=== PATIENT | male | born 1935 | race Caucasian/White ===

== ENCOUNTER 2018-03-04 06:13 | Emergency (ER) | payer OTHER ==
[2018-03-04] MEDS ORDERED: NA CHLORIDE 0.9% 1,000 ML ONE (06:48)
[2018-03-04 07:11] LABS: Absolute Lymphocytes (CBC) 1.1 K/uL (0.7-4.9); Absolute Monocytes 0.5 K/uL (0.1-1.3); Absolute Neutrophil 3.4 K/uL (1.8-8.0); Eosinophils % 5.3 % (0-4.4); Hematocrit 41.9 % (39.6-49.0); Lymphocytes % 20.2 % (15.3-44.8); MCH 29.1 pg (27.0-35.0); MCV 88.6 fL (80-100); MPV 7.5 fL (7.6-11.3); RBC Red Blood Cell Count 4.73 M/uL (4.33-5.43)
[2018-03-04 07:14] LABS: Protime INR 0.99
[2018-03-04] MEDS ORDERED: ACYCLOVIR 400 MG TABLET ONE (07:27)
[2018-03-04] MEDS ORDERED: FENTANYL CITR 100 MCG/2 ML ONE (07:50)
[2018-03-04 08:17] LABS: ALT/SGPT 24 U/L (12-78); AST/SGOT 28 U/L (15-37); Albumin 3.8 g/dL (3.4-5.0); Alkaline Phosphatase 56 U/L (45-117); BUN Blood Urea Nitrogen 25 mg/dL (7-18); Bicarbonate 30 mmol/L (21-32); Bilirubin Direct < 0.1 mg/dL (0-0.2); Bilirubin Total 0.3 mg/dL (0.2-1.0); C-Reactive Protein < 2.90 mg/L (<3.00); Creatine Phosphokinase 196 U/L (39-308); Glucose Level 97 mg/dL (74-106); Lipase 271 U/L (73-393); Potassium 3.7 mmol/L (3.5-5.1); Protein, Total 7.5 g/dL (6.4-8.2); Sodium Level 143 mmol/L (136-145)
[2018-03-04 08:27] LABS: CKMB Creatine Kinase MB 1.4 ng/mL (0.3-3.6)
--- NOTE | 2018-03-04 08:40 | EKG ---
Test Date: 2018-03-04 Test Time: 06:55:57 Manager Requirements: ROSSANA MEASUREMENT RESULTS: Intervals: Rate: 68 IL: 160 QRSD: 94 QT: 392 QTc: 416 [place]: P: 38 IL: 160 QRS: -15 T: 17 INTERPRETIVE STATEMENTS: Normal sinus rhythm Low voltage QRS Abnormal ECG Compared to ECG 11/01/2015 11:48:37 Low QRS voltage now present Electronically Signed On 03-04-18 08:39:36 CDT by Arturo Flores
--- NOTE | 2018-03-04 09:16 | RAD REPORT ---
EXAM DESCRIPTION: CT - Stone Protocol - 03/04/2018 9:03 am CLINICAL HISTORY: Right flank pain radiating to the right lower quadrant COMPARISON: CT July 2017 TECHNIQUE: Axial 5 mm thick images were obtained without oral or IV contrast. The [id number]-[id number] span s the entirety of the system including uppermost abdomen and lung bases. All CT scans are performed using dose optimization technique as appropriate and may include automated exposure control or mA/KV adjustment according to patient size. FINDINGS: No hydronephrosis is present and no obstructing ureteral calculi. No suspicious renal mass es. Isodense masses and pyelonephritis are not excluded on a stone protocol CT scan. Patient has a mi ld, symmetric nonspecific mesenteric stranding pattern matching prior CT. Partially filled urinary bl adder shows no suspicious finding. Prostate gland is prominent but stable. No seminal vesicle abnorma lity. Imaged portions of the liver, spleen and pancreas show no suspicious findings on non-contrast imaging . No gallbladder or biliary tree abnormality identified. Cyst in the anterior liver has not changed. No adrenal significant finding. No suspicious bowel findings. No appendicitis. No measurable diverticulosis. No mass or bulky lymphadenopathy. A few small nonspecific bilateral inguinal lymph nodes are present. Fat extends into the origin of each inguinal canal. No congestion or edema. No bowel involvement. No free air, free fluid or inflammatory stranding. Disc and bony degenerative changes are present. No acute or pathologic bone process. IMPRESSION: No hydronephrosis, obstructing calculus or acute finding. Isodense masses and pyelonephritis are not excluded on stone protocol technique.No clear change to th e system since July 2017. No appendicitis or other abnormality to explain right-sided symptoms.
--- NOTE | 2018-03-04 09:28 | EDPHYS ---
Physician Documentation [facility] Name: Jonathan Segundo Age: 82 yrs Sex: Male : 1935 Arrival Date: 03/04/2018 Time: 06:18 Bed 8 Private MD: Tru Hernandez ED Physician Yvon Acevedo HPI: 03/04 07:02 This 82 yrs old Male presents to ER via Ambulatory with complaints of snw possible kidney infection. 07:02 Onset: The symptoms/episode began/occurred gradually, 4 day(s) ago. Associated signs snw and symptoms: Pertinent positives: cough, right abd pain radiating to right flank. Sees Dr. Hernandez. Pt's Son has shingles now. Pt with "lots of stress" lately. Historical: - Allergies: 06:34 Morphine; tl2 - Home Meds: 06:34 aspirin 81 mg Oral TbEC 1 tab once daily [Active]; Ferrous Sulfate Oral [Active]; tl2 lisinopril 20 mg Oral tab 1 tab once daily [Active]; simvastatin 40 mg Oral tab 1 tab once daily [Active]; - PMHx: 06:34 High Cholesterol; Hypertension; tl2 - PSHx: 06:34 Appendectomy; tl2 - Immunization history:: Adult Immunizations up to date. - Social history:: Smoking status: Patient/guardian denies using tobacco, but has a distant history of tobacco abuse. - Ebola Screening: : No symptoms or risks identified at this time. ROS: 07:01 Eyes: Negative for injury, pain, redness, and discharge, ENT: Negative for injury, snw pain, and discharge, Neck: Negative for injury, pain, and swelling, Cardiovascular: Negative for chest pain, palpitations, and edema. 07:01 : Negative for injury, bleeding, discharge, and swelling, MS/Extremity: Negative for injury and deformity, Neuro: Negative for headache, weakness, numbness, tingling, and seizure. 07:01 Constitutional: Positive for body aches, malaise, poor PO intake. 07:01 Respiratory: Positive for cough. 07:01 Abdomen/GI: Positive for abdominal pain. 07:01 Back: Positive for flank pain, on the right, zoster like rash. 07:01 Skin: Positive for rash. Exam: 06:58 Head/Face: Normocephalic, atraumatic. Eyes: Pupils equal round and reactive to light, snw extra-ocular motions intact. Lids and lashes normal. Conjunctiva and sclera are non-icteric and not injected. Cornea within normal limits. Periorbital areas with no swelling, redness, or edema. ENT: Nares patent. No nasal discharge, no septal abnormalities noted. Tympanic membranes are normal and external auditory canals are clear. Oropharynx with no redness, swelling, or masses, exudates, or evidence of obstruction, uvula midline. Mucous membranes moist. Neck: Trachea midline, no thyromegaly or masses palpated, and no cervical lymphadenopathy. Supple, full range of motion without nuchal rigidity, or vertebral point tenderness. No Meningismus. Chest/axilla: Normal chest wall appearance and motion. Nontender with no deformity. No lesions are appreciated. 06:58 Respiratory: Lungs have equal breath sounds bilaterally, clear to auscultation and percussion. No rales, rhonchi or wheezes noted. No increased work of breathing, no retractions or nasal flaring. MS/ Extremity: Pulses equal, no cyanosis. Neurovascular intact. Full, normal range of motion. Neuro: Awake and alert, GCS 15, oriented to person, place, time, and situation. Cranial nerves II-XII grossly intact. Motor strength 5/5 in all extremities. Sensory grossly intact. Cerebellar exam normal. Normal gait. Psych: Awake, alert, with orientation to person, place and time. Behavior, mood, and affect are within normal limits. 06:58 Constitutional: The patient appears alert, awake, uncomfortable. 06:58 Cardiovascular: Rate: tachycardic, Pulses: no pulse deficits are appreciated, Heart sounds: normal, Edema: is not appreciated. 06:58 Abdomen/GI: Inspection: abdomen appears normal, Bowel sounds: normal, Palpation: soft, moderate abdominal tenderness, in the right upper quadrant. 06:58 Back: pain, that is moderate, that is severe, of the right low back, ROM is normal, normal spinal alignment noted, CVA tenderness, that is mild, zoster rash (noted x 2 days). Vital Signs: 06:35 BP 138 / 64; Pulse 97; Resp 20; Temp 98.1(O); Pulse Ox 98% on R/A; Weight 97.07 kg; tl2 Height 5 ft. 11 in. (180.34 cm); Pain 3/10; 08:09 BP 125 / 67; Pulse 88; Resp 17 S; Pulse Ox 96% on R/A; Pain 3/10; sg 08:38 BP 111 / 58; Pulse 63; Resp 18; Pulse Ox 96% ; sv 09:38 BP 120 / 66; Pulse 61; Resp 15; Pulse Ox 100% on R/A; sg 06:35 Body Mass Index 29.85 (97.07 kg, 180.34 cm) tl2 MDM: 06:28 Patient medically screened. snw 10:29 Data reviewed: vital signs, nurses notes. Data interpreted: Pulse oximetry: on room air snw is 100 %. Interpretation: normal. Counseling: I had a detailed discussion with the patient and/or guardian regarding: the historical points, exam findings, and any diagnostic results supporting the discharge/admit diagnosis, lab results, radiology results, the need for outpatient follow up, to return to the emergency department if symptoms worsen or persist or if there are any questions or concerns that arise at home. Special discussion: Based on the history and exam findings, there is no indication for further emergent testing or inpatient evaluation. I discussed with the patient/guardian the need to see the primary care provider for further evaluation of the symptoms. 03/04 06:31 Order name: Urine Microscopic Only [facility] 03/04 06:31 Order name: Urine Culture [facility] 03/04 06:31 Order name: T\\T\\S [facility] 03/04 06:31 Order name: Basic Metabolic Panel [facility] 03/04 06:31 Order name: Blood Culture Adult (2) [facility] 03/04 06:31 Order name: C-Reactive Protein [facility] 03/04 06:31 Order name: CBC with Diff w 03/04 06:31 Order name: Ckmb [facility] 03/04 06:31 Order name: CPK [facility] 03/04 06:31 Order name: Lactate sn 03/04 06:31 Order name: LFT's [facility] 03/04 06:31 Order name: Lipase; Complete Time: 08:48 snw 03/04 06:31 Order name: Procalcitonin; Complete Time: 07:51 snw 03/04 06:31 Order name: Protime (+inr); Complete Time: 07:21 snw 03/04 06:31 Order name: Ptt, Activated; Complete Time: 07:21 snw 03/04 06:31 Order name: Sed Rate; Complete Time: 07:27 snw 03/04 06:31 Order name: Troponin (emerg Dept Use Only); Complete Time: 07:35 snw 03/04 06:31 Order name: Chest Single View XRAY snw 03/04 06:32 Order name: Type and Screen; Complete Time: 08:58 EDMS 03/04 06:32 Order name: Basic Metabolic Panel; Complete Time: 08:48 EDMS 03/04 06:32 Order name: Blood Culture EDMS 03/04 06:32 Order name: C-Reactive Protein; Complete Time: 08:48 EDMS 03/04 06:32 Order name: CBC with Automated Diff; Complete Time: 07:27 EDMS 03/04 06:32 Order name: CKMB Creatine Kinase MB; Complete Time: 08:48 EDMS 03/04 06:32 Order name: Creatine Phosphokinase; Complete Time: 08:48 EDMS 03/04 06:32 Order name: Lactate; Complete Time: 07:35 EDMS 03/04 06:32 Order name: Liver (Hepatic) Function; Complete Time: 08:48 EDMS 03/04 08:59 Order name: ABO/RH no charge; Complete Time: 08:59 EDMS 03/04 06:31 Order name: Accucheck; Complete Time: 06:56 snw 03/04 06:31 Order name: Cardiac monitoring; Complete Time: 06:56 snw 03/04 06:31 Order name: EKG - Nurse/Tech; Complete Time: 06:56 snw 03/04 06:31 Order name: IV Saline Lock - Large Bore; Complete Time: 06:41 snw 03/04 06:31 Order name: Labs collected and sent; Complete Time: 06:41 snw 03/04 06:31 Order name: O2 Per Protocol; Complete Time: 06:41 snw 03/04 06:31 Order name: O2 Sat Monitoring; Complete Time: 06:42 snw 03/04 08:07 Order name: EKG Electrocardiogram EDMS 03/04 08:49 Order name: CT Stone Protocol; Complete Time: 09:23 snw Administered Medications: 06:52 Drug: NS 0.9% 1000 ml Route: IV; Rate: 75 ml/hr; Site: right antecubital; tl2 07:54 Drug: fentaNYL (PF) 25 mcg Route: IVP; Site: right antecubital; sg 07:54 Drug: Acyclovir 800 mg Route: PO; sg 08:55 Drug: NS 0.9% 500 ml Route: IV; Rate: bolus; Site: right antecubital; sg 09:38 Drug: predniSONE 20 mg Route: PO; sg 09:38 Drug: Pepcid 20 mg Route: PO; sg Disposition: 11:17 Co-signature as Attending Physician, Yvon Acevedo MD I agree with the assessment and pr plan of care. Disposition: 03/04/18 09:27 Discharged to Home. Impression: Zoster [herpes zoster], Other abdominal pain. - Condition is Stable. - Discharge Instructions: Shingles. - Prescriptions for LIDODERM PATCH - apply 1 patch by TOPICAL route as directed To place on intact skin only; 1 Pack. Valtrex 1 g Oral Tablet - take 1 tablet by ORAL route every 8 hours for 7 days; 21 tablet. Prednisone 20 mg Oral Tablet - take 1 tablet by ORAL route every 12 hours for 5 days; 10 tablet. Pepcid 20 mg Oral Tablet - take 1 tablet by ORAL route once daily; 20 tablet. - Medication Reconciliation Form, Thank You Letter, Antibiotic Education, Prescription Opioid Use form. - Follow up: Tru Hernandez DO; When: 2 - 3 days; Reason: Recheck today's complaints, Continuance of care, Re-evaluation by your physician. Follow up: Emergency Department; When: As needed; Reason: Worsening of condition. Signatures: Dispatcher [employer] Abram August RN RN sg Queenie Silverman, SUSTAINABILITY ANALYST-C SUSTAINABILITY ANALYST-Csnw Tamy Pena RN RN tl2 Yvon Acevedo MD MD wa Corrections: (The following items were deleted from the chart) 09:57 09:27 03/04/2018 09:27 Discharged to Home. Impression: Zoster [herpes zoster]; Other sg abdominal pain. Condition is Stable. Forms are Medication Reconciliation Form, Thank You Letter, Antibiotic Education, Prescription Opioid Use. Follow up: Tru Hernandez; When: 2 - 3 days; Reason: Recheck today's complaints, Continuance of care, Re-evaluation by your physician. Follow up: Emergency Department; When: As needed; Reason: Worsening of condition. snw
--- NOTE | 2018-03-04 09:28 | ER ---
Nurse's Notes [facility] Name: Jonathan Segundo Age: 82 yrs Sex: Male : 1935 Arrival Date: 03/04/2018 Time: 06:18 Bed 8 Private MD: Tru Hernandez Diagnosis: Zoster [herpes zoster];Other abdominal pain Presentation: 03/04 06:31 Presenting complaint: Patient states: Right flank pain that radiates to RLQ since tl2 Tuesday. Denies any problems urinating, denies NVD. Denies fever. Transition of care: patient was not received from another setting of care. Onset of symptoms was March 02, 2018. Risk Assessment: Do you want to hurt yourself or someone else? Patient reports no desire to harm self or others. Initial Sepsis Screen: Does the patient meet any 2 criteria? No. Patient's initial sepsis screen is negative. Does the patient have a suspected source of infection? No. Patient's initial sepsis screen is negative. Care prior to arrival: None. 06:31 Method Of Arrival: Ambulatory tl2 06:31 Acuity: ERIN 3 tl2 Triage Assessment: 06:35 General: Appears in no apparent distress. uncomfortable, Behavior is calm, cooperative, tl2 appropriate for age. Pain: Complains of pain in right low back Pain radiates to right lower quadrant Pain currently is 3 out of 10 on a pain scale. Quality of pain is described as sharp, Is continuous. Neuro: Level of Consciousness is awake, alert, obeys commands, Oriented to person, place, time, situation. Cardiovascular: Denies chest pain. Respiratory: Airway is patent Respiratory effort is even, unlabored, Respiratory pattern is regular, symmetrical. GI: Patient currently denies diarrhea, nausea, vomiting. : Denies burning with urination. Derm: Skin is pink, warm \T\ dry. Historical: - Allergies: 06:34 Morphine; tl2 - Home Meds: 06:34 aspirin 81 mg Oral TbEC 1 tab once daily [Active]; Ferrous Sulfate Oral [Active]; tl2 lisinopril 20 mg Oral tab 1 tab once daily [Active]; simvastatin 40 mg Oral tab 1 tab once daily [Active]; - PMHx: 06:34 High Cholesterol; Hypertension; tl2 - PSHx: 06:34 Appendectomy; tl2 - Immunization history:: Adult Immunizations up to date. - Social history:: Smoking status: Patient/guardian denies using tobacco, but has a distant history of tobacco abuse. - Ebola Screening: : No symptoms or risks identified at this time. Screenin:38 Abuse screen: Denies threats or abuse. Nutritional screening: No deficits noted. tl2 Tuberculosis screening: No symptoms or risk factors identified. Fall Risk None identified. Assessment: 06:35 General: see triage assessment. tl2 06:58 Reassessment: Will call pharmacy at 0700 to notify that we are out of Fentanyl. tl2 07:00 Reassessment: Patient appears in no apparent distress at this time. Patient and/or sg family updated on plan of care and expected duration. Pain level reassessed. Patient is alert, oriented x 3, equal unlabored respirations, skin warm/dry/pink. Patient states symptoms have not improved. 08:09 Reassessment: Patient appears in no apparent distress at this time. Patient and/or sg family updated on plan of care and expected duration. Pain level reassessed. Patient is alert, oriented x 3, equal unlabored respirations, skin warm/dry/pink. Patient states symptoms have not improved. Vital Signs: 06:35 BP 138 / 64; Pulse 97; Resp 20; Temp 98.1(O); Pulse Ox 98% on R/A; Weight 97.07 kg; tl2 Height 5 ft. 11 in. (180.34 cm); Pain 3/10; 08:09 BP 125 / 67; Pulse 88; Resp 17 S; Pulse Ox 96% on R/A; Pain 3/10; sg 08:38 BP 111 / 58; Pulse 63; Resp 18; Pulse Ox 96% ; sv 09:38 BP 120 / 66; Pulse 61; Resp 15; Pulse Ox 100% on R/A; sg 06:35 Body Mass Index 29.85 (97.07 kg, 180.34 cm) tl2 ED Course: 06:18 Patient arrived in ED. es 06:18 Tru Hernandez DO is Private Physician. es 06:28 [facility] Silver[facility]C [facility] snw 06:28 Yvon Acevedo MD is Attending Physician. snw 06:30 Inserted saline lock: 20 gauge in right antecubital area, using aseptic technique. bb Blood collected. 06:30 Initial lab(s) drawn, by me, sent to lab. First set of blood cultures drawn by me. bb 06:33 Triage completed. tl2 06:35 Arm band placed on right wrist. tl2 06:38 Patient has correct armband on for positive identification. Placed in gown. Bed in low tl2 position. Call light in reach. Side rails up X 1. Adult w/ patient. 06:41 X-ray completed. Portable x-ray completed in exam room. Patient tolerated procedure jw2 well. 06:42 Chest Single View XRAY In Process Unspecified. EDMS 06:50 Second set of blood cultures drawn by me, EKG done, by ED staff. bb 07:26 Abram Baugh, RN is Primary Nurse. sg 08:[address] via stretcher. cw1 09:03 CT Stone Protocol In Process Unspecified. EDMS 09:03 CT completed. Patient moved back from CT. cw1 09:27 Tru Hernandez DO is Referral Physician. snw 09:50 No provider procedures requiring assistance completed. IV discontinued, intact, sg bleeding controlled, No redness/swelling at site. Pressure dressing applied. Administered Medications: 06:52 Drug: NS 0.9% 1000 ml Route: IV; Rate: 75 ml/hr; Site: right antecubital; tl2 07:54 Drug: fentaNYL (PF) 25 mcg Route: IVP; Site: right antecubital; sg 07:54 Drug: Acyclovir 800 mg Route: PO; sg 08:55 Drug: NS 0.9% 500 ml Route: IV; Rate: bolus; Site: right antecubital; sg 09:38 Drug: predniSONE 20 mg Route: PO; sg 09:38 Drug: Pepcid 20 mg Route: PO; sg Outcome: 09:27 Discharge ordered by MD. snw 09:50 Discharged to home ambulatory, with family. sg 09:50 Condition: good 09:50 Discharge instructions given to patient, family, Instructed on discharge instructions, follow up and referral plans. medication usage, safety practices, Demonstrated understanding of instructions, follow-up care, medications, Prescriptions given X 4. 09:57 Patient left the ED. sg Signatures: Dispatcher [employer] Nyasia Pablo RN RN Abram Baugh RN RN sg Therrien, Shelly, LINING PRESSER-C LINING PRESSER-Csnw Christie Pino Brenda, RN RN Tresa Trevino cw1 Janey Wolff jw2 Tamy Pena RN RN tl2 [place] 3 Corrections: (The following items were deleted from the chart) 03/05 08:29 06 09:38 BP 120 / 66; Pulse 61bpm; Resp 65bpm; Pulse Ox 100% RA; dh3
[2018-03-04] MEDS ORDERED: predniSONE 20 MG TAB ONE (09:37)
[2018-03-04] MEDS ORDERED: FAMOTIDINE 20 MG TAB ONE (09:37)
[2018-03-04 10:01] VITALS: TEMP 98.1
[2018-03-04 10:05] VITALS: BP 120/66; O2SAT 100
--- NOTE | 2018-03-04 10:33 | RAD REPORT ---
EXAM DESCRIPTION: RAD - Chest Single View - 03/04/2018 6:49 am CLINICAL HISTORY: Right-sided chest and abdomen pain COMPARISON: July 2017 TECHNIQUE: AP portable chest image was obtained 0630 hours . FINDINGS: No new mass, infiltrate or failure finding. Chronic interstitial lung disease is present n ot clearly different. Heart and vasculature are normal. No measurable pleural effusion and no pneumot horax. No gross bony abnormality seen. No acute aortic findings suspected. IMPRESSION: No acute cardiopulmonary process. Chronic interstitial pattern is similar to comparison.
== END 2018-03-04 09:57 | disposition home or self-care (01) ==
LOC: ER 06:13
DX: B02.9 Zoster without complications (principal); I10 Essential (primary) hypertension; E78.00 Pure hypercholesterolemia, unspecified; Z79.82 Long term (current) use of aspirin; Z88.5 Allergy status to narcotic agent
CPT/HCPCS: 36415; 71045; 74176; 76377; 80048; 80076; 82550; 82553; 82962; 83605; 83690; 84145; 84484; 85025; 85610; 85652; 85730; 86140; 86850; 86900; 86901; 87040 ×2; 93005; J3010; J7030; 96374; 99284; J7512

== ENCOUNTER 2018-04-27 08:10 | Emergency (ER) | payer OTHER ==
[2018-04-27 08:50] LABS: Absolute Lymphocytes (CBC) 2.6 K/uL (0.7-4.9); Absolute Monocytes 0.7 K/uL (0.1-1.3); Absolute Neutrophil 4.1 K/uL (1.8-8.0); Basophils % 0.7 % (0-1.3); Eosinophils % 4.1 % (0-4.4); Hematocrit 39.1 % (39.6-49.0); Lymphocytes % 33.6 % (15.3-44.8); MCH 30.7 pg (27.0-35.0); MPV 7.1 fL (7.6-11.3); Monocytes % 8.6 % (3.3-12.3); RBC Red Blood Cell Count 4.39 M/uL (4.33-5.43)
--- NOTE | 2018-04-27 09:07 | RAD REPORT ---
EXAM DESCRIPTION: US - EXTREM VENOUS W COMPRESS NANCY - 04/27/2018 9:01 am CLINICAL HISTORY: SWELLING Bilateral leg edema and swelling. COMPARISON: No comparisons TECHNIQUE: Real-time sonographic interrogation of the left and right lower extremity deep venous sys tems was performed. FINDINGS: Normal compressibility, flow augmentation, phasic flow and spontaneous flow is identified in both the left and right lower extremity deep venous systems. IMPRESSION: No sonographic evidence of left or right lower extremity deep venous thrombosis.
[2018-04-27 09:11] LABS: Albumin 3.8 g/dL (3.4-5.0); Bilirubin Direct 0.2 mg/dL (0-0.2); Bilirubin Total 0.5 mg/dL (0.2-1.0); Potassium 3.7 mmol/L (3.5-5.1); Protein, Total 7.3 g/dL (6.4-8.2)
[2018-04-27 09:16] LABS: Urine Blood NEGATIVE (NEG); Urine Glucose NEGATIVE (NEG); Urine Protein 1+ (NEG); Urine pH 5.5 (5.0-7.0)
[2018-04-27] MEDS ORDERED: ACETAMINOPHEN 325 MG TABLET ONE (09:17)
[2018-04-27] MEDS ORDERED: CYCLOBENZAPRINE 10 MG TAB ONE (09:17)
[2018-04-27 09:59] LABS: Urine Bacteria NONE SEEN /HPF (NONE SEEN); Urine Culture Reflex Order NOT NEEDED; Urine Mucus LIGHT /HPF (NONE SEEN); Urine RBC <5 /HPF (NONE SEEN)
--- NOTE | 2018-04-27 10:43 | EDPHYS ---
Physician Documentation [facility] Name: Jonathan Segundo Age: 82 yrs Sex: Male : 1935 Arrival Date: 04/27/2018 Time: 08:13 Bed 14 Private MD: Tru Hernandez ED Physician Yvon Acevedo HPI: 04/27 08:32 This 82 yrs old Male presents to ER via Ambulatory with complaints of Kidney kav problem, Pain With Urination. 08:32 The patient presents with burning with urination. Modifying factors: The symptoms are kav alleviated by nothing, the symptoms are aggravated by urinating. The patient presents with pain that is acute, with no known mechanism of injury, PMHX: Chronic Back Pain, DDD. The symptoms are located in the low back, L5. Onset: The symptoms/episode began/occurred 5 year(s) ago. The pain does not radiate. The patient has not recently seen a physician. 09:28 Associated signs and symptoms: Pertinent positives: BLE swelling. The problem was kav sustained New Medication. Modifying factors: The patient symptoms are alleviated by nothing, the patient symptoms are aggravated by "...being on feet all day long". Severity of symptoms: At their worst the symptoms were mild, just prior to arrival. patient reports "...recently initiated on Amlodipine and Levothyroxine".. 09:44 PMHX: DDD, Chronic Lumbar Pain . kav Historical: - Allergies: 08:22 Morphine; tw2 - Home Meds: 08:22 simvastatin 40 mg Oral tab 1 tab once daily [Active]; lisinopril 20 mg Oral tab 1 tab tw2 once daily [Active]; Ferrous Sulfate Oral [Active]; aspirin 81 mg Oral TbEC 1 tab once daily [Active]; - PMHx: 08:22 Hypertension; High Cholesterol; tw2 - PSHx: 08:22 Appendectomy; Knee surgery; Back surgery; skin cancer removed from scalp; tw2 - Immunization history:: Adult Immunizations up to date. - Social history:: Smoking status: Patient/guardian denies using tobacco. - Ebola Screening: : Patient denies travel to an Ebola-affected area in the 21 days before illness onset. - Family history:: not pertinent. - Hospitalizations: : No recent hospitalization is reported. - History obtained from: . ROS: 08:36 Constitutional: Negative for fever, chills, and weight loss, Eyes: Negative for injury, kav pain, redness, and discharge, ENT: Negative for injury, pain, and discharge, Neck: Negative for injury, pain, and swelling, Cardiovascular: Negative for chest pain, palpitations, and edema, Respiratory: Negative for shortness of breath, cough, wheezing, and pleuritic chest pain, Abdomen/GI: Negative for abdominal pain, nausea, vomiting, diarrhea, and constipation, MS/Extremity: Negative for injury and deformity, Skin: Negative for injury, rash, and discoloration, Neuro: Negative for headache, weakness, numbness, tingling, and seizure, Psych: Negative for depression, anxiety, suicide ideation, homicidal ideation, and hallucinations, Allergy/Immunology: Negative for hives, rash, and allergies, Endocrine: Negative for neck swelling, polydipsia, polyuria, polyphagia, and marked weight changes, Hematologic/Lymphatic: Negative for swollen nodes, abnormal bleeding, and unusual bruising. 08:36 Back: Positive for pain with movement, of the . 08:36 : Positive for urinary symptoms, burning with urination. Exam: 08:36 Constitutional: This is a well developed, well nourished patient who is awake, alert, kav and in no acute distress. Head/Face: Normocephalic, atraumatic. Eyes: Pupils equal round and reactive to light, extra-ocular motions intact. Lids and lashes normal. Conjunctiva and sclera are non-icteric and not injected. Cornea within normal limits. Periorbital areas with no swelling, redness, or edema. ENT: Nares patent. No nasal discharge, no septal abnormalities noted. Tympanic membranes are normal and external auditory canals are clear. Oropharynx with no redness, swelling, or masses, exudates, or evidence of obstruction, uvula midline. Mucous membranes moist. Neck: Trachea midline, no thyromegaly or masses palpated, and no cervical lymphadenopathy. Supple, full range of motion without nuchal rigidity, or vertebral point tenderness. No Meningismus. Chest/axilla: Normal chest wall appearance and motion. Nontender with no deformity. No lesions are appreciated. Cardiovascular: Regular rate and rhythm with a normal S1 and S2. No gallops, murmurs, or rubs. Normal PMI, no JVD. No pulse deficits. Skin: Warm, dry with normal turgor. Normal color with no rashes, no lesions, and no evidence of cellulitis. MS/ Extremity: Pulses equal, no cyanosis. Neurovascular intact. Full, normal range of motion. Neuro: Awake and alert, GCS 15, oriented to person, place, time, and situation. Cranial nerves II-XII grossly intact. Motor strength 5/5 in all extremities. Sensory grossly intact. Cerebellar exam normal. Normal gait. Psych: Awake, alert, with orientation to person, place and time. Behavior, mood, and affect are within normal limits. 08:36 Respiratory: Lungs have equal breath sounds bilaterally, clear to auscultation and percussion. No rales, rhonchi or wheezes noted. No increased work of breathing, no retractions or nasal flaring. 08:36 Cardiovascular: Edema: 2+ edema to level of left foot, left toes, right foot and right toes. 08:36 Abdomen/GI: Inspection: obese Bowel sounds: normal, Palpation: abdomen is soft and non-tender. 08:36 Back: pain, that is moderate, of the L5, with movement, ROM is normal, normal spinal alignment noted, CVA tenderness, is absent, vertebral tenderness, is appreciated at , muscle spasm, is not present, Straight leg raises: of both lower extremities does not illicit pain. Vital Signs: 08:20 BP 148 / 75; Pulse 79; Resp 17; Temp 97.7(O); Pulse Ox 99% on R/A; tw2 08:59 BP 135 / 68; Pulse 67; Resp 17; Pulse Ox 95% on R/A; tw2 09:48 BP 133 / 70; Pulse 63; Resp 17; Pulse Ox 95% on R/A; tw2 10:42 BP 129 / 57; Pulse 60; Resp 17; Pulse Ox 97% on R/A; tw2 MDM: 08:14 Medical screening is not applicable. [facility] 10:41 Data reviewed: vital signs, nurses notes, lab test result(s), radiologic studies. [facility] 04/27 08:32 Order name: Amylase, Serum; Complete Time: 09:27 [facility] 04/27 08:32 Order name: Basic Metabolic Panel; Complete Time: 09:27 [facility] 04/27 08:32 Order name: CBC with Diff; Complete Time: 09:11 [facility] 04/27 08:32 Order name: Creatinine for Radiology; Complete Time: 09:11 kav 04/27 08:32 Order name: Hepatic Function; Complete Time: 09:27 kav 04/27 08:32 Order name: Lipase; Complete Time: 09:27 kav 04/27 08:32 Order name: Urine Microscopic Only; Complete Time: 10:26 kav 04/27 08:32 Order name: IV Saline Lock; Complete Time: 08:48 v 04/27 08:32 Order name: Labs collected and sent; Complete Time: 08:48 v 04/27 08:32 Order name: US Extremity Venous W Compression Lcive; Complete Time: 09:11 v 04/27 08:49 Order name: Urine Dipstick--Ancillary (enter results); Complete Time: 09:27 mb4 04/27 09:14 Order name: Hip Left 1 View XRAY 04/27 08:32 Order name: Urine Dipstick-Ancillary (obtain specimen); Complete Time: 08:48 kav Administered Medications: 09:23 Drug: Tylenol 650 mg Route: PO; tw2 10:52 Follow up: Response: No adverse reaction tw2 09:23 Not Given (pt is driving today, provider notified.): Cyclobenzaprine 10 mg PO once tw2 Disposition: 04/27/18 10:42 Discharged to Home. Impression: Low back pain, Pain in left hip. - Condition is Stable. - Discharge Instructions: Joint Pain, Arthritis, Back Exercises, [id number]. - Prescriptions for Cyclobenzaprine 10 mg Oral Tablet - take 1 tablet by ORAL route every 8 hours As needed; 30 tablet. - Medication Reconciliation Form, Thank You Letter, Antibiotic Education, Prescription Opioid Use form. - Follow up: Tru Hernandez; When: 5 - 6 days; Reason: Recheck today's complaints, Continuance of care, Re-evaluation by your physician. - Problem is new. - Symptoms have improved. Addendum: 04/29/2018 08:03 Co-signature as Attending Physician, Yvon Acevedo MD I agree with the assessment and w a plan of care. Signatures: [facility]patcher [facility] ED[facility], [employer] Bianca Smith RN RN tw2 Yvon Acevedo MD MD ma Corrections: (The following items were deleted from the chart) 04/27 08:36 08:15 This 82 yrs old Male presents to ER via Unassigned with complaints of kav Back Pain. kav 08:36 08:32 The patient presents with pain that is chronic, with no known mechanism of kav injury, kav 10:53 10:42 04/27/2018 10:42 Discharged to Home. Impression: Low back pain; Pain in left hip. tw2 Condition is Stable. Discharge Instructions: Back Exercises, [id number]. Forms are Medication Reconciliation Form, Thank You Letter, Antibiotic Education, Prescription Opioid Use. Follow up: Tru Hernandez; When: 5 - 6 days; Reason: Recheck today's complaints, Continuance of care, Re-evaluation by your physician. Problem is new. Symptoms have improved. kav
--- NOTE | 2018-04-27 10:43 | ER ---
Nurse's Notes [facility] Name: Jonathan Segundo Age: 82 yrs Sex: Male : 1935 Arrival Date: 04/27/2018 Time: 08:13 Bed 14 Private MD: Tru Hernandez Diagnosis: Low back pain;Pain in left hip Presentation: 04/27 08:18 Presenting complaint: Patient states: I am having a kidney problem, first thing in the tw2 morning it powers when i urinate and theres mucous coming out, i have b/l LE swelling, my stomach hurts. Transition of care: patient was not received from another setting of care. Onset of symptoms was April 27, 2018. Risk Assessment: Do you want to hurt yourself or someone else? Patient reports no desire to harm self or others. Initial Sepsis Screen: Does the patient meet any 2 criteria? No. Patient's initial sepsis screen is negative. Does the patient have a suspected source of infection? No. Patient's initial sepsis screen is negative. Care prior to arrival: None. 08:18 Method Of Arrival: Ambulatory tw2 08:18 Acuity: ERIN 3 tw2 Historical: - Allergies: 08:22 Morphine; tw2 - Home Meds: 08:22 simvastatin 40 mg Oral tab 1 tab once daily [Active]; lisinopril 20 mg Oral tab 1 tab tw2 once daily [Active]; Ferrous Sulfate Oral [Active]; aspirin 81 mg Oral TbEC 1 tab once daily [Active]; - PMHx: 08:22 Hypertension; High Cholesterol; tw2 - PSHx: 08:22 Appendectomy; Knee surgery; Back surgery; skin cancer removed from scalp; tw2 - Immunization history:: Adult Immunizations up to date. - Social history:: Smoking status: Patient/guardian denies using tobacco. - Ebola Screening: : Patient denies travel to an Ebola-affected area in the 21 days before illness onset. - Family history:: not pertinent. - Hospitalizations: : No recent hospitalization is reported. - History obtained from: . Screenin:24 Abuse screen: Denies threats or abuse. Nutritional screening: No deficits noted. tw2 Tuberculosis screening: No symptoms or risk factors identified. Fall Risk None identified. Assessment: 08:45 General: Appears in no apparent distress. well groomed, Behavior is calm, cooperative, tw2 appropriate for age. Pain: Complains of pain in "back, kidneys, stomach, legs". Neuro: Level of Consciousness is awake, alert, obeys commands, Oriented to person, place, time, situation. Cardiovascular: Edema is 2+ to left midcalf, left ankle, left foot, right midcalf, right ankle and right foot. Cardiovascular: Denies chest pain, shortness of breath, Heart tones S1 S2 Capillary refill < 3 seconds Patient's skin is warm and dry. GI: Abdomen is round Bowel sounds present X 4 quads. : Reports burning with urination, with first urination of the day. EENT: No signs and/or symptoms were reported regarding the EENT system. Derm: Skin is intact, is healthy with good turgor. 08:45 Respiratory: Airway is patent Respiratory effort is even, unlabored, Respiratory tw2 pattern is regular, symmetrical. 08:48 Reassessment: US at bedside at this time. tw2 09:01 Reassessment: Patient appears in no apparent distress at this time. No changes from tw2 previously documented assessment. Patient and/or family updated on plan of care and expected duration. Pain level reassessed. Patient is alert, oriented x 3, equal unlabored respirations, skin warm/dry/pink. 09:48 Reassessment: Patient appears in no apparent distress at this time. No changes from tw2 previously documented assessment. Patient and/or family updated on plan of care and expected duration. Pain level reassessed. Patient is alert, oriented x 3, equal unlabored respirations, skin warm/dry/pink. 10:43 Reassessment: Patient appears in no apparent distress at this time. No changes from tw2 previously documented assessment. Patient and/or family updated on plan of care and expected duration. Pain level reassessed. Patient is alert, oriented x 3, equal unlabored respirations, skin warm/dry/pink. Vital Signs: 08:20 BP 148 / 75; Pulse 79; Resp 17; Temp 97.7(O); Pulse Ox 99% on R/A; tw2 08:59 BP 135 / 68; Pulse 67; Resp 17; Pulse Ox 95% on R/A; tw2 09:48 BP 133 / 70; Pulse 63; Resp 17; Pulse Ox 95% on R/A; tw2 10:42 BP 129 / 57; Pulse 60; Resp 17; Pulse Ox 97% on R/A; tw2 ED Course: 08:13 Patient arrived in ED. mr 08:13 Tru Hernandez DO is Private Physician. mr 08:14 [facility] Angel F[facility] kav 08:14 Yvon Acevedo MD is Attending Physician. kav 08:17 Bianca Recinos, ANITA is Primary Nurse. tw2 08:19 Triage completed. tw2 08:20 Arm band placed on. tw2 08:24 Bed in low position. Call light in reach. quality assurance monitor chassis on. Pulse ox on. NIBP on. tw2 08:45 Inserted saline lock: 22 gauge in left antecubital area, using aseptic technique. Blood tw2 collected. 09:00 US Extremity Venous W Compression Clive In Process Unspecified. EDMS 09:00 Ultrasound completed. Patient tolerated well. aa4 10:19 X-ray completed. Portable x-ray completed in exam room. Patient tolerated procedure sw well. 10:22 Hip Left 1 View XRAY In Process Unspecified. EDMS 10:42 Tru Hernandez DO is Referral Physician. kav 10:52 No provider procedures requiring assistance completed. IV discontinued, intact, tw2 bleeding controlled, No redness/swelling at site. Pressure dressing applied. Administered Medications: 09:23 Drug: Tylenol 650 mg Route: PO; tw2 10:52 Follow up: Response: No adverse reaction tw2 09:23 Not Given (pt is driving today, provider notified.): Cyclobenzaprine 10 mg PO once tw2 Outcome: 10:42 Discharge ordered by . kav 10:52 Discharged to home ambulatory, with significant other. tw2 10:52 Condition: stable 10:52 Discharge instructions given to patient, family, Instructed on discharge instructions, follow up and referral plans. no drinking with medication, no driving heavy equipment, medication usage, Demonstrated understanding of instructions, follow-up care, medications, Prescriptions given X 1. 10:53 Patient left the ED. tw2 Signatures: Dispatcher [employer] EDPR Mya Angel FNP FNP kav Rivera, Maria mr Guthrie Janelle aa4 Sarai Le Tara, RN RN tw2 Corrections: (The following items were deleted from the chart) 08:47 08:45 Cardiovascular: Denies chest pain, shortness of breath, Heart tones S1 S2 tw2 Capillary refill < 3 seconds Patient's skin is warm and dry. tw2
[2018-04-27 10:59] VITALS: TEMP 97.7
[2018-04-27 11:02] VITALS: BP 129/57; O2SAT 97
--- NOTE | 2018-04-27 11:08 | RAD REPORT ---
EXAM DESCRIPTION: RAD - Hip Left 1 View - 04/27/2018 10:21 am CLINICAL HISTORY: Hip pain COMPARISON: CT abdomen and pelvis March 04, 2018 FINDINGS: Single AP view of the pelvis was requested and performed. No fracture or dislocation of the proximal femur. No AVN or focal femoral head abnormality. Medial daniel int space narrowing is present. There is minimal degenerative change along the superior margin of the acetabulum. Partially imaged SI joint shows no significant degenerative change. No pathologic bone p rocess of the left gladis pelvis or proximal left femur. Soft tissues lateral to the hip joint are mildly edematous. No air or foreign body. IMPRESSION: Minimal degenerative change with no acute or significant left hip joint finding.
== END 2018-04-27 10:53 | disposition home or self-care (01) ==
LOC: ER 08:10
DX: M25.552 Pain in left hip (principal); I10 Essential (primary) hypertension; E78.00 Pure hypercholesterolemia, unspecified; Z79.82 Long term (current) use of aspirin; Z88.5 Allergy status to narcotic agent
CPT/HCPCS: 36415; 80048; 80076; 81003; 81015; 82150; 83690; 85025; 93970; 99284

== ENCOUNTER 2018-05-18 09:37 | Emergency (ER) | payer OTHER ==
[2018-05-18 11:28] LABS: Absolute Lymphocytes (CBC) 1.7 K/uL (0.7-4.9); Absolute Monocytes 0.5 K/uL (0.1-1.3); Absolute Neutrophil 3.4 K/uL (1.8-8.0); Basophils % 0.9 % (0-1.3); Eosinophils % 4.7 % (0-4.4); Hematocrit 37.1 % (39.6-49.0); Lymphocytes % 28.2 % (15.3-44.8); MCH 30.5 pg (27.0-35.0); MCV 88.5 fL (80-100); MPV 7.8 fL (7.6-11.3); Monocytes % 8.8 % (3.3-12.3); RBC Red Blood Cell Count 4.19 M/uL (4.33-5.43)
[2018-05-18 11:54] LABS: Albumin 3.5 g/dL (3.4-5.0); Bilirubin Direct 0.2 mg/dL (0-0.2); Bilirubin Total 0.4 mg/dL (0.2-1.0); Potassium 3.8 mmol/L (3.5-5.1); Protein, Total 6.9 g/dL (6.4-8.2)
[2018-05-18 11:59] LABS: Urine Blood NEGATIVE (NEG); Urine Glucose NEGATIVE (NEG); Urine Protein NEGATIVE (NEG); Urine Specific Gravity 1.015 (1.005-1.030); Urine pH 7.5 (5.0-7.0)
[2018-05-18 12:12] LABS: Urine Amorphous Sediment 2+ /HPF (NONE SEEN); Urine Bacteria NONE SEEN /HPF (NONE SEEN); Urine RBC NONE SEEN /HPF (NONE SEEN)
[2018-05-18 12:13] LABS: Urine Culture Reflex Order NOT NEEDED
--- NOTE | 2018-05-18 12:31 | RAD REPORT ---
EXAM DESCRIPTION: US - Abdomen Exam Limited - 05/18/2018 12:13 pm CLINICAL HISTORY: EPIGASTRIC PAIN COMPARISON: RP EXAM COMPLETE dated 12/27/2013 FINDINGS: The gallbladder demonstrates no gallstones. No pericholecystic fluid or gallbladder wall t hickening. The common bile duct is normal measuring 2 mm. The liver demonstrates no findings of intrahepatic biliary dilatation. IMPRESSION: Unremarkable examination.
--- NOTE | 2018-05-18 13:33 | RAD REPORT ---
EXAM DESCRIPTION: CTAbdomen Pelvis W Contrast - 05/18/2018 1:02 pm CLINICAL HISTORY: Abdominal pain. EPIGASTRIC PAIN COMPARISON: Abdomen Pelvis W Contrast dated 07/25/2017; Stone Protocol dated 03/04/2018 TECHNIQUE: Biphasic CT imaging of the abdomen and pelvis was performed with 100 ml non-ionic IV cont rast. All CT scans are performed using dose optimization technique as appropriate and may include automated exposure control or mA/KV adjustment according to patient size. FINDINGS: The lung bases are clear. Mild fatty liver is seen. Several low-density liver lesions are present, likely benign cysts. No aggr essive liver mass or biliary dilatation. The spleen, pancreas, adrenal glands and kidneys are within normal limits. No bowel obstruction, free air, free fluid or abscess. Appendectomy suspected. No evidence of signi ficant lymphadenopathy. Prostatomegaly is present. No suspicious bony findings. IMPRESSION: No acute intra-abdominal or pelvic finding. Moderate prostatomegaly.
--- NOTE | 2018-05-18 13:59 | EDPHYS ---
Physician Documentation [facility] Name: Jonathan Segundo Age: 83 yrs Sex: Male : 1935 Arrival Date: 05/18/2018 Time: 09:41 Bed 18 Private MD: Tru Hernandez ED Physician Jaime Ventura HPI: 05/18 10:20 This 83 yrs old Male presents to ER via Ambulatory with complaints of Urinary cp Problem. 10:20 The patient presents with abdominal pain in the epigastric area, abdominal distention cp that is diffuse. 10:20 Onset: The symptoms/episode began/occurred last week. Associated signs and symptoms: cp Pertinent positives: shortness of breath, mid back pain, Pertinent negatives: blood in stools, chest pain, constipation, diarrhea, dysuria, fever, palpitations, testicular pain. The symptoms are described as "I feel bloated". Modifying factors: the symptoms are aggravated by movement. Historical: - Allergies: 10:09 Morphine; causes "shaking"; ph - PMHx: 10:09 High Cholesterol; Hypertension; Hypothyroidism; neuropathy; ph - PSHx: 10:09 Appendectomy; Knee surgery; Back surgery; skin cancer removed from scalp; ph - Immunization history:: Adult Immunizations unknown. - Social history:: Smoking status: Patient/guardian denies using tobacco, Patient/guardian denies using alcohol. - Ebola Screening: : No symptoms or risks identified at this time. ROS: 10:25 Constitutional: Negative for body aches, chills, fever, poor PO intake, weight loss. cp 10:25 Eyes: Positive for blurry vision, Negative for discharge, pain, redness, vision loss. cp 10:25 ENT: Negative for drainage from ear(s), ear pain, sore throat, difficulty swallowing, difficulty handling secretions. 10:25 Cardiovascular: Positive for edema, Negative for chest pain, palpitations. 10:25 Respiratory: Positive for shortness of breath, Negative for cough, wheezing. 10:25 Abdomen/GI: Positive for abdominal pain, Negative for vomiting, diarrhea, constipation, anorexia, black/tarry stool, rectal bleeding. 10:25 Back: Positive for pain at rest, pain with movement. 10:25 : Negative for hematuria, testicular pain 10:25 Skin: Negative for cellulitis, rash. 10:25 Neuro: Negative for altered mental status, headache, numbness, syncope, near syncope, weakness. 10:25 All other systems are negative. Exam: 10:30 Constitutional: The patient appears in no acute distress, alert, awake, cp non-diaphoretic, non-toxic, well developed, well nourished. 10:30 Head/Face: Normocephalic, atraumatic. cp 10:30 Eyes: Periorbital structures: appear normal, Pupils: equal, round, and reactive to light and accomodation, Extraocular movements: intact throughout, Conjunctiva: normal, no exudate, no injection, Sclera: no appreciated abnormality, Lids and lashes: appear normal, bilaterally. 10:30 ENT: External ear(s): are unremarkable, Ear canal(s): are normal, clear, TM's: bulging, is not appreciated, bilaterally, dullness, bilaterally, erythema, is not appreciated, bilaterally, Nose: is normal, Mouth: is normal, Posterior pharynx: is normal, airway is patent, no erythema, no exudate, Voice: is normal. 10:30 Neck: ROM/movement: is normal, is supple, without pain, no range of motions limitations, no nuchal rigidity, Lymph nodes: no appreciated lymphadenopathy. 10:30 Chest/axilla: Inspection: normal, Palpation: is normal, no crepitus, no tenderness. 10:30 Cardiovascular: Rate: normal, Rhythm: regular, Pulses: Pulses are 2+ in right radial artery and left radial artery. Edema: mild bilateral lower legs, JVD: is not appreciated. 10:30 Respiratory: the patient does not display signs of respiratory distress, Respirations: normal, no use of accessory muscles, no retractions, no splinting, no tachypnea, labored breathing, is not present, Breath sounds: are clear throughout, no decreased breath sounds, no stridor, no wheezing. 10:30 Abdomen/GI: Inspection: distension, that is mild, Bowel sounds: active, all quadrants, Palpation: abdomen is soft and non-tender, in all quadrants, rebound tenderness, is not appreciated, voluntary guarding, is not appreciated, involuntary guarding, is not appreciated. 10:30 Back: CVA tenderness, is absent, vertebral tenderness, is not appreciated. 10:30 Skin: cellulitis, is not appreciated, no rash present. 10:30 Neuro: Orientation: to person, place \\T\\ time. Mentation: lucid, able to follow commands, Cerebellar function: is grossly normal, Motor: moves all fours, strength is normal, Sensation: no obvious gross deficits. Vital Signs: 10:07 BP 163 / 74; Pulse 65; Resp 18; Temp 98.2; Pulse Ox 98% on R/A; Weight 102.06 kg; ph Height 5 ft. 11 in. (180.34 cm); 11:56 BP 170 / 76; Pulse 72; Resp 18; Pulse Ox 97% on R/A; aj1 13:22 BP 168 / 75; Pulse 56; Resp 22; Pulse Ox 97% on R/A; aj1 14:24 BP 166 / 72; Pulse 61; Resp 18; Pulse Ox 97% ; aj1 10:07 Body Mass Index 31.38 (102.06 kg, 180.34 cm) ph MDM: 09:56 Patient medically screened. cp 10:00 Differential diagnosis: cholecystitis, Cholelithiasis, gastritis, non-specific abd cp pain, pancreatitis, Prostatitis, Pyelonephritis, Ureterolithiasis, urinary tract infection. 13:57 Data reviewed: vital signs, nurses notes, lab test result(s), radiologic studies, CT cp scan, ultrasound. 13:57 Counseling: I had a detailed discussion with the patient and/or guardian regarding: the cp historical points, exam findings, and any diagnostic results supporting the discharge/admit diagnosis, lab results, radiology results, the need for outpatient follow up, a abstracter, to return to the emergency department if symptoms worsen or persist or if there are any questions or concerns that arise at home. Response to treatment: the patient's symptoms have mildly improved after treatment, and as a result, I will discharge patient. Special discussion: Based on the patient's Hx, exam, and Dx evaluation, there is no indication for emergent surgery or inpatient Tx. It is understood by the patient/guardian that if the Sx's persist or worsen they need to return immediately for re-evaluation. 05/18 10:17 Order name: Amylase, Serum; Complete Time: 12:28 cp 05/18 10:17 Order name: Basic Metabolic Panel; Complete Time: 12:28 cp 05/18 12:29 Interpretation: Normal except: CL 108; GFR 53; CA 8.4. cp 05/18 10:17 Order name: CBC with Diff; Complete Time: 11:36 05/18 11:36 Interpretation: Normal except: RBC 4.19; HGB 12.8; HCT 37.1; EOSINOPHIL % 4.7. 05/18 10:17 Order name: Creatinine for Radiology; Complete Time: 11:36 05/18 10:17 Order name: Hepatic Function; Complete Time: 12:28 05/18 10:17 Order name: Lipase; Complete Time: 12:28 05/18 10:17 Order name: Urine Microscopic Only; Complete Time: 12:28 05/18 10:17 Order name: IV Saline Lock; Complete Time: 11:21 05/18 10:17 Order name: Labs collected and sent; Complete Time: 11:21 05/18 10:17 Order name: EKG; Complete Time: 10:18 05/18 10:17 Order name: BNP; Complete Time: 12:28 05/18 11:19 Order name: US Abdomen Limited: RUQ/epigastric; Complete Time: 12:32 05/18 12:33 Interpretation: Report reviewed. 05/18 11:24 Order name: Urine Dipstick--Ancillary (enter results) [facility] 05/18 12:32 Order name: CT Abd/Pelvis - W/Contrast: no oral contrast; Complete Time: 13:34 05/18 10:17 Order name: Urine Dipstick-Ancillary (obtain specimen); Complete Time: 11:21 Administered Medications: No medications were administered Disposition: 15:00 Chart complete. Disposition: 05/18/18 13:58 Discharged to Home. Impression: Epigastric pain. - Condition is Stable. - Discharge Instructions: Gastroesophageal Reflux Disease, Adult, Upper Endoscopy. - Prescriptions for Protonix 40 mg Oral Tablet - take 1 tablet by ORAL route once daily; 30 tablet. - Medication Reconciliation Form, Thank You Letter, Antibiotic Education, Prescription Opioid Use form. - Follow up: Yvon Malcolm MD; When: 2 - 3 days; Reason: Recheck today's complaints. - Problem is new. - Symptoms have improved. Addendum: 05/23/2018 07:03 Co-signature as Attending Physician, Jaime Ventura MD. r n Signatures: Dispatcher [facility] Lawanda Gillis RN RN aj1 Jaime Ventura MD MD rn Hall, Patricia, RN RN ph Jumana, Robert, PA PA cp Corrections: (The following items were deleted from the chart) 05/18 12:29 12:28 Normal except: CL 108; GFR 53. cp cp 14:26 13:58 05/18/2018 13:58 Discharged to Home. Impression: Epigastric pain. Condition is aj1 Stable. Forms are Medication Reconciliation Form, Thank You Letter, Antibiotic Education, Prescription Opioid Use. Follow up: Yvon Malcolm; When: 2 - 3 days; Reason: Recheck today's complaints. Problem is new. Symptoms have improved. cp
--- NOTE | 2018-05-18 13:59 | ER ---
Nurse's Notes [facility] Name: Jonathan Segundo Age: 83 yrs Sex: Male : 1935 Arrival Date: 05/18/2018 Time: 09:41 Bed 18 Private MD: Tru Hernandez Diagnosis: Epigastric pain Presentation: 05/18 10:04 Presenting complaint: Patient states: C/O abdominal swelling, epigastric discomfort, ph dajuan feet and ankle swelling and low back pain, reports symptoms began in February, denies chest pain, states, " I'm feeling a little SOB from the swelling in my stomach." Also reports dajuan eyelid swelling and blurred vision that is worse during the day, reports hx of cataracts. Transition of care: patient was not received from another setting of care. Onset of symptoms was May 18, 2018. Risk Assessment: Do you want to hurt yourself or someone else? Patient reports no desire to harm self or others. Initial Sepsis Screen: Does the patient meet any 2 criteria? No. Patient's initial sepsis screen is negative. Does the patient have a suspected source of infection? No. Patient's initial sepsis screen is negative. Care prior to arrival: None. 10:04 Method Of Arrival: Ambulatory ph 10:04 Acuity: ERIN 3 ph Historical: - Allergies: 10:09 Morphine; causes "shaking"; ph - PMHx: 10:09 High Cholesterol; Hypertension; Hypothyroidism; neuropathy; ph - PSHx: 10:09 Appendectomy; Knee surgery; Back surgery; skin cancer removed from scalp; ph - Immunization history:: Adult Immunizations unknown. - Social history:: Smoking status: Patient/guardian denies using tobacco, Patient/guardian denies using alcohol. - Ebola Screening: : No symptoms or risks identified at this time. Screenin:45 Abuse screen: Denies threats or abuse. Denies injuries from another. Nutritional aj1 screening: No deficits noted. Tuberculosis screening: No symptoms or risk factors identified. 14:25 Fall Risk None identified. aj1 Assessment: 10:45 General: Appears in no apparent distress. uncomfortable, Behavior is calm, cooperative, aj1 appropriate for age. Pain: Complains of pain in back and epigastric area Pain does not radiate. Pain currently is 8 out of 10 on a pain scale. Neuro: Level of Consciousness is awake, alert, obeys commands, Oriented to person, place, time, situation, Moves all extremities. Full function Speech is normal, Facial symmetry appears normal, Reports blurred vision. Cardiovascular: Swelling noted to bilateral lower legs. Cardiovascular: Patient's skin is warm and dry. Respiratory: Airway is patent Respiratory effort is even, unlabored, Respiratory pattern is regular, symmetrical. GI: Abdomen is round Reports upper abdominal pain, bloating. : No signs and/or symptoms were reported regarding the genitourinary system. EENT: No signs and/or symptoms were reported regarding the EENT system. Derm: No signs and/or symptoms reported regarding the dermatologic system. Skin is pink, warm \\T\\ dry. normal. Musculoskeletal: No signs and/or symptoms reported regarding the musculoskeletal system. Circulation, motion, and sensation intact. 11:56 Reassessment: Patient appears in no apparent distress at this time. No changes from aj1 previously documented assessment. Patient and/or family updated on plan of care and expected duration. Pain level reassessed. Patient is alert, oriented x 3, equal unlabored respirations, skin warm/dry/pink. 13:22 Reassessment: Patient and/or family updated on plan of care and expected duration. Pain aj1 level reassessed. General: Appears in no apparent distress. uncomfortable, Behavior is calm, cooperative, appropriate for age. Neuro: Level of Consciousness is awake, alert, obeys commands. Cardiovascular: Patient's skin is warm and dry. Respiratory: Airway is patent Respiratory effort is even, unlabored, Respiratory pattern is regular, symmetrical. GI: Abdomen is round. Derm: Skin is pink, warm \\T\\ dry. normal. Musculoskeletal: Circulation, motion, and sensation intact. 13:55 Reassessment: WILLIAM Dias at bedside. aj1 14:24 Reassessment: Patient appears in no apparent distress at this time. No changes from aj1 previously documented assessment. Patient and/or family updated on plan of care and expected duration. Pain level reassessed. Patient is alert, oriented x 3, equal unlabored respirations, skin warm/dry/pink. Vital Signs: 10:07 BP 163 / 74; Pulse 65; Resp 18; Temp 98.2; Pulse Ox 98% on R/A; Weight 102.06 kg; ph Height 5 ft. 11 in. (180.34 cm); 11:56 BP 170 / 76; Pulse 72; Resp 18; Pulse Ox 97% on R/A; aj1 13:22 BP 168 / 75; Pulse 56; Resp 22; Pulse Ox 97% on R/A; aj1 14:24 BP 166 / 72; Pulse 61; Resp 18; Pulse Ox 97% ; aj1 10:07 Body Mass Index 31.38 (102.06 kg, 180.34 cm) ph ED Course: 09:41 Patient arrived in ED. sb2 09:41 Tru Hernandez DO is Private Physician. sb2 09:56 Robert Denney PA is PHCP. cp 09:56 Jaime Ventura MD is Attending Physician. cp 10:06 Triage completed. ph 10:09 Arm band placed on Patient placed in an exam room. ph 10:22 Lawanda Gillis, ANITA is Primary Nurse. aj1 10:45 Patient has correct armband on for positive identification. Bed in low position. Call aj1 light in reach. Side rails up X 1. 10:45 No provider procedures requiring assistance completed. aj1 10:56 Initial lab(s) drawn, by tn, sent to lab. dh3 10:56 Inserted saline lock: 20 gauge in right antecubital area, using aseptic technique. dh3 Blood collected. 11:20 Urine collected: clean catch specimen, clear. dh3 11:28 EKG done, by health care technician. reviewed by Robert THOMAS. at1 12:14 US Abdomen Limited: RUQ/epigastric In Process Unspecified. EDMS 13:00 CT completed. Patient tolerated procedure well. Patient moved to CT via stretcher. Patient moved back from CT. 13:03 CT Abd/Pelvis - W/Contrast: no oral contrast In Process Unspecified. EDMS 13:57 Yvon Malcolm MD is Referral Physician. cp 14:25 IV discontinued, intact, bleeding controlled, No redness/swelling at site. Pressure aj1 dressing applied. Administered Medications: No medications were administered Outcome: 13:58 Discharge ordered by . cp 14:25 Discharged to home ambulatory. aj1 14:25 Condition: good 14:25 Discharge instructions given to patient, Instructed on discharge instructions, follow up and referral plans. medication usage, Demonstrated understanding of instructions, follow-up care, medications, Prescriptions given X 1. 14:26 Patient left the ED. aj1 Signatures: Dispatcher [employer] EDLawanda Damon RN RN aj1 Radha Baker Amanda, furnace cooler EKG Tat1 Allyssa De Leon RN RN ph Robert Denney PA PA cp Herrera, Deanna [facility] Cassandra Blunt sb2 Corrections: (The following items were deleted from the chart) 11:02 11:00 Inserted saline lock: 20 gauge in right antecubital area, using aseptic [facility] technique. Blood collected. [facility] 11:49 General: Appears in no apparent distress. uncomfortable, Behavior is calm, aj1 cooperative, appropriate for age, [facility] 11:49 Pain: Complains of pain in back and epigastric area Pain does not radiate. Pain aj1 currently is 8 out of 10 on a pain scale. [facility] 11:49 Neuro: Level of Consciousness is awake, alert, obeys commands, Oriented to aj1 person, place, time, situation, Moves all extremities. Full function Speech is normal, Facial symmetry appears normal, Reports blurred vision aj1 11:49 Cardiovascular: Patient's skin is warm and dry. aj1 aj1 : 11:49 Respiratory: Airway is patent Respiratory effort is even, unlabored, Respiratory aj1 pattern is regular, symmetrical, aj1 11:49 GI: Abdomen is round Reports upper abdominal pain, bloating, aj1 1 11:49 : No signs and/or symptoms were reported regarding the genitourinary system. aj1aj1 : 11:49 EENT: No signs and/or symptoms were reported regarding the EENT system. aj1 aj1 11:49 Derm: No signs and/or symptoms reported regarding the dermatologic system. Skin aj1 is pink, warm \\T\\ dry. normal, aj1 11:49 Musculoskeletal: No signs and/or symptoms reported regarding the musculoskeletal aj1 system. Circulation, motion, and sensation intact. aj1 11:49 Cardiovascular: Swelling noted to bilateral lower legs. aj1 aj1
[2018-05-18 14:53] VITALS: TEMP 98.2
[2018-05-18 14:55] VITALS: O2SAT 97
[2018-05-18 14:57] VITALS: BP 166/72
--- NOTE | 2018-05-18 15:09 | EKG ---
Test Date: 2018-05-18 Test Time: 11:09:59 Marketing Production Coordinator: MATIAS MEASUREMENT RESULTS: Intervals: Rate: 52 IN: 178 QRSD: 82 QT: 436 QTc: 405 Athena: P: 68 IN: 178 QRS: 51 T: 36 INTERPRETIVE STATEMENTS: Sinus bradycardia Otherwise normal ECG Compared to ECG 03/04/2018 06:55:57 Sinus rhythm no longer present Electronically Signed On 05-18-18 15:08:38 CDT by Mark Faye
== END 2018-05-18 14:26 | disposition home or self-care (01) ==
LOC: ER 09:37
DX: R10.13 Epigastric pain (principal); I10 Essential (primary) hypertension; Z88.5 Allergy status to narcotic agent; Z85.828 Personal history of other malignant neoplasm of skin
CPT/HCPCS: 36415; 74177; 76705; 80048; 80076; 82150; 83690; 83880; 85025; 93005; 99284; Q9967; 81003; 81015

== ENCOUNTER 2018-09-06 07:06 | Observation (INO) | payer OTHER ==
--- OUTSIDE RECORDS SUMMARY | 2018-09-06 07:08 | XMS REPORT ---
:1935 [facility] Address [address] [place] [address] [address] [place] [address] Care Team Providers Name Role Phone Unavailable Unavailable Unavailable Problems This patient has no known problems. Allergies, Adverse Reactions, Alerts This patient has no known allergies or adverse reactions. Medications This patient has no known medications.
--- NOTE | 2018-09-06 07:56 | EKG ---
Test Date: 2018-09-06 Test Time: 07:46:12 Machine Taper: MATIAS MEASUREMENT RESULTS: Intervals: Rate: 89 [place]: QRSD: 84 QT: 366 QTc: 445 [place]: P: [place]: QRS: 0 T: 27 INTERPRETIVE STATEMENTS: Atrial fibrillation Abnormal ECG Compared to ECG 05/18/2018 11:09:59 Sinus bradycardia no longer present Electronically Signed On 09-06-18 07:55:16 CLIENT TECHNICAL PROFESSIONAL by Arturo Flores
[2018-09-06 08:01] LABS: Protime INR 1.03
[2018-09-06 08:09] LABS: Absolute Lymphocytes (CBC) 1.7 K/uL (0.7-4.9); Absolute Monocytes 0.5 K/uL (0.1-1.3); Absolute Neutrophil 4.2 K/uL (1.8-8.0); Basophils % 0.7 % (0-1.3); Eosinophils % 3.3 % (0-4.4); Hematocrit 40.5 % (39.6-49.0); Lymphocytes % 25.1 % (15.3-44.8); MPV 8.1 fL (7.6-11.3); Monocytes % 7.6 % (3.3-12.3); RBC Red Blood Cell Count 4.66 M/uL (4.33-5.43)
[2018-09-06 08:21] LABS: Albumin 3.9 g/dL (3.4-5.0); Bilirubin Direct 0.1 mg/dL (0-0.2); Bilirubin Total 0.5 mg/dL (0.2-1.0); Magnesium 2.3 mg/dL (1.8-2.4); Potassium 3.8 mmol/L (3.5-5.1); Protein, Total 7.4 g/dL (6.4-8.2); Thyroid Stimulating Hormone 2.85 uIU/mL (0.360-3.740); Troponin (Emerg Dept Use Only) 0.03 ng/mL (0.0-0.045)
--- NOTE | 2018-09-06 08:56 | RAD REPORT ---
EXAM DESCRIPTION: RAD - Chest Single View - 09/06/2018 7:47 am CLINICAL HISTORY: Dyspnea COMPARISON: None. TECHNIQUE: AP portable chest image was obtained 0743 hours . FINDINGS: Chronic interstitial lung disease is present most notable in each base. Pattern is similar to comparison with no superimposed failure, infiltrate or mass seen. Heart and vasculature are armando l. No measurable pleural effusion and no pneumothorax. No acute bony abnormality seen. No acute aorti c findings suspected. IMPRESSION: Chronic interstitial lung disease similar to comparison. No acute finding.
[2018-09-06] MEDS ORDERED: ENOXAPARIN 100 MG/ML SYR SQ ONE (09:55)
--- NOTE | 2018-09-06 11:08 | RAD REPORT ---
EXAM DESCRIPTION: CT - Stone Protocol - 09/06/2018 11:01 am CLINICAL HISTORY: Flank pain. ABD PAIN COMPARISON: Abdomen Pelvis W Contrast dated 05/18/2018 TECHNIQUE: Axial images were obtained without oral or IV contrast. Lack of contrast limits solid org an and vascular assessment. The [id number] spans the entirety of the system partially obscuring uppermost abdomen and lung bases. Coronal reformatted images were obtained and reviewed. All CT scans are performed using dose optimization technique as appropriate and may include automated exposure control or mA/KV adjustment according to patient size. FINDINGS: Emphysematous changes are present in both lung bases posteriorly. Imaged portions of the liver and spleen show no suspicious findings on non-contrast imaging.Several b enign liver cysts are present. The pancreas and adrenal glands are normal. No pathologic lymphadenopa thy in the abdomen or pelvis. No urinary tract stones or obstructive uropathy. No bowel obstruction, free air, free fluid or abscess. Appendectomy. Mild prostatomegaly. Small fat containing inguinal hernias bilaterally. IMPRESSION: No urinary tract stones or obstructive uropathy.
--- NOTE | 2018-09-06 11:24 | RAD REPORT ---
EXAM DESCRIPTION: US - Abdomen Exam Limited - 09/06/2018 11:03 am CLINICAL HISTORY: Abdominal pain COMPARISON: CT study September 06 FINDINGS: No gallstones, sludge or other abnormalities within the gallbladder lumen. There is no wal l thickening or pericholecystic fluid. No common duct stone or biliary tree dilatation identified. Along the superior margin of the gallbladder fossa there is a 3.6 centimeter thin-walled anechoic cys t. This matches the CT finding. IMPRESSION: Normal gallbladder and biliary tree ultrasound.
[2018-09-06 13:30] LABS: Urine Blood NEGATIVE (NEG); Urine Glucose NEGATIVE (NEG); Urine Protein TRACE (NEG); Urine Specific Gravity 1.015 (1.005-1.030)
[2018-09-06] MEDS ORDERED: ACETAMINOPHEN 500 MG TAB PO PRN (13:40)
[2018-09-06] MEDS ORDERED: ONDANSETRON 4 MG/2 ML VIAL IV PRN (13:40)
[2018-09-06 14:10] VITALS: BMI 31.5
--- NOTE | 2018-09-06 15:31 | ECHO ---
HEIGHT: 5 ft 11 in WEIGHT: 226 lb 0 oz DATE OF STUDY: 09/06/[address]: Carine Herron MD 2-DIMENSIONAL: YES M.MODE: YES DOPPLER: YES COLOR FLOW: YES TDS: YES PORTABLE: DEFINITY: BUBBLE STUDY: DIAGNOSIS: SHORTNESS OF BREATH CARDIAC HISTORY: CATHERIZATION: NO SURGERY: NO PROSTHETIC VALVE: NO PACEMAKER: NO MEASUREMENTS (cm) DIASTOLIC (NORMALS) SYSTOLIC (NORMALS) IVSd 1.3 (0.6-1.2) LA Diam 3.7 (1.9-4.0) LVEF 51% LVIDd 4.2 (3.5-5.7) LVIDs 3.1 (2.0-3.5) %FS 26% LVPWd 1.5 (0.6-1.2) Ao Diam 3.6 (2.0-3.7) 2 DIMENSIONAL ASSESSMENT: RIGHT ATRIUM: NORMAL LEFT ATRIUM: NORMAL RIGHT VENTRICLE: NORMAL LEFT VENTRICLE: LEFT VENTRICULAR HYPERTROPHY TRICUSPID VALVE: NORMAL MITRAL VALVE: NORMAL PULMONIC VALVE: NORMAL AORTIC VALVE: SCLEROSIS PERICARDIAL EFFUSION: NONE AORTIC ROOT: NORMAL LEFT VENTRICULAR WALL MOTION: NORMAL DOPPLER/COLOR FLOW: MILD MITRAL REGURGITATION AND TRICUSPID REGURGITATION. NORMAL RIGHT VENTRICULAR SYSTOLIC PRESSURE. COMMENTS: NORMAL LEFT VENTRICULAR EJECTION FRACTION. LEFT VENTRICULAR HYPERTROPHY. AORTIC SCLEROSIS WITH NO AORTIC STENOSIS OR AORTIC REGURGITATION. MILD MITRAL REGURGITATION AND TRICUSPID REGURGITATION. TECHNOLOGIST: ANURAG GARNICA
[2018-09-06] MEDS ORDERED: SIMETHICONE 80 MG TAB PO PRN (18:01)
--- NOTE | 2018-09-06 18:09 | P.HP ---
Certification for Inpatient Patient admitted to: Observation With expected LOS: <2 Midnights Practitioner: I am a practitioner with admitting privileges, knowledge of patient current condition, hospital course, and medical plan of care. Services: Services provided to patient in accordance with Admission requirements found in Title 42 Section 412.3 of the Code of Federal Regulations Patient History Date of Service: 09/06/18 Primary Care Provider: Dr. Lee Reason for admission: Shortness of breath History of Present Illness: This is an 82-year-old male with history of hypertension, hyperlipidemia, neuropathy admitted for shortness of breath abdominal bloating. Patient said that 6 months ago he started shingles, was treated for a and since then he has had this abdominal bloating and shortness of breath that has been progressively worsening. Patient states that 6 months ago, his gabapentin was increased and thinks these symptoms may be coming from there. He states that the abdominal bloating stops him from bending over for too long likely tying issues very difficult because he gets short of breath. He did have an upper GI done on the with Dr. smith, was diagnosed with hiatal hernia, polyps and gastritis. In the ED, patient was alert oriented x3, hemodynamically stable. He was satting well on room air. Allergies morphine Allergy (Verified 09/06/18 13:44) Unknown Home Medications: Aspirin 81 mg PO DAILY 11/01/15 Simvastatin 40 mg PO DAILY 11/01/15 Carvedilol [Coreg*] 1 tab PO BID 09/06/18 Fluticasone [Flonase 50MCG Nasal [place]*] 2 spray .ROUTE DAILY 09/06/18 Gabapentin 600 mg PO DAILY 09/06/18 Levothyroxine [Synthroid*] 1 tab PO DAILY 09/06/18 Omeprazole [Prilosec] 40 mg PO DAILY 09/06/18 Ranitidine [Zantac*] 1 tab PO BEDTIME 09/06/18 - Past Medical/Surgical History Has patient received pneumonia vaccine in the past: Yes Diabetic: No -: htn -: hyperlipidemia -: hypothyroid -: neuropathy -: back surg -: lap appy -: R knee repair -: TURP -: skin CA removed from anterior head - Family History Brother -: Heart disease, Hypertension, Cancer - Social History Smoking Status: Former smoker Alcohol use: No CD- Drugs: No Caffeine use: Yes Place of Residence: Home Review of Systems 10-point ROS is otherwise unremarkable Physical Examination - Vital Signs Temperature: 97.6 F Blood Pressure: 194/90 Pulse: 84 Respirations: 18 Pulse Ox (%): 97 - Physical Exam General: Alert, In no apparent distress, Oriented x3 HEENT: Atraumatic, PERRLA, Mucous membr. moist/pink, EOMI, Sclerae nonicteric Neck: Supple, 2+ carotid pulse no bruit, No LAD, Without JVD or thyroid abnormality Respiratory: Clear to auscultation bilaterally, Normal air movement Cardiovascular: Regular rate/rhythm, Normal S1 S2 Gastrointestinal: Normal bowel sounds, Tenderness, Rebound, Guarding Musculoskeletal: No tenderness Integumentary: No rashes Neurological: Normal gait, Normal speech, Normal strength at 5/5 x4 extr, Normal tone, Normal affect - Studies Laboratory Data (last 24 hrs) 09/06/18 07:40: PT 12.1, INR 1.03 09/06/18 07:40: WBC 6.7, Hgb 13.6, Hct 40.5, Plt Count 196 09/06/18 07:40: Sodium 141, Potassium 3.8, BUN 21 H, Creatinine 1.33 H, Glucose 103, Magnesium 2.3, Total Bilirubin 0.5, AST 18, ALT 19, Alkaline Phosphatase 67 Assessment and Plan - Plan This is an 82-year-old male with: Shortness of breath. Only happens when bending over, when abdomen gets pressed. Clinically improved. Oxygen per protocol as needed Echo ordered, pending Will observe overnight Abdominal bloating Patient with a recent upper GI series done, found to have hiatal hernia polyps and gastritis. Patient also takes naproxen for arthritis. Counseled on discontinuing naproxen CT abdomen without any acute abnormalities Right upper quadrant ultrasound without any acute abnormalities Chronic kidney disease, stage 3 Patient with creatinine 1.31, seems to be at baseline. Will continue to monitor. Avoid nephrotoxic drugs, including NSAIDs. Hypertension Stable, restart home medications Hyperlipidemia Restart home medication Thyroid disease Restart home medication Neuropathy Patient currently on gabapentin, this increased 6 months ago by primary care. Per patient, seems to have symptoms increasing we worse after the dosage increase.. Care plans at this time, a trial off of it for 1 week. Patient will follow up with his primary care physician regarding restarting and dosage adjustment. DVT prophylaxis: Lovenox GI prophylaxis: Protonix Diet: Heart healthy Disposition: Pending symptomatic improvement. Likely discharge home tomorrow morning Discharge Plan: Home Plan to discharge in: 24 Hours - Advance Directives Does patient have a Living Will: No Does patient have a Durable POA for Healthcare: No
[2018-09-06] MEDS ORDERED: POTASSIUM CL SA 10 MEQ TAB PO ONE (19:56)
[2018-09-06] MEDS ORDERED: ATORVASTATIN 20 MG TAB PO SCH (21:00)
[2018-09-06] MEDS ORDERED: RANITIDINE 150 MG TABLET PO SCH (21:00)
[2018-09-06] MEDS: CARVEDILOL 6.25 MG TAB PO SCH (21:16)
[2018-09-07 04:05] VITALS: O2SAT 96
[2018-09-07 05:57] LABS: Absolute Lymphocytes (CBC) 2.4 K/uL (0.7-4.9); Absolute Monocytes 0.6 K/uL (0.1-1.3); Absolute Neutrophil 4.4 K/uL (1.8-8.0); Basophils % 0.8 % (0-1.3); Eosinophils % 2.6 % (0-4.4); Hematocrit 40.4 % (39.6-49.0); Lymphocytes % 30.7 % (15.3-44.8); MPV 7.9 fL (7.6-11.3); RBC Red Blood Cell Count 4.65 M/uL (4.33-5.43)
[2018-09-07] MEDS ORDERED: LEVOTHYROXINE SOD 0.05 MG TABLET PO SCH (06:00)
[2018-09-07 06:13] LABS: Albumin 3.4 g/dL (3.4-5.0); Bilirubin Total 0.5 mg/dL (0.2-1.0); Phosphorus 3.2 mg/dL (2.5-4.9); Potassium 3.6 mmol/L (3.5-5.1); Protein, Total 6.8 g/dL (6.4-8.2)
[2018-09-07] MEDS ORDERED: POTASSIUM CL SA 10 MEQ TAB PO ONE (06:47)
[2018-09-07] MEDS ORDERED: PANTOPRAZOLE 40MG TABLET PO SCH (07:30)
[2018-09-07] MEDS ORDERED: HOME MED 1 EA UNK (Omeprazole [Prilosec] 40 MG) PO SCH (09:00)
[2018-09-07] MEDS ORDERED: ENOXAPARIN 40 MG/0.4 ML SQ SCH (09:00)
[2018-09-07] MEDS ORDERED: ASPIRIN 81 MG CHEWABLE TABLET PO SCH (09:00)
[2018-09-07] MEDS ORDERED: HOME MED 1 EA UNK (Gabapentin [Gabapentin] 600 MG) PO SCH (09:00)
[2018-09-07] MEDS ORDERED: GABAPENTIN 300 MG CAP PO SCH (09:00)
[2018-09-07] MEDS ORDERED: HOME MED 1 EA UNK (Simvastatin [Simvastatin] 40 MG) PO SCH (09:00)
[2018-09-07] MEDS: CARVEDILOL 6.25 MG TAB PO SCH (09:54)
[2018-09-07 13:11] VITALS: BP 148/87; TEMP 97.7
--- NOTE | 2018-09-07 18:35 | P.SSS ---
Patient History Date of Service: 09/07/18 Primary Care Provider: Dr. Lee Reason for admission: Shortness of breath History of Present Illness: This is an 82-year-old male with history of hypertension, hyperlipidemia, neuropathy admitted for shortness of breath abdominal bloating. Patient said that 6 months ago he started shingles, was treated for a and since then he has had this abdominal bloating and shortness of breath that has been progressively worsening. Patient states that 6 months ago, his gabapentin was increased and thinks these symptoms may be coming from there. He states that the abdominal bloating stops him from bending over for too long likely tying issues very difficult because he gets short of breath. He did have an upper GI done on the with Dr. smith, was diagnosed with hiatal hernia, polyps and gastritis. In the ED, patient was alert oriented x3, hemodynamically stable. He was satting well on room air. Allergies morphine Allergy (Verified 09/06/18 13:44) Unknown Home Medications: Aspirin 81 mg PO DAILY 11/01/15 Simvastatin 40 mg PO DAILY 11/01/15 Carvedilol [Coreg*] 1 tab PO BID 09/06/18 Fluticasone [Flonase 50MCG Nasal [place]*] 2 spray .ROUTE DAILY 09/06/18 Gabapentin 600 mg PO DAILY 09/06/18 Levothyroxine [Synthroid*] 1 tab PO DAILY 09/06/18 Omeprazole [Prilosec] 40 mg PO DAILY 09/06/18 Ranitidine [Zantac*] 1 tab PO BEDTIME 09/06/18 - Past Medical/Surgical History Has patient received pneumonia vaccine in the past: Yes Diabetic: No -: htn -: hyperlipidemia -: hypothyroid -: neuropathy -: back surg -: lap appy -: R knee repair -: TURP -: skin CA removed from anterior head - Family History Brother -: Heart disease, Hypertension, Cancer - Social History Smoking Status: Former smoker Alcohol use: No CD- Drugs: No Caffeine use: Yes Place of Residence: Home Review of Systems 10-point ROS is otherwise unremarkable Physical Examination - Vital Signs Temperature: 97.7 F Blood Pressure: 148/87 Pulse: 92 Respirations: 20 Pulse Ox (%): 97 - Physical Exam General: Alert, In no apparent distress, Oriented x3 HEENT: Atraumatic, PERRLA, Mucous membr. moist/pink, EOMI, Sclerae nonicteric Neck: Supple, 2+ carotid pulse no bruit, No LAD, Without JVD or thyroid abnormality Respiratory: Clear to auscultation bilaterally, Normal air movement Cardiovascular: Regular rate/rhythm, Normal S1 S2 Gastrointestinal: Normal bowel sounds, No tenderness Musculoskeletal: No tenderness Integumentary: No rashes Neurological: Normal gait, Normal speech, Normal strength at 5/5 x4 extr, Normal tone, Normal affect Lymphatics: No axilla or inguinal lymphadenopathy Treatment Summary: Patient was admitted for abdominal bloating. Abdominal imaging was normal, echocardiogram was normal, patient's labs all remained normal. He also remained hemodynamically stable throughout the stay. Patient with a recent EGD with Dr. smith. Discussed case with Dr. malcolm on the telephone. Per Dr. smith , agrees that these symptoms do not to be GI in nature but as patient had an appointment at 3:00 p.m. today, he will see him in the office. Discussed patient that all labs, imaging look normal. Patient with a normal physical exam, normal situation on room air, no evidence of tachycardia or tachypnea on exam. Patient is to follow up his primary care physician for any further evaluation. - Disposition Disposition: ROUTINE DISCHARGE Condition: GOOD Patient Discharge Instructions: Please follow up with Dr. Malcolm, call his office and schedule an appointment for this afternoon. Dr. Malcolm is aware. Please follow up with your primary care physician. Diet: Regular Activity: Ad leroy Physician Review: Patient Assessed, Agree with Above Assessment and Plan Time Spent Managing Pts Care (In Minutes): 55
== END 2018-09-07 14:25 | disposition home or self-care (01) ==
LOC: ER 07:06 → ERHOLD 11:54 → 2ND 13:15
PROVIDERS: ADMIT Family Medicine; ATTEND Family Medicine
DX: R14.0 Abdominal distension (gaseous) (principal); I10 Essential (primary) hypertension; E78.5 Hyperlipidemia, unspecified; E03.9 Hypothyroidism, unspecified; Z79.82 Long term (current) use of aspirin
CPT/HCPCS: 36415; 71045; 74176; 76377; 76705; 80048; 80053; 80076; 81003; 83735; 83880; 84100; 84443; 84484; 85025 ×2; 85610; 87040 ×2; 93005; 93306; 94760 ×2; 96372; 99285; G0378 ×2; J1650 ×2

== ENCOUNTER → 2019-11-05 | Day surgery (SDC) | payer OTHER ==
--- OUTSIDE RECORDS SUMMARY | 2019-11-05 09:10 | XMS REPORT ---
:1935 [facility] Address [address] [place] [address] Care Team Providers Name Role Phone Unavailable Unavailable Unavailable Payers Payer Name Policy Type Policy Number Effective Date Expiration Date Problems This patient has no known problems. Allergies, Adverse Reactions, Alerts Allergy Allergy Status Severity Reaction(s) Onset Inactive Treating Comments Name Type Date Date Clinician morphine DA Active U 2019-04 00:00:0 0 Medications This patient has no known medications. Results Test Description Test Time Test Comments Text Results Atomic Results Result Comments BASIC METABOLIC PANEL 2019-04-14 08:43:00 Test Item Value Reference Range Comments SODIUM (test code=NA) 140 MMOL/L 137-145 POTASSIUM (test code=K) 3.6 MMOL/L 3.5-5.1 CHLORIDE (test code=CL) 106 MMOL/L 98-107 CARBON DIOXIDE (test code=CO2) 25 MMOL/L 22-30 GLUCOSE (test code=GLU) 111 MG/DL 74-106 BLOOD UREA NITROGEN (test 25 MG/DL 9-20 code=BUN) GLOMERULAR FILTRATION RATE (test 45 Reporting units: ml/min/1.73 m2 code=GFR) (Modified MDRD Formula)Reference Range: > or=60 ml/min/1.73 m2 CREATININE (test code=CREAT) 1.50 MG/DL 0.66-1.25 CALCIUM (test code=CA) 9.1 MG/DL 8.4-10.2 LIPID PROFILE (CORONARY RISK)2019-04-14 08:43:00 Test Item Value Reference Range Comments TRIGLYCERIDES (test code=TRIG) 105 MG/DL TRIGLYCERIDES REFERENCE RANGE:Normal: <150 mg/dLBorderline High: 150-199 mg/dLHigh: 200-499 mg/dLVery High: >=500 mg/dL CHOLESTEROL (test code=CHOL) 159 MG/DL <200 HDL CHOLESTEROL (test 42 MG/DL 40-59 code=HDL) LIPOPROTEIN LDL (test 99 MG/DL 0-99 code=LDL) OPTIMAL.........<100 mg/dLNEAR OPTIMAL/ABOVE OPTIMAL.........100-129 mg/dL BORDERLINE HIGH.........130-159 mg/dL HIGH.........160-189 mg/dL VERY HIGH.........>/=190 mg/dL [id number] 08:43:00 Test Item Value Reference Range Comments MAGNESIUM (test code=MAG) 2.1 MG/DL 1.6-2.3 BASIC METABOLIC [id number] 08:32:00 Test Item Value Reference Range Comments SODIUM (test code=NA) 140 MMOL/L 137-145 POTASSIUM (test code=K) 3.6 MMOL/L 3.5-5.1 CHLORIDE (test code=CL) 106 MMOL/L 98-107 CARBON DIOXIDE (test code=CO2) 25 MMOL/L 22-30 GLUCOSE (test code=GLU) 111 MG/DL 74-106 BLOOD UREA NITROGEN (test 25 MG/DL 9-20 code=BUN) GLOMERULAR FILTRATION RATE 45 Reporting units: ml/min/1.73 (test code=GFR) m2 (Modified MDRD Formula)Reference Range: > or=60 ml/min/1.73 m2 CREATININE (test code=CREAT) 1.50 MG/DL 0.66-1.25 CALCIUM (test code=CA) 9.1 MG/DL 8.4-10.2 LIPID PROFILE (CORONARY RISK)2019-04-14 08:32:00 Test Item Value Reference Range Comments TRIGLYCERIDES (test code=TRIG) 105 MG/DL TRIGLYCERIDES REFERENCE RANGE:Normal: <150 mg/dLBorderline High: 150-199 mg/dLHigh: 200-499 mg/dLVery High: >=500 mg/dL CHOLESTEROL (test code=CHOL) 159 MG/DL <200 HDL CHOLESTEROL (test 42 MG/DL 40-59 code=HDL) LIPOPROTEIN LDL (test MG/DL 0-99 code=LDL) [id number] 08:32:00 Test Item Value Reference Range Comments MAGNESIUM (test code=MAG) 2.1 MG/DL 1.6-2.3 PROTHROMBIN [id number] 08:30:00 Test Item Value Reference Range Comments PROTHROMBIN TIME PATIENT (test 11.9 SECONDS 9.6-11.6 code=PTP) INTERNATIONAL NORMAL RATIO 1.1 0.8-1.1 The INR is to be used only (test code=INR) for monitoring oral anticoagulanttherapy. INDICATION INR VALUE 1. Prophylaxis, deep venous thrombosis, including high risk surgery. 2.0 - 3.0 2. Prophylaxis, deep venous thrombosis, hip surgery, treatment for deep venous thrombosis or pulmonary prevention of systemic embolism in patients with valvular heart disease, atrial fibrillation, tissue heart valve, or acute myocardial infarction. 2.0 - 3.0 3. Mechanical prosthesis heart valves, recurrent systemic embolism. 3.0 - 4.5 PTT [id number] 08:30:00 Test Item Value Reference Range Comments PTT ACTIVATED (test code=APTT) 32.5 SECONDS 22.0-33.0 CBC W/AUTO [id number] 08:14:00 Test Item Value Reference Range Comments WHITE BLOOD CELL (test code=WBC) 7.0 K/MM3 3.8-9.8 RED BLOOD CELL (test code=RBC) 4.20 M/MM3 3.95-5.67 HEMOGLOBIN (test code=HGB) 13.0 G/DL 12.4-16.7 HEMATOCRIT (test code=HCT) 39.0 % 35.9-49.5 MEAN CELL VOLUME (test code=MCV) 93 fL 81.7-96.1 MEAN CELL HGB (test code=MCH) 31.0 pg 27.6-33.2 MEAN CELL HGB CONCETRATION (test code=MCHC) 33.3 % 32.9-35.5 RED CELL DISTRIBUTION WIDTH (test code=RDW) 12.7 % 12.1-15.2 PLATELET COUNT (test code=PLT) 191 K/MM3 129-368 MEAN PLATELET VOLUME (test code=MPV) 9.0 fl 7.4-10.4 NEUTROPHIL % (test code=NT%) 65.5 % 43-75 IMMATURE GRANULOCYTE % (test code=IG%) 0.6 % 0.0-2.0 LYMPHOCYTE % (test code=LY%) 24.2 % 14-44 MONOCYTE % (test code=MO%) 7.2 % 4-13 EOSINOPHIL % (test code=EO%) 1.9 % 0-6 BASOPHIL % (test code=BA%) 0.6 % 0-2 NUCLEATED RBC % (test code=NRBC%) 0.0 % 0-1.0 NEUTROPHIL # (test code=NT#) 4.59 K/mm3 2.0-7.6 IMMATURE GRANULOCYTE # (test code=IG#) 0.04 x10 3/uL 0-0.03 LYMPHOCYTE # (test code=LY#) 1.69 K/mm3 1.0-3.8 MONOCYTE # (test code=MO#) 0.50 K/mm3 0.1-0.8 EOSINOPHIL # (test code=EO#) 0.13 K/mm3 0.0-0.2 BASOPHIL # (test code=BA#) 0.04 K/mm3 0.0-0.2 NUCLEATED RBC # (test code=NRBC#) 0.00 K/mm3 0.0-0.1
--- NOTE | 2019-11-05 11:16 | RAD REPORT ---
EXAM DESCRIPTION: US - Guided FNA Non Breast - 11/05/2019 10:38 am CLINICAL HISTORY: R22.1 COMPARISON: Octreo Whole Body dated 10/02/2018; Stone Protocol dated 09/06/2018; Chest Pa And Lat (2 Vi ews) dated 08/10/2018; Thorax W/ Con dated 08/03/2018; Renal Ultrasound-Complete dated 06/01/2018 FINDINGS: Preoperative diagnosis: Right lateral neck mass.. Post operative diagnosis: Same. Conscious Sedation: None Fluoroscopy time: None Contrast used: None Estimated blood loss: Minimal Specimens:5 cc of fluid were obtained and to the lab. The right neck was prepped and draped in the usual sterile fashion. 1% lidocaine was infiltrated into the subcutaneous tissues for local anesthesia. Real time ultrasound scanning of the right neck demon strated circumscribed 2.4 x 2.1 x 1.6 cm cystic appearing lesion with internal debris. Under ultrasou nd guidance, using a 18-gauge needle was advanced into the lesion. Fluid was aspirated which was of a yellow/pinkish color and have the appearance of pus-like material. The fluid measure approximately 4-5 cc and sent to pathology for evaluation. The entire lesion was not seen the collapse completely. There were no complications. IMPRESSION: Successful ultrasound-guided aspiration of right neck cystic lesion. 5 cc of thick pus-l gricelda yellowish/pinkish fluid was obtained and sent to the lab. The entire lesion was not seen the silvio apsed completely.
== END ==
LOC: FNA 09:08
PROVIDERS: ATTEND Otolaryngology
PROC: 0W963ZX Drainage of Neck, Percutaneous Approach, Diagnostic (ICD-10-PCS; principal; 2019-11-05)
DX: R22.1 Localized swelling, mass and lump, neck (principal)
CPT/HCPCS: 88161

== ENCOUNTER 2021-07-24 16:24 | Emergency (ER) | payer OTHER ==
--- OUTSIDE RECORDS SUMMARY | 2021-07-24 16:28 | XMS REPORT | Continuity of Care Document ---
:1935 Author Organization [facility] t Address [address] [place] [place] [address] Care Team Providers Name Role Phone Chris Hernandez Primary Care Physician SYED Attending Clinician Unavailable Zechariah Heranndez Attending Clinician [phone] Amadeo Pearl Attending Clinician [phone] CHIQUITA Attending Clinician Unavailable MD GENO PORRAS Attending Clinician Unavailable Chhaya HOLM Attending Clinician Unknown Attending Clinician Unavailable Pal MANTILLA Attending Clinician SYED Admitting Clinician Unavailable CHIQUITA Admitting Clinician Unavailable MD GENO PORRAS Admitting Clinician Unavailable Payers Payer Name Policy Type Policy Number Effective Date Expiration Date S ource MEDICARE [place]: [id number] 2000 [place] 00:00:00 [employer] [id number] 2000 00:00:00 Problems Condition Condition Condition Status Onset Resolution Last Treating Co mments Source Name Details Category Date Date Treatment Clinician Date 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 [place] 00 Medica l Branch Allergies, Adverse Reactions, Alerts Allergy Allergy Status Severity Reaction(s) Onset Inactive Treating Comm ents Source Name Type Date Date Clinician morphine DA Active U 2018- [facility] 04-13 [place] 00:00: [address] [facility] Morphine Drug Active Other - See TremorNo U nivers Intolera comments 09-24 similar ity o f nce 00:00: side [place] [id number] effects Medical to Branch fentanyl, gabapenti n, hydrocodo ne (09/24/16) Social History Social Habit Start Date Stop Date Quantity Comments Source Alcohol intake 2016-10-26 2016-10-26 0 /d [facility] 00:00:00 00:00:00 Medical Branch Sex Assigned At [birth year] [facility] 00:00:00 00:00:00 Medical Branch Smoking Status Start Date Stop Date Source Never smoker [facility] Medical Branch Medications Ordered Filled Start Stop Current Ordering Indication Dosage Frequency Signature Comments Components Source Medication Medication Date Date Medication? Clinician (SIG) Name Name aspirin 81 2018- Yes 81mg Take 81 mg U nivers mg EC 8-13 by mouth ity of tablet 23:28: daily. [place] 53 Medical Branch gabapentin Yes Take by Uni vers ER 600 mg 8-13 mouth ity of tablet, 23:28: daily. [place] extended 53 Medical release 24 Branch hr rivaroxaban Yes 15mg Take 15 mg Univers (XARELTO) 8-13 by mouth 2 ity of 15 mg 23:28: (two) [place] tablet 53 times Medical daily. Branch amiodarone Yes Take by Uni vers HCl 8-13 mouth. ity of (AMIODARONE 23:28: [place] ORAL) 53 Medical Branch albuterol Yes Inhale. Unive rs sulfate 8-13 ity of (VENTOLIN 23:28: [place] HFA INHALE) 52 Medical Branch amoxicillin 2018- 2019- No [id number] 500mg Take 1 Univers 500 mg 8-04-25 tablet by ity of tablet 00:00: 04:59 mouth 2 [place] 00 :00 (two) Medical times Branch daily for 7 days. levothyroxi 2017-09 Yes 50ug Take 50 Uni vers ne 50 mcg 2-12 mcg by ity of tablet 14:41: mouth [place] [address] every Medical morning. Branch carvedilol 2017-09 Yes 6.25mg Take 6.25 Univers 6.25 mg 2-12 mg by ity of tablet 14:41: mouth 2 [place] [address] (two) Medical times Branch daily with meals. omeprazole 2017-09 Yes 40mg Take 40 mg U nivers 20 mg 2-12 by mouth ity of tablet 14:41: daily. [place] [address] Medical Branch fluticasone 2017-09 Yes 2{spray Use 2 Un kylah 50 2-12 } Sprays in ity of mcg/actuati 00:00: each [place] on nasal 00 nostril Medical spray daily. Branch simvastatin 2015-09 Yes 40mg Take 40 mg Univers (ZOCOR) 40 1-07 by mouth ity o f mg tablet 00:00: daily. [address] simvastatin 2015-09 Yes 40mg Take 40 mg Univers (ZOCOR) 40 1-07 by mouth ity o f mg tablet 00:00: daily. [address] lisinopril- 2015-09 Yes 1{tbl} Take 1 Un kylah hydrochloro 0-14 tablet by ity of thiazide 00:00: mouth [place] (PRINZIDE,Z 00 daily. Medica l ESTORETIC) Branch 20-12.5 mg per tablet lisinopril- 2015-09 Yes 1{tbl} Take 1 Un kylah hydrochloro 0-14 tablet by ity of thiazide 00:00: mouth [place] (PRINZIDE,Z 00 daily. Medica l ESTORETIC) Branch 20-12.5 mg per tablet Vital Signs Vital Name Observation Time Observation Value Comments Source Systolic blood 2019-04-17 23:25:00 173 mm[Hg] [facility] sity of pressure [facility] Diastolic blood 2019-04-17 23:25:00 79 mm[Hg] [facility] Heart rate 2019-04-17 23:24:00 62 /min [facility] Body temperature 2019-04-17 23:24:00 36.5 Gayla [facility] Respiratory rate 2019-04-17 23:24:00 18 /min [facility] Body height 2019-04-17 23:24:00 180.3 cm [facility] Body weight 2019-04-17 23:24:00 96.163 kg [facility] [place] [facility] BMI 2019-04-17 23:24:00 29.57 kg/m2 Universi ty of [facility] Branch Oxygen saturation in 2019-04-17 23:24:00 94 /min University of Arterial blood by [facility] Pulse oximetry Branch Systolic blood 2019-04-17 23:25:00 173 mm[Hg] Univer sity of pressure [facility] Diastolic blood 2019-04-17 23:25:00 79 mm[Hg] Unive rsity of pressure [facility] Heart rate 2019-04-17 23:24:00 62 /min Universi ty of [facility] Body temperature 2019-04-17 23:24:00 36.5 Gayla [facility] 2019-04-17 23:24:00 18 /min [facility] Body height 2019-04-17 23:24:00 180.3 cm Universi ty of [facility] Body weight 2019-04-17 23:24:00 96.163 kg [facility] [place] [facility] BMI 2019-04-17 23:24:00 29.57 kg/m2 Universi ty [facility] Branch Oxygen saturation in 2019-04-17 23:24:00 94 /min University of Arterial blood by [facility] Pulse oximetry Branch Procedures This patient has no known procedures. Encounters Start End Encounter Admission Attending Care Care Encounter Source Date/Time Date/Time Type Type Clinicians Facility Department ID 2021-07-20 [address] [facility] [id number] [address] [place] 17:59:20 [facility] 2021-07-[address] [facility] [id number] [address] [place] 06:33:59 622 [facility] 2021-07-[address] [id number] [address] [place] 02:37:29 612 [facility] 2021-07-[address] [id number] [address] [place] 22:46:38 603 [facility] 2021-07-[address] [facility] [id number] [address] [place] 08:46:58 416 [facility] 2021-07-[address] [facility] [id number] [address] [place] 22:08:31 310 [facility] 2021-07-[address] [facility] [id number] [address] [place] 17:09:47 122 [facility] 2021-07-[address] [facility] [id number] [address] [place] 16:47:20 119 [facility] 2021-07-[address] [facility] [id number] [address] [place] 15:50:52 108 [facility] 2021-07-[address] [facility] [id number] [address] [place] 15:18:35 104 [facility] 2021-07-02 2021-07-02 Outpatient Hernandez, [facility] [id number] 00:00:00 00:00:00 Tru [id number] Zechariah [id number] 2021-06-30 2021-06-30 Outpatient Hernandez, [facility] [id number] 00:00:00 00:00:00 Tru [id number] Zechariah [id number] 2021-06-30 2021-06-30 Outpatient Hernandez, [facility] [id number] 00:00:00 00:00:00 Tru [id number] Zechariah [id number] [facility] 2021-06-15 2021-06-15 Outpatient Hernandez, [facility] [id number] 00:00:00 00:00:00 Tru [id number] Zechariah [id number] 2021-05-26 2021-05-26 Outpatient Hernandez, [facility] [id number] 00:00:00 00:00:00 Tru [id number] Zechariah [id number] 2021-05-26 2021-05-26 Outpatient Hernandez, [facility] [id number] 00:00:00 00:00:00 Tru [id number] Zechariah [id number] 2021-05-26 2021-05-[address] [facility] [id number] 00:00:00 00:00:00 Tru [id number] Zechariah [id number] 2021-03-20 2021-03-[address] [facility] [id number] 00:00:00 00:00:00 Tru [id number] Zechariah [id number] 2021-02-05 2021-02-[address] [facility] [id number] 00:00:00 00:00:00 Jack [id number] Childs [id number] 2020-12-19 2020-12-[address] [facility] [id number] 00:00:00 00:00:00 Tru [id number] Zechariah [id number] 2020-11-20 2020-11-20 Outpatient [facility] [id number] 2020-09-23 2020-09-[address] [facility] [id number] 00:00:00 00:00:00 Tru [id number] Zechariah [id number] 2020-07-18 2020-07-18 Outpatient [facility] [id number] [facility] 2020-07-04 2020-07-04 Outpatient [facility] [id number] [facility] 2020-06-26 2020-06-26 Outpatient [facility] [id number] [facility] 2020-01-09 2020-01-10 Outpatient CHIQUITA, [facility] [id number] [place] 00:00:00 00:00:00 ALIYA 802 Method i 2020-01-04 2020-01-04 Outpatient CHIQUITA, [facility] [id number] [place] 00:00:00 00:00:[address] ALIYA [address] 2020-01-02 2020-01-02 Outpatient CHIQUITA, [facility] [id number] [place] 00:00:00 00:00:00 ALIYA 642 Method i 2019-12-25 2019-12-25 Outpatient CHIQUITA, [facility] [id number] [place] 00:00:00 00:00:00 ALIYA 224 Method i 2019-12-25 2019-12-25 Outpatient CHIQUITA, [facility] [id number] [place] 00:00:00 00:00:00 ALIYA 786 Method i 2019-12-18 2019-12-18 Outpatient CHIQUITA, [facility] [id number] [place] 00:00:00 00:00:00 ALIYA 490 Method i 2019-12-18 2019-12-18 Outpatient CHIQUITA, [facility] [id number] [place] 00:00:00 00:00:00 ALIYA 664 Method i 2019-04-17 2019-04-17 [facility] [id number] 18:03:16 18:18:16 Care [facility] [id number] Surgical [id number] Specialti [id number] es 370 [place] 2019-04-17 2019-04-17 [facility] [id number] [facility] 18:03:16 18:18:[address] [facility] [id number] ity of Surgical [id number] [place] as Specialti [id number] [place] es 370 Branch [place] 2016-11-16 2016-11-16 Angel Aguillon [facility] [id number] Univers 00:00:00 00:00:00 (Out) Fredy PEREIRA [id number] i ty [place].2.[place] [id number] [facility] 144 Branch Results Test Description Test Time Test Comments Results Result Comments Source SARS coronavirus 2 RNA [Presence] in Respiratory speci men by 2020-01-04 18:01:48 SHANNON with probe detection Test Item Value Reference Range Interpretation Comme nts SARS coronavirus 2 RNA [Presence] in Respiratory Not detected Not-D etected specimen by SHANNON with probe detection (test code = 19847-1) BASIC METABOLIC [id number] 08:43:00 Test Item Value Reference Range Interpretation Comments SODIUM (test code = 140 MMOL/L 137-145 N NA) POTASSIUM (test code = 3.6 MMOL/L 3.5-5.1 N K) CHLORIDE (test code = 106 MMOL/L 98-107 N CL) CARBON DIOXIDE (test 25 MMOL/L 22-30 N code = CO2) GLUCOSE (test code = 111 MG/DL 74-106 H GLU) BLOOD UREA NITROGEN 25 MG/DL 9-20 H (test code = BUN) GLOMERULAR FILTRATION 45 Report ing units: RATE (test code = GFR) ml/mi n/1.73 m2 (Modified MDRD Formula)Referen ce Range: > or = 6 0 ml/min/1.73 m2 CREATININE (test code 1.50 MG/DL 0.66-1.25 H = CREAT) CALCIUM (test code = 9.1 MG/DL 8.4-10.2 N CA) LIPID PROFILE (CORONARY RISK)2019-04-14 08:43:00 Test Item Value Reference Range Interpretation Comments TRIGLYCERIDES (test 105 MG/DL TRIGLYCE RIDES code = TRIG) REFERENCE RANGE:Normal: < 150 mg/dLBorderline High: 150-199 mg/dLHi gh: 200-499 mg/dLVe ry High: >=500 mg/ dL CHOLESTEROL (test code 159 MG/DL <200 = CHOL) HDL CHOLESTEROL (test 42 MG/DL 40-59 N code = HDL) LIPOPROTEIN LDL (test 99 MG/DL 0-99 N code = LDL) OPTIMAL........ .<100 mg/dLNEAR OPTIMAL/ABOVE OPTIMAL........ .100-12 9 mg/dL BORDERLINE HIGH.........13 0-159 mg/dL HIGH.........16 0-189 mg/dL VERY HIGH...... ...>/= 190 mg/dL [id number] 08:43:00 Test Item Value Reference Range Interpretation Comments MAGNESIUM (test code = MAG) 2.1 MG/DL 1.6-2.3 N BASIC METABOLIC [id number] 08:32:00 Test Item Value Reference Range Interpretation Comments SODIUM (test code = 140 MMOL/L 137-145 N NA) POTASSIUM (test code = 3.6 MMOL/L 3.5-5.1 N K) CHLORIDE (test code = 106 MMOL/L 98-107 N CL) CARBON DIOXIDE (test 25 MMOL/L 22-30 N code = CO2) GLUCOSE (test code = 111 MG/DL 74-106 H GLU) BLOOD UREA NITROGEN 25 MG/DL 9-20 H (test code = BUN) GLOMERULAR FILTRATION 45 Report ing units: RATE (test code = GFR) ml/mi n/1.73 m2 (Modified MDRD Formula)Referen ce Range: > or = 6 0 ml/min/1.73 m2 CREATININE (test code 1.50 MG/DL 0.66-1.25 H = CREAT) CALCIUM (test code = 9.1 MG/DL 8.4-10.2 N CA) LIPID PROFILE (CORONARY RISK)2019-04-14 08:32:00 Test Item Value Reference Range Interpretation Comments TRIGLYCERIDES (test 105 MG/DL TRIGLYCE RIDES code = TRIG) REFERENCE RANGE:Normal: < 150 mg/dLBorderline High: 150-199 mg/dLHi gh: 200-499 mg/dLVe ry High: >=500 mg/ dL CHOLESTEROL (test code 159 MG/DL <200 = CHOL) HDL CHOLESTEROL (test 42 MG/DL 40-59 N code = HDL) LIPOPROTEIN LDL (test MG/DL 0-99 code = LDL) [id number] 08:32:00 Test Item Value Reference Range Interpretation Comments MAGNESIUM (test code = MAG) 2.1 MG/DL 1.6-2.3 N PROTHROMBIN [id number] 08:30:00 Test Item Value Reference Range Interpretation Comments PROTHROMBIN TIME 11.9 SECONDS 9.6-11.6 H PATIENT (test code = PTP) INTERNATIONAL NORMAL 1.1 0.8-1.1 N The INR is to be RATIO (test code = used only for INR) monitoring oral anticoagulantth erap y. INDICATION I NR VALUE ---- ---- ---- -------1. Prophylaxis, de ep venous thrombos is, including hig h risk surgery. 2.0 - 3.0 2. Prophylaxis, de ep venous thrombos is, hip surgery, treatment for d eep venous thrombosis or pulmonary prevention of systemic emboli sm in patients wit h valvular heart disease, atrial fibrillation, tissue heart va lve, or acute myocar dial infarction. 2.0 - 3 .0 3. Mechanical prosthesis hear t valves, recurrent syste candelario embolism. 3.0 - 4.5 PTT [id number] 08:30:00 Test Item Value Reference Range Interpretation Comments PTT ACTIVATED (test code = APTT) 32.5 SECONDS 22.0-33.0 N CBC W/AUTO [id number] 08:14:00 Test Item Value Reference Range Interpretation Comments WHITE BLOOD CELL (test code = 7.0 K/MM3 3.8-9.8 N WBC) RED BLOOD CELL (test code = 4.20 M/MM3 3.95-5.67 N RBC) HEMOGLOBIN (test code = HGB) 13.0 G/DL 12.4-16.7 N HEMATOCRIT (test code = HCT) 39.0 % 35.9-49.5 N MEAN CELL VOLUME (test code = 93 fL 81.7-96.1 N MCV) MEAN CELL HGB (test code = MCH) 31.0 pg 27.6-33.2 N MEAN CELL HGB CONCETRATION 33.3 % 32.9-35.5 N (test code = MCHC) RED CELL DISTRIBUTION WIDTH 12.7 % 12.1-15.2 N (test code = RDW) PLATELET COUNT (test code = 191 K/MM3 129-368 N PLT) MEAN PLATELET VOLUME (test code 9.0 fl 7.4-10.4 N = MPV) NEUTROPHIL % (test code = NT%) 65.5 % 43-75 N IMMATURE GRANULOCYTE % (test 0.6 % 0.0-2.0 N code = IG%) LYMPHOCYTE % (test code = LY%) 24.2 % 14-44 N MONOCYTE % (test code = MO%) 7.2 % 4-13 N EOSINOPHIL % (test code = EO%) 1.9 % 0-6 N BASOPHIL % (test code = BA%) 0.6 % 0-2 N NUCLEATED RBC % (test code = 0.0 % 0-1.0 N NRBC%) NEUTROPHIL # (test code = NT#) 4.59 K/mm3 2.0-7.6 N IMMATURE GRANULOCYTE # (test 0.04 x10 3/uL 0-0.03 H code = IG#) LYMPHOCYTE # (test code = LY#) 1.69 K/mm3 1.0-3.8 N MONOCYTE # (test code = MO#) 0.50 K/mm3 0.1-0.8 N EOSINOPHIL # (test code = EO#) 0.13 K/mm3 0.0-0.2 N BASOPHIL # (test code = BA#) 0.04 K/mm3 0.0-0.2 N NUCLEATED RBC # (test code = 0.00 K/mm3 0.0-0.1 N NRBC#)
[2021-07-24 17:37] LABS: Absolute Lymphocytes (CBC) 1.2 K/uL (0.7-4.9); Basophils % 0.7 % (0-1.3); Lymphocytes % 15.9 % (15.3-44.8); MPV 6.7 fL (7.6-11.3); RBC Red Blood Cell Count 3.57 M/uL (4.33-5.43)
[2021-07-24 17:45] LABS: Protime INR 0.99
[2021-07-24 17:53] LABS: ALT/SGPT 42 U/L (12-78); AST/SGOT 35 U/L (15-37); Albumin 3.9 g/dL (3.4-5.0); BUN Blood Urea Nitrogen 26 mg/dL (7-18); Bicarbonate 25 mmol/L (21-32); Bilirubin Direct 0.1 mg/dL (0-0.2); Bilirubin Total 0.3 mg/dL (0.2-1.0); Glucose Level 150 mg/dL (74-106); Magnesium 2.5 mg/dL (1.8-2.4); Potassium 3.1 mmol/L (3.5-5.1); Protein, Total 7.1 g/dL (6.4-8.2); Sodium Level 145 mmol/L (136-145)
[2021-07-24 17:56] LABS: Alkaline Phosphatase 45 U/L (45-117); NT PRO-BNP 189 pg/mL (<450); Troponin (Emerg Dept Use Only) < 0.02 ng/mL (0.0-0.045)
--- NOTE | 2021-07-24 18:18 | RAD REPORT ---
EXAM DESCRIPTION: Fer Single View07/24/2021 5:49 pm CLINICAL HISTORY: Chest pain COMPARISON: 2019 FINDINGS: Mild bibasilar lung opacities. The upper lobes are clear. The heart is normal size IMPRESSION: Mild right basilar lung opacities may represent pneumonitis or pneumonia
[2021-07-24] MEDS ORDERED: AZITHROMYCIN 250 MG TAB ONE (18:38)
[2021-07-24] MEDS ORDERED: CEFTRIAXONE 1000 MG/VIAL ONE (18:38)
[2021-07-24] MEDS ORDERED: NA CHLORIDE 0.9% 50 ML ONE (18:38)
[2021-07-24] MEDS ORDERED: POTASSIUM 25 MEQ EFFERV TAB ONE (18:38)
--- NOTE | 2021-07-24 18:48 | EDPHYS ---
Physician Documentation [facility] Name: Jonathan Segundo Age: 86 yrs Sex: Male : 1935 Arrival Date: 07/24/2021 Time: 16:29 Bed 13 Private MD: ED Physician Shaw Lock HPI: 07/24 18:37 This 86 yrs old Male presents to ER via Ambulatory with complaints of kdr Weakness, Syncope, Blurred Vision. 18:37 The patient presents to the emergency department with a speech or higher order brain kdr function problem, aphasia, that is moderate, that is marked. Onset: The symptoms/episode began/occurred suddenly, just prior to arrival. Context: occurred at home, occurred while the patient was During sexual activity. Associated signs and symptoms: Pertinent positives: blurred vision, weakness, Speech difficult. Severity of symptoms: At their worst the symptoms were moderate in the emergency department the symptoms have resolved. Patient's baseline: Neuro: alert and fully oriented, Motor: no deficits, Ambulation: walks without assistance, Speech: normal, The patient has a previous history of CVA, TIA. Current symptoms: Currently, the patient is not experiencing any symptoms. The patient has experienced similar episodes in the past, a few times. The patient has not recently seen a physician. Historical: - Allergies: 16:42 Morphine; causes "shaking"; iw - PMHx: 16:42 High Cholesterol; Hypertension; Hypothyroidism; neuropathy; skin cancer; iw - PSHx: 16:42 removed cancer from ear and neck; iw - Immunization history:: Client reports receiving the 2nd dose of the Covid vaccine. - Social history:: Smoking status: Smoking status: Patient/guardian denies using tobacco, but has a distant history of tobacco abuse. ROS: 18:37 Constitutional: Negative for fever, chills, and weight loss, Eyes: Negative for injury, kdr pain, redness, and discharge, Neck: Negative for injury, pain, and swelling, Cardiovascular: Negative for chest pain, palpitations, and edema, Respiratory: Negative for shortness of breath, cough, wheezing, and pleuritic chest pain, Abdomen/GI: Negative for abdominal pain, nausea, vomiting, diarrhea, and constipation, Back: Negative for injury and pain, : Negative for injury, bleeding, discharge, and swelling, MS/Extremity: Negative for injury and deformity, Skin: Negative for injury, rash, and discoloration, Psych: Negative for depression, anxiety, suicide ideation, homicidal ideation, and hallucinations, Allergy/Immunology: Negative for hives, rash, and allergies, Endocrine: Negative for neck swelling, polydipsia, polyuria, polyphagia, and marked weight changes, Hematologic/Lymphatic: Negative for swollen nodes, abnormal bleeding, and unusual bruising. 18:37 Neuro: Positive for dizziness, speech changes, weakness, Negative for altered mental status, loss of consciousness, numbness, acute changes. Exam: 18:37 Constitutional: This is a well developed, well nourished patient who is awake, alert, kdr and in no acute distress. Head/Face: Normocephalic, atraumatic. Eyes: Pupils equal round and reactive to light, extra-ocular motions intact. Lids and lashes normal. Conjunctiva and sclera are non-icteric and not injected. Cornea within normal limits. Periorbital areas with no swelling, redness, or edema. Neck: Trachea midline, no thyromegaly or masses palpated, and no cervical lymphadenopathy. Supple, full range of motion without nuchal rigidity, or vertebral point tenderness. No Meningismus. Chest/axilla: Normal chest wall appearance and motion. Nontender with no deformity. No lesions are appreciated. Cardiovascular: Regular rate and rhythm with a normal S1 and S2. No gallops, murmurs, or rubs. Normal PMI, no JVD. No pulse deficits. Respiratory: Lungs have equal breath sounds bilaterally, clear to auscultation and percussion. No rales, rhonchi or wheezes noted. No increased work of breathing, no retractions or nasal flaring. Abdomen/GI: Soft, non-tender, with normal bowel sounds. No distension or tympany. No guarding or rebound. No evidence of tenderness throughout. Back: No spinal tenderness. No costovertebral tenderness. Full range of motion. Skin: Warm, dry with normal turgor. Normal color with no rashes, no lesions, and no evidence of cellulitis. MS/ Extremity: Pulses equal, no cyanosis. Neurovascular intact. Full, normal range of motion. Neuro: Awake and alert, GCS 15, oriented to person, place, time, and situation. Cranial nerves II-XII grossly intact. Motor strength 5/5 in all extremities. Sensory grossly intact. Cerebellar exam normal. Normal gait. Psych: Awake, alert, with orientation to person, place and time. Behavior, mood, and affect are within normal limits. Vital Signs: 16:40 BP 138 / 83; Pulse 69; Resp 16; Temp 98.7; Pulse Ox 98% on R/A; Weight 87.09 kg; Height iw 5 ft. 11 in. (180.34 cm); Pain 0/10; 17:41 BP 142 / 66; Pulse 64; Resp 15; Pulse Ox 98% ; Pain 0/10; jl7 18:50 BP 138 / 75; Pulse 65; Resp 15; Pulse Ox 98% ; jl7 16:40 Body Mass Index 26.78 (87.09 kg, 180.34 cm) iw NIH Stroke Scale Scores: 18:37 NIHSS Score: 0 kdr MDM: 18:47 Patient medically screened. kdr 18:59 Data reviewed: vital signs, nurses notes, EMS record, lab test result(s), radiologic kdr studies. Counseling: I had a detailed discussion with the patient and/or guardian regarding: the historical points, exam findings, and any diagnostic results supporting the discharge/admit diagnosis, lab results, radiology results, the need for outpatient follow up. ED course: Patient was stable in the ED and did not require further intervention at this time. 07/24 17:08 Order name: Basic Metabolic Panel [facility] 07/24 17:08 Order name: CBC with Diff [facility] 07/24 17:08 Order name: LFT's; Complete Time: 18:34 [facility] 07/24 17:08 Order name: Magnesium; Complete Time: 18:34 [facility] 07/24 17:08 Order name: NT PRO-BNP; Complete Time: 18:34 [facility] 07/24 17:08 Order name: PT-INR; Complete Time: 18:34 [facility] 07/24 17:08 Order name: Troponin (emerg Dept Use Only); Complete Time: 18:34 [facility] 07/24 17:08 Order name: XRAY Chest (1 view); Complete Time: 18:34 [facility] 07/24 17:08 Order name: Basic Metabolic Panel; Complete Time: 18:34 [facility] 07/24 17:08 Order name: CBC with Automated Diff; Complete Time: 18:34 [facility] 07/24 17:08 Order name: EKG; Complete Time: 17:09 kdr 07/24 17:08 Order name: Cardiac monitoring; Complete Time: 17:38 kdr 07/24 17:08 Order name: EKG - Nurse/Tech; Complete Time: 17:39 kdr 07/24 17:08 Order name: IV Saline Lock; Complete Time: 17:39 kdr 07/24 17:08 Order name: Labs collected and sent; Complete Time: 17:39 kdr 07/24 17:08 Order name: O2 Per Protocol; Complete Time: 17:39 kdr 07/24 17:08 Order name: O2 Sat Monitoring; Complete Time: 17:39 kdr Administered Medications: 18:49 Drug: Rocephin - (cefTRIAXone) 1 grams Route: IVPB; Infused Over: 30 mins; Site: right jl7 forearm; 18:49 Drug: Potassium Chloride Liquid 40 mEq Route: PO; jl7 18:49 Drug: Zithromax (azithromycin) 500 mg Route: PO; jl7 Disposition Summary: 07/24/21 18:47 Discharge Ordered Location: Home kdr Problem: an ongoing problem kdr Symptoms: have improved kdr Condition: Stable kdr Diagnosis - Weakness kdr - Other malaise and fatigue kdr - Pneumonia, unspecified organism kdr Followup: kdr - With: Private Physician - When: 2 - 3 days - Reason: If symptoms return, Further diagnostic work-up, Recheck today's complaints, Continuance of care, Re-evaluation by your physician Discharge Instructions: - Discharge Summary Sheet kdr - Community-Acquired Pneumonia, Adult kdr - Fatigue kdr - Weakness, [id number] kdr Forms: - Medication Reconciliation Form kdr - Thank You Letter kdr Prescriptions: - Zithromax Z-Lawson 250 mg Oral Tablet - take 1 tablet by ORAL route once daily for 4 days; 4 tablet; Refills: 0, kdr Product Selection Permitted NIH Stroke Scale - NIH Stroke Score Date: 07/24/2021 Time: 18:37 Total Score = 0 1a. Level of Consciousness (LOC) - 0(Alert) 1b. Level of Consciousness (LOC) (Month \\T\\ Age) - 0(Both) 1c. LOC Commands (Open \\T\\ Closes Eyes/Egg Worker) - 0(Both) 2. Best Gaze (Lateral Gaze Paresis) - 0(Normal) 3. Visual Field Loss - 0(No visual loss) 4. Facial Palsy - 0(Normal) 5a. Left Arm: Motor (10-second hold) - 0(No drift) 5b. Right Arm: Motor (10-second hold) - 0(No drift) 6a. Left Leg: Motor (5-second hold - always test supine) - 0(No drift) 6b. Right Leg: Motor (5-second hold - always test supine) - 0(No drift) 7. Limb Ataxia (finger/nose \\T\\ heel/wilson - test with eyes open) - 0(Absent) 8. Sensory Loss (pinprick arms/legs/face) - 0(Normal) 9. Best Language: Aphasia (description/naming/reading) - 0(No aphasia) 10. Dysarthria (speech clarity - read or repeat words) - 0(Normal) 11. Extinction and Inattention (visual/tactile/auditory/spatial/personal) - 0(No abnormality) Initials: kdr Signatures: Dispatcher [employer] EDMS Shaw Lock MD MD kdr Williams, Irene, RN RN iw Long Bingham RN RN jl7
--- NOTE | 2021-07-24 18:48 | ER ---
Nurse's Notes [facility] Name: Jonathan Segundo Age: 86 yrs Sex: Male : 1935 Arrival Date: 07/24/2021 Time: 16:29 Bed 13 Private MD: Diagnosis: Weakness;Other malaise and fatigue;Pneumonia, unspecified organism Presentation: 07/24 16:40 Chief complaint: Patient states: has been dizzy, nauseated, can't walk straight, iw started 3 years ago, worse in past 3 weeks , has hx of cancer behind right ear, hx of anemia , has had issues with his right ear , was told he might need a tube in his ear. Coronavirus screen: At this time, the client does not indicate any symptoms associated with coronavirus-19. Ebola Screen: Patient negative for fever greater than or equal to 101.5 degrees Fahrenheit, and additional compatible Ebola Virus Disease symptoms Patient denies exposure to infectious person. Patient denies travel to an Ebola-affected area in the 21 days before illness onset. No symptoms or risks identified at this time. No acute neurological deficit is noted. Pre-hospital glucose is not applicable to this patient. Initial Sepsis Screen: Does the patient meet any 2 criteria? No. Patient's initial sepsis screen is negative. Does the patient have a suspected source of infection? No. Patient's initial sepsis screen is negative. Risk Assessment: Do you want to hurt yourself or someone else? Patient reports no desire to harm self or others. Onset of symptoms was June 2021. 16:40 Method Of Arrival: Ambulatory iw 16:40 Acuity: ERIN 3 iw Stroke Activation: Symptom onset > 6 hours Physician: Stroke Attending; Name: ; Notified At: ; Arrived At: Physician: Chief Stroke Resident; Name: ; Notified At: ; Arrived At: Physician: Stroke Resident; Name: ; Notified At: ; Arrived At: Physician: ED Attending; Name: ; Notified At: ; Arrived At: Physician: ED Resident; Name: ; Notified At: ; Arrived At: Historical: - Allergies: 16:42 Morphine; causes "shaking"; iw - PMHx: 16:42 High Cholesterol; Hypertension; Hypothyroidism; neuropathy; skin cancer; iw - PSHx: 16:42 removed cancer from ear and neck; iw - Immunization history:: Client reports receiving the 2nd dose of the Covid vaccine. - Social history:: Smoking status: Smoking status: Patient/guardian denies using tobacco, but has a distant history of tobacco abuse. Screenin:20 Abuse screen: Denies threats or abuse. Denies injuries from another. Nutritional jl7 screening: No deficits noted. Tuberculosis screening: No symptoms or risk factors identified. Fall Risk IV access (20 points). Total Wilson Fall Scale indicates No Risk (0-24 pts). Assessment: 17:00 General: Appears in no apparent distress. uncomfortable, Behavior is calm, cooperative, jl7 appropriate for age. Pain: Denies pain. Neuro: Level of Consciousness is awake, alert, obeys commands, Oriented to person, place, time, situation, "My equilibrium is off and I might need a tube in my ear.". Cardiovascular: Denies chest pain, Patient's skin is warm and dry. Respiratory: Airway is patent Respiratory effort is even, unlabored, Respiratory pattern is regular, symmetrical. Derm: Skin is pink, warm \\T\\ dry. 18:00 Reassessment: Patient appears in no apparent distress at this time. No changes from jl7 previously documented assessment. Patient and/or family updated on plan of care and expected duration. Pain level reassessed. Patient is alert, oriented x 3, equal unlabored respirations, skin warm/dry/pink. 18:50 Reassessment: Pt will be discharged once medication is done infusing. jl7 Vital Signs: 16:40 BP 138 / 83; Pulse 69; Resp 16; Temp 98.7; Pulse Ox 98% on R/A; Weight 87.09 kg; Height iw 5 ft. 11 in. (180.34 cm); Pain 0/10; 17:41 BP 142 / 66; Pulse 64; Resp 15; Pulse Ox 98% ; Pain 0/10; jl7 18:50 BP 138 / 75; Pulse 65; Resp 15; Pulse Ox 98% ; jl7 16:40 Body Mass Index 26.78 (87.09 kg, 180.34 cm) iw NIH Stroke Scale Scores: 18:37 NIHSS Score: 0 kdr ED Course: 16:29 Patient arrived in ED. mr 16:42 Triage completed. iw 16:44 Arm band placed on. iw 16:56 Long Bingham RN is Primary Nurse. jl7 17:05 Shaw Lock MD is Attending Physician. kdr 17:20 Patient has correct armband on for positive identification. Placed in gown. Bed in low jl7 position. Call light in reach. Side rails up X 1. funeral director's assistant on. Pulse ox on. NIBP on. 17:20 Initial lab(s) drawn, by me, sent to lab. EKG done, by ED staff, reviewed by Shaw Lock MD. Inserted saline lock: 20 gauge in right forearm, using aseptic technique. Blood collected. 17:49 XRAY Chest (1 view) In Process Unspecified. EDMS 18:50 No provider procedures requiring assistance completed. jl7 19:15 Primary Nurse role handed off by Long Bingham RN mw2 19:15 IV discontinued, intact, No redness/swelling at site. mr2 19:31 Spencer Campuzano, ANITA is Primary Nurse. mr2 Administered Medications: 18:49 Drug: Rocephin - (cefTRIAXone) 1 grams Route: IVPB; Infused Over: 30 mins; Site: right jl7 forearm; 18:49 Drug: Potassium Chloride Liquid 40 mEq Route: PO; jl7 18:49 Drug: Zithromax (azithromycin) 500 mg Route: PO; jl7 Outcome: 18:47 Discharge ordered by . kdr 19:20 Discharged to home ambulatory, with family. mr2 19:20 Condition: stable 19:20 Discharge instructions given to patient, Instructed on discharge instructions, follow up and referral plans. medication usage, Prescriptions given X 1. 19:31 Patient left the ED. mr2 NIH Stroke Scale - NIH Stroke Score Date: 07/24/2021 Time: 18:37 Total Score = 0 1a. Level of Consciousness (LOC) - 0(Alert) 1b. Level of Consciousness (LOC) (Month \\T\\ Age) - 0(Both) 1c. LOC Commands (Open \\T\\ Closes Eyes/Bander And Cellophaner Machine) - 0(Both) 2. Best Gaze (Lateral Gaze Paresis) - 0(Normal) 3. Visual Field Loss - 0(No visual loss) 4. Facial Palsy - 0(Normal) 5a. Left Arm: Motor (10-second hold) - 0(No drift) 5b. Right Arm: Motor (10-second hold) - 0(No drift) 6a. Left Leg: Motor (5-second hold - always test supine) - 0(No drift) 6b. Right Leg: Motor (5-second hold - always test supine) - 0(No drift) 7. Limb Ataxia (finger/nose \\T\\ heel/iwlson - test with eyes open) - 0(Absent) 8. Sensory Loss (pinprick arms/legs/face) - 0(Normal) 9. Best Language: Aphasia (description/naming/reading) - 0(No aphasia) 10. Dysarthria (speech clarity - read or repeat words) - 0(Normal) 11. Extinction and Inattention (visual/tactile/auditory/spatial/personal) - 0(No abnormality) Initials: kdr Signatures: Dispatcher [employer] EDMS Shaw Lock MD MD [facility], Macie Kelly Alejandro RN Long Deal RN RN jl7 Carole Sam 2 Spencer Campuzano RN RN mr2 Corrections: (The following items were deleted from the chart) 16:44 16:40 Chief complaint: Patient states: has been dizzy, nauseated, can't walk iw straight, started 3 years ago, worse in past 3 weeks , has hx of cancer behind right ear, hx of anemia iw
[2021-07-24 19:37] VITALS: TEMP 98.7; O2SAT 98
[2021-07-24 19:40] VITALS: BP 138/75
--- NOTE | 2021-07-29 08:18 | EKG ---
Test Date: 2021-07-24 Test Time: 17:26:04 Director Of Counseling: KYARA MEASUREMENT RESULTS: Intervals: Rate: 62 DE: 174 QRSD: 108 QT: 368 QTc: 373 [place]: P: 41 DE: 174 QRS: -3 T: 30 INTERPRETIVE STATEMENTS: Normal sinus rhythm Nonspecific T wave abnormality Abnormal ECG Compared to ECG 09/06/2018 07:46:12 T-wave abnormality now present Atrial fibrillation no longer present Electronically Signed On 07-29-21 08:05:02 CONTROLS PROJECT ENGINEER by Mark Faye
== END 2021-07-24 19:31 | disposition home or self-care (01) ==
LOC: ER 16:24
DX: J18.9 Pneumonia, unspecified organism (principal); R53.81 Other malaise; R53.83 Other fatigue; I10 Essential (primary) hypertension; Z88.5 Allergy status to narcotic agent
CPT/HCPCS: 36415; 71045; 80048; 80076; 83735; 83880; 84484; 85025; 85610; 93005; 96374; 99284

== ENCOUNTER 2021-10-29 11:29 | Emergency (ER) | payer OTHER ==
--- OUTSIDE RECORDS SUMMARY | 2021-10-29 11:32 | XMS REPORT | Continuity of Care Document ---
:[address] [facility] t Address [address] [place] [place] [address] Care Team Providers Name Role Phone Chris Hernandez Primary Care Physician Tess Attending Clinician Unavailable SYED Attending Clinician Unavailable Zechariah Hernandez Attending Clinician [phone] Amadeo Pearl Attending Clinician [phone] CHIQUITA Attending Clinician Unavailable MD GENO PORRAS Attending Clinician Unavailable Chhaya HOLM Attending Clinician Unknown Attending Clinician Unavailable Pal MANTILLA Attending Clinician SYED Admitting Clinician Unavailable CHIQUITA Admitting Clinician Unavailable MD GENO PORRAS Admitting Clinician Unavailable Payers Payer Name Policy Type Policy Number Effective Date Expiration Date S ource MEDICARE B-[place]: [id number] 2000 [employer] 00:00:00 AETNA [id number] 2000 00:00:00 Problems Condition Condition Condition Status Onset Resolution Last Treating Co mments Source Name Details Category Date Date Treatment Clinician Date 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 00[place] scalp 00 Medica l Branch Allergies, Adverse Reactions, Alerts Allergy Allergy Status Severity Reaction(s) Onset Inactive Treating Comm ents Source Name Type Date Date Clinician morphine DA Active U 2018- [facility] 04-13 [place] 00:00: [address] [facility] Morphine Drug Active Other - See TremorNo U nivers Intolera comments 09-24 similar ity o f nce 00:00: side [place] 00 effects Medical to Branch fentanyl, gabapenti n, hydrocodo ne (09/24/16) Social History Social Habit Start Date Stop Date Quantity Comments Source Alcohol intake 2016-10-26 2016-10-26 0 /d [facility] 00:00:00 00:00:00 Medical Branch Sex Ass[birth year] [facility] 00:00:00 00:00:00 Medical Branch Smoking Status Start Date Stop Date Source Never smoker [facility] Medications Ordered Filled Start Stop Current Ordering Indication Dosage Frequency Signature Comments Components Source Medication Medication Date Date Medication? Clinician (SIG) Name Name aspirin 81 2018- Yes 81mg Take 81 mg U nivers mg EC 8-13 by mouth ity of tablet 23:28: daily. [place] 53 Medical Branch gabapentin Yes Take by Uni vers ER 600 mg 8-13 mouth ity of tablet, 23:28: daily. [place] extended 53 Medical release 24 Branch hr [...] 52 Medical Branch amoxicillin 2018- 2019- No [id number] 500mg Take 1 Univers 500 mg 8-04-25 tablet by ity of tablet 00:00: 04:59 mouth 2 [place] 00 :00 (two) Medical times Branch daily for 7 days. levothyroxi 2017-09 Yes 50ug Take 50 Uni vers ne 50 mcg 2-12 mcg by ity of tablet 14:41: mouth [place] [address] every Medical morning. Branch carvedilol 2017-09 Yes 6.25mg Take 6.25 Univers 6.25 mg 2-12 mg by ity of tablet 14:41: mouth 2 [place] [address] (two) Medical times [place] daily with meals. omeprazole 2017-09 Yes 40mg Take 40 mg U nivers 20 mg 2-12 by mouth ity of tablet 14:41: daily. [place] [address] Medical Branch fluticasone 2017-09 Yes 2{spray Use 2 Un kylah 50 2-12 } Sprays in ity of mcg/actuati 00:00: each [place] on nasal 00 nostril Medical spray daily. Branch simvastatin 2015-09 Yes 40mg Take 40 mg Univers (ZOCOR) 40 1-07 by mouth ity o f mg tablet 00:00: daily. [address] simvastatin 2015-09 Yes 40mg Take 40 mg Univers (ZOCOR) 40 -07 by mouth ity o f mg tablet 00:00: daily. [address] lisinopril- 2015-09 Yes 1{tbl} Take 1 Un kylah hydrochloro 0-14 tablet by ity of thiazide 00:00: mouth [place] (PRINZIDE,Z 00 daily. Medica l ESTORETIC) Branch 20-12.5 mg per tablet lisinopril- 2015-09 Yes 1{tbl} Take 1 Un kylah hydrochloro 0-14 tablet by ity of thiazide 00:00: mouth [place] (PRINZIDE,Z 00 daily. Medica l ESTORETIC) Branch 20-12.5 mg per tablet Vital Signs Vital Name Observation Time Observation Value Comments Source Systolic blood 2019-04-17 23:25:00 173 mm[Hg] [facility] Diastolic blood 2019-04-17 23:25:00 79 mm[Hg] [facility] Heart rate 2019-04-17 23:24:00 62 /min [facility] Body temperature 2019-04-17 23:24:00 36.5 Gayla [facility] Respiratory rate 2019-04-17 23:24:00 18 /min [facility] Body height 2019-04-17 23:24:00 180.3 cm [facility] Body weight 2019-04-17 23:24:00 96.163 [facility] BMI 2019-04-17 23:24:00 29.57 kg/m2 [facility] saturation in 2019-04-17 23:24:00 94 /min University of Arterial blood by [facility] Pulse oximetry Branch Systolic blood 2019-04-17 23:25:00 173 mm[Hg] Univer sity of pressure [facility] Diastolic blood 2019-04-17 23:25:00 79 mm[Hg] Unive rsity of pressure [facility] Heart rate 2019-04-17 23:24:00 62 /min [facility] Body temperature 2019-04-17 23:24:00 36.5 Gayla [facility] rate 2019-04-17 23:24:00 18 /min [facility] Body height 2019-04-17 23:24:00 180.3 cm [facility] Body weight 2019-04-17 23:24:00 96.163 kg [facility] BMI 2019-04-17 23:24:00 29.57 kg/m2 [facility] Oxygen saturation in 2019-04-17 23:24:00 94 /min [place] of Arterial blood by [facility] Pulse oximetry Branch Procedures This patient has no known procedures. Encounters Start End Encounter Admission Attending Care Care Encounter Source Date/Time Date/Time Type Type Clinicians Facility Department ID [id number] 2021-09-30 [facility] 12:16[facility] [id number] [facility] 2021-09-30 Outpatient Millender, [facility] [id number] [facility] 11:57:56 Lana [id number] [facility] 2021-10-17 2021-10-17 Outpatient [facility] [id number] [place] 07:32:00 07:32:00 [facility] 2021-09-12 2021-09-12 Outpatient [facility] [id number] [place] 04:34:00 04:34:00 108 [facility] 2021-08-08 2021-08-08 Outpatient [facility] [id number] [place] 05:22:00 05:22:00 204 [facility] 2021-07-27 2021-07-27 Outpatient [facility] [id number] [place] 05:07:00 05:07:00 122 [facility] 2021-07-27 2021-07-27 Outpatient David, [facility] [id number] 00:00:00 00:00:00 Tru [id number] Zechariah [id number] 2021-07-02 2021-07-02 Outpatient [facility] [id number] - [place] 10:49:00 10:49:00 028 [facility] 2021-07-02 2021-07-02 Outpatient Hernandez, [facility] [id number] 00:00:00 00:00:00 Tru [id number] Zechariah [id number] 2021-06-30 2021-06-30 Outpatient [facility] [id number] [place] 10:46:00 10:46:00 026 [facility] 2021-06-30 2021-06-30 Outpatient Hernandez, [facility] [id number] 00:00:00 00:00:00 Tru [id number] Apple [id number] 2021-06-30 2021-06-30 Outpatient Hernandez, [facility] [id number] 00:00:00 00:00:00 Tru [id number] Apple [id number] 2021-06-15 2021-06-15 Outpatient [facility] [id number] - [place] 05:42:00 05:42:00 011 [facility] 2021-06-15 2021-06-15 Outpatient Hernandez, [facility] [id number] 00:00:00 00:00:00 Tru [id number] Zechariah [id number] 2021-05-26 2021-05-26 Outpatient [facility] [id number] [place] 04:29:00 04:29:00 [id number] [facility] 2021-05-26 2021-05-26 Outpatient David [facility] [id number] 00:00:00 00:00:00 Tru [id number] Zechariah [id number] 2021-05-26 2021-05-26 Outpatient David, [facility] [id number] 00:00:00 00:00:00 Tru [id number] Zechariah [id number] 2021-05-26 2021-05-26 Outpatient David, [facility] [id number] 00:00:00 00:00:00 Tru [id number] Zechariah [id number] 2021-05-12 2021-05-12 Outpatient [facility] [id number] [place] 12:54:00 12:54:00 907 [facility] 2021-03-20 2021-03-20 Outpatient [facility] [id number] [place] 10:52:00 10:52:00 716 [facility] 2021-03-20 2021-03-20 Outpatient Hernandez, [facility] [id number] 00:00:00 00:00:00 Tru [id number] Zechariah [id number] 2021-02-24 2021-02-24 Outpatient [facility] [id number] [place] 04:30:00 04:30:00 622 [facility] 2021-02-14 2021-02-14 Outpatient [facility] [id number] [place] 06:31:00 06:31:00 612 [facility] 2021-02-05 2021-02-05 Outpatient [facility] [id number] [place] 10:03:00 10:03:00 603 [facility] 2021-02-05 2021-02-05 Outpatient Ryanne [facility] [id number] 00:00:00 00:00:00 Jack [id number] Amadeo [id number] 2020-12-19 2020-12-19 Outpatient [facility] [id number] [place] 11:04:00 11:04:00 416 [facility] 2020-12-19 2020-12-19 Outpatient David [facility] [id number] 00:00:00 00:00:00 Tru [id number] Zechariah [id number] 2020-11-20 2020-11-20 Outpatient [facility] [id number] [facility] 2020-11-12 2020-11-12 Outpatient [facility] [id number] [place] 01:02:00 01:02:00 310 [facility] 2020-09-26 2020-09-26 Outpatient [facility] [id number] [place] 09:12:00 09:12:00 122 [facility] 2020-09-23 2020-09-23 Outpatient [facility] [id number] [place] 09:29:00 09:29:00 119 [facility] 2020-09-23 2020-09-23 Outpatient David [facility] [id number] 00:00:00 00:00:00 Tru [id number] Zechariah [id number] 2020-09-12 2020-09-12 Outpatient [facility] [id number] [place] 12:08:00 12:08:00 108 [facility] 2020-09-08 2020-09-08 Outpatient [facility] [id number] [place] 10:50:00 10:50:00 104 [facility] 2020-07-18 2020-07-18 Outpatient [facility] [id number] [facility] 2020-07-04 2020-07-04 Outpatient [facility] [id number] [facility] 2020-06-26 2020-06-26 Outpatient [facility] [id number] [facility] 2020-01-09 2020-01-10 Outpatient CHIQUITA, [place] [id number] [place] 00:00:00 00:00:00 ALIYA [address] 2020-01-04 2020-01-04 Outpatient CHIQUITA, [facility] [id number] [place] 00:00:00 00:00:00 ALIYA [address] 2020-01-02 2020-01-02 Outpatient CHIQUITA, [facility] [id number] [place] 00:00:00 00:00:00 ALIYA [address] 2019-12-25 2019-12-25 Outpatient CHIQUITA, [facility] [id number] [place] 00:00:00 00:00:00 ALIYA [address] 2019-12-25 2019-12-25 Outpatient CHIQUITA, [facility] [id number] [place] 00:00:00 00:00:00 ALIYA [address] 2019-12-18 2019-12-18 Outpatient CHIQUITA, [facility] [id number] [place] 00:00:00 00:00:00 ALIYA [address] 2019-12-18 2019-12-18 Outpatient CHIQUITA, [facility] [id number] [place] 00:00:00 00:00:00 ALIYA [address] 2019-04-17 2019-04-17 Chloe Abdi [facility] [id number] Univers 18:03:16 18:18:16 Care Unknown, [facility] [id number] ity of Surgical [id number] Baltaazr as Specialti [phone] Me dical es [address] [place] 2019-04-17 2019-04-17 Ana Shaver [facility] [id number] 18:03:16 18:18:16 Care [facility] [id number] Surgical [id number] Specialti [phone] es [address] [place] 2016-11-16 2016-11-16 Angel Pal [facility] [id number] Univers 00:00:00 00:00:00 (Out) Fredy PEREIRA [id number] i [place] [id number] [facility] 144 Branch Results Test Description Test Time Test Comments Results Result Comments Source SARS coronavirus 2 RNA [Presence] in Respiratory speci men by 2020-01-04 18:01:48 SHANNON with probe detection Test Item Value Reference Range Interpretation Comme nts SARS coronavirus 2 RNA [Presence] in Respiratory Not detected Not-D etected specimen by SHANNON with probe detection (test code = 84294-4) BASIC METABOLIC [id number] 08:43:00 Test Item Value Reference Range Interpretation [...] 0-189 mg/dL VERY HIGH...... ...>/= 190 mg/dL [id number] 08:43:00 Test Item Value Reference Range Interpretation Comments MAGNESIUM (test code = MAG) 2.1 MG/DL 1.6-2.3 N BASIC METABOLIC [id number] 08:32:00 Test Item Value Reference Range Interpretation [...] LDL (test MG/DL 0-99 code = LDL) [id number] 08:32:00 Test Item Value Reference Range Interpretation Comments MAGNESIUM (test code = MAG) 2.1 MG/DL 1.6-2.3 N PROTHROMBIN [id number] 08:30:00 Test Item Value Reference Range Interpretation [...] syste candelario embolism. 3.0 - 4.5 PTT [id number] 08:30:00 Test Item Value Reference Range Interpretation Comments PTT ACTIVATED (test code = APTT) 32.5 SECONDS 22.0-33.0 N CBC W/AUTO [id number] 08:14:00 Test Item Value Reference Range Interpretation [...]
[2021-10-29 12:34] LABS: Hematocrit 35.3 % (39.6-49.0); Lymphocytes % 16.2 % (15.3-44.8); MPV 7.3 fL (7.6-11.3); RBC Red Blood Cell Count 3.65 M/uL (4.33-5.43)
[2021-10-29 12:36] LABS: Protime INR 1.04
--- NOTE | 2021-10-29 12:39 | RAD REPORT ---
EXAM DESCRIPTION: RAD - Chest Single View - 10/29/2021 12:29 pm CLINICAL HISTORY: CHEST PAIN COMPARISON: Chest Single View dated 07/24/2021; Chest Single View dated 09/06/2018; Chest Pa And Lat ( 2 Views) dated 08/10/2018; Chest Pa And Lat (2 Views) dated 08/03/2018 FINDINGS: Lines: None. Lungs: No evidence of edema or pneumonia. Linear scarring versus atelectasis in the lung bases. Pleural: No significant pleural effusions or pneumothorax. Cardiac: The heart size is within normal limits. Bones: No acute fractures. Other: IMPRESSION: No acute cardiopulmonary disease.
[2021-10-29 12:51] LABS: Albumin 3.5 g/dL (3.4-5.0); Bilirubin Direct 0.2 mg/dL (0-0.2); Bilirubin Total 0.5 mg/dL (0.2-1.0); Magnesium 2.5 mg/dL (1.8-2.4); Potassium 3.9 mmol/L (3.5-5.1); Protein, Total 6.8 g/dL (6.4-8.2); Troponin High Sensitivity 8.6 pg/mL (<58.9)
--- NOTE | 2021-10-29 15:29 | RAD REPORT ---
EXAM DESCRIPTION: CT - Head Brain Wo Cont - 10/29/2021 3:14 pm CLINICAL HISTORY: DIZZINESS COMPARISON: HEAD BRAIN W O CONTRAST dated 11/01/2015 TECHNIQUE: All CT scans are performed using dose optimization technique as appropriate and may inclu de automated exposure control or mA/KV adjustment according to patient size. FINDINGS: No intracranial hemorrhage, hydrocephalus or extra-axial fluid collection.No areas of brai n edema or evidence of midline shift. Cerebral atrophy. Right mastoid fluid. The calvarium is intact. IMPRESSION: No acute intracranial abnormality. Right mastoid fluid.
--- NOTE | 2021-10-29 16:40 | EDPHYS ---
Physician Documentation [facility] [place] Name: Jonathan Segundo Age: 86 yrs Sex: Male : 1935 Arrival Date: 10/29/2021 Time: 11:30 Bed 28 Private MD: Tru Hernandez ED Physician Shaw Lock HPI: 10/29 19:19 This 86 yrs old Male presents to ER via Ambulatory with complaints of High Blood kdr Pressure. 19:19 The patient has elevated blood pressure and discovered this at home. Onset: The kdr symptoms/episode began/occurred Patient has a long history of dizziness and blood pressure control issues. 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 Since then he has had ongoing dizziness issues. His most recent experiences have not been otherwise worse than usual. Modifying factors: The symptoms are aggravated by activity, movement, The symptoms are alleviated by remaining still. Associated signs and symptoms: Pertinent positives: Hypertension. Severity of symptoms: At its worst the blood pressure was mild, moderate, in the emergency department the blood pressure is unchanged. The patient has experienced similar episodes in the past, multiple times. The patient has not recently seen a physician. Historical: - Allergies: 12:03 Morphine; causes "shaking"; tw2 12:03 Xarelto; tw2 12:03 Warfarin; tw2 - Home Meds: 12:38 simvastatin 40 mg Oral tab 1 tab once daily [Active]; Combivent 18-103 mcg/actuation tw2 Inhl aero 2 puffs 4 times per day [Active]; levothyroxine 112 mcg cap 1 cap once daily [Active]; lisinopril 20 mg Oral tab 1 tab once daily [Active]; carvedilol 3.125 mg oral tab [Active]; amiodarone 200 mg Oral tab 1 tab once daily [Active]; omeprazole 40 mg Oral cpDR 1 cap once daily [Active]; 14:17 Benefiber Healthy Shape 5 gram/7.4 gram oral powd [Active]; Miralax 17 gram/dose Oral tw2 powd once daily [Active]; Iron CR Oral [Active]; Vitamin B-12 500 mcg Oral tab [Active]; - PMHx: 12:03 High Cholesterol; Hypertension; Hypothyroidism; neuropathy; skin cancer; tw2 - PSHx: 12:03 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 - Social history:: Smoking status: Patient denies any tobacco usage or history of. ROS: 19:19 Constitutional: Negative for fever, chills, and weight loss, Eyes: Negative for injury, kdr pain, redness, and discharge, ENT: Negative for injury, pain, and discharge, Neck: Negative for injury, pain, and swelling, Cardiovascular: Negative for chest pain, palpitations, and edema, Respiratory: Negative for shortness of breath, cough, wheezing, and pleuritic chest pain, Abdomen/GI: Negative for abdominal pain, nausea, vomiting, diarrhea, and constipation, Back: Negative for injury and pain, MS/Extremity: Negative for injury and deformity, Skin: Negative for injury, rash, and discoloration, Psych: Negative for depression, anxiety, suicide ideation, homicidal ideation, and hallucinations, Allergy/Immunology: Negative for hives, rash, and allergies, Endocrine: Negative for neck swelling, polydipsia, polyuria, polyphagia, and marked weight changes, Hematologic/Lymphatic: Negative for swollen nodes, abnormal bleeding, and unusual bruising. 19:19 Cardiovascular: Positive for Hypertension poorly controlled. 19:19 Neuro: Positive for dizziness, Negative for altered mental status, gait disturbance, headache. Exam: 19:19 Constitutional: This is a well developed, well nourished patient who is awake, alert, kdr and in no acute distress. Head/Face: Normocephalic, atraumatic. Eyes: Pupils equal round and reactive to light, extra-ocular motions intact. Lids and lashes normal. Conjunctiva and sclera are non-icteric and not injected. Cornea within normal limits. Periorbital areas with no swelling, redness, or edema. Neck: Trachea midline, no thyromegaly or masses palpated, and no cervical lymphadenopathy. Supple, full range of motion without nuchal rigidity, or vertebral point tenderness. No Meningismus. Chest/axilla: Normal chest wall appearance and motion. Nontender with no deformity. No lesions are appreciated. Cardiovascular: Regular rate and rhythm with a normal S1 and S2. No gallops, murmurs, or rubs. Normal PMI, no JVD. No pulse deficits. Respiratory: Lungs have equal breath sounds bilaterally, clear to auscultation and percussion. No rales, rhonchi or wheezes noted. No increased work of breathing, no retractions or nasal flaring. Abdomen/GI: Soft, non-tender, with normal bowel sounds. No distension or tympany. No guarding or rebound. No evidence of tenderness throughout. Back: No spinal tenderness. No costovertebral tenderness. Full range of motion. Skin: Warm, dry with normal turgor. Normal color with no rashes, no lesions, and no evidence of cellulitis. MS/ Extremity: Pulses equal, no cyanosis. Neurovascular intact. Full, normal range of motion. Neuro: Awake and alert, GCS 15, oriented to person, place, time, and situation. Cranial nerves II-XII grossly intact. Motor strength 5/5 in all extremities. Sensory grossly intact. Cerebellar exam normal. Normal gait. Psych: Awake, alert, with orientation to person, place and time. Behavior, mood, and affect are within normal limits. 19:19 Head/face: Patient does not tender over the right mastoid where the CT noted the fluid. kdr Vital Signs: 11:56 BP 96 / 58; Pulse 54; Resp 17; Temp 98.1(TE); Pulse Ox 99% on R/A; Weight 87.09 kg (R); tw2 Pain 0/10; 12:53 BP 125 / 65; Pulse 68; Resp 18; Pulse Ox 98% ; lr4 14:12 BP 131 / 74; Pulse 57; Resp 20; Pulse Ox 97% ; lr4 16:13 BP 150 / 78; Pulse 61; Resp 16; Pulse Ox 98% ; lr4 MDM: 16:39 Patient medically screened. kdr 19:22 Data reviewed: vital signs, nurses notes, lab test result(s), radiologic studies. kdr Counseling: I had a detailed discussion with the patient and/or guardian regarding: the historical points, exam findings, and any diagnostic results supporting the discharge/admit diagnosis, lab results, radiology results, the need for outpatient follow up. 10/29 12:10 Order name: Basic Metabolic Panel; Complete Time: 14:41 kdr 10/29 12:10 Order name: CBC with Diff; Complete Time: 14:41 kdr 10/29 12:10 Order name: LFT's; Complete Time: 14:41 kdr 10/29 12:10 Order name: Magnesium; Complete Time: 14:41 kdr 10/29 12:10 Order name: NT PRO-BNP; Complete Time: 14:41 kdr 10/29 12:10 Order name: PT-INR; Complete Time: 14:41 kdr 10/29 12:10 Order name: Troponin HS; Complete Time: 14:41 kdr 10/29 12:10 Order name: XRAY Chest (1 view); Complete Time: 14:41 kdr 10/29 12:10 Order name: EKG; Complete Time: 12:11 kdr 10/29 12:10 Order name: Cardiac monitoring; Complete Time: 12:38 kdr 10/29 12:10 Order name: EKG - Nurse/Tech; Complete Time: 12:38 kdr 10/29 12:10 Order name: IV Saline Lock; Complete Time: 12: kdr 10/29 12:10 Order name: Labs collected and sent; Complete Time: 12: kdr 10/29 14:54 Order name: CT Head Brain wo Cont; Complete Time: 15:33 kdr 10/29 12:10 Order name: O2 Per Protocol; Complete Time: 12: kdr 10/29 12:10 Order name: O2 Sat Monitoring; Complete Time: 12:38 kdr Administered Medications: No medications were administered Disposition Summary: 10/29/21 16:39 Discharge Ordered Location: Home kdr Problem: new kdr Symptoms: have improved kdr Condition: Fair kdr Diagnosis - Dizziness and giddiness kdr - Hypertensive heart disease without heart failure kdr Followup: kdr - With: Tru Hernandez DO - When: 2 - 3 days - Reason: If symptoms return, Further diagnostic work-up, Recheck today's complaints, Continuance of care, Re-evaluation by your physician Discharge Instructions: - Discharge Summary Sheet kdr - Hypertension, Adult, [id number] kdr - Dizziness, [id number]-Fwdr kdr Forms: - Medication Reconciliation Form kdr - Thank You Letter kdr Signatures: Dispatcher [employer] Shaw Lee MD MD kdr Bianca Recinos RN RN tw2
--- NOTE | 2021-10-29 16:40 | ER ---
Nurse's Notes [facility] Name: Jonathan Segundo Age: 86 yrs Sex: Male : 1935 Arrival Date: 10/29/2021 Time: 11:30 Bed 28 Private MD: Tru Hernandez Diagnosis: Dizziness and giddiness;Hypertensive heart disease without heart failure Presentation: 10/29 11:56 Chief complaint: Patient states: i got low blood pressure, equillibrium problems, and tw2 dizzy. i been having them for a while now. i got off my bp medicine for a about 2 weeks without knowing it. I saw Dr. Wolf on Tuesday and he got me back on my bp medicine. i would say its gotten progressively worse the past 6 weeks. i am dizzy when i stand up. i dont have any energy. no appetite. Coronavirus screen: At this time, the client does not indicate any symptoms associated with coronavirus-19. Ebola Screen: Patient denies travel to an Ebola-affected area in the 21 days before illness onset. Initial Sepsis Screen: Does the patient meet any 2 criteria? No. Patient's initial sepsis screen is negative. Does the patient have a suspected source of infection? No. Patient's initial sepsis screen is negative. Risk Assessment: Do you want to hurt yourself or someone else? Patient reports no desire to harm self or others. Onset of symptoms was October 29, 2021. 11:56 Method Of Arrival: Ambulatory tw2 11:56 Acuity: ERIN 2 tw2 Triage Assessment: 12:04 General: Appears in no apparent distress. Behavior is calm, cooperative, appropriate tw2 for age. Pain: Denies pain. Neuro: Level of Consciousness is awake, alert, obeys commands, Oriented to person, place, time, situation, Reports dizziness. Historical: - Allergies: 12:03 Morphine; causes "shaking"; tw2 12:03 Xarelto; tw2 12:03 Warfarin; tw2 - Home Meds: 12:38 simvastatin 40 mg Oral tab 1 tab once daily [Active]; Combivent 18-103 mcg/actuation tw2 Inhl aero 2 puffs 4 times per day [Active]; levothyroxine 112 mcg cap 1 cap once daily [Active]; lisinopril 20 mg Oral tab 1 tab once daily [Active]; carvedilol 3.125 mg oral tab [Active]; amiodarone 200 mg Oral tab 1 tab once daily [Active]; omeprazole 40 mg Oral cpDR 1 cap once daily [Active]; 14:17 Benefiber Healthy Shape 5 gram/7.4 gram oral powd [Active]; Miralax 17 gram/dose Oral tw2 powd once daily [Active]; Iron CR Oral [Active]; Vitamin B-12 500 mcg Oral tab [Active]; - PMHx: 12:03 High Cholesterol; Hypertension; Hypothyroidism; neuropathy; skin cancer; tw2 - PSHx: 12:03 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 - Social history:: Smoking status: Patient denies any tobacco usage or history of. Screenin:46 Abuse screen: Denies threats or abuse. Nutritional screening: No deficits noted. lr4 Tuberculosis screening: No symptoms or risk factors identified. Fall Risk No fall in past 12 months (0 pts). Secondary diagnosis (15 points) IV access (20 points). Ambulatory Aid- None/Bed Rest/Nurse Assist (0 pts). Gait- Weak (10 pts.). Mental Status- Oriented to own ability (0 pts). Total Wilson Fall Scale indicates High Risk Score (45 or more points). Side Rails Up X 2 Placed Close to Nursing Station Frequent Obs/Assessments Occuring Family Present and informed to notify staff if the need to leave the bedside. Assessment: 12:45 General: Appears in no apparent distress. comfortable, Behavior is calm, cooperative, lr4 appropriate for age. Pain: Denies pain. Neuro: No deficits noted. Cardiovascular: No deficits noted. Cardiovascular: Rhythm is sinus bradycardia. Musculoskeletal: Reports weakness in right arm, left arm, right leg and left leg since 2 months ago. 15:08 General: Pt to ct. lr4 16:50 Reassessment: Patient states feeling better. Pt departed ed ambulatory with all lr4 personal effects, pt with his son. Vital Signs: 11:56 BP 96 / 58; Pulse 54; Resp 17; Temp 98.1(TE); Pulse Ox 99% on R/A; Weight 87.09 kg (R); tw2 Pain 0/10; 12:53 BP 125 / 65; Pulse 68; Resp 18; Pulse Ox 98% ; lr4 14:12 BP 131 / 74; Pulse 57; Resp 20; Pulse Ox 97% ; lr4 16:13 BP 150 / 78; Pulse 61; Resp 16; Pulse Ox 98% ; lr4 ED Course: 11:30 Patient arrived in ED. as 11:30 Tru Hernandez DO is Private Physician. as 12:03 Triage completed. tw2 12:04 Arm band placed on. tw2 12:08 Shaw Lock MD is Attending Physician. kdr 12:22 Inserted saline lock: 20 gauge in left antecubital area, using aseptic technique. Blood tp1 collected. 12:29 XRAY Chest (1 view) In Process Unspecified. EDMS 12:38 Roxann Lund, RN is Primary Nurse. lr4 12:38 Basic Metabolic Panel Sent. lr4 12:38 LFT's Sent. lr4 12:38 Magnesium Sent. lr4 12:38 NT PRO-BNP Sent. lr4 12:38 Troponin HS Sent. lr4 12:47 Patient has correct armband on for positive identification. Side rails up X 1. Adult w/ lr4 patient. awake overnight monitor on. Pulse ox on. NIBP on. Door closed. Noise minimized. Visitors limited. Warm blanket given. 12:47 No provider procedures requiring assistance completed. lr4 15:08 CT Head Brain wo Cont Sent. lr4 15:14 CT Head Brain wo Cont In Process Unspecified. EDMS 16:38 Tru Hernandez DO is Referral Physician. kdr 16:50 IV discontinued. lr4 Administered Medications: No medications were administered Outcome: 12:47 Condition: stable lr4 16:39 Discharge ordered by . kdr 16:50 Discharge instructions given to patient, family. lr4 16:50 Discharged to home ambulatory. lr4 16:53 Patient left the ED. lr4 Signatures: Dispatcher [employer] EDMS Shaw Lock MD MD kdr Ilda Gerardo Tara, RN RN tw2 Kassie Barboza tp1 Roxann Lund, ANITA RN lr4 Corrections: (The following items were deleted from the chart) 12:34 12:22 Inserted saline lock: 20 gauge in right antecubital area, using aseptic tp1 technique. Blood collected. tp1
[2021-10-29 18:10] VITALS: TEMP 98.1
[2021-10-29 18:13] VITALS: BP 150/78; O2SAT 98
== END 2021-10-29 16:53 | disposition home or self-care (01) ==
LOC: ER 11:29
DX: I11.9 Hypertensive heart disease without heart failure (principal); I10 Essential (primary) hypertension; E78.00 Pure hypercholesterolemia, unspecified; E03.9 Hypothyroidism, unspecified; Z88.5 Allergy status to narcotic agent; Z88.8 Allergy status to other drugs, medicaments and biological substances
CPT/HCPCS: 36415; 70450; 71045; 80048; 80076; 83735; 83880; 84484; 85025; 85610; 99284

== ENCOUNTER 2022-02-18 07:56 | Emergency (ER) | payer OTHER ==
--- OUTSIDE RECORDS SUMMARY | 2022-02-18 08:00 | XMS REPORT | Continuity of Care Document ---
:1935 Author Organization [facility] t Address [address] [place] [place] [address] Care Team Providers Name Role Phone Chris Hernandez Primary Care Physician Tess Attending Clinician Unavailable SYED Attending Clinician Unavailable Zechariah Hernandez Attending Clinician [phone] Amadeo Pearl Attending Clinician [phone] CHIQUITA Attending Clinician Unavailable MD GENO PORRAS Attending Clinician Unavailable Chhaya HOLM Attending Clinician Unknown Attending Clinician Unavailable Pal MANTILLA Attending Clinician SYED Admitting Clinician Unavailable CHIQUITA Admitting Clinician Unavailable MD GENO PORRAS Admitting Clinician Unavailable Payers Payer Name Policy Type Policy Number Effective Date Expiration Date S ource MEDICARE B-[place]: [id number] 2000 [employer] 00:00:00 [employer] [id number] 2000 00:00:00 Problems Condition Condition Condition Status [...] Active U 2018- [facility] 04-13 [place] 00:00: [address] Morphine Drug Active Other - See TremorNo U nivers Intolera comments 1-20 similar ity o f nce 00:00: side [place] 00 effects Medical to Branch fentanyl, gabapenti n, hydrocodo ne (09/24/16) Social History Social Habit Start Date Stop Date Quantity Comments Source Alcohol intake 2016-10-26 2016-10-26 0 /d [facility] 00:00:00 00:00:00 Medical Branch Sex Ass[birth year] At [birth year] [facility] [place] 00:00:00 00:00:00 Medical Branch Smoking Status Start Date Stop Date Source Never smoker [facility] Medical Branch Medications Ordered Filled Start Stop Current Ordering Indication Dosage Frequency Signature Comments Components Source Medication Medication Date Date Medication? Clinician (SIG) Name Name aspirin 81 2018- Yes 81mg Take 81 mg U nivers mg EC 8-13 by mouth ity of tablet 23:28: daily. [place] 53 Medical Branch gabapentin 0 Yes Take by Uni vers ER 600 mg 8-13 mouth ity of tablet, 23:28: daily. [place] extended 53 Medical release 24 Branch hr rivaroxaban Yes 15mg Take 15 mg Univers (XARELTO) 8-13 by mouth 2 ity of 15 mg 23:28: (two) [place] tablet 53 times Medical daily. Branch amiodarone Yes Take by Uni vers HCl 8-13 mouth. ity of (AMIODARONE 23:28: [place] ORAL) 53 Medical Branch albuterol 0 Yes Inhale. [facility] rs sulfate 8-13 ity of (VENTOLIN 23:28: [place] HFA INHALE) 52 Medical Branch amoxicillin 0 2019- No [id number] 500mg Take 1 Univers 500 mg 8-04-25 tablet by ity of tablet 00:00: 04:59 mouth 2 [place] 00 :00 (two) Medical times Branch daily for 7 days. levothyroxi 2017-09 Yes 50ug Take 50 Uni vers ne 50 mcg 2-12 mcg by ity of tablet 14:41: mouth [place] [address] every Medical morning. Branch carvedilol 2017-09 Yes 6.25mg Take 6.25 Univers 6.25 mg 2-12 mg by ity of tablet 14:41: mouth 2 [place] [address] (two) Medical times [place] daily with meals. omeprazole 2017-09 Yes 40mg Take 40 mg U nivers 20 mg 2-12 by mouth ity of tablet 14:41: daily. [place] [address] Medical Branch fluticasone 2017-09 Yes 2{spray Use 2 Un kylah 50 2-12 } Sprays in ity of mcg/actuati 00:00: each [place] on nasal 00 nostril Medical spray daily. Branch simvastatin 2015-09 Yes 40mg Take 40 mg Univers (ZOCOR) 40 1-07 by mouth ity o f mg tablet 00:00: daily. [address] simvastatin 2015-09 Yes 40mg Take 40 mg Univers (ZOCOR) 40 -07 by mouth ity o f mg tablet 00:00: daily. [address] lisinopril- 2015-09 Yes 1{tbl} Take 1 Un [place]yl[place] hydrochloro 0-14 tablet by ity of thiazide 00:00: mouth [place] (PRINZIDE,Z 00 daily. Medica l ESTORETIC) Branch 20-12.5 mg per tablet lisinopril- 2015-09 Yes 1{tbl} Take 1 Un [place] hydrochloro 0-14 tablet by ity of thiazide 00:00: mouth [place] (PRINZIDE,Z 00 daily. Medica l ESTORETIC) Branch 20-12.5 mg per tablet Vital Signs Vital Name Observation Time Observation Value Comments Source Systolic blood 2019-04-17 23:25:00 173 mm[facility]Hg[facility] Diastolic blood 2019-04-17 23:25:00 79 mm[Hg] [facility] Heart rate 2019-04-17 23:24:00 62 /min [facility] Body temperature 2019-04-17 23:24:00 36.5 [facility] Respiratory rate 2019-04-17 23:24:00 18 /min [facility] Body height 2019-04-17 23:24:00 180.3 cm Univers[facility] ty [facility] [place] Medical [place] Body weight 2019-04-17 23:24:00 96.163 kg [facility] [place] [facility] BMI 2019-04-17 23:24:00 29.57 kg/m2 [facility] [place] [facility] Oxygen saturation in 2019-04-17 23:24:00 94 /min University of Arterial blood by [facility] Pulse oximetry Branch Systolic blood 2019-04-17 23:25:00 173 mm[Hg] Univer sity of pressure [facility] Diastolic blood 2019-04-17 23:25:00 79 mm[Hg] Unive rsity of pressure [facility] Heart rate 2019-04-17 23:24:00 62 /min Universi ty of [facility] Body temperature 2019-04-17 23:24:00 36.5 Gayla [facility] Respiratory rate 2019-04-17 23:24:00 18 /min [facility] Body height 2019-04-17 23:24:00 180.3 cm [facility] [place] [facility] Body weight 2019-04-17 23:24:00 96.163 kg [facility] [place] [facility] BMI 2019-04-17 23:24:00 29.57 kg/m2 Universi ty of [facility] Branch Oxygen saturation in 2019-04-17 23:24:00 94 /min University of Arterial blood by [facility] Pulse oximetry Branch Procedures This patient has no known procedures. Encounters Start End Encounter Admission Attending Care Care Encounter Source Date/Time Date/Time Type Type Clinicians Facility Department ID 2021-12-01 Outpatient [facility]LMLC STLMLC [id number] Common 11:24:02 [id number] [facility] 2021-09-30 Outpatient STLMLC STLMLC [id number] Common 12:40:04 [id number] [facility] 2021-09-30 Outpatient STLMLC STLMLC [id number] Common 12:16:25 [id number] [facility] 2021-09-30 Outpatient Millender, STLMLC STLMLC [id number] 11:57:56 Lana [id number] [facility] 2022-02-10 2022-02-10 ambulatory STLMLC STLMLC [id number] Common 00:00:00 00:00:00 [facility] 2022-01-13 2022-01-13 ambulatory STLMLC STLC [id number] Common 00:00:00 00:00:00 [facility] 2021-12-28 2021-12-28 Outpatient [facility] [id number] [place] 04:47:00 04:47:00 [facility] 2021-12-28 2021-12-28 Outpatient [facility] [id number] [place] 04:47:00 04:47:00 512 [facility] 2021-12-19 2021-12-19 Outpatient [facility] [id number] - [place] 01:29:00 01:29:00 416 [facility] 2021-12-07 2021-12-07 Outpatient [facility] [id number] - [place] 10:41:00 10:41:00 404 [facility] 2021-12-07 2021-12-07 Outpatient [facility] [id number] - [place] 10:41:00 10:41:00 406 [facility] 2021-12-07 2021-12-07 Outpatient David, [facility] [id number] 00:00:00 00:00:00 Tru [id number] Zechariah [id number] 2021-11-27 2021-11-27 Outpatient [facility] [id number] [place] 04:27:00 04:27:00 325 [facility] 2021-11-13 2021-11-13 Outpatient [facility] [id number] - [place] 12:40:00 12:40:00 311 [facility] 2021-11-10 2021-11-10 Outpatient [facility] [id number] - [place] 11:52:00 11:52:00 308 [facility] 2021-11-06 2021-11-06 Outpatient [facility] [id number] [place] 01:20:00 01:20:00 304 [facility] 2021-11-06 2021-11-06 Outpatient David [facility] [id number] 00:00:00 00:00:00 Tru [id number] Zechariah [id number] 2021-11-03 2021-11-03 Outpatient [facility] [id number] [place] 11:51:00 11:51:00 301 [facility] 2021-11-03 2021-11-03 Outpatient David [facility] [id number] 00:00:00 00:00:00 Tru [id number] Zechariah [id number] 2021-10-17 Outpatient [facility] [id number] [place] 07:32:00 07:32:00 212 [facility] 2021-09-12 2021-09-12 Outpatient [facility] [id number] [place] 04:34:00 04:34:00 108 [facility] 2021-08-08 2021-08-08 Outpatient [facility] [id number] [place] 05:22:00 05:22:00 204 [facility] 2021-07-27 2021-07-27 Outpatient [facility] [id number] [place] 05:07:00 05:07:00 122 [facility] 2021-07-27 2021-07-27 Outpatient David [facility] [id number] 00:00:00 00:00:00 Tru [id number] Zechariah [id number] 2021-07-02 2021-07-02 Outpatient [facility] [id number] [place] 10:49:00 10:49:00 028 [facility] 2021-07-02 2021-07-02 Outpatient Hernandez, [facility] [id number] 00:00:00 00:00:00 Tru [id number] Zechariah [id number] 2021-06-30 2021-06-30 Outpatient [facility] [id number] [place] 10:46:00 10:46:00 026 [facility] 2021-06-30 2021-06-30 Outpatient David, [facility] [id number] 00:00:00 00:00:00 Tru [id number] Zechariah [id number] 2021-06-30 2021-06-30 Outpatient Hernandez, [facility] [id number] 00:00:00 00:00:00 Tru [id number] Zechariah [id number] 2021-06-15 2021-06-15 Outpatient [facility] [id number] [place] 05:42:00 05:42:00 011 [facility] 2021-06-15 2021-06-15 Outpatient David, [facility] [id number] 00:00:00 00:00:00 Tru [id number] Zechariah [id number] 2021-05-26 2021-05-26 Outpatient [facility] [id number] [place] 04:29:00 04:29:00 [id number] [facility] 2021-05-26 2021-05-26 Outpatient Hernandez, [facility] [id number] 00:00:00 00:00:00 Tru [id number] Zechariah [id number] 2021-05-26 2021-05-26 Outpatient Hernandez, [facility] [id number] 00:00:00 00:00:00 Tru [id number] Zechariah [id number] 2021-05-26 2021-05-26 Outpatient Hernandez, [facility] [id number] 00:00:00 00:00:00 Tru [id number] Zechariah [id number] 2021-05-12 2021-05-12 Outpatient [facility] [id number] [place] 12:54:00 12:54:00 907 [facility] 2021-03-20 2021-03-20 Outpatient [facility] [id number] [place] 10:52:00 10:52:00 716 [facility] 2021-03-20 2021-03-20 Outpatient David [facility] [id number] 00:00:00 00:00:00 Tru [id number] Zechariah [id number] 2021-02-24 2021-02-24 Outpatient [facility] [id number] [place] 04:30:00 04:30:00 622 [facility] 2021-02-14 2021-02-14 Outpatient [facility] [id number] [place] 06:31:00 06:31:00 612 [facility] 2021-02-05 2021-02-05 Outpatient [facility] [id number] [place] 10:03:00 10:03:00 603 [facility] 2021-02-05 2021-02-05 Outpatient Tatimorenita [facility] [id number] 00:00:00 00:00:00 Jack [id number] Amadeo [id number] 2020-12-19 2020-12-19 Outpatient [facility] [id number] - [place] 11:04:00 11:04:00 416 [facility] 2020-12-19 2020-12-19 Outpatient David [facility] [id number] 00:00:00 00:00:00 Tru [id number] Zechariah [id number] 2020-11-20 2020-11-20 Outpatient [facility]LMLC [facility] [id number] Common 00:00:00 00:00:00 [facility] 2020-11-12 2020-11-12 Outpatient [facility] [id number] [place] 01:02:00 01:02:00 310 [facility] 2020-09-26 2020-09-26 Outpatient [facility] [id number] [place] 09:12:00 09:12:00 122 [facility] 2020-09-23 2020-09-23 Outpatient [facility] [id number] [place] 09:29:00 09:29:00 119 [facility] 2020-09-23 2020-09-23 Outpatient Hernandez, [facility] [id number] 00:00:00 00:00:00 Tru [id number] Zechariah [id number] 2020-09-12 2020-09-12 Outpatient [facility] [id number] [place] 12:08:00 12:08:00 108 [facility] 2020-09-08 2020-09-08 Outpatient [facility] [id number] [place] 10:50:00 10:50:00 104 [facility] 2020-07-18 2020-07-18 Outpatient [facility]C [facility] [id number] Common 00:00:00 00:00:00 [facility] 2020-07-04 2020-07-04 Outpatient [facility]LMLC [facility] [id number] Common 00:00:00 00:00:00 [facility] 2020-06-26 2020-06-26 Outpatient [facility]LMLC STL[facility]C [id number] Common 00:00:00 00:00:00 [facility] 2020-01-09 2020-01-10 [id number] [place] 00:00:00 00:00:00 ALIYA 802 Method i 2020-01-04 2020-01-04 Outpatient CHIQUITA, [facility] [id number] [place] 00:00:00 00:00:00 ALIYA 726 Method i 2020-01-02 2020-01-02 Outpatient CHIQUITA, [facility] [id number] [place] 00:00:00 00:00:00 ALIYA 642 Method i 2019-12-25 2019-12-25 Outpatient CHIQUITA, [facility] [id number] [place] 00:00:00 00:00:00 ALIYA 224 Method i 2019-12-25 2019-12-25 Outpatient CHIQUITA, [facility] [id number] [place] 00:00:00 00:00:00 ALIYA 786 Method i 2019-12-18 2019-12-18 Outpatient CHIQUITA, [facility] [id number] [place] 00:00:00 00:00:00 ALIYA 490 Method i 2019-12-18 2019-12-18 Outpatient CHIQUITA, [facility] [id number] [place] 00:00:00 00:00:00 ALIYA 664 Method i 2019-04-17 2019-04-17 [facility] [id number] [facility] 18:03:16 18:18:16 Care [facility] 350..13.10 ity of Surgical [id number] [place] as Specialti [id number] Ok dical es 370 Branch [place] 2019-04-17 2019-04-17 [facility] [id number] 18:03:16 18:18:16 Care [facility] [id number] Surgical [id number] Specialti [id number] es 370 [place] 2016-11-16 2016-11-16 [facility] [id number] Univers 00:00:00 00:00:00 (Out) Fredy RANDALL [id number] i [place] [id number] [facility] 144 Branch Results Test Description Test Time Test Comments Results Result Comments Source SARS coronavirus 2 RNA [Presence] in Respiratory speci men by 2020-01-04 18:01:48 SHANNON with probe detection Test Item Value Reference Range Interpretation Comme nts SARS coronavirus 2 RNA [Presence] in Respiratory Not detected Not-D etected specimen by SHANNON with probe detection (test code = 07512-9) BASIC METABOLIC [id number] 08:43:00 Test Item Value Reference Range Interpretation [...] 0-189 mg/dL VERY HIGH...... ...>/= 190 mg/dL [id number] 08:43:00 Test Item Value Reference Range Interpretation Comments MAGNESIUM (test code = MAG) 2.1 MG/DL 1.6-2.3 N BASIC METABOLIC [id number] 08:32:00 Test Item Value Reference Range Interpretation [...] LDL (test MG/DL 0-99 code = LDL) [id number] 08:32:00 Test Item Value Reference Range Interpretation Comments MAGNESIUM (test code = MAG) 2.1 MG/DL 1.6-2.3 N PROTHROMBIN [id number] 08:30:00 Test Item Value Reference Range Interpretation [...] syste candelario embolism. 3.0 - 4.5 PTT [id number] 08:30:00 Test Item Value Reference Range Interpretation Comments PTT ACTIVATED (test code = APTT) 32.5 SECONDS 22.0-33.0 N CBC W/AUTO [id number] 08:14:00 Test Item Value Reference Range Interpretation [...]
[2022-02-18 08:35] LABS: Hematocrit 34.3 % (39.6-49.0); Lymphocytes % 16.7 % (15.3-44.8); MPV 6.6 fL (7.6-11.3); RBC Red Blood Cell Count 3.82 M/uL (4.33-5.43)
[2022-02-18 09:00] LABS: Potassium 3.5 mmol/L (3.5-5.1); Troponin High Sensitivity 11.5 pg/mL (<58.9)
--- NOTE | 2022-02-18 09:48 | EDPHYS ---
Physician Documentation [facility] Name: Jonathan Segundo Age: 86 yrs Sex: Male : 1935 Arrival Date: 02/18/2022 Time: 08:00 Bed 15 Private MD: Tru Hernandez ED Physician Lee Khan HPI: 02/18 08:35 This 86 yrs old Male presents to ER via Ambulatory with complaints of High Blood ms3 Pressure. 08:35 The patient has elevated blood pressure and discovered this at home. Onset: The ms3 symptoms/episode began/occurred yesterday. Modifying factors: The symptoms are alleviated by Nothing. Associated signs and symptoms: The patient has no apparent associated signs or symptoms. Severity of symptoms: At its worst the blood pressure was 212 mm Hg. Historical: - Allergies: 08:14 Morphine; causes "shaking"; tw2 08:14 Warfarin; tw2 08:14 Xarelto; tw2 - Home Meds: 08:14 amiodarone 200 mg Oral tab 1 tab once daily [Active]; Benefiber Healthy Shape 5 tw2 gram/7.4 gram Oral powd [Active]; carvedilol 3.125 mg Oral tab [Active]; Combivent 18-103 mcg/actuation Inhl aero 2 puffs 4 times per day [Active]; Iron CR Oral [Active]; levothyroxine 112 mcg cap 1 cap once daily [Active]; lisinopril 20 mg Oral tab 1 tab once daily [Active]; Miralax 17 gram/dose Oral powd once daily [Active]; simvastatin 40 mg Oral tab 1 tab once daily [Active]; Vitamin B-12 500 mcg Oral tab [Active]; - PMHx: 08:14 Hypertension; Hypothyroidism; neuropathy; skin cancer; High Cholesterol; tw2 - PSHx: 08:14 removed cancer from ear and neck; tw2 - Immunization history:: Adult Immunizations. - Social history:: Smoking status: . ROS: 08:35 Constitutional: Negative for fever, and chills. Eyes: Negative for injury, pain, ms3 redness, and discharge, Neck: Negative for injury, pain, and swelling, Cardiovascular: Negative for chest pain, and palpitations. Respiratory: Negative for shortness of breath, cough, wheezing, and pleuritic chest pain, Abdomen/GI: Negative for abdominal pain, nausea, vomiting, diarrhea, and constipation, MS/Extremity: Negative for injury and deformity, Skin: Negative for injury, rash, and discoloration, Neuro: Negative for headache, weakness, numbness, tingling. Psych: Negative for depression, anxiety, suicide ideation, homicidal ideation, and hallucinations. 08:35 All other systems are negative. Exam: 08:19 ECG was reviewed by the Attending Physician. ms3 08:35 Constitutional: This is a well developed, well nourished patient who is awake, alert, ms3 and in no acute distress. Head/Face: Normocephalic, atraumatic. Neck: Trachea midline, no cervical lymphadenopathy. Supple, full range of motion without nuchal rigidity, or vertebral point tenderness. No Meningismus. Chest/axilla: Normal chest wall appearance and motion. Nontender with no deformity. Cardiovascular: Regular rate and rhythm with a normal S1 and S2. No gallops, murmurs, or rubs. Normal PMI, no JVD. No pulse deficits. Respiratory: Lungs have equal breath sounds bilaterally, clear to auscultation and percussion. No rales, rhonchi or wheezes noted. No increased work of breathing, no retractions or nasal flaring. Abdomen/GI: Soft, non-tender, with normal bowel sounds. No distension or tympany. No guarding or rebound. No evidence of tenderness throughout. Skin: Warm, dry with normal turgor. Normal color with no rashes, no lesions, and no evidence of cellulitis. Psych: Awake, alert, with orientation to person, place and time. Behavior, mood, and affect are within normal limits. Vital Signs: 08:16 BP 202 / 89; Pulse 53; Resp 16; Temp 97.7(TE); Pulse Ox 100% on R/A; Weight 97.07 kg; iw Height 5 ft. 11 in. (180.34 cm); Pain 0/10; 08:30 BP 188 / 84; Pulse 57; Resp 14; Pulse Ox 97% on R/A; tw2 08:45 BP 179 / 87; Pulse 56; Resp 17; Pulse Ox 97% on R/A; tw2 09:30 BP 188 / 83; Pulse 53; Resp 17; Pulse Ox 98% on R/A; tw2 08:16 Body Mass Index 29.85 (97.07 kg, 180.34 cm) iw MDM: 08:16 Patient medically screened. ms3 08:19 Differential diagnosis: hypertensive crisis, CKD vs HTN. ms3 09:48 Data reviewed: vital signs, nurses notes, lab test result(s), EKG, and as a result, I ms3 will discharge patient. Counseling: I had a detailed discussion with the patient and/or guardian regarding: the historical points, exam findings, and any diagnostic results supporting the discharge/admit diagnosis, lab results, the need for outpatient follow up, to return to the emergency department if symptoms worsen or persist or if there are any questions or concerns that arise at home. ED course: Discussed labs and PE findings with patient. Patient to follow up with her PMD in 2-3 days. Patient understands/ agrees with plan. All questions answered. Return precautions discussed to include worsening symptoms, or any other concerns. On re-evaluation patient is improved, A/O x4, nad, non-toxic, ambulatory in ED, speaking full sentences.. 02/18 08:16 Order name: CBC with Diff; Complete Time: 09:03 ms3 02/18 08:16 Order name: BMP; Complete Time: 09:03 ms3 02/18 08:16 Order name: EKG; Complete Time: 08:17 ms3 02/18 08:16 Order name: Troponin High Sensitivity; Complete Time: 09:03 ms3 02/18 08:20 Order name: IV Start; Complete Time: 08:59 tw2 02/18 08:20 Order name: EKG - Nurse/Tech; Complete Time: 08:20 tw2 EC:19 Rate is 56 beats/min. Rhythm is regular. QRS [place] is Normal. QRS interval is normal. ms3 Clinical impression: Sinus bradycardia. Interpreted by me. Administered Medications: No medications were administered Disposition Summary: 02/18/22 09:48 Discharge Ordered Location: Home ms3 Condition: Stable ms3 Diagnosis - Essential (primary) hypertension ms3 - Anemia, unspecified ms3 Followup: ms3 - With: Tru Hernandez DO - When: 1 - 2 days - Reason: Recheck today's complaints Discharge Instructions: - Discharge Summary Sheet ms3 - Anemia ms3 - Hypertension, Adult ms3 Forms: - Medication Reconciliation Form ms3 - Thank You Letter ms3 - Antibiotic Education ms3 - Prescription Opioid Use ms3 Signatures: Dispatcher [employer] Bianca Tee RN RN tw2 Lee Khan, DO ms3
--- NOTE | 2022-02-18 09:48 | ER ---
Nurse's Notes [facility] Name: Jonathan Segundo Age: 86 yrs Sex: Male : 1935 Arrival Date: 02/18/2022 Time: 08:00 Bed 15 Private MD: Tru Hernandez Diagnosis: Essential (primary) hypertension;Anemia, unspecified Presentation: 02/18 08:19 Coronavirus screen: At this time, the client does not indicate any symptoms associated tw2 with coronavirus-19. Ebola Screen: Patient denies travel to an Ebola-affected area in the 21 days before illness onset. Initial Sepsis Screen: Does the patient meet any 2 criteria? No. Patient's initial sepsis screen is negative. Does the patient have a suspected source of infection? No. Patient's initial sepsis screen is negative. Risk Assessment: Do you want to hurt yourself or someone else? Patient reports no desire to harm self or others. Onset of symptoms was February 18, 2022. 08:19 Method Of Arrival: Ambulatory tw2 08:19 Chief complaint: Patient states: high blood pressure since yesterday, has been taking iw his BP meds, also reports general weakness and blurry vision. Coronavirus screen: At this time, the client does not indicate any symptoms associated with coronavirus-19. Ebola Screen: Patient negative for fever greater than or equal to 101.5 degrees Fahrenheit, and additional compatible Ebola Virus Disease symptoms Patient denies exposure to infectious person. Patient denies travel to an Ebola-affected area in the 21 days before illness onset. No symptoms or risks identified at this time. Initial Sepsis Screen: Does the patient meet any 2 criteria? No. Patient's initial sepsis screen is negative. Does the patient have a suspected source of infection? No. Patient's initial sepsis screen is negative. Risk Assessment: Do you want to hurt yourself or someone else? Patient reports no desire to harm self or others. 08:19 Method Of Arrival: Ambulatory iw 08:19 Acuity: ERIN 2 tw2 08:[address] Khan assessed pt in triage room. tw2 Historical: - Allergies: 08:14 Morphine; causes "shaking"; tw2 08:14 Warfarin; tw2 08:14 Xarelto; tw2 - Home Meds: 08:14 amiodarone 200 mg Oral tab 1 tab once daily [Active]; Benefiber Healthy Shape 5 tw2 gram/7.4 gram Oral powd [Active]; carvedilol 3.125 mg Oral tab [Active]; Combivent 18-103 mcg/actuation Inhl aero 2 puffs 4 times per day [Active]; Iron CR Oral [Active]; levothyroxine 112 mcg cap 1 cap once daily [Active]; lisinopril 20 mg Oral tab 1 tab once daily [Active]; Miralax 17 gram/dose Oral powd once daily [Active]; simvastatin 40 mg Oral tab 1 tab once daily [Active]; Vitamin B-12 500 mcg Oral tab [Active]; - PMHx: 08:14 Hypertension; Hypothyroidism; neuropathy; skin cancer; High Cholesterol; tw2 - PSHx: 08:14 removed cancer from ear and neck; tw2 - Immunization history:: Adult Immunizations. - Social history:: Smoking status: . Screenin:15 Abuse screen: Denies threats or abuse. Nutritional screening: No deficits noted. tw2 Tuberculosis screening: No symptoms or risk factors identified. Fall Risk None identified. Assessment: 08:22 General: Appears in no apparent distress. well groomed, Behavior is calm, cooperative, tw2 appropriate for age. Pain: Denies pain. Neuro: Level of Consciousness is awake, alert, obeys commands, Oriented to person, place, time, situation. Cardiovascular: Capillary refill < 3 seconds Patient's skin is warm and dry. Respiratory: Airway is patent Respiratory effort is even, unlabored, Respiratory pattern is regular, symmetrical. GI: No signs and/or symptoms were reported involving the gastrointestinal system. Musculoskeletal: Range of motion: intact in all extremities. 09:04 Reassessment: provider at bedside at this time. tw2 09:31 Reassessment: Patient appears in no apparent distress at this time. No changes from tw2 previously documented assessment. Patient and/or family updated on plan of care and expected duration. Pain level reassessed. Patient is alert, oriented x 3, equal unlabored respirations, skin warm/dry/pink. 09:56 Reassessment: Patient appears in no apparent distress at this time. No changes from tw2 previously documented assessment. Patient and/or family updated on plan of care and expected duration. Pain level reassessed. Patient is alert, oriented x 3, equal unlabored respirations, skin warm/dry/pink. Vital Signs: 08:16 BP 202 / 89; Pulse 53; Resp 16; Temp 97.7(TE); Pulse Ox 100% on R/A; Weight 97.07 kg; iw Height 5 ft. 11 in. (180.34 cm); Pain 0/10; 08:30 BP 188 / 84; Pulse 57; Resp 14; Pulse Ox 97% on R/A; tw2 08:45 BP 179 / 87; Pulse 56; Resp 17; Pulse Ox 97% on R/A; tw2 09:30 BP 188 / 83; Pulse 53; Resp 17; Pulse Ox 98% on R/A; tw2 08:16 Body Mass Index 29.85 (97.07 kg, 180.34 cm) iw ED Course: 08:00 Patient arrived in ED. mr 08:00 Tru Hernandez DO is Private Physician. mr 08:05 Lee Khan DO is Attending Physician. ms3 08:14 Arm band placed on. tw2 08:15 Bed in low position. Call light in reach. quality assurance monitor body on. Pulse ox on. NIBP on. tw2 08:19 Triage completed. tw2 08:25 EKG done, by ED staff. tp1 08:27 Inserted saline lock: 20 gauge in left antecubital area, using aseptic technique. Blood tw2 collected. 08:31 Warm blanket given. tw2 08:50 Bianca Recinos RN is Primary Nurse. tw2 09:47 Tru Hernandez DO is Referral Physician. ms3 09:56 No provider procedures requiring assistance completed. IV discontinued, intact, tw2 bleeding controlled, No redness/swelling at site. Pressure dressing applied. Administered Medications: No medications were administered Medication: 08:20 VIS not applicable for this client. tw2 Outcome: 09:48 Discharge ordered by MD. ms3 09:56 Discharged to home ambulatory. tw2 09:56 Condition: stable 09:56 Discharge instructions given to patient, Instructed on discharge instructions, follow up and referral plans. Demonstrated understanding of instructions, follow-up care. 09:56 Patient left the ED. tw2 Signatures: Macie Gonzalez mr Kelly Oneil RN RN iw Bianca Recinos RN RN tw2 Lee Khan DO DO ms3 Kassie Barboza tp1 Corrections: (The following items were deleted from the chart) 08:16 Temp 97.7F Temporal; tw2 iw 08:19 Acuity: ERIN 3 tw2 tw
[2022-02-18 10:04] VITALS: TEMP 97.7
[2022-02-18 10:09] VITALS: BP 188/83; O2SAT 98
--- NOTE | 2022-02-20 09:00 | EKG ---
Test Date: 2022-02-18 Test Time: 08:19:24 Furniture Dipper: OLAMIDE MEASUREMENT RESULTS: Intervals: Rate: 56 VA: 208 QRSD: 84 QT: 428 QTc: 413 [place]: P: 140 VA: 208 QRS: -3 T: -1 INTERPRETIVE STATEMENTS: Unusual P axis, possible ectopic atrial bradycardia Low voltage QRS Abnormal ECG Compared to ECG 10/29/2021 12:28:48 Low QRS voltage now present Sinus bradycardia no longer present Myocardial infarct finding no longer present Electronically Signed On 02-20-22 08:55:48 CDT by Mark Faye
== END 2022-02-18 09:56 | disposition home or self-care (01) ==
LOC: ER 07:56
DX: I10 Essential (primary) hypertension (principal); D64.9 Anemia, unspecified; E03.9 Hypothyroidism, unspecified; Z88.5 Allergy status to narcotic agent; Z88.8 Allergy status to other drugs, medicaments and biological substances
CPT/HCPCS: 36415; 80048; 84484; 85025; 93005; 99284

== ENCOUNTER 2022-04-28 10:15 | Inpatient (IN) | payer OTHER ==
--- OUTSIDE RECORDS SUMMARY | 2022-04-28 10:20 | XMS REPORT | Continuity of Care Document ---
:1935 Author Organization [facility] t Address [address] [place] [place] [address] Care Team Providers Name Role Phone Tru Hernandez Primary Care Physician Lana Pulido Attending Clinician Unavailable MIKEY TERRY Attending Clinician Unavailable SYED Attending Clinician Unavailable Tru Hernandez Attending Clinician [phone] Jack Pearl Attending Clinician [phone] ALIYA PORRAS Attending Clinician Unavailable MD ALIYA PORRAS Attending Clinician Unavailable Chloe Durbin Attending Clinician Unknown, Attending Attending Clinician Unavailable Fredy Aguillon MD Attending Clinician SYED Admitting Clinician Unavailable ALIYA PORRAS Admitting Clinician Unavailable MD ALIYA PORRAS Admitting Clinician Unavailable Payers Payer Name Policy Type Policy Number Effective Date Expiration Date S ource MEDICARE-PART B 5 [id number] 2022 00:00:00 AETNA 2 [id number] 2022 00:00:00 [place]: [id number] 2000 [place] 00:00:00 AETNA [id number] 2000 00:00:00 Problems Condition Condition Condition Status [...] Date Date Clinician morphine DA Active [facility] 04-13 [place] 00:00: [address] Morphine Drug Active Other - See TremorNo U nivers Intolera comments 09-24 similar ity o f nce 00:00: [place] [address] effects Medical to Branch fentanyl, gabapenti n, hydrocodo ne (09/24/16) Social History Social Habit Start Date Stop Date Quantity Comments Source Alcohol intake 2016-10-26 2016-10-26 0 /d [facility] 00:00:00 00:00:00 Medical Branch Sex Ass[birth year] [facility] 00:00:00 00:00:00 Medical Branch Smoking Status Start Date Stop Date Source Never smoker [facility] [place] Medications Ordered Filled Start Stop Current Ordering Indication Dosage Frequency Signature Comments Components Source Medication Medication Date Date Medication? Clinician (SIG) Name Name aspirin 81 Yes 81mg Take 81 mg U nivers mg EC 8-13 by mouth ity of tablet 23:28: daily. [place] 53 Medical Branch gabapentin Yes Take by Univ ers ER 600 mg 8-13 mouth ity of tablet, 23:28: daily. [place] extended 53 Medical release 24 Branch hr rivaroxaban Yes 15mg Take 15 mg Univers (XARELTO) 8-13 by mouth 2 ity of 15 mg 23:28: (two) [place] tablet 53 times Medical daily. Branch amiodarone Yes Take by Univ ers HCl 8-13 mouth. ity of (AMIODARONE 23:28: [place] ORAL) 53 Medical Branch albuterol Yes Inhale. Unive rs sulfate 8-13 ity of (VENTOLIN 23:28: [place] HFA INHALE) 52 Medical Branch amoxicillin 2019- No [id number] 500mg Take 1 Univers 500 mg 04-17-21 tablet by ity of tablet 00:00: 04:59 mouth 2 [place] 00 :00 (two) Medical times [place] daily for 7 days. levothyroxi 2017-09 Yes 50ug Take 50 Uni vers ne 50 mcg 2-12 mcg by ity of tablet 14:41: mouth [place] [address] every Medical morning. Branch carvedilol 2017-09 Yes 6.25mg Take 6.25 Univers 6.25 mg 2-12 mg by ity of tablet 14:41: mouth 2 [place] [address] (two) Medical times [place] daily with meals. omeprazole 2017-09 Yes 40mg Take 40 mg U nivers 20 mg 2-12 by mouth ity of tablet 14:41: daily. [address] Branch fluticasone 2017-09 Yes 2{spray Use 2 Un kylah 50 2-12 } Sprays in ity of mcg/actuati 00:00: each [place] on nasal 00 nostril Medical spray daily. Branch simvastatin 2015-09 Yes 40mg Take 40 mg Univers (ZOCOR) 40 1-07 by mouth ity o f mg tablet 00:00: daily. [address] simvastatin 2015-09 Yes 40mg Take 40 mg Univers (ZOCOR) 40 1-07 by mouth ity o f mg tablet 00:00: daily. [address] Branch lisinopril- 2015-09 Yes 1{tbl} Take 1 Un kylah hydrochloro 0-14 tablet by ity of thiazide 00:00: mouth [place] (PRINZIDE,Z 00 daily. Medica l ESTORETIC) Branch 20-12.5 mg per tablet lisinopril- 2015-09 Yes 1{tbl} Take 1 Un [place] hydrochloro 0-14 tablet by ity of thiazide 00:00: mouth [place] (PRINZIDE,Z 00 daily. Medica l ESTORETIC) Branch 20-12.5 mg per tablet Vital Signs Vital Name Observation Time Observation Value Comments Source Systolic blood 2019-04-17 23:25:00 173 mm[Hg] Univer sity of pressure [facility] Diastolic blood 2019-04-17 23:25:00 79 mm[Hg] Unive rsity of pressure [place] [facility] Heart rate 2019-04-17 23:24:00 62 /min [facility] [place] [facility] Body temperature 2019-04-17 23:24:00 36.5 Gayla Univ ersity [facility] [place] [facility] Respiratory rate 2019-04-17 23:24:00 18 /min Univ [facility] [place] [facility] Body height 2019-04-17 23:24:00 180.3 cm [facility] [place] [facility] Body weight 2019-04-17 23:24:00 96.163 kg [facility] [place] [facility] BMI 2019-04-17 23:24:00 29.57 kg/m2 [facility] [place] [facility] Oxygen saturation in 2019-04-17 23:24:00 94 /min University of Arterial blood by [place] Savosolar malathi Pulse oximetry Branch Systolic blood 2019-04-17 23:25:00 173 mm[Hg] Univer sity of pressure [place] [facility] Diastolic blood 2019-04-17 23:25:00 79 mm[Hg] Unive rsity of pressure [place] [facility] Heart rate 2019-04-17 23:24:00 62 /min [facility] [place] [facility] Body temperature 2019-04-17 23:24:00 36.5 Gayla [facility] [place] [facility] Respiratory rate 2019-04-17 23:24:00 18 /min Univ [facility] [place] [facility] Body height 2019-04-17 23:24:00 180.3 cm [facility] [place] [facility] Body weight 2019-04-17 23:24:00 96.163 kg [facility] [place] [facility] BMI 2019-04-17 23:24:00 29.57 kg/m2 [facility] [place] [facility] Oxygen saturation in 2019-04-17 23:24:00 94 /min University of Arterial blood by [place] Savosolar malathi Pulse oximetry Branch Procedures This patient has no known procedures. Encounters Start End Encounter Admission Attending Care Care Encounter Source Date/Time Date/Time Type Type Clinicians Facility Department ID 2021-12-01 Outpatient [facility] [id number] Common 11:24:02 [id number] [facility] 2021-09-30 Outpatient [facility]LMLC [facility] [id number] Common 12:40:04 [id number] [facility] 2021-09-30 Outpatient STLMLC STLMLC [id number] Common 12:16:25 [id number] [facility] 2021-09-30 Outpatient Tess, STLMLC STLMLC [id number] 11:57:56 Lana 32088 [facility] 2022-04-27 2022-04-27 Outpatient KEYONNA TERRY [id number] [place] 10:00:00 10:00:00 MIKEY sands 2022-04-24 2022-04-24 Outpatient [facility] [id number] [place] 00:00:00 00:00:00 [facility] 2022-03-24 2022-03-24 ambulatory [facility]LMLC [facility] [id number] Common 00:00:00 00:00:00 [facility] 2022-03-02 2022-03-02 Outpatient [facility] [id number] - [place] 02:40:00 02:40:00 [facility] 2022-03-02 2022-03-02 Outpatient David [facility] [id number] 00:00:00 00:00:00 Tru [id number] Zechariah [id number] 2022-02-22 2022-02-22 Outpatient [facility] [id number] - [place] 05:41:00 05:41:00 [facility] 2022-02-22 2022-02-22 Outpatient David [facility] [id number] 00:00:00 00:00:00 Tru [id number] Zechariah [id number] 2022-02-10 2022-02-10 ambulatory [facility]ML[facility] [id number] Common 00:00:00 00:00:00 [facility] 2022-01-13 2022-01-13 ambulatory [facility] [id number] Common 00:00:00 00:00:00 [facility] 2021-12-28 2021-12-28 Outpatient [facility] [id number] [place] 04:47:00 04:47:00 509 [facility] 2021-12-28 2021-12-28 Outpatient [facility] [id number] [place] 04:47:00 04:47:00 512 [facility] 2021-12-19 2021-12-19 Outpatient [facility] [id number] - [place] 01:29:00 01:29:00 416 [facility] 2021-12-07 2021-12-07 Outpatient [facility] [id number] [place] 10:41:00 10:41:00 404 [facility] 2021-12-07 2021-12-07 Outpatient [facility] [id number] - [place] 10:41:00 10:41:00 406 [facility] 2021-12-07 2021-12-07 Outpatient David, [facility] [id number] 00:00:00 00:00:00 Tru [id number] Zechariah [id number] 2021-11-27 2021-11-27 Outpatient [facility] [id number] [place] 04:27:00 04:27:00 325 [facility] 2021-11-13 2021-11-13 Outpatient [facility] [id number] [place] 12:40:00 12:40:00 311 [facility] 2021-11-10 2021-11-10 Outpatient [facility] [id number] - [place] 11:52:00 11:52:00 308 [facility] 2021-11-06 2021-11-06 Outpatient [facility] [id number] [place] 01:20:00 01:20:00 304 [facility] 2021-11-06 2021-11-06 Outpatient David, [facility] [id number] 00:00:00 00:00:00 Tru [id number] Zechariah [id number] 2021-11-03 2021-11-03 Outpatient [facility] [id number] [place] 11:51:00 11:51:00 301 [facility] 2021-11-03 2021-11-03 Outpatient Hernandez, [facility] [id number] 00:00:00 00:00:00 Tru [id number] Zechariah [id number] 1990-02-12 2021-10-17 Outpatient [facility] [id number] [place] 07:32:00 07:32:00 212 [facility] 2021-09-12 2021-09-12 Outpatient [facility] [id number] [place] 04:34:00 04:34:00 108 [facility] 2021-08-08 2021-08-08 Outpatient [facility] [id number] [place] 05:22:00 05:22:00 204 [facility] 2021-07-27 2021-07-27 Outpatient [facility] [id number] [place] 05:07:00 05:07:00 122 [facility] 2021-07-27 2021-07-27 Outpatient Hernandez, [facility] [id number] 00:00:00 00:00:00 Tru [id number] Zechariah [id number] 2021-07-02 2021-07-02 Outpatient [facility] [id number] [place] 10:49:00 10:49:00 028 [facility] 2021-07-02 2021-07-02 Outpatient Hernandez, [facility] [id number] 00:00:00 00:00:00 Tru [id number] Zechariah [id number] 2021-06-30 2021-06-30 Outpatient [facility] [id number] [place] 10:46:00 10:46:00 026 [facility] 2021-06-30 2021-06-30 Outpatient David [facility] [id number] 00:00:00 00:00:00 Tru [id number] Zechariah [id number] 2021-06-30 2021-06-30 Outpatient David [facility] [id number] 00:00:00 00:00:00 Tru [id number] Zechariah [id number] 2021-06-15 2021-06-15 Outpatient [facility] [id number] - [place] 05:42:00 05:42:00 011 [facility] 2021-06-15 2021-06-15 Outpatient David [facility] [id number] 00:00:00 00:00:00 Tru [id number] Zechariah [id number] 2021-05-26 2021-05-26 Outpatient [facility] [id number] - [place] 04:29:00 04:29:00 921 [facility] 2021-05-26 2021-05-26 Outpatient David [facility] [id number] 00:00:00 00:00:00 Tru [id number] Zechariah [id number] 2021-05-26 2021-05-26 Outpatient David [facility] [id number] 00:00:00 00:00:00 Tru [id number] Zechariah [id number] 2021-05-26 2021-05-26 Outpatient David, [facility] [id number] 00:00:00 00:00:00 Tru [id number] Zechariah [id number] 2021-05-12 2021-05-12 Outpatient [facility] [id number] [place] 12:54:00 12:54:00 907 [facility] 2021-03-20 2021-03-20 Outpatient [facility] [id number] [place] 10:52:00 10:52:00 716 [facility] 2021-03-20 2021-03-20 Outpatient David [facility] [id number] 00:00:00 00:00:00 Tru [id number] Zechariah [id number] 2021-02-24 2021-02-24 Outpatient [facility] [id number] [place] 04:30:00 04:30:00 622 [facility] 2021-02-14 2021-02-14 Outpatient [facility] [id number] [place] 06:31:00 06:31:00 612 [facility] 2021-02-05 2021-02-05 Outpatient [facility] [id number] [place] 10:03:00 10:03:00 603 [facility] 2021-02-05 2021-02-05 Outpatient Ryanne [facility] [id number] 00:00:00 00:00:00 Jack [id number] Amadeo [id number] 2020-12-19 2020-12-19 Outpatient [facility] [id number] [place] 11:04:00 11:04:00 416 [facility] 2020-12-19 2020-12-19 Outpatient David [facility] [id number] 00:00:00 00:00:00 Tru [id number] Zechariah [id number] 2020-11-20 2020-11-20 Outpatient [facility] [id number] Common 00:00:00 00:00:00 [facility] 2020-11-12 2020-11-12 Outpatient [facility] [id number] [place] 01:02:00 01:02:00 310 [facility] 2020-09-26 2020-09-26 Outpatient [facility] [id number] [place] 09:12:00 09:12:00 122 [facility] 2020-09-23 2020-09-23 Outpatient [facility] [id number] [place] 09:29:00 09:29:00 119 [facility] 2020-09-23 2020-09-23 Outpatient Hernandez, [facility] [id number] 00:00:00 00:00:00 Tru [id number] Zechariah [id number] 2020-09-12 2020-09-12 Outpatient [facility] [id number] [place] 12:08:00 12:08:00 108 [facility] 2020-09-08 2020-09-08 Outpatient [facility] [id number] [place] 10:50:00 10:50:00 104 [facility] 2020-07-18 2020-07-18 Outpatient [facility] [id number] [place] 00:00:00 00:00:00 [facility] 2020-07-04 2020-07-04 Outpatient [facility] [id number] Common 00:00:00 00:00:00 [facility] 2020-06-26 2020-06-26 Outpatient [facility]C [facility] [id number] Common 00:00:00 00:00:00 [facility] 2020-01-09 2020-01-10 Outpatient CHIQUITA, [facility] [id number] [place] 00:00:00 00:00:00 ALIYA [address] 2020-01-04 2020-01-04 Outpatient CHIQUITA, [facility] [id number] [place] 00:00:00 00:00:00 ALIYA [address] 2020-01-02 2020-01-02 Outpatient CHIQUITA, [facility] [id number] [place] 00:00:00 00:00:00 ALIYA 642 [facility] i 2019-12-25 2019-12-25 Outpatient CHIQUITA, [facility] [id number] [place] 00:00:00 00:00:00 ALIYA 224 Method i 2019-12-25 2019-12-25 Outpatient CHIQUITA, [facility] [id number] [place] 00:00:00 00:00:00 ALIYA 786 [facility] 2019-12-18 2019-12-18 Outpatient CHIQUITA, [facility] [id number] [place] 00:00:00 00:00:00 ALIYA 490 [facility] i 2019-12-18 2019-12-18 Outpatient CHIQUITA, [facility] [id number] [place] 00:00:00 00:00:00 ALIYA 664 Method i 2019-04-17 2019-04-17 [facility] Chloe Shaver [facility] [[email or web address]] [id number]. [id number] Univers 18:03:16 18:18:16 Care [facility] [id number] ity of Surgical 4.2.7.2.686 [place] as Specialti [id number] Ne dical es [address] [place] 2019-04-17 2019-04-17 [facility] Shaver, [facility] [[email or web address]] [id number] 18:03:16 18:18:16 Care [facility] [id number] Surgical 4.2.7.2.686 Specialti [id number] es [address] [place] 2016-11-16 2016-11-16 Angel Aguillon [facility] [[email or web address]] [id number] Univers 00:00:00 00:00:00 (Out) Fredy PEREIRA [id number] i [place] [id number] [facility] 144 Branch Results Test Description Test Time Test Comments Results Result Comments Source SARS coronavirus 2 RNA [Presence] in Respiratory speci men by 2020-01-04 18:01:48 SHANNON with probe detection Test Item Value Reference Range Interpretation Comme nts SARS coronavirus 2 RNA [Presence] in Respiratory Not detected Not-D etected specimen by SHANNON with probe detection (test code = 16765-3) BASIC METABOLIC [id number] 08:43:00 Test Item Value Reference Range Interpretation [...] LIPOPROTEIN LDL (test 99 MG/DL 0-99 N OPTIM AL.........<100 code = LDL) mg/dLNEAR OPTIMAL/ABOVE OPTIMAL........ .100-12 9 mg/dL BORDERL INE HIGH.........13 0-159 mg/dL HIGH.........16 0-189 mg/dL VERY HIGH.........>/ = 190 mg/dL [id number] 08:43:00 Test Item Value Reference Range Interpretation Comments MAGNESIUM (test code = MAG) 2.1 MG/DL 1.6-2.3 N BASIC METABOLIC [id number] 08:32:00 Test Item Value Reference Range Interpretation [...] LDL (test MG/DL 0-99 code = LDL) [id number] 08:32:00 Test Item Value Reference Range Interpretation Comments MAGNESIUM (test code = MAG) 2.1 MG/DL 1.6-2.3 N PROTHROMBIN [id number] 08:30:00 Test Item Value Reference Range Interpretation Comments PROTHROMBIN TIME 11.9 SECONDS 9.6-11.6 H PATIENT (test code = PTP) INTERNATIONAL NORMAL 1.1 0.8-1.1 N The INR is to be RATIO (test code = used only for INR) monitoring oral anticoagulantth erap y. INDICATION I NR VALUE ---- ---- ---- -------1. Prophylaxis, de ep venous thrombos is, including high risk surgery. 2.0 - 3.0 2. Prophylaxis, deep venous thrombosis, hip surgery, treatm ent for deep venous thrombosis or pulmonary prevention of systemic emboli sm in patients wit h valvular heart disease, atrial fibrillation, tissue heart va lve, or acute myocar dial infarction. 2.0 - 3.0 3. Shell Worker al prosthesis hear t valves, recurre nt systemic emboli sm. 3.0 - 4.5 PTT [id number] 08:30:00 Test Item Value Reference Range Interpretation Comments PTT ACTIVATED (test code = APTT) 32.5 SECONDS 22.0-33.0 N CBC W/AUTO [id number] 08:14:00 Test Item Value Reference Range Interpretation [...]
--- NOTE | 2022-04-28 10:47 | ER ---
Nurse's Notes [facility] Name: Jonathan Segundo Age: 86 yrs Sex: Male : 1935 Arrival Date: 04/28/2022 Time: 10:20 Bed 4 Private MD: Diagnosis: Weakness;Hypotension due to drugs;Orthostatic hypotension;Dizziness and giddiness Presentation: 04/28 10:25 Chief complaint: Patient states: he has been dizzy, weak and has had some blurred ap3 vision and he has noticed his blood pressure is getting low. 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 Coronavirus screen: At this time, the client does not indicate any symptoms associated with coronavirus-19. Ebola Screen: No symptoms or risks identified at this time. Initial Sepsis Screen: Does the patient meet any 2 criteria? No. Patient's initial sepsis screen is negative. Does the patient have a suspected source of infection? No. Patient's initial sepsis screen is negative. Risk Assessment: Do you want to hurt yourself or someone else? Patient reports no desire to harm self or others. Onset of symptoms was April 28, 2022. 10:25 Method Of Arrival: Wheelchair ap3 10:25 Acuity: ERIN 2 ap3 Triage Assessment: 10:29 General: Appears in no apparent distress. Behavior is calm, cooperative, Reports ap3 fatigue for. Pain: Denies pain. Neuro: Level of Consciousness is awake, alert, obeys commands, Oriented to person, place, time, situation, Speech is normal, Reports weakness. Cardiovascular: Patient's skin is warm and dry. Respiratory: Airway is patent Respiratory effort is even, unlabored, Respiratory pattern is regular, symmetrical. Historical: - Allergies: 10:29 Morphine; causes "shaking"; ap3 10:29 Warfarin; ap3 10:29 Xarelto; ap3 - PMHx: 10:29 High Cholesterol; Hypertension; Hypothyroidism; neuropathy; skin cancer; ap3 - PSHx: 10:29 removed cancer from ear and neck; ap3 - Immunization history:: Client reports receiving the 2nd dose of the Covid vaccine. - Social history:: Smoking status: Patient/guardian denies using tobacco, the patient reports quitting approximately 50 years ago. Screenin:30 Abuse screen: Denies threats or abuse. Nutritional screening: No deficits noted. ap3 Tuberculosis screening: No symptoms or risk factors identified. 11:31 Fall Risk None identified. bm7 Assessment: 11:31 Reassessment: Patient and/or family updated on plan of care and expected duration. Pain bm7 level reassessed. Patient is alert, oriented x 3, equal unlabored respirations, skin warm/dry/pink. 11:59 General: Appears in no apparent distress. comfortable, Behavior is calm, cooperative, bm7 appropriate for age. Pain: Denies pain. Neuro: Reports blurred vision dizziness, a syncopal episode Denies headache. Cardiovascular: Denies chest pain, nausea, palpitations, shortness of breath, vomiting, Rhythm is irregular. Respiratory: No deficits noted. GI: No deficits noted. No signs and/or symptoms were reported involving the gastrointestinal system. : No deficits noted. No signs and/or symptoms were reported regarding the genitourinary system. EENT: No deficits noted. No signs and/or symptoms were reported regarding the EENT system. Derm: No deficits noted. No signs and/or symptoms reported regarding the dermatologic system. Musculoskeletal: No deficits noted. No signs and/or symptoms reported regarding the musculoskeletal system. 12:59 Reassessment: Patient and/or family updated on plan of care and expected duration. Pain bm7 level reassessed. Patient is alert, oriented x 3, equal unlabored respirations, skin warm/dry/pink. Patient states feeling better. Vital Signs: 10:25 BP 82 / 61; Pulse 76; Resp 18; Temp 97.6; Pulse Ox 97% ; Weight 97.07 kg; Height 5 ft. ap3 11 in. (180.34 cm); 10:58 BP 91 / 62; Pulse 70; ll1 11:08 BP 86 / 61 LA Supine (auto/); Pulse 74; bm7 11:09 BP 85 / 58 Sitting (auto/); Pulse 76 LA; bm7 11:09 BP 76 / 49 LA Standing (auto/); Pulse 78; bm7 11:45 BP 106 / 72; Pulse 78; Resp 16; Pulse Ox 98% on R/A; Pain 0/10; bm7 12:59 BP 121 / 72; Pulse 78; Resp 16; Pulse Ox 98% on R/A; Pain 0/10; bm7 13:29 BP 131 / 61; Pulse 70; Resp 16; Pulse Ox 98% on R/A; Pain 0/10; bm7 10:25 Body Mass Index 29.85 (97.07 kg, 180.34 cm) ap3 Vitals: 11:32 Cardiac Rhythm Assessment Irregular. bm7 ED Course: 10:20 Patient arrived in ED. am2 10:29 Triage completed. ap3 10:30 Shaw Lock MD is Attending Physician. kdr 10:30 Arm band placed on right wrist. ap3 10:45 Taurus Mathews is Hospitalizing Provider. kdr 10:45 EKG done, by ED staff, reviewed by Shaw Lock MD. Inserted saline lock: 20 gauge in em1 right antecubital area, using aseptic technique. Blood collected. 10:46 Placed in gown. Bed in low position. Call light in reach. Side rails up X 1. Door em1 closed. Noise minimized. Warm blanket given. 10:46 Basic Metabolic Panel Sent. em1 10:46 CBC with Diff Sent. em1 10:46 NT PRO-BNP Sent. em1 10:46 PT-INR Sent. em1 10:46 Troponin HS Sent. em1 11:00 Cristine Jones, RN is Primary Nurse. bm7 11:31 No apparent distress. Resting quietly. Awaiting bed assignment. bm7 11:31 Client placed on continuous cardiac and pulse oximetry monitoring. NIBP monitoring bm7 applied. monitor tech on. 11:31 Patient maintains SpO2 saturation greater than 95% on room air. bm7 12:15 XRAY Chest (1 view) In Process Unspecified. EDMS 21:13 Report given to Ivana. bm7 21:13 No provider procedures requiring assistance completed. Patient admitted, IV remains in bm7 place. Administered Medications: 11:45 Drug: NS 0.9% 500 ml Route: IV; Rate: bolus; Site: right antecubital; bm7 13:00 Follow up: IV Status: Completed infusion; IV Intake: 500ml bm7 Medication: 11:31 VIS not applicable for this client. bm7 Intake: 13:00 IV: 500ml; Total: 500ml. bm7 Outcome: 10:46 Decision to Hospitalize by Provider. kdr 21:13 Admitted to Tele accompanied by tech, via wheelchair, room 428, with chart, Report bm7 called to ANITA MORENO 21:13 Condition: improved 21:13 Discharge instructions given to patient, Instructed on the need for admit, Demonstrated understanding of instructions. 21:41 Patient left the ED. kl Signatures: Dispatcher [employer] EDChantell Dhillon, RN RN Shaw Gama MD MD kdr Martinez, Eric em1 Janelle Bird Amanda, RN RN ap3 Randa Merino RN RN 1 Cristine Jones, ANITA RN bm7
--- NOTE | 2022-04-28 10:47 | EDPHYS ---
Physician Documentation [facility] Name: Jonathan Segundo Age: 86 yrs Sex: Male : 1935 Arrival Date: 04/28/2022 Time: 10:20 Bed 4 Private MD: ED Physician Shaw Lock HPI: 04/28 11:27 This 86 yrs old Male presents to ER via Wheelchair with complaints of Blood Pressure kdr Problem, Dizziness. 11:27 Patient was brought to the ED today by his son. Patient states that over the last 24 kdr hours he has been increasingly weak and lightheaded specifically when he stands up. He has had some recent changes in him his medications. He states it is particularly worse after he eats breakfast in the morning. This is after he takes his morning medications which includes 3 or 4 different cardiac antihypertensive medications. Patient is otherwise alert and oriented and appropriate non-urgent and non-acute in the ED.. 11:35 Onset: The symptoms/episode began/occurred Has become worse over the last week or 2.. kdr Severity of symptoms: At their worst the symptoms were moderate in the emergency department the symptoms are unchanged. The patient has experienced similar episodes in the past, multiple times. The patient has been recently seen by a physician: the patient's primary care provider. Historical: - Allergies: 10:29 Morphine; causes "shaking"; ap3 10:29 Warfarin; ap3 10:29 Xarelto; ap3 - PMHx: 10:29 High Cholesterol; Hypertension; Hypothyroidism; neuropathy; skin cancer; ap3 - PSHx: 10:29 removed cancer from ear and neck; ap3 - Immunization history:: Client reports receiving the 2nd dose of the Covid vaccine. - Social history:: Smoking status: Patient/guardian denies using tobacco, the patient reports quitting approximately 50 years ago. ROS: 11:35 Constitutional: Negative for fever, chills, and weight loss, Eyes: Negative for injury, kdr pain, redness, and discharge, Neck: Negative for injury, pain, and swelling, Cardiovascular: Negative for chest pain, palpitations, and edema, Respiratory: Negative for shortness of breath, cough, wheezing, and pleuritic chest pain, Abdomen/GI: Negative for abdominal pain, nausea, vomiting, diarrhea, and constipation, Back: Negative for injury and pain, : Negative for injury, bleeding, discharge, and swelling, MS/Extremity: Negative for injury and deformity, Skin: Negative for injury, rash, and discoloration, Psych: Negative for depression, anxiety, suicide ideation, homicidal ideation, and hallucinations, Allergy/Immunology: Negative for hives, rash, and allergies, Endocrine: Negative for neck swelling, polydipsia, polyuria, polyphagia, and marked weight changes, Hematologic/Lymphatic: Negative for swollen nodes, abnormal bleeding, and unusual bruising. 11:35 Neuro: Positive for dizziness, weakness, Lightheaded with standing or upright position. Exam: 11:35 Constitutional: This is a well developed, well nourished patient who is awake, alert, kdr and in no acute distress. Head/Face: Normocephalic, atraumatic. Eyes: Pupils equal round and reactive to light, extra-ocular motions intact. Lids and lashes normal. Conjunctiva and sclera are non-icteric and not injected. Cornea within normal limits. Periorbital areas with no swelling, redness, or edema. Neck: Trachea midline, no thyromegaly or masses palpated, and no cervical lymphadenopathy. Supple, full range of motion without nuchal rigidity, or vertebral point tenderness. No Meningismus. Chest/axilla: Normal chest wall appearance and motion. Nontender with no deformity. No lesions are appreciated. Cardiovascular: Regular rate and rhythm with a normal S1 and S2. No gallops, murmurs, or rubs. Normal PMI, no JVD. No pulse deficits. Respiratory: Lungs have equal breath sounds bilaterally, clear to auscultation and percussion. No rales, rhonchi or wheezes noted. No increased work of breathing, no retractions or nasal flaring. Abdomen/GI: Soft, non-tender, with normal bowel sounds. No distension or tympany. No guarding or rebound. No evidence of tenderness throughout. Back: No spinal tenderness. No costovertebral tenderness. Full range of motion. Skin: Warm, dry with normal turgor. Normal color with no rashes, no lesions, and no evidence of cellulitis. MS/ Extremity: Pulses equal, no cyanosis. Neurovascular intact. Full, normal range of motion. Neuro: Awake and alert, GCS 15, oriented to person, place, time, and situation. Cranial nerves II-XII grossly intact. Motor strength 5/5 in all extremities. Sensory grossly intact. Cerebellar exam normal. Normal gait. Psych: Awake, alert, with orientation to person, place and time. Behavior, mood, and affect are within normal limits. 11:35 Cardiovascular: Rate: normal, Rhythm: Edema: 4+ edema to level of left midcalf, left ankle, right midcalf and right ankle, pedal edema, ankle edema, that is moderate, that is marked. 11:38 ECG was reviewed by the Attending Physician. kdr Vital Signs: 10:25 BP 82 / 61; Pulse 76; Resp 18; Temp 97.6; Pulse Ox 97% ; Weight 97.07 kg; Height 5 ft. ap3 11 in. (180.34 cm); 10:58 BP 91 / 62; Pulse 70; ll1 11:08 BP 86 / 61 LA Supine (auto/); Pulse 74; bm7 11:09 BP 85 / 58 Sitting (auto/); Pulse 76 LA; bm7 11:09 BP 76 / 49 LA Standing (auto/); Pulse 78; bm7 11:45 BP 106 / 72; Pulse 78; Resp 16; Pulse Ox 98% on R/A; Pain 0/10; bm7 12:59 BP 121 / 72; Pulse 78; Resp 16; Pulse Ox 98% on R/A; Pain 0/10; bm7 13:29 BP 131 / 61; Pulse 70; Resp 16; Pulse Ox 98% on R/A; Pain 0/10; bm7 10:25 Body Mass Index 29.85 (97.07 kg, 180.34 cm) ap3 MDM: 10:46 Patient medically screened. kdr 11:35 Data reviewed: vital signs, nurses notes, lab test result(s), EKG, radiologic studies. kdr Counseling: I had a detailed discussion with the patient and/or guardian regarding: the historical points, exam findings, and any diagnostic results supporting the discharge/admit diagnosis, lab results, radiology results, the need for further work-up and treatment in the hospital. 04/28 10:31 Order name: Basic Metabolic Panel; Complete Time: 11:26 kdr 04/28 10:31 Order name: CBC with Diff; Complete Time: 11: kdr 04/28 10:31 Order name: NT PRO-BNP; Complete Time: 11: kdr 04/28 10:31 Order name: PT-INR; Complete Time: 11:26 kdr 04/28 10:31 Order name: Troponin HS; Complete Time: 11:26 kdr 04/28 11:49 Order name: SARS RAPID; Complete Time: 13:29 bm7 04/28 10:31 Order name: XRAY Chest (1 view); Complete Time: 13:29 kdr 04/28 10:31 Order name: EKG; Complete Time: 10:31 kdr 04/28 10:31 Order name: Cardiac monitoring; Complete Time: 10:45 kdr 04/28 10:31 Order name: EKG - Nurse/Tech; Complete Time: 10:45 kdr 04/28 10:31 Order name: IV Saline Lock; Complete Time: 10:45 kdr 04/28 10:31 Order name: Labs collected and sent; Complete Time: 10:45 kdr 04/28 10:31 Order name: O2 Per Protocol; Complete Time: 10:45 kdr 04/28 10:31 Order name: O2 Sat Monitoring; Complete Time: 10:45 kdr 04/28 10:51 Order name: Orthostatic Blood Pressure; Complete Time: 11:10 kdr EC:38 Rate is 74 beats/min. Rhythm is irregularly irregular, A fib with No ectopy. QRS [place] kdr is Normal. DC interval is normal. QRS interval is normal. Clinical impression: Atrial Fibrillation. Administered Medications: 11:45 Drug: NS 0.9% 500 ml Route: IV; Rate: bolus; Site: right antecubital; bm7 13:00 Follow up: IV Status: Completed infusion; IV Intake: 500ml bm7 Disposition Summary: 04/28/22 10:46 Hospitalization Ordered Hospitalization Status: Inpatient Admission kdr Provider: Taurus Mathews Condition: Fair kdr Problem: new kdr Symptoms: have improved kdr Bed/Room Type: Standard kdr Location: Telemetry/MedSurg (Inpatient)(04/28/22 18:58) dw Room Assignment: [facility](04/28/22 18:58) Diagnosis - Weakness kdr - Hypotension due to drugs kdr - Orthostatic hypotension kdr - Dizziness and giddiness kdr Forms: - Medication Reconciliation Form kdr - SBAR form kdr Signatures: Dispatcher [employer] Charissa Lora RN RN dw Rittger, Kevin, MD MD kdr Leal, Jahala, RN RN jl7 Janelle Luis RN RN ap3 Cristine Jones, RN RN bm7 Corrections: (The following items were deleted from the chart) 15: 10:46 Telemetry/MedSurg (observation) kdr jl7 15: 10:46 kdr jl7 18:58 15:02 [facility] jl7 dw 18:58 15:02 [facility]- jl7 dw
[2022-04-28 10:57] LABS: Absolute Lymphocytes (CBC) 1.2 K/uL (0.7-4.9); Lymphocytes % 18.6 % (15.3-44.8); MCV 89.1 fL (80-100); RBC Red Blood Cell Count 4.15 M/uL (4.33-5.43)
[2022-04-28 11:00] LABS: Protime INR 1.07
[2022-04-28 11:13] LABS: Potassium 3.3 mmol/L (3.5-5.1); Troponin High Sensitivity 19.5 pg/mL (<58.9)
[2022-04-28] MEDS ORDERED: NA CHLORIDE 0.9% 500 ML ONE (11:49)
[2022-04-28 12:27] LABS: SARS-CoV-2 Antigen Rapid Res Negative (Negative)
[2022-04-28] MEDS ORDERED: HYDROCODONE/APAP 5/325 MG TAB PO PRN (12:34)
--- NOTE | 2022-04-28 12:55 | P.HP ---
Certification for Inpatient Patient admitted to: Inpatient With expected LOS: >2 Midnights Patient will require the following post-hospital care: None Practitioner: I am a practitioner with admitting privileges, knowledge of patient current condition, hospital course, and medical plan of care. Services: Services provided to patient in accordance with Admission requirements found in Title 42 Section 412.3 of the Code of Federal Regulations Patient History Date of Service: 04/28/22 Reason for admission: Hypotension History of Present Illness: Patient is an 86-year-old male with a past medical history significant for HLD, hypertension, , hypothyroidism, neuropathy, skin cancer who presents with complaint of hypotension that has been ongoing intermittently for the past 6 weeks. Patient reported that he noticed episodes of hypotension after taking his blood pressure medicine his blood pressure drops. Patient followed up with his back sizer who adjusted BP medication but patient continuously having episodes of hypotension intermittently. Patient reported associated signs and symptoms of dizziness, blurry vision, shortness of breath and bilateral lower extremity edema. Patient denies any other signs or symptoms. Symptoms are aggravated or relieved by nothing. Patient decided to present to the hospital for medical evaluation. Allergies morphine Allergy (Verified 09/06/18 13:44) Unknown rivaroxaban [From Xarelto] Allergy (Verified 04/28/22 13:04) Hives/Rash warfarin [From Coumadin] Allergy (Verified 04/28/22 13:04) Rash Home Medications: Aspirin 81 mg PO DAILY 11/01/15 Simvastatin 40 mg PO DAILY 11/01/15 Fluticasone [Flonase 50MCG Nasal [place]*] 2 spray .ROUTE DAILY 09/06/18 Gabapentin 600 mg PO DAILY 09/06/18 Levothyroxine [Synthroid*] 1 tab PO DAILY 09/06/18 Omeprazole [Prilosec] 40 mg PO DAILY 09/06/18 Ranitidine [Zantac*] 1 tab PO BEDTIME 09/06/18 carvediloL [Coreg*] 1 tab PO BID 09/06/18 - Past Medical/Surgical History Diabetic: No -: htn -: hyperlipidemia -: hypothyroid -: neuropathy -: back surg -: lap appy -: R knee repair -: TURP -: skin CA removed from anterior head - Family History Brother -: Heart disease, Hypertension, Cancer - Social History Smoking Status: Never smoker Alcohol use: No CD- Drugs: No Caffeine use: Yes Place of Residence: Home Review of Systems General: Weakness Eyes: Other (Blurry vision) ENT: Unremarkable Respiratory: Shortness of Breath Gastrointestinal: Nausea, Unremarkable Genitourinary: Unremarkable Musculoskeletal: Unremarkable Integumentary: Unremarkable Physical Examination - Physical Exam General: Alert, Oriented x3 HEENT: Atraumatic, Normocephalic, PERRLA Neck: 2+ carotid pulse no bruit, JVD not distended Respiratory: Clear to auscultation bilaterally, Normal air movement Cardiovascular: Regular rate/rhythm, Edema Gastrointestinal: Normal bowel sounds Musculoskeletal: No clubbing, No tenderness, No warmth, Swelling Integumentary: No rashes, No significant lesion, No tenderness/swelling Neurological: Normal speech, Sensation intact, Cranial nerves 3-12 intact, Normal reflexes 2+, Normal affect Lymphatics: No axilla or inguinal lymphadenopathy - Studies Laboratory Data (last 24 hrs) 04/28/22 10:41: PT 11.8, INR 1.07 04/28/22 10:41: WBC 6.30, Hgb 12.6 L, Hct 37.0 L, Plt Count 223 04/28/22 10:41: Sodium 143, Potassium 3.3 L, BUN 20 H, Creatinine 1.63 H, Glucose 124 H Assessment and Plan - Plan ---Hypotension. Likely medication related. Patient's back sizer has adjusted ISHAAN medication with no events. Airway Controller consulted. Echocardiogram to assess LV function/valvular functions and wall motion. Will await further recommendation from back sizer. -- Dizziness. Likely secondary to hypotension. Fall precautions. Continue supportive care. --HLD. Continue statin. --Hypothyroidism. Continue Synthroid. --GERD. Continue home medication. --Peripheral neuropathy. Continue home medication. --Bilateral lower extremity edema. Edema. Airway Controller on board. Further management per back sizer -- Hypokalemia. Replete as needed. --CKD 3B. Baseline functions unknown. Continue to monitor renal functions. --Class III obesity. Likely secondary to excess calories intake. Patient counseled on weight reduction, diet and exercise therapy. --Peripheral neuropathy. Continue gabapentin -- DVT prophylaxis with heparin subQ Discharge Plan: Home Plan to discharge in: Greater than 2 days - Advance Directives Does patient have a Living Will: No Does patient have a Durable POA for Healthcare: No - Code Status/Comfort Care Code Status Assessed: Yes Code Status: Full Code
--- NOTE | 2022-04-28 13:11 | RAD REPORT ---
EXAM DESCRIPTION: RAD - Chest Single View - 04/28/2022 12:13 pm CLINICAL HISTORY: Hypertension, dizziness COMPARISON: Portable 10/29/2021 TECHNIQUE: AP portable chest image was obtained 04/28/2022 12:13 pm . FINDINGS: No peripheral mass or consolidation. Interstitial markings are prominent, similar to the F ebruary study. Scarring or chronic atelectasis seen in each base also stable. Heart and vasculature are normal. No measurable pleural effusion and no pneumothorax. No acute bony abnormality seen. No acute aortic findings suspected. IMPRESSION: No acute cardiopulmonary process. Above detailed chest findings are stable from October imaging.
[2022-04-28] MEDS ORDERED: FAMOTIDINE 20 MG TAB PO SCH (21:00)
[2022-04-28] MEDS ORDERED: ATORVASTATIN 20 MG TAB PO SCH (21:00)
[2022-04-28] MEDS ORDERED: RANITIDINE 150 MG PO SCH (21:00)
[2022-04-28] MEDS: HEPARIN 5000 UNIT/ML 1 ML VIAL SQ SCH (21:00)
--- NOTE | 2022-04-28 22:07 | CON ---
Date of Consultation: 04/28/2022 Reason For Consultation: Hypotension. History Of Present Illness: This is an 86-year-old male with history of atrial fibrillation, hyperte nsion, dyslipidemia, hypothyroidism, and peripheral neuropathy who presented due to frequent episodes of hypotension that causes dizziness and blurry vision. No syncope. He has been following with car diologist elsewhere and he tried to change his medications; however, he continues to have hypotension episodes. Apparently was on lisinopril, Coreg, and some other blood pressure medicine that he does not recall. He has also lower extremity edema with exertional shortness of breath. No other complai nts. Past Medical History: As outlined above in HPI. Medications: Refer to reconciliation sheet for detailed list. Allergies: MORPHINE, XARELTO, AND WARFARIN. Family History: No premature coronary artery disease or cancer. Social History: Does not smoke or drink. Does not use drugs. Review of Systems: All systems reviewed are negative except as mentioned in HPI. Physical Examination: Vital Signs: Reviewed. Head and Neck: Pupils are equal, reactive to light. Intact eye movements. No JVD. No cyanosis. N brooke is supple. Thyroid is not enlarged. Lungs: Clear to auscultation bilaterally. No rhonchi, rales, or crackles. No accessory muscle use. Heart: Regular rate and rhythm. No extra sounds. Abdomen: Soft, nontender. Bowel sounds positive. No organomegaly. No masses or hernia. No rigidi ty or rebound. Extremities: No clubbing or cyanosis. Intact pulses. Skin: No rash noted. Neuro: Alert, awake, oriented x3. No acute focal deficits appreciated. Investigations: White blood cell count 6.3, hemoglobin 12.6. Creatinine is 1.63, BUN 20, potassium 3.3. Assessment And Recommendations: 1.Hypotension, may be it is due to medications. At this point, hold all antihypertensive medication s and monitor blood pressure closely. As far as his atrial fibrillation control, if blood pressure d oes not allow AV node blocking agents then we will plan for amiodarone load. However, let us monitor the patient overnight and reassess and decide tomorrow based on his blood pressure readings. Other option is to start instead of the Coreg, metoprolol as it has less blood pressure lowering effect com pared to Coreg. 2.The patient also needs a stroke protection due to atrial fibrillation and I see that he is allergi c to Xarelto and warfarin. He will be a good candidate for left atrial appendage closure. We will d iscuss this further with the patient and the primary care doctor. 3.Lower extremity edema with some shortness of breath. Please obtain an echocardiogram and further recommendations to follow. SR/MODL Voice ID: [id number] Report ID: [id number]
[2022-04-28 22:20] VITALS: BMI 29.8
[2022-04-28] MEDS: ASPIRIN EC 81 MG TAB PO SCH (23:02)
[2022-04-29 06:19] LABS: Potassium 3.3 mmol/L (3.5-5.1)
[2022-04-29] MEDS ORDERED: LEVOTHYROXINE SOD 0.05 MG TABLET PO SCH (06:30)
[2022-04-29 06:52] LABS: Magnesium 2.3 mg/dL (1.8-2.4); Phosphorus 2.9 mg/dL (2.5-4.9)
[2022-04-29] MEDS ORDERED: GABAPENTIN 300 MG CAP PO SCH (09:00)
[2022-04-29] MEDS ORDERED: FLUTICASONE 50MCG NASAL SPRAY NAS SCH (09:00)
[2022-04-29] MEDS ORDERED: HOME MED 1 EA UNK (Simvastatin [Simvastatin] 40 MG Tablet) PO SCH (09:00)
[2022-04-29] MEDS ORDERED: PANTOPRAZOLE 40MG TABLET PO SCH (09:00)
[2022-04-29] MEDS ORDERED: HOME MED 1 EA UNK (Omeprazole [Prilosec] 40 MG Capsule.Dr) PO SCH (09:00)
[2022-04-29] MEDS ORDERED: POTASSIUM CL SA 10 MEQ TAB PO ONE (09:00)
[2022-04-29 09:08] VITALS: O2SAT 96
[2022-04-29] MEDS: ASPIRIN EC 81 MG TAB PO SCH (10:35)
[2022-04-29] MEDS: HEPARIN 5000 UNIT/ML 1 ML VIAL SQ SCH (10:35)
[2022-04-29] MEDS ORDERED: AMLODIPINE 5 MG TAB PO SCH (12:50)
--- NOTE | 2022-04-29 14:32 | PN ---
Date of Progress Note: 04/29/2022 Mr. Segundo was seen by Dr. Addison. He is 86, has a history of atrial fibrillation, but he is allergi c to Xarelto and Coumadin. Came in with AFib, rate of 82, neuropathy, hypertension, dyslipidemia, an d hypothyroidism. Echocardiogram remains pending. Blood pressure has improved. He probably will no t tolerate beta-blockers. His atrial fibrillation is rate controlled. We will continue his present regimen. I think considering he is allergic to Xarelto and Coumadin, he should be a good candidate f or a Watchman procedure down the road. We will plan to see him as an outpatient and make an arrangem ent for that. RACIEL/HILDA Voice ID: [id number] Report ID: [id number]
--- NOTE | 2022-04-29 15:14 | EKG ---
Test Date: 2022-04-28 Test Time: 10:45:32 Academic Interventionist: KYARA MEASUREMENT RESULTS: Intervals: Rate: 74 [place]: QRSD: 80 QT: 384 QTc: 426 [place]: P: [place]: QRS: 7 T: -21 INTERPRETIVE STATEMENTS: Atrial fibrillation Low voltage QRS Nonspecific T wave abnormality, probably digitalis effect Abnormal ECG Compared to ECG 02/18/2022 08:19:24 T-wave abnormality now present Electronically Signed On 04-29-22 15:12:48 CDT by Dante Addison
[2022-04-29 15:26] VITALS: BP 147/94
--- NOTE | 2022-04-29 16:25 | P.DS ---
Admission Date: 04/28/22 Discharge Date: 04/29/22 Disposition: ROUTINE DISCHARGE Discharge Condition: FAIR Reason for Admission: Hypotension - Problems (1) Hypotension Current Visit: Yes Status: Acute (2) Chronic atrial fibrillation Current Visit: Yes Status: Acute (3) HTN (hypertension) Current Visit: No Status: Acute (4) Syncopal episodes Current Visit: No Status: Acute Brief History of Present Illness: Patient is an 86-year-old male with a past medical history significant for HLD, hypertension, , hypothyroidism, neuropathy, skin cancer who presented with complaint of hypotension that has been ongoing intermittently for 6 weeks. Patient reported short drops after taking his antihypertensives. 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 Patient reported associated signs and symptoms of dizziness, blurry vision, shortness of breath and bilateral lower extremity edema. Work-up in the ED was unremarkable except mild hyponatremia and elevated creatinine. EKG demonstrated atrial fibrillation. Chest x-ray showed no acute disease. Patient was hospitalized for further management. Hospital Course: Patient troponin was negative. His blood pressure was held during the hospital stay and patient became hypertensive. He was seen in consultation by cardiology who recommended to discontinue Coreg as patient has not been tolerating it. There is a report of allergy to Xarelto so he is not anticoagulated. Echocardiogram done and the result is pending. Cardiology-Dr. Faye recommend follow-up with him as an outpatient for arrangement for watchman's procedure. Given that patient was hypertensive he was given low-dose amlodipine which he tolerated with systolic blood pressure in the 140s. Patient deemed stable for discharge she is prescribed low-dose amlodipine for blood pressure control. Vital Signs/Physical Exam: Temp Pulse Resp BP Pulse Ox 97.1 F 83 14 147/94 H 98 04/29/22 11:35 04/29/22 11:35 04/29/22 11:35 04/29/22 15:25 04/29/22 11:35 General: Alert, In no apparent distress, Oriented x3 HEENT: Mucous membr. moist/pink Neck: Supple, JVD not distended Respiratory: Clear to auscultation bilaterally, Normal air movement Cardiovascular: No edema, Normal S1 S2, Irregular heart rate/rhythm Gastrointestinal: Soft and benign, Non-distended, No tenderness Musculoskeletal: No swelling Neurological: Normal strength at 5/5 x4 extr Laboratory Data at Discharge: WBC 6.30 K/uL (4.3-10.9) 04/28/22 10:41 Hgb 12.6 g/dL (13.6-17.9) L 04/28/22 10:41 Hct 37.0 % (39.6-49.0) L 04/28/22 10:41 Plt Count 223 K/uL (152-406) 04/28/22 10:41 PT 11.8 SECONDS (9.5-12.5) 04/28/22 10:41 INR 1.07 04/28/22 10:41 Sodium 142 mmol/L (136-145) 04/29/22 05:53 Potassium 3.3 mmol/L (3.5-5.1) L 04/29/22 05:53 BUN 16 mg/dL (7-18) 04/29/22 05:53 Creatinine 1.08 mg/dL (0.55-1.3) 04/29/22 05:53 Glucose 96 mg/dL (74-106) 04/29/22 05:53 Phosphorus 2.9 mg/dL (2.5-4.9) 04/29/22 05:53 Magnesium 2.3 mg/dL (1.8-2.4) 04/29/22 05:53 Home Medications: Aspirin 81 mg PO DAILY 11/01/15 Simvastatin 40 mg PO DAILY 11/01/15 Fluticasone [Flonase 50MCG Nasal English*] 2 spray .ROUTE DAILY 09/06/18 Gabapentin 600 mg PO DAILY 09/06/18 Levothyroxine [Synthroid*] 1 tab PO DAILY 09/06/18 Omeprazole [Prilosec] 40 mg PO DAILY 09/06/18 Ranitidine [Zantac*] 1 tab PO BEDTIME 09/06/18 Amlodipine [Norvasc*] 5 mg PO DAILY #30 tab 04/29/22 New Medications: Amlodipine [Norvasc*] 5 mg PO DAILY #30 tab Diet: AHA Activity: Fall precautions Followup: Mark Faye MD [ACTIVE - CAN ADMIT] - 1-2 Weeks Tru Hernandez MD [Primary Care Provider] - Time spent managing pt's care (in minutes): 34
[2022-04-29 16:59] VITALS: TEMP 97.4
--- NOTE | 2022-04-30 10:33 | ECHO ---
HEIGHT: 5 ft 11 in WEIGHT: 214 lb 0 oz DATE OF STUDY: 04/29/[address]: Fatuma Kulkarni 2-DIMENSIONAL: YES M.MODE: YES DOPPLER: YES COLOR FLOW: YES TDS: NO PORTABLE: YES DEFINITY: NO BUBBLE STUDY: NO DIAGNOSIS: HYPOTENSION CARDIAC HISTORY: CATHERIZATION: NO SURGERY: NO PROSTHETIC VALVE: NO PACEMAKER: NO MEASUREMENTS (cm) DIASTOLIC (NORMALS) SYSTOLIC (NORMALS) IVSd 0.9 (0.6-1.2) LA Diam 2.7 (1.9-4.0) LVEF 55-60% LVIDd 3.3 (3.5-5.7) LVIDs 2.0 (2.0-3.5) %FS 38% LVPWd 1.1 (0.6-1.2) Ao Diam 2.7 (2.0-3.7) 2 DIMENSIONAL ASSESSMENT: RIGHT ATRIUM: NORMAL LEFT ATRIUM: NORMAL RIGHT VENTRICLE: NORMAL LEFT VENTRICLE: NORMAL TRICUSPID VALVE: MITRAL VALVE: MITRAL ANNULAR CALCIFICATION PULMONIC VALVE: NORMAL AORTIC VALVE: PERICARDIAL EFFUSION: NONE AORTIC ROOT: NORMAL LEFT VENTRICULAR WALL MOTION: ATRIAL FIBRILLATION. DOPPLER/COLOR FLOW: SEE BELOW. COMMENTS: NORMAL LEFT VENTRICULAR EJECTION FRACTION 55-60%. ATRIAL FIBRILLATION. MITRAL ANNULAR CALCIFICATION WITH MILD TO MODERATE MITRAL REGURGITATION. MILD AORTIC AND TRICUSPID REGURGITATION. TECHNOLOGIST: Afsaneh MCKEON
== END 2022-04-29 18:00 | disposition home or self-care (01) | DRG 312 ==
LOC: ER 10:15 → ERHOLD 12:28 → 4TH 19:08
PROVIDERS: ADMIT Internal Medicine; ATTEND Internal Medicine
DX: I95.2 Hypotension due to drugs (principal); I48.20 Chronic atrial fibrillation, unspecified; E87.1 Hypo-osmolality and hyponatremia; E78.5 Hyperlipidemia, unspecified; K21.9 Gastro-esophageal reflux disease without esophagitis; G62.9 Polyneuropathy, unspecified; E66.9 Obesity, unspecified; E87.6 Hypokalemia; I12.9 Hypertensive chronic kidney disease with stage 1 through stage 4 chronic kidney disease, or unspecified chronic kidney disease; N18.32 Chronic kidney disease, stage 3b; E03.9 Hypothyroidism, unspecified; R60.9 Edema, unspecified; T46.5X5A Adverse effect of other antihypertensive drugs, initial encounter; Z88.5 Allergy status to narcotic agent; Z88.8 Allergy status to other drugs, medicaments and biological substances; Z79.82 Long term (current) use of aspirin; Z79.890 Hormone replacement therapy; Z85.828 Personal history of other malignant neoplasm of skin; Z79.899 Other long term (current) drug therapy; Z68.29 Body mass index [BMI] 29.0-29.9, adult; Z20.822 Contact with and (suspected) exposure to COVID-19
CPT/HCPCS: 36415; 71045; 80048; 83735; 83880; 84100; 84484; 85025; 85610; 87811; 93005; 93306; 96360; 97112; 97161; 99285; J1644; J7040

== ENCOUNTER 2023-03-11 10:55 | Inpatient (IN) | payer OTHER ==
--- OUTSIDE RECORDS SUMMARY | 2023-03-11 11:04 | XMS REPORT | Continuity of Care Document ---
:1935 Author Organization [facility] t Address [address] [facility] [address] [place] [address] Care Team Providers Name Role Phone Tru Hernandez Primary Care Physician Elvin Tamayo Attending Clinician Unavailable Lana Pulido Attending Clinician Unavailable FARTUN_Mariam Attending Clinician Unavailable Tru Hernandez Attending Clinician [phone] MIKEY TERRY Attending Clinician Unavailable Jack Pearl Attending Clinician [phone] ALIYA PORRAS Attending Clinician Unavailable MD ALIYA PORRAS Attending Clinician Unavailable Chloe Durbin Attending Clinician Unknown, Attending Attending Clinician Unavailable Fredy Aguillon MD Attending Clinician Nik Wolf Cardiology Admitting Clinician Unavailable SYED Admitting Clinician Unavailable ALIYA PORRAS Admitting Clinician Unavailable MD ALIYA PORRAS Admitting Clinician Unavailable Payers Payer Name Policy Type Policy Number Effective Date Expiration Date S opal [employer] (MEDICARE [id number] 2022 REPLACEMENT PPO) 00:00:00 MEDICARE B-[place]: [id number] [employer]IONS 00:00:00 TIM [id number] 2000 00:00:00 MEDICARE-PART B 5 [id number] 2022 00:00:00 AERUFUS 2 [id number] 2022 00:00:00 Problems Condition Condition Condition Status Onset Resolution Last Treating Co mments Source Name Details Category Date Date Treatment Clinician Date 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 00:00: ty 00 [facility]osp[facility] Clinics Benign Benign Problem Active [facility] prostatic Prostatic 4-04 Comm uni hyperplasi Hyperplasi 00:00: ty a with a with 00 Hospita outflow Outflow l obstructio Obstructio Cl inics n n Edema Edema Problem Active [facility] 4-04 [facility]i 00:00: ty 00 [facility] Clinics Polyuria Polyuria Problem Active [facility] y 4-04 Communi 00:00: ty 00 [facility]osp[facility] l Clinics Asbestosis Asbestosis Problem Active S we[facility] 9-21 Communi 00:00: ty 00 [facility] Clinics Anemia Anemia Problem Active [facility] 8-04 [facility] 00:00: ty 00 [facility] Clin[facility] Gastroesop Gastroesop Problem Active S [facility] hageal hageal 7-16 Communi reflux Reflux 00:00: ty disease Disease 00 Hospita without without l esophagiti Esophagiti Cl inics s s Loss of Loss of Problem Active [facility] appetite Appetite 7-16 Commun i 00:00: ty 00 Hospita l Clinics Hearing Hearing Problem Active [facility] 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 Right Ear 00:00: ty 00 [facility]ospita l Clinics 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 00:00: ty stage 3B Stage 3B 00 Hospit a l Clin[facility] Large Large Problem Active 2019-09 [facility] prostate Prostate 1-16 Commun i 00:00: ty 00 Hospita l Clinics History of History of Problem Active 2019-09 [facility] anemia Anemia 1-16 Communi 00:00: ty 00 [facility] Gastrointe Gastrointe Problem Active 2019-09 S [facility] stinal stinal 0-01 [facility]i hemorrhage Hemorrhage 00:00: ty 00 [facility] Polyp of Polyp of Problem Active [facility] colon Colon 9-14 Communi 00:00: ty 00 [facility] 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 8-19 Co mmuni erosis in erosis in 00:00: ty [place] 00 [facility] artery Artery l [facility] Cerebrovas Cerebrovas Problem Active S [facility] cular cular 8-19 Communi disease Disease 00:00: ty 00 [facility] Thoracic Thoracic Problem Active [facility]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 12/11/2019: Head and Neck Tumor BoardDx: R tail of parotid/u pper neck cystic lesion; FNA shows some necrotic debris with atypical squamous cells ? Metastati c lymph node vs Warthin's tumorPlan : repeat FNA possible core bx, consider technetiu m salivary scan with nuc med, upload outside imaging; may need surgery (parotide ctomy/ND) pending tissue dx Subcutaneo Subcutaneo Problem Active S [facility]en[facility] us nodule us Nodule 1-08 Comm uni 00:00: ty 00 [facility] Malignant Malignant Problem Active Swe juan luis neoplasm Neoplasm -07 Commun i of skin of Skin 00:00: ty 00 [facility] Hypothyroi Hypothyroi Problem Active S [facility] dism dism 1-07 Communi 00:00: ty 00 [facility] Hyperlipid Hyperlipid Problem Active S ani emia emia 09-11 Communi 00:00: ty [facility] Hypertensi Hypertensi Problem Active S haydeeennathanael ve ve 09-11 Communi disorder [facility] Chronic Chronic Problem Active [facility] atrial Atrial 09-11 Communi fibrillati Fibrillati 00:00: ty on on [facility] Asthma Asthma Problem Active [facility] 09-11 [facility]i 00:00: ty [facility] Chronic Chronic Problem Active [facility] obstructiv Obstructiv 09-11 Co mmuni e lung e Lung 00:00: ty disease Disease [facility] Gastroesop Gastroesop Problem Active S ani hageal hageal 09-11 Communi reflux Reflux 00:00: ty disease Disease 00 [facility] Loss of Loss of Problem Active [facility] equilibriu Equilibriu 09-11 Co mmuni m m 00:00: ty 00 [facility] [id number] Squamous Problem Comm on cell [facility] carcinoma - [facility] of scalp [facility] Leukopenia Decreased Problem Co mmon white [facility] blood cell - [facility], [facility] [id number] Hypothyroi Problem Co mmon dism Spirit (acquired) - [facility] [id number] Burning Problem Commo n feet Spirit syndrome - [facility] [id number] Herpes Problem Common zoster [facility] without - [facility] complicati [facility] [id number] Hiatal Problem Common hernia Spirit - [facility] [id number] Benign Problem Common colonic Spirit polyp - [facility] 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 [facility] [id number] Arterioscl Problem Com mon erotic [facility] heart - [facility] disease ([facility] Anemia due Blood loss Problem C ommon to chronic anemia Spirit blood loss - [facility] Degenerati Degenerati Problem C ommon ve joint ve joint Spirit disease disease - [facility] Degenerati Degenerati Problem C ommon on of on of Spirit lumbar lumbar or - [facility] interverte lumbosacra [facility] interverte Medica l bral disc [place] [id number] Paroxysmal Problem Co mmon atrial Spirit fibrillati - [facility] on [facility] Mixed Mixed Problem Common hyperlipid hyperlipid Sp mat emia emia - [facility] Essential Benign Problem Common hypertensi essential Spi rit on HTN - [facility] Cortical Cortical Problem 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 Spirit cataract d - [facility] cataract, [facility] [id number] +5th digit Problem Co mmon eff Spirit 06/05/20*Ch - [facility] ronic [facility] disease, Medical stage III Center (moderate) Pancytopen Other Problem Commo n ia pancytopen Spirit ia - [facility] Osteoarthr Osteoarthr Problem C ommon itis of itis, Spirit multiple multiple - [facility] joints sites [facility] [id number] History of Problem Co mmon skin [facility] cancer - [facility] [id number] Peripheral Problem Co mmon edema Spirit - [facility] [id number] Prostatiti Problem Com mon s, acute Spirit [facility] Degenerati DDD Problem Commo n on of (degenerat Spirit lumbosacra kyle disc - CH I l disease), interverte lumbosacra Sabrina s bral disc l Medical [place] [id number] Nodular Problem Commo n prostate Spirit with lower - [facility] urinary [facility] symptoms Medical [place] Benign BPH Problem Common prostatic without Spirit hypertroph urinary - [facility] y without obstructio [facility] obstructio Medica caro center Center Seasonal Allergic Problem Commo n allergic rhinitis, Spiri t rhinitis seasonal - [facility] [id number] Atrial Problem Common fibrillati Spirit on, - [facility] unspecifie [facility] Hard Nodular Problem Common prostate prostate [facility] without - [facility] lower urinary [facility] tract Medical symptoms Center Allergies, Adverse Reactions, Alerts Allergy Allergy Status Severity Reaction(s) Onset Inactive Treating Comm ents Source Name Type Date Date Clinician Morphine Propensi Active Other (See Uncontrol Methodi ty to Comments) 12-[address] adverse 00:00: [employer] Hospita reaction 00 l s to drug morphine DA Active U [facility] 04-13 00:00: [address] morphine DA Active U UNKNOWN [facility] 04-13 00:00: [address] Morphine Drug Active Other - See TremorNo U nivers [employer] comments -20 similar ity o f nce 00:00: side [place] [id number] effects Medical to Branch fentanyl, gabapenti n, hydrocodo ne (09/24/16) Morphine Allergy Active [facility] to Communi [facility] ty e Hospita l Clinics Morphine Morphine Active Unknown Commo n [facility] Social History Social Habit Start Date Stop Date Quantity Comments Source Gender identity [facility] Sexual orientation [facility] History of Tobacco Common [facility] - Use [facility] History of Social 2022-11-08 2022-11-[address] function 00:00:00 00:00:00 Hospital Alcohol intake 2020-01-14 2020-01-14 [facility] 00[facility] Cigarettes smoked 2020-01-02 2020-01-[address] current (pack per 00:00:00 00:00:00 Hospita l day) - Reported Cigarette 2020-01-02 2020-01-02 [facility] pack-years 00:00:00 00:00:00 Hospital Tobacco use and 2020-01-02 2020-01-02 Smokeless [facility] exposure 00:00:00 00:00:00 tobacco non-user Hospital Alcohol Comment 2019-12-13 2019-12-13 quit in [address] 00:00:00 00:00:00 Hospital Sex Assigned At [birth year] [facility] 00:00:[facility] Smoking Status Start Date Stop Date Source Never Smoker [facility] Ex-smoker 2020-01-02 00:00:00 2020-01-02 [facility] Medications Ordered Filled Start Stop Current Ordering Indication Dosage Frequency Signature Comments Components Source Medication Medication Date Date Medication? Clinician (SIG) Name Name Finasteride Finasteride 2022- No 1{table QD Finasterid 5 MG 5 MG 02-10 t} e 5 MG 00:00: 00:00 00 :00 Finasteride Finasteride 2022- No 1{table QD Finasterid 5 MG 5 MG 02-10 t} e 5 MG 00:00: 00:00 00 :00 Finasteride Finasteride 2021-0 2022- No 1{table QD Finasterid 5 MG 5 MG 02-10 t} e 5 MG 00:00: 00:00 00 :00 Flomax 0.4 Flomax 0.4 2021-0 3- No 1{capsu QD Flomax 0.4 MG MG 01-13 le} MG 00:00: 00:00 00 :00 Flomax 0.4 Flomax 0.4 2021-0 3- No 1{capsu QD Flomax 0.4 MG MG 01-13 le} MG 00:00: 00:00 00 :00 Flomax 0.4 Flomax 0.4 2021-0 3- No 1{capsu QD Flomax 0.4 MG MG 01-13 le} MG 00:00: 00:00 00 :00 Flomax 0.4 Flomax 0.4 2021-0 2021- No 1{capsu QD Flomax 0.4 MG MG 01-13 le} MG 00:00: 00:00 00 :00 Augmentin Augmentin 2021-0 2021- No 1{table BID Augmentin 875-125 MG 875-125 MG 01-13 t} 875-125 MG 00:00: 00:00 00 :00 dexamethaso dexamethaso 2020-09 No dexamethas [facility] ne sodium ne sodium 0-26 one sodium Communi phosphate phosphate 10:01: phosphate ty 10 mg/mL 10 mg/mL 09 10 mg/mL Hos lukas injection injection injection l solutionTak solutionTak solutionTa Clinics e 10 mg by e 10 mg by ke 10 mg injection injection by route. route. injection route. Kenalog 40 Kenalog 40 2020-09 No Kenalog 40 [facility] mg/mL mg/mL 0-26 mg/mL Communi suspension suspension 10:01: suspension ty for for 08 for Hospita injectionTa injectionTa injectionT l ke 40 mg by ke 40 mg by mariela 40 mg Clinics injection injection by route. route. injection route. fluticasone fluticasone No fluticason [facility] propionate propionate 9-14 e Com ruam 50 50 00:00: propionate ty mcg/actuati mcg/actuati 00 50 H ospita on nasal on nasal mcg/actuat l spray,suspe spray,suspe ion nasal Clinics nsion SPRAY nsion SPRAY spray,susp 2 SPRAYS 2 SPRAYS ension INTO EACH INTO EACH SPRAY 2 NOSTRIL NOSTRIL SPRAYS EVERY DAY EVERY DAY INTO EACH NOSTRIL EVERY DAY fluticasone fluticasone 2020-0 No fluticason [facility] propionate propionate -14 e [facility] ruma 50 50 00:00: propionate ty mcg/actuati mcg/actuati 00 50 H ospita on nasal on nasal mcg/actuat l spray,suspe spray,suspe ion nasal Clinics nsion SPRAY nsion SPRAY spray,susp 2 SPRAYS 2 SPRAYS ension INTO EACH INTO EACH SPRAY 2 NOSTRIL NOSTRIL SPRAYS EVERY DAY EVERY DAY INTO EACH NOSTRIL EVERY DAY fluticasone fluticasone 2020-0 No fluticason [facility] propionate propionate -14 e [facility] ruma 50 50 00:00: propionate ty mcg/actuati mcg/actuati 00 50 H ospita on nasal on nasal mcg/actuat l spray,suspe spray,suspe ion nasal Clinics nsion SPRAY nsion SPRAY spray,susp 2 SPRAYS 2 SPRAYS ension INTO EACH INTO EACH SPRAY 2 NOSTRIL NOSTRIL SPRAYS EVERY DAY EVERY DAY INTO EACH NOSTRIL EVERY DAY fluticasone fluticasone 2020-0 No fluticason [facility] propionate propionate -14 e [facility] ruma 50 50 00:00: propionate ty mcg/actuati mcg/actuati 00 50 H ospita on nasal on nasal mcg/actuat l spray,suspe spray,suspe ion nasal Clinics nsion SPRAY nsion SPRAY spray,susp 2 SPRAYS 2 SPRAYS ension INTO EACH INTO EACH SPRAY 2 NOSTRIL NOSTRIL SPRAYS EVERY DAY EVERY DAY INTO EACH NOSTRIL EVERY DAY fluticasone fluticasone 2020-0 No fluticason [facility] propionate propionate -14 e [facility] ruma 50 50 00:00: propionate ty mcg/actuati mcg/actuati 00 50 H ospita on nasal on nasal mcg/actuat l spray,suspe spray,suspe ion nasal Clinics nsion SPRAY nsion SPRAY spray,susp 2 SPRAYS 2 SPRAYS ension INTO EACH INTO EACH SPRAY 2 NOSTRIL NOSTRIL SPRAYS EVERY DAY EVERY DAY INTO EACH NOSTRIL EVERY DAY fluticasone fluticasone 2020-0 No fluticason [facility] propionate propionate 05-19 e Com ruma 50 50 00:00: propionate ty mcg/actuati mcg/actuati 00 50 H ospita on nasal on nasal mcg/actuat l spray,suspe spray,suspe ion nasal Clinics nsion SPRAY nsion SPRAY spray,susp 2 SPRAYS 2 SPRAYS ension INTO EACH INTO EACH SPRAY 2 NOSTRIL NOSTRIL SPRAYS EVERY DAY EVERY DAY INTO EACH NOSTRIL EVERY DAY fluticasone fluticasone 2020-0 No fluticason [facility] propionate propionate 05-19 e Com ruma 50 50 00:00: propionate ty mcg/actuati mcg/actuati 00 50 H ospita on nasal on nasal mcg/actuat l spray,suspe spray,suspe ion nasal Clinics nsion SPRAY nsion SPRAY spray,susp 2 SPRAYS 2 SPRAYS ension INTO EACH INTO EACH SPRAY 2 NOSTRIL NOSTRIL SPRAYS EVERY DAY EVERY DAY INTO EACH NOSTRIL EVERY DAY fluticasone fluticasone 2020-0 No fluticason [facility] propionate propionate 05-19 e Com ruma 50 50 00:00: propionate ty mcg/actuati mcg/actuati 00 50 H ospita on nasal on nasal mcg/actuat l spray,suspe spray,suspe ion nasal Clinics nsion SPRAY nsion SPRAY spray,susp 2 SPRAYS 2 SPRAYS ension INTO EACH INTO EACH SPRAY 2 NOSTRIL NOSTRIL SPRAYS EVERY DAY EVERY DAY INTO EACH NOSTRIL EVERY DAY fluticasone fluticasone 2020-0 No fluticason [facility] propionate propionate 05-19 e Com ruam 50 50 00:00: propionate ty mcg/actuati mcg/actuati 00 50 H ospita on nasal on nasal mcg/actuat l spray,suspe spray,suspe ion nasal Clinics nsion SPRAY nsion SPRAY spray,susp 2 SPRAYS 2 SPRAYS ension INTO EACH INTO EACH SPRAY 2 NOSTRIL NOSTRIL SPRAYS EVERY DAY EVERY DAY INTO EACH NOSTRIL EVERY DAY fluticasone fluticasone 2020-0 No fluticason [facility] propionate propionate 05-19 e Com ruma 50 50 00:00: propionate ty mcg/actuati mcg/actuati 00 50 H ospita on nasal on nasal mcg/actuat l spray,suspe spray,suspe ion nasal Clinics nsion SPRAY nsion SPRAY spray,susp 2 SPRAYS 2 SPRAYS ension INTO EACH INTO EACH SPRAY 2 NOSTRIL NOSTRIL SPRAYS EVERY DAY EVERY DAY INTO EACH NOSTRIL EVERY DAY fluticasone fluticasone 2020-0 No fluticason [facility] propionate propionate 9-14 e Com ruma 50 50 00:00: propionate ty mcg/actuati mcg/actuati 00 50 H ospita on nasal on nasal mcg/actuat l spray,suspe spray,suspe ion nasal Clinics nsion SPRAY nsion SPRAY spray,susp 2 SPRAYS 2 SPRAYS ension INTO EACH INTO EACH SPRAY 2 NOSTRIL NOSTRIL SPRAYS EVERY DAY EVERY DAY INTO EACH NOSTRIL EVERY DAY fluticasone fluticasone 2020-0 No fluticason [facility] propionate propionate -14 e [facility] ruma 50 50 00:00: propionate ty mcg/actuati mcg/actuati 00 50 H ospita on nasal on nasal mcg/actuat l spray,suspe spray,suspe ion nasal Clinics nsion SPRAY nsion SPRAY spray,susp 2 SPRAYS 2 SPRAYS ension INTO EACH INTO EACH SPRAY 2 NOSTRIL NOSTRIL SPRAYS EVERY DAY EVERY DAY INTO EACH NOSTRIL EVERY DAY fluticasone fluticasone 2020-0 No fluticason [facility] propionate propionate -14 e [facility] ruma 50 50 00:00: propionate ty mcg/actuati mcg/actuati 00 50 H ospita on nasal on nasal mcg/actuat l spray,suspe spray,suspe ion nasal Clinics nsion SPRAY nsion SPRAY spray,susp 2 SPRAYS 2 SPRAYS ension INTO EACH INTO EACH SPRAY 2 NOSTRIL NOSTRIL SPRAYS EVERY DAY EVERY DAY INTO EACH NOSTRIL EVERY DAY fluticasone fluticasone 2020-0 No fluticason [facility] propionate propionate 9-14 e [facility] ruma 50 50 00:00: propionate ty mcg/actuati mcg/actuati 00 50 H ospita on nasal on nasal mcg/actuat l spray,suspe spray,suspe ion nasal Clinics nsion SPRAY nsion SPRAY spray,susp 2 SPRAYS 2 SPRAYS ension INTO EACH INTO EACH SPRAY 2 NOSTRIL NOSTRIL SPRAYS EVERY DAY EVERY DAY INTO EACH NOSTRIL EVERY DAY fluticasone fluticasone 2020-0 No fluticason [facility] propionate propionate 05-19 e Com ruma 50 50 00:00: propionate ty mcg/actuati mcg/actuati 00 50 H ospita on nasal on nasal mcg/actuat l spray,suspe spray,suspe ion nasal Clinics nsion SPRAY nsion SPRAY spray,susp 2 SPRAYS 2 SPRAYS ension INTO EACH INTO EACH SPRAY 2 NOSTRIL NOSTRIL SPRAYS EVERY DAY EVERY DAY INTO EACH NOSTRIL EVERY DAY fluticasone fluticasone 2020-0 No fluticason [facility] propionate propionate 05-19 e Com ruma 50 50 00:00: propionate ty mcg/actuati mcg/actuati 00 50 H ospita on nasal on nasal mcg/actuat l spray,suspe spray,suspe ion nasal Clinics nsion SPRAY nsion SPRAY spray,susp 2 SPRAYS 2 SPRAYS ension INTO EACH INTO EACH SPRAY 2 NOSTRIL NOSTRIL SPRAYS EVERY DAY EVERY DAY INTO EACH NOSTRIL EVERY DAY fluticasone fluticasone 2020-0 No fluticason [facility] propionate propionate 05-19 e Com ruma 50 50 00:00: propionate ty mcg/actuati mcg/actuati 00 50 H ospita on nasal on nasal mcg/actuat l spray,suspe spray,suspe ion nasal Clinics nsion SPRAY nsion SPRAY spray,susp 2 SPRAYS 2 SPRAYS ension INTO EACH INTO EACH SPRAY 2 NOSTRIL NOSTRIL SPRAYS EVERY DAY EVERY DAY INTO EACH NOSTRIL EVERY DAY fluticasone fluticasone 2020-0 No fluticason [facility] propionate propionate 05-19 e Com ruma 50 50 00:00: propionate ty mcg/actuati mcg/actuati 00 50 H ospita on nasal on nasal mcg/actuat l spray,suspe spray,suspe ion nasal Clinics nsion SPRAY nsion SPRAY spray,susp 2 SPRAYS 2 SPRAYS ension INTO EACH INTO EACH SPRAY 2 NOSTRIL NOSTRIL SPRAYS EVERY DAY EVERY DAY INTO EACH NOSTRIL EVERY DAY fluticasone fluticasone 2020-0 No fluticason [facility] propionate propionate 05-19 e Com ruma 50 50 00:00: propionate ty mcg/actuati mcg/actuati 00 50 H ospita on nasal on nasal mcg/actuat l spray,suspe spray,suspe ion nasal Clinics nsion SPRAY nsion SPRAY spray,susp 2 SPRAYS 2 SPRAYS ension INTO EACH INTO EACH SPRAY 2 NOSTRIL NOSTRIL SPRAYS EVERY DAY EVERY DAY INTO EACH NOSTRIL EVERY DAY fluticasone fluticasone 2020-0 No fluticason [facility] propionate propionate 9-14 e Com ruma 50 50 00:00: propionate ty mcg/actuati mcg/actuati 00 50 H ospita on nasal on nasal mcg/actuat l spray,suspe spray,suspe ion nasal Clinics nsion SPRAY nsion SPRAY spray,susp 2 SPRAYS 2 SPRAYS ension INTO EACH INTO EACH SPRAY 2 NOSTRIL NOSTRIL SPRAYS EVERY DAY EVERY DAY INTO EACH NOSTRIL EVERY DAY fluticasone fluticasone 2020-0 No fluticason [facility] propionate propionate -14 e [facility] ruma 50 50 00:00: propionate ty mcg/actuati mcg/actuati 00 50 H ospita on nasal on nasal mcg/actuat l spray,suspe spray,suspe ion nasal Clinics nsion SPRAY nsion SPRAY spray,susp 2 SPRAYS 2 SPRAYS ension INTO EACH INTO EACH SPRAY 2 NOSTRIL NOSTRIL SPRAYS EVERY DAY EVERY DAY INTO EACH NOSTRIL EVERY DAY fluticasone fluticasone 2020-0 No fluticason [facility] propionate propionate -14 e [facility] ruma 50 50 00:00: propionate ty mcg/actuati mcg/actuati 00 50 H ospita on nasal on nasal mcg/actuat l spray,suspe spray,suspe ion nasal Clinics nsion SPRAY nsion SPRAY spray,susp 2 SPRAYS 2 SPRAYS ension INTO EACH INTO EACH SPRAY 2 NOSTRIL NOSTRIL SPRAYS EVERY DAY EVERY DAY INTO EACH NOSTRIL EVERY DAY fluticasone fluticasone 2020-0 No fluticason [facility] propionate propionate 9-14 e [facility] ruma 50 50 00:00: propionate ty mcg/actuati mcg/actuati 00 50 H ospita on nasal on nasal mcg/actuat l spray,suspe spray,suspe ion nasal Clinics nsion SPRAY nsion SPRAY spray,susp 2 SPRAYS 2 SPRAYS ension INTO EACH INTO EACH SPRAY 2 NOSTRIL NOSTRIL SPRAYS EVERY DAY EVERY DAY INTO EACH NOSTRIL EVERY DAY fluticasone fluticasone 2020-0 No fluticason [facility] propionate propionate 9-14 e Com ruma 50 50 00:00: propionate ty mcg/actuati mcg/actuati 00 50 H ospita on nasal on nasal mcg/actuat l spray,suspe spray,suspe ion nasal Clinics nsion SPRAY nsion SPRAY spray,susp 2 SPRAYS 2 SPRAYS ension INTO EACH INTO EACH SPRAY 2 NOSTRIL NOSTRIL SPRAYS EVERY DAY EVERY DAY INTO EACH NOSTRIL EVERY DAY levothyroxi 2020-0 Yes 112ug QD Take 112 M ethodi ne 5-[address] (SYNTHROID) 15:12: mouth Hospi ta 112 mcg 11 daily. l tablet simvastatin 2019-0 Yes 40mg QD Take 40 mg Methodi (ZOCOR) 40 5-[address] MG tablet 15:12: daily. Hospit a 11 l albuterol 2020-0 Yes 2{puff} Inhale 2 M ethodi (PROAIR 5-[address] HFA) 90 15:12: needed for Hosp oscar mcg/actuati 11 wheezing l on inhaler (uses 1-2 times daily). carvediloL 2020-0 Yes 3.125mg QD Take 3.125 Method[facility] (COREG) 5-[address] 3.125 MG 15:12: mouth Hospita tablet 11 daily. l amiodarone 2020-0 Yes 200mg QD Take 200 Me thodi HCl 5-[address] (AMIODARONE 15:12: mouth Hospi ta ORAL) 11 daily. l lisinopriL 2020-0 Yes 20mg QD Take 20 mg M ethodi (PRINIVIL) 5-[address] 20 mg 15:12: daily. Hospita tablet 11 l azelastine 2020-0 Yes 2{spray QD 2 sprays Method[facility] (ASTELIN) 5-07 } into each st 137 mcg 15:12: nostril Hospita (0.1 %) 11 nightly. l nasal spray Use in each nostril as directed linaclotide 2020-0 Yes 125ug QD Take 125 M ethodi (LINZESS 5-[address] ORAL) 15:12: mouth Hospita 11 daily. l Levothyroxi Levothyroxi 2018-09 No QD Levothyrox ne Sodium ne Sodium 1-13 ine Sodium 112 MCG 112 MCG 00:00: 112 MCG 00 Levothyroxi Levothyroxi 2018-09 No QD Levothyrox ne Sodium ne Sodium 1-13 ine Sodium 112 MCG 112 MCG 00:00: 112 MCG 00 Levothyroxi Levothyroxi 2018-09 No QD Levothyrox ne Sodium ne Sodium 1-13 ine Sodium 112 MCG 112 MCG 00:00: 112 MCG 00 Levothyroxi Levothyroxi 2018-09 No QD Levothyrox ne Sodium ne Sodium 1-13 ine Sodium 112 MCG 112 MCG 00:00: 112 MCG 00 Beny Kenalog 2018-09 No 40mg Common (Triamcinol (Triamcinol 0-03 S pirit one) one) 00:00: - [facility] Dexamethaso Dexamethaso 2018-09 No 10mg Common ne ne 0-03 Spirit 00:00: - [facility] 00 [facility] Alexandrealog Kenalog 2018-09 No 40mg Common (Triamcinol (Triamcinol 0-03 S pirit one) one) 00:00: - [facility] 00 [facility] Dexamethaso Dexamethaso 2018-09 No 10mg Common ne ne 0-03 Spirit 00:00: - [facility] 00 [facility]realog Kenalog 2018-09 No 40mg Common (Triamcinol (Triamcinol 0-03 S pirit one) one) 00:00: - [facility] 00 [facility] Dexamethaso Dexamethaso 2018-09 No 10mg Common ne ne 0-03 [facility] Alexandrealog Kenalog 2018-09 No 40mg [facility] (Triamcinol (Triamcinol 0-03 S pirit one) one) 00:00: [facility] Dexamethaso Dexamethaso 2018-09 No 10mg Common ne ne 0-03 [facility] 00:[facility] aspirin 81 2019- Yes 81mg Take 81 mg U nivers mg EC 8-13 by mouth ity of tablet 23:28: daily. [place] [id number] Medical Branch gabapentin 2019- Yes Take by Univ ers ER 600 mg 8-13 mouth ity of tablet, 23:28: daily. [place] extended 53 Medical release 24 Branch hr rivaroxaban Yes 15mg Take 15 mg Univers (XARELTO) 8-13 by mouth 2 ity of 15 mg 23:28: (two) [place] tablet 53 times Medical daily. Branch amiodarone Yes Take by Univ ers HCl 8-13 mouth. ity of (AMIODARONE 23:28: [place] ORAL) 53 Medical Branch albuterol Yes Inhale. Unive rs sulfate 8-13 ity of (VENTOLIN 23:28: [place] HFA INHALE) 52 Medical Branch amoxicillin 2019- No [id number] 500mg Take 1 [facility] 500 mg 04-17 tablet by ity of tablet 00:00: 04:59 mouth 2 [place] 00 :00 (two) Medical times Branch daily for 7 days. Amiodarone Amiodarone No 1{table QD Amiodarone HCl 200 MG HCl 200 MG 1-31 t} HCl 200 MG 00:00: 00 Xarelto 15 Xarelto 15 No 1{table QD Xarelto 15 MG MG 1-31 t_with_ MG 00:00: food} 00 Amiodarone Amiodarone No 1{table QD Amiodarone HCl 200 MG HCl 200 MG 1-31 t} HCl 200 MG 00:00: 00 Xarelto 15 Xarelto 15 No 1{table QD Xarelto 15 MG MG 1-31 t_with_ MG 00:00: food} 00 Amiodarone Amiodarone No 1{table QD Amiodarone HCl 200 MG HCl 200 MG 1-31 t} HCl 200 MG 00:00: 00 Xarelto 15 Xarelto 15 No 1{table QD Xarelto 15 MG MG 1-31 t_with_ MG 00:00: food} 00 Xarelto 15 Xarelto 15 No 1{table QD Xarelto 15 MG MG 1-31 t_with_ MG 00:00: food} 00 Amiodarone Amiodarone No 1{table QD Amiodarone HCl 200 MG HCl 200 MG 1-31 t} HCl 200 MG 00:00: 00 levothyroxi 2017-09 Yes 50ug Take 50 Uni vers ne 50 mcg 2-12 mcg by ity of tablet 14:41: mouth [place] [id number] every Medical morning. Branch carvedilol 2017-09 Yes 6.25mg Take 6.25 Univers 6.25 mg 2-12 mg by ity of tablet 14:41: mouth 2 [place] [address] (two) Medical times Branch daily with meals. omeprazole 2017-09 Yes 40mg Take 40 mg U nivers 20 mg 2-12 by mouth ity of tablet 14:41: daily. [place] [address] Medical Branch fluticasone 2017-09 Yes 2{spray Use 2 [facility] [place] 50 2-12 } Sprays in ity of mcg/actuati 00:00: each [place] on nasal 00 nostril Medical spray daily. Branch NIFEdipine NIFEdipine No 1{table QD NIFEdipine ER 30 MG ER 30 MG 7-31 t_on_an ER 30 MG 00:00: _empty_ 00 stomach } NIFEdipine NIFEdipine No 1{table QD NIFEdipine ER 30 MG ER 30 MG 7- t_on_an ER 30 MG 00:00: _empty_ 00 stomach } NIFEdipine NIFEdipine No 1{table QD NIFEdipine ER 30 MG ER 30 MG 7-31 t_on_an ER 30 MG 00:00: _empty_ 00 stomach } NIFEdipine NIFEdipine No 1{table QD NIFEdipine ER 30 MG ER 30 MG 7-31 t_on_an ER 30 MG 00:00: _empty_ 00 stomach } simvastatin 2015-09 Yes 40mg Take 40 mg Univers (ZOCOR) 40 -07 by mouth ity o f mg tablet 00:00: daily. [address] simvastatin 2015-09 Yes 40mg Take 40 mg [facility] (ZOCOR) 40 -07 by mouth ity o f mg tablet 00:00: daily. [address] lisinopril- 2015-09 Yes 1{tbl} Take 1 [facility] [place] hydrochloro 0-14 tablet by ity of thiazide 00:00: mouth [place] (PRINZIDE,Z 00 daily. Medica l ESTORETIC) Branch 20-12.5 mg per tablet lisinopril- 2015-09 Yes 1{tbl} Take 1 [facility] [place] hydrochloro 0-14 tablet by ity of thiazide 00:00: mouth [place] (PRINZIDE,Z 00 daily. Medica l ESTORETIC) Branch 20-12.5 mg per tablet Lisinopril Lisinopril No 1{table QD Lisinopril 20 MG 20 MG t} 20 MG Aspir-81 81 Aspir-81 81 No 1{table QD Aspir-81 MG MG t} 81 MG Carvedilol Carvedilol No 1{table BID Carvedilol 3.125 MG 3.125 MG t_with_ 3.125 MG food} ProAir HFA ProAir HFA No ProAir HFA 108 (90 108 (90 108 (90 Base) Base) Base) MCG/ACT MCG/ACT MCG/ACT Carvedilol Carvedilol No 1{table QD Carvedilol 3.125 MG 3.125 MG t_with_ 3.125 MG food} Lisinopril/ Lisinopril/ No Lisinopril HCTZ HCTZ /HCTZ 20/12.5 20/12.5 20/12.5 Azelastine Azelastine No 2{spray QD Azelastine HCl 0.15 % HCl 0.15 % s_in_ea HCl 0.15 % ch_nost ril} Omeprazole Omeprazole No 1{capsu Omeprazole 40 MG 40 MG le} 40 MG Multivitami Multivitami No 1{table QD Multivitam n - n - t} in - Albuterol Albuterol No 2{puffs Albuterol Sulfate HFA Sulfate HFA _as_nee Sulfate 108 (90 108 (90 ded} HFA 108 Base) Base) (90 Base) MCG/ACT MCG/ACT MCG/ACT Ranitidine Ranitidine No 1{capsu QD Ranitidine HCl 150 MG HCl 150 MG le_at_b HCl 150 MG edtime} Simvastatin Simvastatin No 1{table QD Simvastati 40 MG 40 MG t_in_th n 40 MG e_eveni ng} Lisinopril/ Lisinopril/ No Lisinopril HCTZ HCTZ /HCTZ 20/12.5 20/12.5 20/12.5 Carvedilol Carvedilol No 1{table QD Carvedilol 3.125 MG 3.125 MG t_with_ 3.125 MG food} Simvastatin Simvastatin No 1{table QD Simvastati 40 MG 40 MG t_in_th n 40 MG e_eveni ng} Azelastine Azelastine No 2{spray QD Azelastine HCl 0.15 % HCl 0.15 % s_in_ea HCl 0.15 % ch_nost ril} Ranitidine Ranitidine No 1{capsu QD Ranitidine HCl 150 MG HCl 150 MG le_at_b HCl 150 MG edtime} Gabapentin Gabapentin No Gabapentin Omeprazole Omeprazole No 1{capsu Omeprazole 40 MG 40 MG le} 40 MG Carvedilol Carvedilol No 1{table BID Carvedilol 3.125 MG 3.125 MG t_with_ 3.125 MG food} Lisinopril Lisinopril No 1{table QD Lisinopril 20 MG 20 MG t} 20 MG Albuterol Albuterol No 2{puffs Albuterol Sulfate HFA Sulfate HFA _as_nee Sulfate 108 (90 108 (90 ded} HFA 108 Base) Base) (90 Base) MCG/ACT MCG/ACT MCG/ACT ProAir HFA ProAir HFA No ProAir HFA 108 (90 108 (90 108 (90 Base) Base) Base) MCG/ACT MCG/ACT MCG/ACT Multivitami Multivitami No 1{table QD Multivitam n - n - t} in - Aspir-81 81 Aspir-81 81 No 1{table QD Aspir-81 MG MG t} 81 MG ProAir HFA ProAir HFA No ProAir HFA 108 (90 108 (90 108 (90 Base) Base) Base) MCG/ACT MCG/ACT MCG/ACT Lisinopril/ Lisinopril/ No Lisinopril HCTZ HCTZ /HCTZ 20/12.5 20/12.5 20/12.5 Aspir-81 81 Aspir-81 81 No 1{table QD Aspir-81 MG MG t} 81 MG Carvedilol Carvedilol No 1{table QD Carvedilol 3.125 MG 3.125 MG t_with_ 3.125 MG food} Azelastine Azelastine No 2{spray QD Azelastine HCl 0.15 % HCl 0.15 % s_in_ea HCl 0.15 % ch_nost ril} Multivitami Multivitami No 1{table QD Multivitam n - n - t} in - Simvastatin Simvastatin No 1{table QD Simvastati 40 MG 40 MG t_in_th n 40 MG e_eveni ng} Albuterol Albuterol No 2{puffs Albuterol Sulfate HFA Sulfate HFA _as_nee Sulfate 108 (90 108 (90 ded} HFA 108 Base) Base) (90 Base) MCG/ACT MCG/ACT MCG/ACT Carvedilol Carvedilol No 1{table BID Carvedilol 3.125 MG 3.125 MG t_with_ 3.125 MG food} Omeprazole Omeprazole No 1{capsu Omeprazole 40 MG 40 MG le} 40 MG Lisinopril Lisinopril No 1{table QD Lisinopril 20 MG 20 MG t} 20 MG Ranitidine Ranitidine No 1{capsu QD Ranitidine HCl 150 MG HCl 150 MG le_at_b HCl 150 MG edtime} Ranitidine Ranitidine No 1{capsu QD Ranitidine HCl 150 MG HCl 150 MG le_at_b HCl 150 MG edtime} Carvedilol Carvedilol No 1{table BID Carvedilol 3.125 MG 3.125 MG t_with_ 3.125 MG food} Carvedilol Carvedilol No 1{table QD Carvedilol 3.125 MG 3.125 MG t_with_ 3.125 MG food} Omeprazole Omeprazole No 1{capsu Omeprazole 40 MG 40 MG le} 40 MG Multivitami Multivitami No 1{table QD Multivitam n - n - t} in - Aspir-81 81 Aspir-81 81 No 1{table QD Aspir-81 MG MG t} 81 MG Simvastatin Simvastatin No 1{table QD Simvastati 40 MG 40 MG t_in_th n 40 MG e_eveni ng} Albuterol Albuterol No 2{puffs Albuterol Sulfate HFA Sulfate HFA _as_nee Sulfate 108 (90 108 (90 ded} HFA 108 Base) Base) (90 Base) MCG/ACT MCG/ACT MCG/ACT Lisinopril/ Lisinopril/ No Lisinopril HCTZ HCTZ /HCTZ 20/12.5 20/12.5 20/12.5 ProAir HFA ProAir HFA No ProAir HFA 108 (90 108 (90 108 (90 Base) Base) Base) MCG/ACT MCG/ACT MCG/ACT Azelastine Azelastine No 2{spray QD Azelastine HCl 0.15 % HCl 0.15 % s_in_ea HCl 0.15 % ch_nost ril} Lisinopril Lisinopril No 1{table QD Lisinopril 20 MG 20 MG t} 20 MG amiodarone amiodarone No amiodarone [facility] 200 mg 200 mg 200 mg [facility] tablet TAKE tablet TAKE tablet ty 1 TABLET BY 1 TABLET BY TAKE 1 Hospita MOUTH TWICE MOUTH TWICE TABLET BY l A DAY A DAY MOUTH Clinics TWICE A DAY azelastine azelastine No azelastine [facility] 0.15 % 0.15 % 0.15 % [facility] (205.5 mcg) (205.5 mcg) (205.5 ty nasal spray nasal spray mcg) nasal [facility]osp[facility] SPRAY 2 SPRAY 2 spray l SPRAYS (411 SPRAYS (411 SPRAY 2 Clinics MCG) IN MCG) IN SPRAYS EACH EACH (411 MCG) NOSTRIL BY NOSTRIL BY IN EACH INTRANASAL INTRANASAL NOSTRIL BY ROUTE 2 ROUTE 2 INTRANASAL TIMES PER TIMES PER ROUTE 2 DAY DAY TIMES PER DAY carvedilol carvedilol No carvedilol [facility] 3.125 mg 3.125 mg 3.125 mg Com ruma tablet TAKE tablet TAKE tablet ty 1/2 TABLET 1/2 TABLET TAKE 1/2 [facility]ospita BY MOUTH BY MOUTH TABLET BY l ONCE A DAY ONCE A DAY MOUTH ONCE Clinics A DAY Combivent Combivent No Combivent [facility] Respimat 20 Respimat 20 Respimat [facility] mcg-100 mcg-100 20 mcg-100 ty mcg/actuati mcg/actuati mcg/actuat [facility]osp[facility] on solution on solution ion l for for solution Clinics inhalation inhalation for TAKE 1 PUFF TAKE 1 PUFF inhalation BY MOUTH BY MOUTH TAKE 1 TWICE A DAY TWICE A DAY PUFF BY MOUTH TWICE A DAY Fluad Quad Fluad Quad No Fluad Quad [facility] (([phone]( [facility] 5yr up)(PF) 5yr up)(PF) 65yr t y 60 mcg (15 60 mcg (15 up)(PF) 60 Hospita mcg x mcg x mcg (15 l 4)/0.5mL IM 4)/0.5mL IM mcg x Clinics syringe syringe 4)/0.5mL PHARMACY PHARMACY IM syringe [facility] D D ADMINISTER ED levothyroxi levothyroxi No levothyrox [facility] ne 112 mcg ne 112 mcg ine 112 [facility] tablet TAKE tablet TAKE mcg tablet ty 1 TABLET BY 1 TABLET BY TAKE 1 Hospita MOUTH IN MOUTH IN TABLET BY l THE MORNING THE MORNING MOUTH IN Clinics ON AN EMPTY ON AN EMPTY THE STOMACH STOMACH MORNING ON AN EMPTY STOMACH Linzess 145 Linzess 145 No Linzess [facility] mcg capsule mcg capsule 145 mcg [facility] TAKE 1 TAKE 1 capsule ty CAPSULE BY CAPSULE BY TAKE 1 H [facility]ita MOUTH DAILY MOUTH DAILY CAPSULE BY l 30 MINUTES 30 MINUTES MOUTH Cl inics BEFORE BEFORE DAILY 30 BREAKFAST BREAKFAST MINUTES BEFORE BREAKFAST lisinopril lisinopril No lisinopril [facility] 20 mg 20 mg 20 mg [facility] tablet TAKE tablet TAKE tablet ty 1 TABLET BY 1 TABLET BY TAKE 1 [facility]ospita MOUTH TWICE MOUTH TWICE TABLET BY l A DAY A DAY MOUTH Clinics TWICE A DAY metoclopram metoclopram No metoclopra [facility] demetrius 10 mg demetrius 10 mg mide 10 mg [facility] tablet TAKE tablet TAKE tablet ty 3 TABLETS 3 TABLETS TAKE 3 [facility] BY MOUTH BY MOUTH TABLETS BY l DIRECTED DIRECTED MOUTH Cli nics USE USE DIRECTED DIRECTED DIRECTED USE PER YOUR PER YOUR DIRECTED COLONOSCOPY COLONOSCOPY PER YOUR PREP PACKET PREP PACKET COLONOSCOP Y PREP PACKET omeprazole omeprazole No omeprazole [facility] 40 mg 40 mg 40 mg [facility] capsule,del capsule,del capsule,de ty ayed ayed layed Hospita release release release l TAKE 1 TAKE 1 TAKE 1 Clinics CAPSULE BY CAPSULE BY CAPSULE BY MOUTH EVERY MOUTH EVERY MOUTH DAY DAY EVERY DAY ondansetron ondansetron No 2 TID ondansetro [facility] 4 mg 4 mg n 4 mg [facility] disintegrat disintegrat disintegra ty ing tablet ing tablet ting [facility] 2 Place 2 tablet l tablets [address] 2 Cl inics times a day times a day tablets 3 by by times a transling[place] translingua day by l route. l route. translingu al route. [place] 0.7 % [place] 0.7 % No [place] 0.7 [facility] eye drops eye drops % eye Comm uni PUT ONE PUT ONE drops PUT ty DROP INTO DROP INTO ONE DROP [facility] EACH EYE EACH EYE INTO EACH l NEEDED FOR NEEDED FOR EYE C linics ALLERGIES ALLERGIES NEEDED FOR ALLERGIES Shingrix Shingrix No Shingrix [place] (PF) 50 (PF) 50 (PF) 50 Commun i mcg/0.5 mL mcg/0.5 mL mcg/0.5 mL ty intramuscul intramuscul intramuscu [facility] suspension, suspension, suspension Clinics kit kit , kit simvastatin simvastatin No simvastati [facility] 40 mg 40 mg n 40 mg [facility] tablet TAKE tablet TAKE tablet ty 1 TABLET BY 1 TABLET BY TAKE 1 [facility]ospita MOUTH EVERY MOUTH EVERY TABLET BY l DAY DAY MOUTH Clinics EVERY DAY sucralfate sucralfate No sucralfate [facility] 1 gram 1 gram 1 gram [facility] tablet TAKE tablet TAKE tablet ty 1 TABLET BY 1 TABLET BY TAKE 1 [facility]ospita MOUTH FOUR MOUTH FOUR TABLET BY l TIMES A DAY TIMES A DAY MOUTH FOUR Clinics AT EVERY AT EVERY TIMES A MEALS AND MEALS AND DAY AT AT BEDTIME AT BEDTIME EVERY MEALS AND AT BEDTIME amiodarone amiodarone No amiodarone [facility] 200 mg 200 mg 200 mg [facility] tablet TAKE tablet TAKE tablet ty 1/2 TABLET 1/2 TABLET TAKE 1/2 [facility]ospita BY MOUTH BY MOUTH TABLET BY l ONCE A DAY ONCE A DAY MOUTH ONCE Clinics A DAY azelastine azelastine No azelastine [facility] 205.5 mcg 205.5 mcg 205.5 mcg [facility] (0.15 %) (0.15 %) (0.15 %) ty nasal spray nasal spray nasal [facility] SPRAY 2 SPRAY 2 spray l SPRAYS (411 SPRAYS (411 SPRAY 2 Clinics MCG) IN MCG) IN SPRAYS EACH EACH (411 MCG) NOSTRIL BY NOSTRIL BY IN EACH INTRANASAL INTRANASAL NOSTRIL BY ROUTE 2 ROUTE 2 INTRANASAL TIMES PER TIMES PER ROUTE 2 DAY DAY TIMES PER DAY carvedilol carvedilol No carvedilol [facility] 3.125 mg 3.125 mg 3.125 mg Com ruma tablet TAKE tablet TAKE tablet ty 0.5 TABLET 0.5 TABLET TAKE 0.5 [facility]ospita BY MOUTH BY MOUTH TABLET BY l EVERY DAY EVERY DAY MOUTH Clin ics EVERY DAY Combivent Combivent No Combivent [facility] Respimat 20 Respimat 20 Respimat [facility] mcg-100 mcg-100 20 mcg-100 ty mcg/actuati mcg/actuati mcg/actuat [facility]osp[facility] on solution on solution ion l for for solution Clinics inhalation inhalation for TAKE 1 PUFF TAKE 1 PUFF inhalation BY MOUTH BY MOUTH TAKE 1 TWICE A DAY TWICE A DAY PUFF BY MOUTH TWICE A DAY Fluad Quad Fluad Quad No Fluad Quad [facility] [id number](6 ([phone]( [facility] 5yr up)(PF) 5yr up)(PF) 65yr t y 60 mcg (15 60 mcg (15 up)(PF) 60 [facility]osp[facility] mcg x mcg x mcg (15 l 4)/0.5mL IM 4)/0.5mL IM mcg x Clinics syringe syringe 4)/0.5mL PHARMACY PHARMACY IM syringe [facility] D D ADMINISTER ED levothyroxi levothyroxi No levothyrox [facility] ne 112 mcg ne 112 mcg ine 112 [facility] tablet TAKE tablet TAKE mcg tablet ty 1 TABLET BY 1 TABLET BY TAKE 1 [facility]ospita MOUTH IN MOUTH IN TABLET BY l THE MORNING THE MORNING MOUTH IN Clinics ON AN EMPTY ON AN EMPTY THE STOMACH STOMACH MORNING ON AN EMPTY STOMACH Linzess 145 Linzess 145 No Linzess [facility] mcg capsule mcg capsule 145 mcg [facility] TAKE 1 TAKE 1 capsule ty CAPSULE BY CAPSULE BY TAKE 1 H [facility]ita MOUTH DAILY MOUTH DAILY CAPSULE BY l 30 MINUTES 30 MINUTES MOUTH Cl inics BEFORE BEFORE DAILY 30 BREAKFAST BREAKFAST MINUTES BEFORE BREAKFAST lisinopril lisinopril No lisinopril [facility] 20 mg 20 mg 20 mg [facility] tablet TAKE tablet TAKE tablet ty 1 TABLET BY 1 TABLET BY TAKE 1 [facility]ospita MOUTH TWICE MOUTH TWICE TABLET BY l A DAY A DAY MOUTH Clinics TWICE A DAY metoclopram metoclopram No metoclopra [facility] demetrius 10 mg demetrius 10 mg mide 10 mg [facility] tablet TAKE tablet TAKE tablet ty 3 TABLETS 3 TABLETS TAKE 3 [facility] BY MOUTH BY MOUTH TABLETS BY l DIRECTED DIRECTED MOUTH Cli nics USE USE DIRECTED DIRECTED DIRECTED USE PER YOUR PER YOUR DIRECTED COLONOSCOPY COLONOSCOPY PER YOUR PREP PACKET PREP PACKET COLONOSCOP Y PREP PACKET omeprazole omeprazole No omeprazole [facility] 40 mg 40 mg 40 mg [facility] capsule,del capsule,del capsule,de ty ayed ayed layed [facility]ospita release release release l TAKE 1 TAKE 1 TAKE 1 Clinics CAPSULE BY CAPSULE BY CAPSULE BY MOUTH EVERY MOUTH EVERY MOUTH DAY DAY EVERY DAY ondansetron ondansetron No 2 TID ondansetro [facility] 4 mg 4 mg n 4 mg [facility] disintegrat disintegrat disintegra ty ing tablet ing tablet ting [facility] 2 Place 2 tablet l tablets [address] 2 Cl inics times a day times a day tablets 3 by by times a transling[place] translingua day by l route. l route. translingu al route. [place] 0.7 % [place] 0.7 % No [place] 0.7 [facility] eye drops eye drops % eye Comm [facility] PUT ONE PUT ONE drops PUT ty DROP INTO DROP INTO ONE DROP [facility] EACH EYE EACH EYE INTO EACH l NEEDED FOR NEEDED FOR EYE C linics ALLERGIES ALLERGIES NEEDED FOR ALLERGIES Shingrix Shingrix No Shingrix [place] (PF) 50 (PF) 50 (PF) 50 Commun i mcg/0.5 mL mcg/0.5 mL mcg/0.5 mL ty intramuscul intramuscul intramuscu [facility] suspension, suspension, suspension Clinics kit kit , kit simvastatin simvastatin No simvastati [facility] 40 mg 40 mg n 40 mg [facility] tablet TAKE tablet TAKE tablet ty 1 TABLET BY 1 TABLET BY TAKE 1 [facility]osp[facility] MOUTH EVERY MOUTH EVERY TABLET BY l DAY DAY MOUTH Clinics EVERY DAY sucralfate sucralfate No sucralfate [facility] 1 gram 1 gram 1 gram [facility] tablet TAKE tablet TAKE tablet ty 1 TABLET BY 1 TABLET BY TAKE 1 [facility]ospita MOUTH FOUR MOUTH FOUR TABLET BY l TIMES A DAY TIMES A DAY MOUTH FOUR Clinics AT EVERY AT EVERY TIMES A MEALS AND MEALS AND DAY AT AT BEDTIME AT BEDTIME EVERY MEALS AND AT BEDTIME amiodarone amiodarone No amiodarone [facility] 200 mg 200 mg 200 mg [facility] tablet TAKE tablet TAKE tablet ty 1/2 TABLET 1/2 TABLET TAKE 1/2 [facility]ospita BY MOUTH BY MOUTH TABLET BY l ONCE A DAY ONCE A DAY MOUTH ONCE Clinics A DAY azelastine azelastine No azelastine [facility] 205.5 mcg 205.5 mcg 205.5 mcg [facility] (0.15 %) (0.15 %) (0.15 %) ty nasal spray nasal spray nasal [facility] SPRAY 2 SPRAY 2 spray l SPRAYS (411 SPRAYS (411 SPRAY 2 Clinics MCG) IN MCG) IN SPRAYS EACH EACH (411 MCG) NOSTRIL BY NOSTRIL BY IN EACH INTRANASAL INTRANASAL NOSTRIL BY ROUTE 2 ROUTE 2 INTRANASAL TIMES PER TIMES PER ROUTE 2 DAY DAY TIMES PER DAY carvedilol carvedilol No carvedilol [facility] 3.125 mg 3.125 mg 3.125 mg Com ruma tablet TAKE tablet TAKE tablet ty 1 TABLET BY 1 TABLET BY TAKE 1 [facility]osp[facility] MOUTH EVERY MOUTH EVERY TABLET BY l DAY DAY MOUTH Clinics EVERY DAY Combivent Combivent No Combivent [facility] Respimat 20 Respimat 20 Respimat [facility] mcg-100 mcg-100 20 mcg-100 ty mcg/actuati mcg/actuati mcg/actuat [facility]osp[facility] on solution on solution ion l for for solution Clinics inhalation inhalation for TAKE 1 PUFF TAKE 1 PUFF inhalation BY MOUTH BY MOUTH TAKE 1 TWICE A DAY TWICE A DAY PUFF BY MOUTH TWICE A DAY Fluad Quad Fluad Quad No Fluad Quad [facility] (6 (6 ( [facility] 5yr up)(PF) 5yr up)(PF) 65yr t y 60 mcg (15 60 mcg (15 up)(PF) 60 [facility]osp[facility] mcg x mcg x mcg (15 l 4)/0.5mL IM 4)/0.5mL IM mcg x Clinics syringe syringe 4)/0.5mL PHARMACY PHARMACY IM syringe [facility] D D ADMINISTER ED levothyroxi levothyroxi No levothyrox [facility] ne 112 mcg ne 112 mcg ine 112 [facility] tablet TAKE tablet TAKE mcg tablet ty 1 TABLET BY 1 TABLET BY TAKE 1 [facility] MOUTH IN MOUTH IN TABLET BY l THE MORNING THE MORNING MOUTH IN Clinics ON AN EMPTY ON AN EMPTY THE STOMACH STOMACH MORNING ON AN EMPTY STOMACH Linzess 145 Linzess 145 No Linzess [facility] mcg capsule mcg capsule 145 mcg [facility] TAKE 1 TAKE 1 capsule ty CAPSULE BY CAPSULE BY TAKE 1 [facility] MOUTH DAILY MOUTH DAILY CAPSULE BY l 30 MINUTES 30 MINUTES MOUTH Cl inics BEFORE BEFORE DAILY 30 BREAKFAST BREAKFAST MINUTES BEFORE BREAKFAST lisinopril lisinopril No lisinopril [facility] 20 mg 20 mg 20 mg [facility] tablet TAKE tablet TAKE tablet ty 1 TABLET BY 1 TABLET BY TAKE 1 [facility]osp[facility] MOUTH TWICE MOUTH TWICE TABLET BY l A DAY A DAY MOUTH Clinics TWICE A DAY metoclopram metoclopram No metoclopra [facility] demetrius 10 mg demetrius 10 mg mide 10 mg [facility] tablet TAKE tablet TAKE tablet ty 3 TABLETS 3 TABLETS TAKE 3 [facility] BY MOUTH BY MOUTH TABLETS BY l DIRECTED DIRECTED MOUTH Cli nics USE USE DIRECTED DIRECTED DIRECTED USE PER YOUR PER YOUR DIRECTED COLONOSCOPY COLONOSCOPY PER YOUR PREP PACKET PREP PACKET COLONOSCOP Y PREP PACKET omeprazole omeprazole No 1capsul BID omeprazole [facility] 40 mg 40 mg e(s) 40 mg [facility] capsule,del capsule,del capsule,de ty ayed ayed layed Hospita release release release l Take 1 Take 1 Take 1 Clinics capsule capsule capsule twice a day twice a day twice a by oral by oral day by route for route for oral route 30 days. 30 days. for 30 days. ondansetron ondansetron No 2 TID ondansetro [facility] 4 mg 4 mg n 4 mg [facility] disintegrat disintegrat disintegra ty ing tablet ing tablet ting [facility] 2 Place 2 tablet l tablets [address] 2 Cl inics times a day times a day tablets 3 by by times a translingua translingua day by l route. l route. translingu al route. [place] 0.7 % [place] 0.7 % No [place] 0.7 [facility] eye drops eye drops % eye Comm uni PUT ONE PUT ONE drops PUT ty DROP INTO DROP INTO ONE DROP [facility] EACH EYE EACH EYE INTO EACH l NEEDED FOR NEEDED FOR EYE C linics ALLERGIES ALLERGIES NEEDED FOR ALLERGIES Shingrix Shingrix No Shingrix [place] (PF) 50 (PF) 50 (PF) 50 Commun i mcg/0.5 mL mcg/0.5 mL mcg/0.5 mL ty intramuscul intramuscul intramuscu [facility] suspension, suspension, suspension Clinics kit kit , kit simvastatin simvastatin No simvastati [facility] 40 mg 40 mg n 40 mg [facility] tablet TAKE tablet TAKE tablet ty 1 TABLET BY 1 TABLET BY TAKE 1 [facility]osp[facility] MOUTH EVERY MOUTH EVERY TABLET BY l DAY DAY MOUTH Clinics EVERY DAY sucralfate sucralfate No sucralfate [facility] 1 gram 1 gram 1 gram [facility] tablet TAKE tablet TAKE tablet ty 1 TABLET BY 1 TABLET BY TAKE 1 [facility]ospita MOUTH FOUR MOUTH FOUR TABLET BY l TIMES A DAY TIMES A DAY MOUTH FOUR Clinics AT EVERY AT EVERY TIMES A MEALS AND MEALS AND DAY AT AT BEDTIME AT BEDTIME EVERY MEALS AND AT BEDTIME amiodarone amiodarone No amiodarone [facility] 200 mg 200 mg 200 mg [facility] tablet TAKE tablet TAKE tablet ty 1/2 TABLET 1/2 TABLET TAKE 1/2 [facility]ospita BY MOUTH BY MOUTH TABLET BY l ONCE A DAY ONCE A DAY MOUTH ONCE Clinics A DAY azelastine azelastine No azelastine [facility] 205.5 mcg 205.5 mcg 205.5 mcg [facility] (0.15 %) (0.15 %) (0.15 %) ty nasal spray nasal spray nasal [facility] SPRAY 2 SPRAY 2 spray l SPRAYS (411 SPRAYS (411 SPRAY 2 Clinics MCG) IN MCG) IN SPRAYS EACH EACH (411 MCG) NOSTRIL BY NOSTRIL BY IN EACH INTRANASAL INTRANASAL NOSTRIL BY ROUTE 2 ROUTE 2 INTRANASAL TIMES PER TIMES PER ROUTE 2 DAY DAY TIMES PER DAY carvedilol carvedilol No carvedilol [facility] 3.125 mg 3.125 mg 3.125 mg Com ruma tablet TAKE tablet TAKE tablet ty 0.5 TABLET 0.5 TABLET TAKE 0.5 [facility]ospita BY MOUTH BY MOUTH TABLET BY l EVERY DAY EVERY DAY MOUTH Clin ics EVERY DAY Combivent Combivent No Combivent [facility] Respimat 20 Respimat 20 Respimat [facility] mcg-100 mcg-100 20 mcg-100 ty mcg/actuati mcg/actuati mcg/actuat [facility]osp[facility] on solution on solution ion l for for solution Clinics inhalation inhalation for TAKE 1 PUFF TAKE 1 PUFF inhalation BY MOUTH BY MOUTH TAKE 1 TWICE A DAY TWICE A DAY PUFF BY MOUTH TWICE A DAY Fluad Quad Fluad Quad No Fluad Quad [facility] [id number]((6 [phone]( [facility] 5yr up)(PF) 5yr up)(PF) 65yr t y 60 mcg (15 60 mcg (15 up)(PF) 60 [facility]osp[facility] mcg x mcg x mcg (15 l 4)/0.5mL IM 4)/0.5mL IM mcg x Clinics syringe syringe 4)/0.5mL PHARMACY PHARMACY IM syringe [facility] D D ADMINISTER ED levothyroxi levothyroxi No levothyrox [facility] ne 112 mcg ne 112 mcg ine 112 [facility] tablet TAKE tablet TAKE mcg tablet ty 1 TABLET BY 1 TABLET BY TAKE 1 [facility]ospita MOUTH IN MOUTH IN TABLET BY l THE MORNING THE MORNING MOUTH IN Clinics ON AN EMPTY ON AN EMPTY THE STOMACH STOMACH MORNING ON AN EMPTY STOMACH lisinopril lisinopril No lisinopril [facility] 20 mg 20 mg 20 mg [facility] tablet TAKE tablet TAKE tablet ty 1 TABLET BY 1 TABLET BY TAKE 1 [facility]ita MOUTH TWICE MOUTH TWICE TABLET BY l A DAY A DAY MOUTH Clinics TWICE A DAY metoclopram metoclopram No metoclopra [facility] demetrius 10 mg demetrius 10 mg mide 10 mg [facility] tablet TAKE tablet TAKE tablet ty 3 TABLETS 3 TABLETS TAKE 3 [facility] BY MOUTH BY MOUTH TABLETS BY l DIRECTED DIRECTED MOUTH Cli nics USE USE DIRECTED DIRECTED DIRECTED USE PER YOUR PER YOUR DIRECTED COLONOSCOPY COLONOSCOPY PER YOUR PREP PACKET PREP PACKET COLONOSCOP Y PREP PACKET omeprazole omeprazole No 1capsul BID omeprazole [facility] 40 mg 40 mg e(s) 40 mg [facility] capsule,del capsule,del capsule,de ty ayed ayed layed [facility]osp[facility] release release release l Take 1 Take 1 Take 1 Clinics capsule capsule capsule twice a day twice a day twice a by oral by oral day by route for route for oral route 30 days. 30 days. for 30 days. ondansetron ondansetron No 2 TID ondansetro [facility] 4 mg 4 mg n 4 mg [facility] disintegrat disintegrat disintegra ty ing tablet ing tablet ting [facility] 2 Place 2 tablet l tablets [address] 2 Cl [facility]ics times a day times a day tablets 3 by by times a translingua translingua day by l route. l route. translingu al route. [place] 0.7 % [place] 0.7 % No [place] 0.7 [facility] eye drops eye drops % eye [facility] PUT ONE PUT ONE drops PUT ty DROP INTO DROP INTO ONE DROP H [facility] EACH EYE EACH EYE INTO EACH l NEEDED FOR NEEDED FOR EYE C linics ALLERGIES ALLERGIES NEEDED FOR ALLERGIES Shingrix Shingrix No Shingrix [facility] (PF) 50 (PF) 50 (PF) 50 [facility] i mcg/0.5 mL mcg/0.5 mL mcg/0.5 mL ty intramuscul intramuscul [facility]cu [facility] suspension, suspension, suspension Clinics kit kit , kit simvastatin simvastatin No simvastati [facility] 40 mg 40 mg n 40 mg [facility] tablet TAKE tablet TAKE tablet ty 1 TABLET BY 1 TABLET BY TAKE 1 [facility] MOUTH EVERY MOUTH EVERY TABLET BY l DAY DAY MOUTH Clinics EVERY DAY sucralfate sucralfate No sucralfate [facility] 1 gram 1 gram 1 gram [facility] tablet TAKE tablet TAKE tablet ty 1 TABLET BY 1 TABLET BY TAKE 1 [facility] MOUTH FOUR MOUTH FOUR TABLET BY l TIMES A DAY TIMES A DAY MOUTH FOUR Clinics AT EVERY AT EVERY TIMES A MEALS AND MEALS AND DAY AT AT BEDTIME AT BEDTIME EVERY MEALS AND AT BEDTIME amiodarone amiodarone No amiodarone [facility] 200 mg 200 mg 200 mg [facility] tablet TAKE tablet TAKE tablet ty 1/2 TABLET 1/2 TABLET TAKE 1/2 [facility] BY MOUTH BY MOUTH TABLET BY l ONCE A DAY ONCE A DAY MOUTH ONCE Clinics A DAY azelastine azelastine No azelastine [facility] 205.5 mcg 205.5 mcg 205.5 mcg [facility] (0.15 %) (0.15 %) (0.15 %) ty nasal spray nasal spray nasal [facility] SPRAY 2 SPRAY 2 spray l SPRAYS (411 SPRAYS (411 SPRAY 2 Clinics MCG) IN MCG) IN SPRAYS EACH EACH (411 MCG) NOSTRIL BY NOSTRIL BY IN EACH INTRANASAL INTRANASAL NOSTRIL BY ROUTE 2 ROUTE 2 INTRANASAL TIMES PER TIMES PER ROUTE 2 DAY DAY TIMES PER DAY carvedilol carvedilol No carvedilol [facility] 3.125 mg 3.125 mg 3.125 mg Com ruma tablet 1 tablet 1 tablet 1 ty TABLET WITH TABLET WITH TABLET [facility] FOOD ORALLY FOOD ORALLY WITH FOOD l ONCE A DAY ONCE A DAY ORALLY C [facility] 90 DAY(S) 90 DAY(S) ONCE A DAY 90 DAY(S) Combivent Combivent No Combivent [facility] Respimat 20 Respimat 20 Respimat [facility] mcg-100 mcg-100 20 mcg-100 ty mcg/actuati mcg/actuati mcg/actuat [facility] on solution on solution ion l for for solution Clinics inhalation inhalation for TAKE 1 PUFF TAKE 1 PUFF inhalation BY MOUTH BY MOUTH TAKE 1 TWICE A DAY TWICE A DAY PUFF BY MOUTH TWICE A DAY Fluad Quad Fluad Quad No Fluad Quad [facility] [id number](6 (6 [id number]( [facility] 5yr up)(PF) 5yr up)(PF) 65yr t y 60 mcg (15 60 mcg (15 up)(PF) 60 [facility] mcg x mcg x mcg (15 l 4)/0.5mL IM 4)/0.5mL IM mcg x Clinics syringe syringe 4)/0.5mL PHARMACY PHARMACY IM syringe [facility] D D ADMINISTER ED ipratropium ipratropium No ipratropiu [facility] bromide 42 bromide 42 m bromide [facility] mcg (0.06 mcg (0.06 42 mcg ty %) nasal %) nasal (0.06 %) [facility] spray USE 2 spray USE 2 nasal l SPRAYS IN SPRAYS IN spray USE Clinics EACH EACH 2 SPRAYS NOSTRIL 3 NOSTRIL 3 IN EACH TIMES A DAY TIMES A DAY NOSTRIL 3 TIMES A DAY levothyroxi levothyroxi No levothyrox [facility] ne 112 mcg ne 112 mcg ine 112 [facility] tablet TAKE tablet TAKE mcg tablet ty 1 TABLET BY 1 TABLET BY TAKE 1 [facility] MOUTH IN MOUTH IN TABLET BY l THE MORNING THE MORNING MOUTH IN Clinics ON AN EMPTY ON AN EMPTY THE STOMACH STOMACH MORNING ON AN EMPTY STOMACH lisinopril lisinopril No lisinopril [facility] 20 mg 20 mg 20 mg [facility] tablet TAKE tablet TAKE tablet ty 1 TABLET BY 1 TABLET BY TAKE 1 [facility] MOUTH TWICE MOUTH TWICE TABLET BY l A DAY A DAY MOUTH Clinics TWICE A DAY metoclopram metoclopram No metoclopra [facility] demetrius 10 mg demetrius 10 mg mide 10 mg [facility] tablet TAKE tablet TAKE tablet ty 3 TABLETS 3 TABLETS TAKE 3 [facility] BY MOUTH BY MOUTH TABLETS BY l DIRECTED DIRECTED MOUTH Cli nics USE USE DIRECTED DIRECTED DIRECTED USE PER YOUR PER YOUR DIRECTED COLONOSCOPY COLONOSCOPY PER YOUR PREP PACKET PREP PACKET COLONOSCOP Y PREP PACKET omeprazole omeprazole No 1capsul BID omeprazole [facility] 40 mg 40 mg e(s) 40 mg [facility] capsule,del capsule,del capsule,de ty ayed ayed layed [facility] release release release l Take 1 Take 1 Take 1 Clinics capsule capsule capsule twice a day twice a day twice a by oral by oral day by route for route for oral route 30 days. 30 days. for 30 days. ondansetron ondansetron No 2 TID ondansetro [facility] 4 mg 4 mg n 4 mg [facility] disintegrat disintegrat disintegra ty ing tablet ing tablet ting [facility] Place 2 tablet l tablets [address] 2 Cl [facility]ics times a day times a day tablets 3 by by times a translingua translingua day by l route. l route. translingu al route. [place] 0.7 % [place] 0.7 % No [place] 0.7 [facility] eye drops eye drops % eye [facility] PUT ONE PUT ONE drops PUT ty DROP INTO DROP INTO ONE DROP [facility] EACH EYE EACH EYE INTO EACH l NEEDED FOR NEEDED FOR EYE C linics ALLERGIES ALLERGIES NEEDED FOR ALLERGIES Shingrix Shingrix No Shingrix [facility] [facility] (PF) 50 (PF) 50 (PF) 50 [facility] i mcg/0.5 mL mcg/0.5 mL mcg/0.5 mL ty intramuscul intramuscul intramuscu [facility] suspension, suspension, suspension Clinics kit kit , kit simvastatin simvastatin No simvastati [facility] 40 mg 40 mg n 40 mg [facility] tablet TAKE tablet TAKE tablet ty 1 TABLET BY 1 TABLET BY TAKE 1 [facility] MOUTH EVERY MOUTH EVERY TABLET BY l DAY DAY MOUTH Clinics EVERY DAY sucralfate sucralfate No sucralfate [facility] 1 gram 1 gram 1 gram [facility] tablet TAKE tablet TAKE tablet ty 1 TABLET BY 1 TABLET BY TAKE 1 [facility] MOUTH FOUR MOUTH FOUR TABLET BY l TIMES A DAY TIMES A DAY MOUTH FOUR Clinics AT EVERY AT EVERY TIMES A MEALS AND MEALS AND DAY AT AT BEDTIME AT BEDTIME EVERY MEALS AND AT BEDTIME amiodarone amiodarone No amiodarone [facility] 200 mg 200 mg 200 mg [facility] tablet TAKE tablet TAKE tablet ty 1/2 TABLET 1/2 TABLET TAKE 1/2 [facility] BY MOUTH BY MOUTH TABLET BY l ONCE A DAY ONCE A DAY MOUTH ONCE Clinics A DAY azelastine azelastine No azelastine [facility] 205.5 mcg 205.5 mcg 205.5 mcg [facility] (0.15 %) (0.15 %) (0.15 %) ty nasal spray nasal spray nasal [facility] SPRAY 2 SPRAY 2 spray l SPRAYS (411 SPRAYS (411 SPRAY 2 Clinics MCG) IN MCG) IN SPRAYS EACH EACH (411 MCG) NOSTRIL BY NOSTRIL BY IN EACH INTRANASAL INTRANASAL NOSTRIL BY ROUTE 2 ROUTE 2 INTRANASAL TIMES PER TIMES PER ROUTE 2 DAY DAY TIMES PER DAY carvedilol carvedilol No carvedilol [facility] 3.125 mg 3.125 mg 3.125 mg Com ruma tablet 1 tablet 1 tablet 1 ty TABLET WITH TABLET WITH TABLET [facility] FOOD ORALLY FOOD ORALLY WITH FOOD l ONCE A DAY ONCE A DAY ORALLY C linics 90 DAY(S) 90 DAY(S) ONCE A DAY 90 DAY(S) Combivent Combivent No Combivent [facility] Respimat 20 Respimat 20 Respimat [facility] mcg-100 mcg-100 20 mcg-100 ty mcg/actuati mcg/actuati mcg/actuat [facility] on solution on solution ion l for for solution Clinics inhalation inhalation for TAKE 1 PUFF TAKE 1 PUFF inhalation BY MOUTH BY MOUTH TAKE 1 TWICE A DAY TWICE A DAY PUFF BY MOUTH TWICE A DAY Fluad Quad Fluad Quad No Fluad Quad [facility] [id number](6 [id number]( [facility] 5yr up)(PF) 5yr up)(PF) 65yr t y 60 mcg (15 60 mcg (15 up)(PF) 60 [facility] mcg x mcg x mcg (15 l 4)/0.5mL IM 4)/0.5mL IM mcg x Clinics syringe syringe 4)/0.5mL PHARMACY PHARMACY IM syringe [facility] D D ADMINISTER ED ipratropium ipratropium No ipratropiu [facility] bromide 42 bromide 42 m bromide [facility] mcg (0.06 mcg (0.06 42 mcg ty %) nasal %) nasal (0.06 %) [facility] spray USE 2 spray USE 2 nasal l SPRAYS IN SPRAYS IN spray USE Clinics EACH EACH 2 SPRAYS NOSTRIL 3 NOSTRIL 3 IN EACH TIMES A DAY TIMES A DAY NOSTRIL 3 TIMES A DAY levothyroxi levothyroxi No levothyrox [facility] ne 112 mcg ne 112 mcg ine 112 [facility] tablet TAKE tablet TAKE mcg tablet ty 1 TABLET BY 1 TABLET BY TAKE 1 [facility] MOUTH IN MOUTH IN TABLET BY l THE MORNING THE MORNING MOUTH IN Clinics ON AN EMPTY ON AN EMPTY THE STOMACH STOMACH MORNING ON AN EMPTY STOMACH lisinopril lisinopril No lisinopril [facility] 20 mg 20 mg 20 mg [facility] tablet TAKE tablet TAKE tablet ty 1 TABLET BY 1 TABLET BY TAKE 1 [facility] MOUTH TWICE MOUTH TWICE TABLET BY l A DAY A DAY MOUTH Clinics TWICE A DAY metoclopram metoclopram No metoclopra [facility] demetrius 10 mg demetrius 10 mg mide 10 mg [facility] tablet TAKE tablet TAKE tablet ty 3 TABLETS 3 TABLETS TAKE 3 [facility] BY MOUTH BY MOUTH TABLETS BY l DIRECTED DIRECTED MOUTH Cli nics USE USE DIRECTED DIRECTED DIRECTED USE PER YOUR PER YOUR DIRECTED COLONOSCOPY COLONOSCOPY PER YOUR PREP PACKET PREP PACKET COLONOSCOP Y PREP PACKET omeprazole omeprazole No 1capsul BID omeprazole [facility] 40 mg 40 mg e(s) 40 mg [facility] capsule,del capsule,del capsule,de ty ayed ayed layed [facility] release release release l Take 1 Take 1 Take 1 Clinics capsule capsule capsule twice a day twice a day twice a by oral by oral day by route for route for oral route 30 days. 30 days. for 30 days. ondansetron ondansetron No 2 TID ondansetro [facility] 4 mg 4 mg n 4 mg [facility] disintegrat disintegrat disintegra ty ing tablet ing tablet ting [facility] 2 Place 2 tablet l tablets [address] 2 Cl [facility]ics times a day times a day tablets 3 by by times a translingua translingua day by l route. l route. translingu al route. [place] 0.7 % [place] 0.7 % No [place] 0.7 [facility] eye drops eye drops % eye Comm [facility] PUT ONE PUT ONE drops PUT ty DROP INTO DROP INTO ONE DROP [facility] EACH EYE EACH EYE INTO EACH l NEEDED FOR NEEDED FOR EYE C linics ALLERGIES ALLERGIES NEEDED FOR ALLERGIES Shingrix Shingrix No Shingrix [facility] [facility] (PF) 50 (PF) 50 (PF) 50 [facility] i mcg/0.5 mL mcg/0.5 mL mcg/0.5 mL ty intramuscul intramuscul intramuscu [facility] suspension, suspension, suspension Clinics kit kit , kit simvastatin simvastatin No simvastati [facility] 40 mg 40 mg n 40 mg [facility] tablet TAKE tablet TAKE tablet ty 1 TABLET BY 1 TABLET BY TAKE 1 [facility] MOUTH EVERY MOUTH EVERY TABLET BY l DAY DAY MOUTH Clinics EVERY DAY sucralfate sucralfate No sucralfate [facility] 1 gram 1 gram 1 gram [facility] tablet TAKE tablet TAKE tablet ty 1 TABLET BY 1 TABLET BY TAKE 1 [facility] MOUTH FOUR MOUTH FOUR TABLET BY l TIMES A DAY TIMES A DAY MOUTH FOUR Clinics AT EVERY AT EVERY TIMES A MEALS AND MEALS AND DAY AT AT BEDTIME AT BEDTIME EVERY MEALS AND AT BEDTIME amiodarone amiodarone No amiodarone [facility] 200 mg 200 mg 200 mg [facility] tablet TAKE tablet TAKE tablet ty 1/2 TABLET 1/2 TABLET TAKE 1/2 [facility] BY MOUTH BY MOUTH TABLET BY l ONCE A DAY ONCE A DAY MOUTH ONCE Clinics A DAY azelastine azelastine No azelastine [facility] 205.5 mcg 205.5 mcg 205.5 mcg [facility] (0.15 %) (0.15 %) (0.15 %) ty nasal spray nasal spray nasal [facility] SPRAY 2 SPRAY 2 spray l SPRAYS (411 SPRAYS (411 SPRAY 2 Clinics MCG) IN MCG) IN SPRAYS EACH EACH (411 MCG) NOSTRIL BY NOSTRIL BY IN EACH INTRANASAL INTRANASAL NOSTRIL BY ROUTE 2 ROUTE 2 INTRANASAL TIMES PER TIMES PER ROUTE 2 DAY DAY TIMES PER DAY carvedilol carvedilol No carvedilol [facility] 3.125 mg 3.125 mg 3.125 mg Com ruma tablet 1 tablet 1 tablet 1 ty TABLET WITH TABLET WITH TABLET [facility] FOOD ORALLY FOOD ORALLY WITH FOOD l ONCE A DAY ONCE A DAY ORALLY C [facility] 90 DAY(S) 90 DAY(S) ONCE A DAY 90 DAY(S) Combivent Combivent No Combivent [facility] Respimat 20 Respimat 20 Respimat [facility] mcg-100 mcg-100 20 mcg-100 ty mcg/actuati mcg/actuati mcg/actuat [facility] on solution on solution ion l for for solution Clinics inhalation inhalation for TAKE 1 PUFF TAKE 1 PUFF inhalation BY MOUTH BY MOUTH TAKE 1 TWICE A DAY TWICE A DAY PUFF BY MOUTH TWICE A DAY Fluad Quad Fluad Quad No Fluad Quad [facility] [id number](6 (6 ( [facility] 5yr up)(PF) 5yr up)(PF) 65yr t y 60 mcg (15 60 mcg (15 up)(PF) 60 [facility] mcg x mcg x mcg (15 l 4)/0.5mL IM 4)/0.5mL IM mcg x Clinics syringe syringe 4)/0.5mL PHARMACY PHARMACY IM syringe [facility] D D ADMINISTER ED ipratropium ipratropium No ipratropiu [facility] bromide 42 bromide 42 m bromide [facility] mcg (0.06 mcg (0.06 42 mcg ty %) nasal %) nasal (0.06 %) [facility] spray USE 2 spray USE 2 nasal l SPRAYS IN SPRAYS IN spray USE Clinics EACH EACH 2 SPRAYS NOSTRIL 3 NOSTRIL 3 IN EACH TIMES A DAY TIMES A DAY NOSTRIL 3 TIMES A DAY levothyroxi levothyroxi No levothyrox [facility] ne 112 mcg ne 112 mcg ine 112 [facility] tablet TAKE tablet TAKE mcg tablet ty 1 TABLET BY 1 TABLET BY TAKE 1 [facility] MOUTH IN MOUTH IN TABLET BY l THE MORNING THE MORNING MOUTH IN Clinics ON AN EMPTY ON AN EMPTY THE STOMACH STOMACH MORNING ON AN EMPTY STOMACH lisinopril lisinopril No lisinopril [facility] 20 mg 20 mg 20 mg [facility] tablet TAKE tablet TAKE tablet ty 1 TABLET BY 1 TABLET BY TAKE 1 [facility] MOUTH TWICE MOUTH TWICE TABLET BY l A DAY A DAY MOUTH Clinics TWICE A DAY metoclopram metoclopram No metoclopra [facility] demetrius 10 mg demetrius 10 mg mide 10 mg [facility] tablet TAKE tablet TAKE tablet ty 3 TABLETS 3 TABLETS TAKE 3 [facility] BY MOUTH BY MOUTH TABLETS BY l DIRECTED DIRECTED MOUTH Cli nics USE USE DIRECTED DIRECTED DIRECTED USE PER YOUR PER YOUR DIRECTED COLONOSCOPY COLONOSCOPY PER YOUR PREP PACKET PREP PACKET COLONOSCOP Y PREP PACKET omeprazole omeprazole No 1capsul BID omeprazole [facility] 40 mg 40 mg e(s) 40 mg [facility] capsule,del capsule,del capsule,de ty ayed ayed layed [facility] release release release l Take 1 Take 1 Take 1 Clinics capsule capsule capsule twice a day twice a day twice a by oral by oral day by route for route for oral route 30 days. 30 days. for 30 days. ondansetron ondansetron No 2 TID ondansetro [facility] 4 mg 4 mg n 4 mg [facility] disintegrat disintegrat disintegra ty ing tablet ing tablet ting [facility] 2 Place 2 tablet l tablets [address] 2 Cl [facility]ics times a day times a day tablets 3 by by times a translingua translingua day by l route. l route. translingu al route. [place] 0.7 % [place] 0.7 % No [place] 0.7 [facility] eye drops eye drops % eye Comm [facility] PUT ONE PUT ONE drops PUT ty DROP INTO DROP INTO ONE DROP [facility] EACH EYE EACH EYE INTO EACH l NEEDED FOR NEEDED FOR EYE C linics ALLERGIES ALLERGIES NEEDED FOR ALLERGIES Shingrix Shingrix No Shingrix [facility] (PF) 50 (PF) 50 (PF) 50 [facility] i mcg/0.5 mL mcg/0.5 mL mcg/0.5 mL ty intramuscul intramuscul intramuscu [facility] suspension, suspension, suspension Clinics kit kit , kit simvastatin simvastatin No simvastati [facility] 40 mg 40 mg n 40 mg [facility] tablet TAKE tablet TAKE tablet ty 1 TABLET BY 1 TABLET BY TAKE 1 [facility] MOUTH EVERY MOUTH EVERY TABLET BY l DAY DAY MOUTH Clinics EVERY DAY sucralfate sucralfate No sucralfate [facility] 1 gram 1 gram 1 gram [facility] tablet TAKE tablet TAKE tablet ty 1 TABLET BY 1 TABLET BY TAKE 1 [facility] MOUTH FOUR MOUTH FOUR TABLET BY l TIMES A DAY TIMES A DAY MOUTH FOUR Clinics AT EVERY AT EVERY TIMES A MEALS AND MEALS AND DAY AT AT BEDTIME AT BEDTIME EVERY MEALS AND AT BEDTIME amiodarone amiodarone No amiodarone [facility] 200 mg 200 mg 200 mg [facility] tablet TAKE tablet TAKE tablet ty 1/2 TABLET 1/2 TABLET TAKE 1/2 [facility] BY MOUTH BY MOUTH TABLET BY l ONCE A DAY ONCE A DAY MOUTH ONCE Clinics A DAY azelastine azelastine No azelastine [facility] 205.5 mcg 205.5 mcg 205.5 mcg [facility] (0.15 %) (0.15 %) (0.15 %) ty nasal spray nasal spray nasal [facility] SPRAY 2 SPRAY 2 spray l SPRAYS (411 SPRAYS (411 SPRAY 2 Clinics MCG) IN MCG) IN SPRAYS EACH EACH (411 MCG) NOSTRIL BY NOSTRIL BY IN EACH INTRANASAL INTRANASAL NOSTRIL BY ROUTE 2 ROUTE 2 INTRANASAL TIMES PER TIMES PER ROUTE 2 DAY DAY TIMES PER DAY carvedilol carvedilol No carvedilol [facility] 3.125 mg 3.125 mg 3.125 mg Com ruma tablet 1 tablet 1 tablet 1 ty TABLET WITH TABLET WITH TABLET [facility] FOOD ORALLY FOOD ORALLY WITH FOOD l ONCE A DAY ONCE A DAY ORALLY [facility] 90 DAY(S) 90 DAY(S) ONCE A DAY 90 DAY(S) Combivent Combivent No Combivent [facility] Respimat 20 Respimat 20 Respimat [facility] mcg-100 mcg-100 20 mcg-100 ty mcg/actuati mcg/actuati mcg/actuat [facility] on solution on solution ion l for for solution Clinics inhalation inhalation for TAKE 1 PUFF TAKE 1 PUFF inhalation BY MOUTH BY MOUTH TAKE 1 TWICE A DAY TWICE A DAY PUFF BY MOUTH TWICE A DAY Fluad Quad Fluad Quad No Fluad Quad [facility] ((6 ( [facility] 5yr up)(PF) 5yr up)(PF) 65yr t y 60 mcg (15 60 mcg (15 up)(PF) 60 [facility] mcg x mcg x mcg (15 l 4)/0.5mL IM 4)/0.5mL IM mcg x Clinics syringe syringe 4)/0.5mL PHARMACY PHARMACY IM syringe [facility] D D ADMINISTER ED ipratropium ipratropium No ipratropiu [facility] bromide 42 bromide 42 m bromide [facility] mcg (0.06 mcg (0.06 42 mcg ty %) nasal %) nasal (0.06 %) [facility] spray USE 2 spray USE 2 nasal l SPRAYS IN SPRAYS IN spray USE Clinics EACH EACH 2 SPRAYS NOSTRIL 3 NOSTRIL 3 IN EACH TIMES A DAY TIMES A DAY NOSTRIL 3 TIMES A DAY levothyroxi levothyroxi No levothyrox [facility] ne 112 mcg ne 112 mcg ine 112 [facility] tablet TAKE tablet TAKE mcg tablet ty 1 TABLET BY 1 TABLET BY TAKE 1 [facility] MOUTH IN MOUTH IN TABLET BY l THE MORNING THE MORNING MOUTH IN Clinics ON AN EMPTY ON AN EMPTY THE STOMACH STOMACH MORNING ON AN EMPTY STOMACH lisinopril lisinopril No lisinopril [facility] 20 mg 20 mg 20 mg [facility] tablet TAKE tablet TAKE tablet ty 1 TABLET BY 1 TABLET BY TAKE 1 [facility] MOUTH TWICE MOUTH TWICE TABLET BY l A DAY A DAY MOUTH Clinics TWICE A DAY metoclopram metoclopram No metoclopra [facility] demetrius 10 mg demetrius 10 mg mide 10 mg [facility] tablet TAKE tablet TAKE tablet ty 3 TABLETS 3 TABLETS TAKE 3 [facility] BY MOUTH BY MOUTH TABLETS BY l DIRECTED DIRECTED MOUTH Cli nics USE USE DIRECTED DIRECTED DIRECTED USE PER YOUR PER YOUR DIRECTED COLONOSCOPY COLONOSCOPY PER YOUR PREP PACKET PREP PACKET COLONOSCOP Y PREP PACKET nifedipine nifedipine No 1 Q1D nifedipine [facility] ER 30 mg ER 30 mg ER 30 mg Com ruma tablet,exte tablet,exte tablet,ext ty nded nded ended [facility] release release release l Take 1 Take 1 Take 1 Clinics tablet tablet tablet every day every day every day by oral by oral by oral route. route. route. omeprazole omeprazole No 1capsul BID omeprazole [facility] 40 mg 40 mg e(s) 40 mg [facility] capsule,del capsule,del capsule,de ty ayed ayed layed [facility] release release release l Take 1 Take 1 Take 1 Clinics capsule capsule capsule twice a day twice a day twice a by oral by oral day by route for route for oral route 30 days. 30 days. for 30 days. ondansetron ondansetron No 2 TID ondansetro [facility] 4 mg 4 mg n 4 mg [facility] disintegrat disintegrat disintegra ty ing tablet ing tablet ting [facility] [address] Place 2 tablet l tablets [address] 2 Cl [facility]ics times a day times a day tablets 3 by by times a translingua translingua day by l route. l route. translingu al route. [place] 0.7 % [place] 0.7 % No [place] 0.7 [facility] eye drops eye drops % eye Comm uni PUT ONE PUT ONE drops PUT ty DROP INTO DROP INTO ONE DROP [facility] EACH EYE EACH EYE INTO EACH l NEEDED FOR NEEDED FOR EYE C linics ALLERGIES ALLERGIES NEEDED FOR ALLERGIES Shingrix Shingrix No Shingrix [facility] (PF) 50 (PF) 50 (PF) 50 Commun i mcg/0.5 mL mcg/0.5 mL mcg/0.5 mL ty intramuscul intramuscul intramuscu [facility] suspension, suspension, suspension Clinics kit kit , kit simvastatin simvastatin No simvastati [facility] 40 mg 40 mg n 40 mg [facility] tablet TAKE tablet TAKE tablet ty 1 TABLET BY 1 TABLET BY TAKE 1 [facility] MOUTH EVERY MOUTH EVERY TABLET BY l DAY DAY MOUTH Clinics EVERY DAY sucralfate sucralfate No sucralfate [facility] 1 gram 1 gram 1 gram [facility] tablet TAKE tablet TAKE tablet ty 1 TABLET BY 1 TABLET BY TAKE 1 [facility] MOUTH FOUR MOUTH FOUR TABLET BY l TIMES A DAY TIMES A DAY MOUTH FOUR Clinics AT EVERY AT EVERY TIMES A MEALS AND MEALS AND DAY AT AT BEDTIME AT BEDTIME EVERY MEALS AND AT BEDTIME amiodarone amiodarone No amiodarone [facility] 200 mg 200 mg 200 mg [facility] tablet TAKE tablet TAKE tablet ty 1/2 TABLET 1/2 TABLET TAKE 1/2 [facility] BY MOUTH BY MOUTH TABLET BY l ONCE A DAY ONCE A DAY MOUTH ONCE Clinics A DAY azelastine azelastine No azelastine [facility] 205.5 mcg 205.5 mcg 205.5 mcg [facility] (0.15 %) (0.15 %) (0.15 %) ty nasal spray nasal spray nasal [facility] SPRAY 2 SPRAY 2 spray l SPRAYS (411 SPRAYS (411 SPRAY 2 Clinics MCG) IN MCG) IN SPRAYS EACH EACH (411 MCG) NOSTRIL BY NOSTRIL BY IN EACH INTRANASAL INTRANASAL NOSTRIL BY ROUTE 2 ROUTE 2 INTRANASAL TIMES PER TIMES PER ROUTE 2 DAY DAY TIMES PER DAY carvedilol carvedilol No carvedilol [facility] 3.125 mg 3.125 mg 3.125 mg Com ruma tablet 1 tablet 1 tablet 1 ty TABLET WITH TABLET WITH TABLET [facility] FOOD ORALLY FOOD ORALLY WITH FOOD l ONCE A DAY ONCE A DAY ORALLY C [facility] 90 DAY(S) 90 DAY(S) ONCE A DAY 90 DAY(S) Combivent Combivent No Combivent [facility] Respimat 20 Respimat 20 Respimat [facility] mcg-100 mcg-100 20 mcg-100 ty mcg/actuati mcg/actuati mcg/actuat [facility] on solution on solution ion l for for solution Clinics inhalation inhalation for TAKE 1 PUFF TAKE 1 PUFF inhalation BY MOUTH BY MOUTH TAKE 1 TWICE A DAY TWICE A DAY PUFF BY MOUTH TWICE A DAY Fluad Quad Fluad Quad No Fluad Quad [facility] [id number](6 (6 [id number]( [facility] 5yr up)(PF) 5yr up)(PF) 65yr t y 60 mcg (15 60 mcg (15 up)(PF) 60 [facility] mcg x mcg x mcg (15 l 4)/0.5mL IM 4)/0.5mL IM mcg x Clinics syringe syringe 4)/0.5mL PHARMACY PHARMACY IM syringe [facility] D D ADMINISTER ED ipratropium ipratropium No ipratropiu [facility] bromide 42 bromide 42 m bromide [facility] mcg (0.06 mcg (0.06 42 mcg ty %) nasal %) nasal (0.06 %) [facility] spray USE 2 spray USE 2 nasal l SPRAYS IN SPRAYS IN spray USE Clinics EACH EACH 2 SPRAYS NOSTRIL 3 NOSTRIL 3 IN EACH TIMES A DAY TIMES A DAY NOSTRIL 3 TIMES A DAY levothyroxi levothyroxi No levothyrox [facility] ne 112 mcg ne 112 mcg ine 112 [facility] tablet TAKE tablet TAKE mcg tablet ty 1 TABLET BY 1 TABLET BY TAKE 1 [facility] MOUTH IN MOUTH IN TABLET BY l THE MORNING THE MORNING MOUTH IN Clinics ON AN EMPTY ON AN EMPTY THE STOMACH STOMACH MORNING ON AN EMPTY STOMACH lisinopril lisinopril No lisinopril [facility] 20 mg 20 mg 20 mg [facility] tablet TAKE tablet TAKE tablet ty 1 TABLET BY 1 TABLET BY TAKE 1 [facility] MOUTH TWICE MOUTH TWICE TABLET BY l A DAY A DAY MOUTH Clinics TWICE A DAY metoclopram metoclopram No metoclopra [facility] demetrius 10 mg demetrius 10 mg mide 10 mg [facility] tablet TAKE tablet TAKE tablet ty 3 TABLETS 3 TABLETS TAKE 3 [facility] BY MOUTH BY MOUTH TABLETS BY l DIRECTED DIRECTED MOUTH Cli nics USE USE DIRECTED DIRECTED DIRECTED USE PER YOUR PER YOUR DIRECTED COLONOSCOPY COLONOSCOPY PER YOUR PREP PACKET PREP PACKET COLONOSCOP Y PREP PACKET nifedipine nifedipine No 1 Q1D nifedipine [facility] ER 30 mg ER 30 mg ER 30 mg Com ruma tablet,exte tablet,exte tablet,ext ty nded nded ended [facility] release release release l Take 1 Take 1 Take 1 Clinics tablet tablet tablet every day every day every day by oral by oral by oral route. route. route. omeprazole omeprazole No 1capsul BID omeprazole [facility] 40 mg 40 mg e(s) 40 mg [facility] capsule,del capsule,del capsule,de ty ayed ayed layed [facility] release release release l Take 1 Take 1 Take 1 Clinics capsule capsule capsule twice a day twice a day twice a by oral by oral day by route for route for oral route 30 days. 30 days. for 30 days. ondansetron ondansetron No 2 TID ondansetro [facility] 4 mg 4 mg n 4 mg [facility] disintegrat disintegrat disintegra ty ing tablet ing tablet ting [facility] [address] Place 2 tablet l tablets [address] 2 Cl [facility]ics times a day times a day tablets 3 by by times a translingua translingua day by l route. l route. translingu al route. [place] 0.7 % [place] 0.7 % No [place] 0.7 [facility] eye drops eye drops % eye Comm uni PUT ONE PUT ONE drops PUT ty DROP INTO DROP INTO ONE DROP [facility] EACH EYE EACH EYE INTO EACH l NEEDED FOR NEEDED FOR EYE C linics ALLERGIES ALLERGIES NEEDED FOR ALLERGIES Shingrix Shingrix No Shingrix [facility] (PF) 50 (PF) 50 (PF) 50 Commun i mcg/0.5 mL mcg/0.5 mL mcg/0.5 mL ty intramuscul intramuscul intramuscu [facility] suspension, suspension, suspension Clinics kit kit , kit simvastatin simvastatin No simvastati [facility] 40 mg 40 mg n 40 mg [facility] tablet TAKE tablet TAKE tablet ty 1 TABLET BY 1 TABLET BY TAKE 1 [facility] MOUTH EVERY MOUTH EVERY TABLET BY l DAY DAY MOUTH Clinics EVERY DAY sucralfate sucralfate No sucralfate [facility] 1 gram 1 gram 1 gram [facility] tablet TAKE tablet TAKE tablet ty 1 TABLET BY 1 TABLET BY TAKE 1 [facility] MOUTH FOUR MOUTH FOUR TABLET BY l TIMES A DAY TIMES A DAY MOUTH FOUR Clinics AT EVERY AT EVERY TIMES A MEALS AND MEALS AND DAY AT AT BEDTIME AT BEDTIME EVERY MEALS AND AT BEDTIME amiodarone amiodarone No amiodarone [facility] 200 mg 200 mg 200 mg [facility] tablet TAKE tablet TAKE tablet ty 1/2 TABLET 1/2 TABLET TAKE 1/2 [facility] BY MOUTH BY MOUTH TABLET BY l ONCE A DAY ONCE A DAY MOUTH ONCE Clinics A DAY azelastine azelastine No azelastine [facility] 205.5 mcg 205.5 mcg 205.5 mcg [facility] (0.15 %) (0.15 %) (0.15 %) ty nasal spray nasal spray nasal [facility] SPRAY 2 SPRAY 2 spray l SPRAYS (411 SPRAYS (411 SPRAY 2 Clinics MCG) IN MCG) IN SPRAYS EACH EACH (411 MCG) NOSTRIL BY NOSTRIL BY IN EACH INTRANASAL INTRANASAL NOSTRIL BY ROUTE 2 ROUTE 2 INTRANASAL TIMES PER TIMES PER ROUTE 2 DAY DAY TIMES PER DAY carvedilol carvedilol No carvedilol [facility] 3.125 mg 3.125 mg 3.125 mg Com ruma tablet 1 tablet 1 tablet 1 ty TABLET WITH TABLET WITH TABLET [facility] FOOD ORALLY FOOD ORALLY WITH FOOD l ONCE A DAY ONCE A DAY ORALLY C linics 90 DAY(S) 90 DAY(S) ONCE A DAY 90 DAY(S) Combivent Combivent No Combivent [facility] Respimat 20 Respimat 20 Respimat [facility] mcg-100 mcg-100 20 mcg-100 ty mcg/actuati mcg/actuati mcg/actuat [facility] on solution on solution ion l for for solution Clinics inhalation inhalation for TAKE 1 PUFF TAKE 1 PUFF inhalation BY MOUTH BY MOUTH TAKE 1 TWICE A DAY TWICE A DAY PUFF BY MOUTH TWICE A DAY dexamethaso dexamethaso No 10mg dexamethas [facility] ne sodium ne sodium one sodium [facility] phosphate phosphate phosphate ty 10 mg/mL 10 mg/mL 10 mg/mL [facility] injection injection injection l solution solution solution Cli nics Take 10 mg Take 10 mg Take 10 mg by by by injection injection injection route. route. route. Fluad Quad Fluad Quad No Fluad Quad [facility] [id number] ([phone]( [facility] 5yr up)(PF) 5yr up)(PF) 65yr t y 60 mcg (15 60 mcg (15 up)(PF) 60 [facility] mcg x mcg x mcg (15 l 4)/0.5mL IM 4)/0.5mL IM mcg x Clinics syringe syringe 4)/0.5mL PHARMACY PHARMACY IM syringe [facility] D D ADMINISTER ED ipratropium ipratropium No ipratropiu [facility] bromide 42 bromide 42 m bromide [facility] mcg (0.06 mcg (0.06 42 mcg ty %) nasal %) nasal (0.06 %) [facility] spray USE 2 spray USE 2 nasal l SPRAYS IN SPRAYS IN spray USE Clinics EACH EACH 2 SPRAYS NOSTRIL 3 NOSTRIL 3 IN EACH TIMES A DAY TIMES A DAY NOSTRIL 3 TIMES A DAY Kenalog 40 Kenalog 40 No 40mg Kenalog 40 [facility] mg/mL mg/mL mg/mL [facility] suspension suspension suspension ty for for for [facility] injection injection injection l Take 40 mg Take 40 mg Take 40 mg Clinics by by by injection injection injection route. route. route. levothyroxi levothyroxi No levothyrox [facility] ne 112 mcg ne 112 mcg ine 112 [facility] tablet TAKE tablet TAKE mcg tablet ty 1 TABLET BY 1 TABLET BY TAKE 1 [facility] MOUTH IN MOUTH IN TABLET BY l THE MORNING THE MORNING MOUTH IN Clinics ON AN EMPTY ON AN EMPTY THE STOMACH STOMACH MORNING ON AN EMPTY STOMACH lisinopril lisinopril No lisinopril [facility] 20 mg 20 mg 20 mg [facility] tablet TAKE tablet TAKE tablet ty 1 TABLET BY 1 TABLET BY TAKE 1 [facility] MOUTH TWICE MOUTH TWICE TABLET BY l A DAY A DAY MOUTH Clinics TWICE A DAY metoclopram metoclopram No metoclopra [facility] demetrius 10 mg demetrius 10 mg mide 10 mg [facility] tablet TAKE tablet TAKE tablet ty 3 TABLETS 3 TABLETS TAKE 3 [facility] BY MOUTH BY MOUTH TABLETS BY l DIRECTED DIRECTED MOUTH Cli nics USE USE DIRECTED DIRECTED DIRECTED USE PER YOUR PER YOUR DIRECTED COLONOSCOPY COLONOSCOPY PER YOUR PREP PACKET PREP PACKET COLONOSCOP Y PREP PACKET nifedipine nifedipine No 1 Q1D nifedipine [facility] ER 30 mg ER 30 mg ER 30 mg Com ruma tablet,exte tablet,exte tablet,ext ty nded nded ended [facility] release release release l Take 1 Take 1 Take 1 Clinics tablet tablet tablet every day every day every day by oral by oral by oral route. route. route. omeprazole omeprazole No 1capsul BID omeprazole [facility] 40 mg 40 mg e(s) 40 mg [facility] capsule,del capsule,del capsule,de ty ayed ayed layed [facility] release release release l Take 1 Take 1 Take 1 Clinics capsule capsule capsule twice a day twice a day twice a by oral by oral day by route for route for oral route 30 days. 30 days. for 30 days. ondansetron ondansetron No 2 TID ondansetro [facility] 4 mg 4 mg n 4 mg [facility] disintegrat disintegrat disintegra ty ing tablet ing tablet ting [facility] [address] Place 2 tablet l tablets [address] 2 Cl [facility]ics times a day times a day tablets 3 by by times a translingua translingua day by l route. l route. translingu al route. [place] 0.7 % [facility] 0.7 % No [place] 0.7 [facility] eye drops eye drops % eye [facility] PUT ONE PUT ONE drops PUT ty DROP INTO DROP INTO ONE DROP [facility] EACH EYE EACH EYE INTO EACH l NEEDED FOR NEEDED FOR EYE C linics ALLERGIES ALLERGIES NEEDED FOR ALLERGIES Shingrix Shingrix No Shingrix [facility] (PF) 50 (PF) 50 (PF) 50 [facility] i mcg/0.5 mL mcg/0.5 mL mcg/0.5 mL ty intramuscul intramuscul intramuscu [facility] suspension, suspension, suspension Clinics kit kit , kit simvastatin simvastatin No simvastati [facility] 40 mg 40 mg n 40 mg [facility] tablet TAKE tablet TAKE tablet ty 1 TABLET BY 1 TABLET BY TAKE 1 [facility] MOUTH EVERY MOUTH EVERY TABLET BY l DAY DAY MOUTH Clinics EVERY DAY sucralfate sucralfate No sucralfate [facility] 1 gram 1 gram 1 gram [facility] tablet TAKE tablet TAKE tablet ty 1 TABLET BY 1 TABLET BY TAKE 1 [facility] MOUTH FOUR MOUTH FOUR TABLET BY l TIMES A DAY TIMES A DAY MOUTH FOUR Clinics AT EVERY AT EVERY TIMES A MEALS AND MEALS AND DAY AT AT BEDTIME AT BEDTIME EVERY MEALS AND AT BEDTIME amiodarone amiodarone No amiodarone [facility] 200 mg 200 mg 200 mg [facility] tablet TAKE tablet TAKE tablet ty 1/2 TABLET 1/2 TABLET TAKE 1/2 [facility] BY MOUTH BY MOUTH TABLET BY l ONCE A DAY ONCE A DAY MOUTH ONCE Clinics A DAY azelastine azelastine No azelastine [facility] 205.5 mcg 205.5 mcg 205.5 mcg [facility] (0.15 %) (0.15 %) (0.15 %) ty nasal spray nasal spray nasal [facility] SPRAY 2 SPRAY 2 spray l SPRAYS (411 SPRAYS (411 SPRAY 2 Clinics MCG) IN MCG) IN SPRAYS EACH EACH (411 MCG) NOSTRIL BY NOSTRIL BY IN EACH INTRANASAL INTRANASAL NOSTRIL BY ROUTE 2 ROUTE 2 INTRANASAL TIMES PER TIMES PER ROUTE 2 DAY DAY TIMES PER DAY carvedilol carvedilol No carvedilol [facility] 3.125 mg 3.125 mg 3.125 mg Com ruma tablet 1 tablet 1 tablet 1 ty TABLET WITH TABLET WITH TABLET [facility] FOOD ORALLY FOOD ORALLY WITH FOOD l ONCE A DAY ONCE A DAY ORALLY C [facility] 90 DAY(S) 90 DAY(S) ONCE A DAY 90 DAY(S) Combivent Combivent No Combivent [facility] Respimat 20 Respimat 20 Respimat [facility] mcg-100 mcg-100 20 mcg-100 ty mcg/actuati mcg/actuati mcg/actuat [facility] on solution on solution ion l for for solution [facility] inhalation inhalation for TAKE 1 PUFF TAKE 1 PUFF inhalation BY MOUTH BY MOUTH TAKE 1 TWICE A DAY TWICE A DAY PUFF BY MOUTH TWICE A DAY dexamethaso dexamethaso No 10mg dexamethas [facility] ne sodium ne sodium one sodium [facility] phosphate phosphate phosphate ty 10 mg/mL 10 mg/mL 10 mg/mL [facility] injection injection injection l solution solution solution Cli n[facility] Take 10 mg Take 10 mg Take 10 mg by by by injection injection injection route. route. route. Fluad Quad Fluad Quad No Fluad Quad [facility] [id number] ([phone]( [facility] 5yr up)(PF) 5yr up)(PF) 65yr t y 60 mcg (15 60 mcg (15 up)(PF) 60 [facility] mcg x mcg x mcg (15 l 4)/0.5mL IM 4)/0.5mL IM mcg x Clinics syringe syringe 4)/0.5mL PHARMACY PHARMACY IM syringe [facility] D D ADMINISTER ED ipratropium ipratropium No ipratropiu [facility] bromide 42 bromide 42 m bromide [facility] mcg (0.06 mcg (0.06 42 mcg ty %) nasal %) nasal (0.06 %) [facility] spray USE 2 spray USE 2 nasal l SPRAYS IN SPRAYS IN spray USE Clinics EACH EACH 2 SPRAYS NOSTRIL 3 NOSTRIL 3 IN EACH TIMES A DAY TIMES A DAY NOSTRIL 3 TIMES A DAY Kenalog 40 Kenalog 40 No 40mg Kenalog 40 [facility] mg/mL mg/mL mg/mL [facility] suspension suspension suspension ty for for for [facility] injection injection injection l Take 40 mg Take 40 mg Take 40 mg Clinics by by by injection injection injection route. route. route. levothyroxi levothyroxi No levothyrox [facility] ne 112 mcg ne 112 mcg ine 112 [facility] tablet TAKE tablet TAKE mcg tablet ty 1 TABLET BY 1 TABLET BY TAKE 1 [facility] MOUTH IN MOUTH IN TABLET BY l THE MORNING THE MORNING MOUTH IN Clinics ON AN EMPTY ON AN EMPTY THE STOMACH STOMACH MORNING ON AN EMPTY STOMACH lisinopril lisinopril No lisinopril [facility] 20 mg 20 mg 20 mg [facility] tablet TAKE tablet TAKE tablet ty 1 TABLET BY 1 TABLET BY TAKE 1 [facility] MOUTH TWICE MOUTH TWICE TABLET BY l A DAY A DAY MOUTH Clinics TWICE A DAY metoclopram metoclopram No metoclopra [facility] demetrius 10 mg demetrius 10 mg mide 10 mg [facility] tablet TAKE tablet TAKE tablet ty 3 TABLETS 3 TABLETS TAKE 3 [facility] BY MOUTH BY MOUTH TABLETS BY l DIRECTED DIRECTED MOUTH Cli nics USE USE DIRECTED DIRECTED DIRECTED USE PER YOUR PER YOUR DIRECTED COLONOSCOPY COLONOSCOPY PER YOUR PREP PACKET PREP PACKET COLONOSCOP Y PREP PACKET nifedipine nifedipine No 1 Q1D nifedipine [facility] ER 30 mg ER 30 mg ER 30 mg Com ruma tablet,exte tablet,exte tablet,ext ty nded nded ended [facility] release release release l Take 1 Take 1 Take 1 Clinics tablet tablet tablet every day every day every day by oral by oral by oral route. route. route. olopatadine olopatadine No olopatadin [facility] 0.2 % eye 0.2 % eye e 0.2 % [facility] drops drops eye drops ty INSTILL 1 INSTILL 1 INSTILL 1 [facility] DROP INTO DROP INTO DROP INTO l AFFECTED AFFECTED AFFECTED Cli nics EYE(S) BY EYE(S) BY EYE(S) BY OPHTHALMIC OPHTHALMIC OPHTHALMIC ROUTE ONCE ROUTE ONCE ROUTE ONCE DAILY DAILY DAILY omeprazole omeprazole No 1capsul BID omeprazole [facility] 40 mg 40 mg e(s) 40 mg [facility] capsule,del capsule,del capsule,de ty ayed ayed layed [facility] release release release l Take 1 Take 1 Take 1 Clinics capsule capsule capsule twice a day twice a day twice a by oral by oral day by route for route for oral route 30 days. 30 days. for 30 days. ondansetron ondansetron No 2 TID ondansetro [facility] 4 mg 4 mg n 4 mg [facility] disintegrat disintegrat disintegra ty ing tablet ing tablet ting [facility] [address] Place 2 tablet l tablets [address] 2 Cl [facility]ics times a day times a day tablets 3 by by times a translingua translingua day by l route. l route. translingu al route. [place] 0.7 % [place] 0.7 % No [place] 0.7 [facility] eye drops eye drops % eye [facility] PUT ONE PUT ONE drops PUT ty DROP INTO DROP INTO ONE DROP [facility] EACH EYE EACH EYE INTO EACH l NEEDED FOR NEEDED FOR EYE C linics ALLERGIES ALLERGIES NEEDED FOR ALLERGIES Shingrix Shingrix No Shingrix [facility] (PF) 50 (PF) 50 (PF) 50 [facility] mcg/0.5 mL mcg/0.5 mL mcg/0.5 mL ty intramuscul intramuscul intramuscu [facility] suspension, suspension, suspension Clinics kit kit , kit simvastatin simvastatin No simvastati [facility] 40 mg 40 mg n 40 mg [facility] tablet TAKE tablet TAKE tablet ty 1 TABLET BY 1 TABLET BY TAKE 1 [facility] MOUTH EVERY MOUTH EVERY TABLET BY l DAY DAY MOUTH Clinics EVERY DAY sucralfate sucralfate No sucralfate [facility] 1 gram 1 gram 1 gram [facility] tablet TAKE tablet TAKE tablet ty 1 TABLET BY 1 TABLET BY TAKE 1 [facility] MOUTH FOUR MOUTH FOUR TABLET BY l TIMES A DAY TIMES A DAY MOUTH FOUR Clinics AT EVERY AT EVERY TIMES A MEALS AND MEALS AND DAY AT AT BEDTIME AT BEDTIME EVERY MEALS AND AT BEDTIME amiodarone amiodarone No amiodarone [facility] 200 mg 200 mg 200 mg [facility] tablet TAKE tablet TAKE tablet ty 1/2 TABLET 1/2 TABLET TAKE 1/2 [facility] BY MOUTH BY MOUTH TABLET BY l ONCE A DAY ONCE A DAY MOUTH ONCE Clinics A DAY azelastine azelastine No azelastine [facility] 205.5 mcg 205.5 mcg 205.5 mcg [facility] (0.15 %) (0.15 %) (0.15 %) ty nasal spray nasal spray nasal [facility] SPRAY 2 SPRAY 2 spray l SPRAYS (411 SPRAYS (411 SPRAY 2 Clinics MCG) IN MCG) IN SPRAYS EACH EACH (411 MCG) NOSTRIL BY NOSTRIL BY IN EACH INTRANASAL INTRANASAL NOSTRIL BY ROUTE 2 ROUTE 2 INTRANASAL TIMES PER TIMES PER ROUTE 2 DAY DAY TIMES PER DAY carvedilol carvedilol No carvedilol [facility] 3.125 mg 3.125 mg 3.125 mg Com ruma tablet 1 tablet 1 tablet 1 ty TABLET WITH TABLET WITH TABLET [facility] FOOD ORALLY FOOD ORALLY WITH FOOD l ONCE A DAY ONCE A DAY ORALLY C [facility] 90 DAY(S) 90 DAY(S) ONCE A DAY 90 DAY(S) Combivent Combivent No Combivent [facility] Respimat 20 Respimat 20 Respimat [facility] mcg-100 mcg-100 20 mcg-100 ty mcg/actuati mcg/actuati mcg/actuat [facility] on solution on solution ion l for for solution [facility] inhalation inhalation for TAKE 1 PUFF TAKE 1 PUFF inhalation BY MOUTH BY MOUTH TAKE 1 TWICE A DAY TWICE A DAY PUFF BY MOUTH TWICE A DAY dexamethaso dexamethaso No 10mg dexamethas [facility] ne sodium ne sodium one sodium [facility] phosphate phosphate phosphate ty 10 mg/mL 10 mg/mL 10 mg/mL [facility] injection injection injection l solution solution solution Cli n[facility] Take 10 mg Take 10 mg Take 10 mg by by by injection injection injection route. route. route. ipratropium ipratropium No ipratropiu [facility] bromide 42 bromide 42 m bromide [facility] mcg (0.06 mcg (0.06 42 mcg ty %) nasal %) nasal (0.06 %) [facility] spray USE 2 spray USE 2 nasal l SPRAYS IN SPRAYS IN spray USE Clinics EACH EACH 2 SPRAYS NOSTRIL 3 NOSTRIL 3 IN EACH TIMES A DAY TIMES A DAY NOSTRIL 3 TIMES A DAY Kenalog 40 Kenalog 40 No 40mg Kenalog 40 [facility] mg/mL mg/mL mg/mL [facility] suspension suspension suspension ty for for for [facility] injection injection injection l Take 40 mg Take 40 mg Take 40 mg Clinics by by by injection injection injection route. route. route. levothyroxi levothyroxi No levothyrox [facility] ne 112 mcg ne 112 mcg ine 112 [facility] tablet TAKE tablet TAKE mcg tablet ty 1 TABLET BY 1 TABLET BY TAKE 1 [facility] MOUTH IN MOUTH IN TABLET BY l THE MORNING THE MORNING MOUTH IN Clinics ON AN EMPTY ON AN EMPTY THE STOMACH STOMACH MORNING ON AN EMPTY STOMACH lisinopril lisinopril No lisinopril [facility] 20 mg 20 mg 20 mg [facility] tablet TAKE tablet TAKE tablet ty 1 TABLET BY 1 TABLET BY TAKE 1 [facility] MOUTH TWICE MOUTH TWICE TABLET BY l A DAY A DAY MOUTH Clinics TWICE A DAY metoclopram metoclopram No metoclopra [facility] demetrius 10 mg demetrius 10 mg mide 10 mg [facility] tablet TAKE tablet TAKE tablet ty 3 TABLETS 3 TABLETS TAKE 3 [facility] BY MOUTH BY MOUTH TABLETS BY l DIRECTED DIRECTED MOUTH Cli nics USE USE DIRECTED DIRECTED DIRECTED USE PER YOUR PER YOUR DIRECTED COLONOSCOPY COLONOSCOPY PER YOUR PREP PACKET PREP PACKET COLONOSCOP Y PREP PACKET nifedipine nifedipine No 1 Q1D nifedipine [facility] ER 30 mg ER 30 mg ER 30 mg Com [facility] tablet,exte tablet,exte tablet,ext ty nded nded ended [facility] release release release l Take 1 Take 1 Take 1 Clinics tablet tablet tablet every day every day every day by oral by oral by oral route. route. route. omeprazole omeprazole No 1capsul BID omeprazole [facility] 40 mg 40 mg e(s) 40 mg [facility] capsule,del capsule,del capsule,de ty ayed ayed layed [facility] release release release l Take 1 Take 1 Take 1 Clinics capsule capsule capsule twice a day twice a day twice a by oral by oral day by route for route for oral route 30 days. 30 days. for 30 days. ondansetron ondansetron No 2 TID ondansetro [facility] 4 mg 4 mg n 4 mg [facility] disintegrat disintegrat disintegra ty ing tablet ing tablet ting [facility] 2 Place 2 tablet l tablets [address] 2 Cl [facility]ics times a day times a day tablets 3 by by times a translingua translingua day by l route. l route. translingu al route. [place] 0.7 % [place] 0.7 % No [place] 0.7 [facility] eye drops eye drops % eye [facility] PUT ONE PUT ONE drops PUT ty DROP INTO DROP INTO ONE DROP [facility] EACH EYE EACH EYE INTO EACH l NEEDED FOR NEEDED FOR EYE C lin[facility] ALLERGIES ALLERGIES NEEDED FOR ALLERGIES Shingrix Shingrix No Shingrix [facility] (PF) 50 (PF) 50 (PF) 50 [facility] i mcg/0.5 mL mcg/0.5 mL mcg/0.5 mL ty intramuscul intramuscul intramuscu [facility] suspension, suspension, suspension Clinics kit kit , kit simvastatin simvastatin No simvastati [facility] 40 mg 40 mg n 40 mg [facility] tablet TAKE tablet TAKE tablet ty 1 TABLET BY 1 TABLET BY TAKE 1 [facility] MOUTH EVERY MOUTH EVERY TABLET BY l DAY DAY MOUTH Clinics EVERY DAY sucralfate sucralfate No sucralfate [facility] 1 gram 1 gram 1 gram [facility] tablet TAKE tablet TAKE tablet ty 1 TABLET BY 1 TABLET BY TAKE 1 [facility] MOUTH FOUR MOUTH FOUR TABLET BY l TIMES A DAY TIMES A DAY MOUTH FOUR Clinics AT EVERY AT EVERY TIMES A MEALS AND MEALS AND DAY AT AT BEDTIME AT BEDTIME EVERY MEALS AND AT BEDTIME amiodarone amiodarone No amiodarone [facility] 200 mg 200 mg 200 mg [facility] tablet TAKE tablet TAKE tablet ty 1/2 TABLET 1/2 TABLET TAKE 1/2 [facility] BY MOUTH BY MOUTH TABLET BY l ONCE A DAY ONCE A DAY MOUTH ONCE Clinics A DAY amoxicillin amoxicillin No 1 Q12H amoxicilli [facility] 875 mg 875 mg n 875 mg [facility] tablet Take tablet Take tablet ty 1 tablet 1 tablet Take 1 [facility] ta every 12 every 12 tablet l hours by hours by every 12 Cli nics oral route. oral route. hours by oral route. azelastine azelastine No azelastine [facility] 205.5 mcg 205.5 mcg 205.5 mcg [facility] (0.15 %) (0.15 %) (0.15 %) ty nasal spray nasal spray nasal [facility] SPRAY 2 SPRAY 2 spray l SPRAYS (411 SPRAYS (411 SPRAY 2 Clinics MCG) IN MCG) IN SPRAYS EACH EACH (411 MCG) NOSTRIL BY NOSTRIL BY IN EACH INTRANASAL INTRANASAL NOSTRIL BY ROUTE 2 ROUTE 2 INTRANASAL TIMES PER TIMES PER ROUTE 2 DAY DAY TIMES PER DAY carvedilol carvedilol No carvedilol [facility] 3.125 mg 3.125 mg 3.125 mg Com ruma tablet 1 tablet 1 tablet 1 ty TABLET WITH TABLET WITH TABLET [facility] FOOD ORALLY FOOD ORALLY WITH FOOD l ONCE A DAY ONCE A DAY ORALLY C [facility] 90 DAY(S) 90 DAY(S) ONCE A DAY 90 DAY(S) Combivent Combivent No Combivent [facility] Respimat 20 Respimat 20 Respimat [facility] mcg-100 mcg-100 20 mcg-100 ty mcg/actuati mcg/actuati mcg/actuat [facility] on solution on solution ion l for for solution Clin[facility] inhalation inhalation for INHALE 1 INHALE 1 inhalation PUFF BY PUFF BY INHALE 1 MOUTH TWICE MOUTH TWICE PUFF BY A DAY A DAY MOUTH TWICE A DAY ipratropium ipratropium No ipratropiu [facility] bromide 42 bromide 42 m bromide [facility] mcg (0.06 mcg (0.06 42 mcg ty %) nasal %) nasal (0.06 %) [facility] spray USE 2 spray USE 2 nasal l SPRAYS IN SPRAYS IN spray USE Clinics EACH EACH 2 SPRAYS NOSTRIL 3 NOSTRIL 3 IN EACH TIMES A DAY TIMES A DAY NOSTRIL 3 TIMES A DAY levothyroxi levothyroxi No levothyrox [facility] ne 112 mcg ne 112 mcg ine 112 [facility] tablet TAKE tablet TAKE mcg tablet ty 1 TABLET BY 1 TABLET BY TAKE 1 [facility] MOUTH IN MOUTH IN TABLET BY l THE MORNING THE MORNING MOUTH IN Clinics ON AN EMPTY ON AN EMPTY THE STOMACH STOMACH MORNING ON AN EMPTY STOMACH lisinopril lisinopril No lisinopril [facility] 20 mg 20 mg 20 mg [facility] tablet TAKE tablet TAKE tablet ty 1 TABLET BY 1 TABLET BY TAKE 1 [facility] MOUTH TWICE MOUTH TWICE TABLET BY l A DAY A DAY MOUTH Clinics TWICE A DAY metoclopram metoclopram No metoclopra [facility] demetrius 10 mg demetrius 10 mg mide 10 mg [facility] tablet TAKE tablet TAKE tablet ty 3 TABLETS 3 TABLETS TAKE 3 [facility] BY MOUTH BY MOUTH TABLETS BY l DIRECTED DIRECTED MOUTH Cli nics USE USE DIRECTED DIRECTED DIRECTED USE PER YOUR PER YOUR DIRECTED COLONOSCOPY COLONOSCOPY PER YOUR PREP PACKET PREP PACKET COLONOSCOP Y PREP PACKET nifedipine nifedipine No 1 Q1D nifedipine [facility] ER 30 mg ER 30 mg ER 30 mg Com ruma tablet,exte tablet,exte tablet,ext ty nded nded ended [facility] release release release l Take 1 Take 1 Take 1 Clinics tablet tablet tablet every day every day every day by oral by oral by oral route. route. route. omeprazole omeprazole No 1capsul BID omeprazole [facility] 40 mg 40 mg e(s) 40 mg [facility] capsule,del capsule,del capsule,de ty ayed ayed layed [facility] release release release l Take 1 Take 1 Take 1 Clinics capsule capsule capsule twice a day twice a day twice a by oral by oral day by route for route for oral route 30 days. 30 days. for 30 days. ondansetron ondansetron No 2 TID ondansetro [facility] 4 mg 4 mg n 4 mg [facility] disintegrat disintegrat disintegra ty ing tablet ing tablet ting [facility] [address] Place 2 tablet l tablets [address] 2 Cl [facility]ics times a day times a day tablets 3 by by times a translingua translingua day by l route. l route. translingu al route. [place] 0.7 % [place] 0.7 % No [place] 0.7 [facility] eye drops eye drops % eye [facility] PUT ONE PUT ONE drops PUT ty DROP INTO DROP INTO ONE DROP [facility] EACH EYE EACH EYE INTO EACH l NEEDED FOR NEEDED FOR EYE C linics ALLERGIES ALLERGIES NEEDED FOR ALLERGIES Shingrix Shingrix No Shingrix [facility] (PF) 50 (PF) 50 (PF) 50 Commun i mcg/0.5 mL mcg/0.5 mL mcg/0.5 mL ty intramuscul intramuscul intramuscu [facility] suspension, suspension, suspension Clinics kit kit , kit simvastatin simvastatin No simvastati [facility] 40 mg 40 mg n 40 mg [facility] tablet TAKE tablet TAKE tablet ty 1 TABLET BY 1 TABLET BY TAKE 1 [facility] MOUTH EVERY MOUTH EVERY TABLET BY l DAY DAY MOUTH Clinics EVERY DAY sucralfate sucralfate No sucralfate [facility] 1 gram 1 gram 1 gram [facility] tablet TAKE tablet TAKE tablet ty 1 TABLET BY 1 TABLET BY TAKE 1 [facility] MOUTH FOUR MOUTH FOUR TABLET BY l TIMES A DAY TIMES A DAY MOUTH FOUR Clinics AT EVERY AT EVERY TIMES A MEALS AND MEALS AND DAY AT AT BEDTIME AT BEDTIME EVERY MEALS AND AT BEDTIME amiodarone amiodarone No amiodarone [facility] 200 mg 200 mg 200 mg [facility] tablet TAKE tablet TAKE tablet ty 1/2 TABLET 1/2 TABLET TAKE 1/2 [facility] BY MOUTH BY MOUTH TABLET BY l ONCE A DAY ONCE A DAY MOUTH ONCE Clinics A DAY amoxicillin amoxicillin No 1 Q12H amoxicilli [facility] 875 mg 875 mg n 875 mg [facility] tablet Take tablet Take tablet ty 1 tablet 1 tablet Take 1 [facility] ta every 12 every 12 tablet l hours by hours by every 12 Cli nics oral route. oral route. hours by oral route. azelastine azelastine No azelastine [facility] 205.5 mcg 205.5 mcg 205.5 mcg [facility] (0.15 %) (0.15 %) (0.15 %) ty nasal spray nasal spray nasal [facility] SPRAY 2 SPRAY 2 spray l SPRAYS (411 SPRAYS (411 SPRAY 2 Clinics MCG) IN MCG) IN SPRAYS EACH EACH (411 MCG) NOSTRIL BY NOSTRIL BY IN EACH INTRANASAL INTRANASAL NOSTRIL BY ROUTE 2 ROUTE 2 INTRANASAL TIMES PER TIMES PER ROUTE 2 DAY DAY TIMES PER DAY carvedilol carvedilol No carvedilol [facility] 3.125 mg 3.125 mg 3.125 mg Com ruma tablet 1 tablet 1 tablet 1 ty TABLET WITH TABLET WITH TABLET [facility] FOOD ORALLY FOOD ORALLY WITH FOOD l ONCE A DAY ONCE A DAY ORALLY C linics 90 DAY(S) 90 DAY(S) ONCE A DAY 90 DAY(S) Combivent Combivent No Combivent [facility] Respimat 20 Respimat 20 Respimat [facility] mcg-100 mcg-100 20 mcg-100 ty mcg/actuati mcg/actuati mcg/actuat [facility] on solution on solution ion l for for solution Clinics inhalation inhalation for INHALE 1 INHALE 1 inhalation PUFF BY PUFF BY INHALE 1 MOUTH TWICE MOUTH TWICE PUFF BY A DAY A DAY MOUTH TWICE A DAY dexamethaso dexamethaso No 10mg dexamethas [facility] ne sodium ne sodium one sodium [facility] phosphate phosphate phosphate ty 10 mg/mL 10 mg/mL 10 mg/mL [facility] injection injection injection l solution solution solution Cli nics Take 10 mg Take 10 mg Take 10 mg by by by injection injection injection route. route. route. ipratropium ipratropium No ipratropiu [facility] bromide 42 bromide 42 m bromide [facility] mcg (0.06 mcg (0.06 42 mcg ty %) nasal %) nasal (0.06 %) [facility] spray USE 2 spray USE 2 nasal l SPRAYS IN SPRAYS IN spray USE Clinics EACH EACH 2 SPRAYS NOSTRIL 3 NOSTRIL 3 IN EACH TIMES A DAY TIMES A DAY NOSTRIL 3 TIMES A DAY Kenalog 40 Kenalog 40 No 40mg Kenalog 40 [facility] mg/mL mg/mL mg/mL [facility] suspension suspension suspension ty for for for [facility] injection injection injection l Take 40 mg Take 40 mg Take 40 mg Clinics by by by injection injection injection route. route. route. levothyroxi levothyroxi No levothyrox [facility] ne 112 mcg ne 112 mcg ine 112 [facility] tablet TAKE tablet TAKE mcg tablet ty 1 TABLET BY 1 TABLET BY TAKE 1 [facility] MOUTH IN MOUTH IN TABLET BY l THE MORNING THE MORNING MOUTH IN Clinics ON AN EMPTY ON AN EMPTY THE STOMACH STOMACH MORNING ON AN EMPTY STOMACH lisinopril lisinopril No lisinopril [facility] 20 mg 20 mg 20 mg [facility] tablet TAKE tablet TAKE tablet ty 1 TABLET BY 1 TABLET BY TAKE 1 [facility] MOUTH TWICE MOUTH TWICE TABLET BY l A DAY A DAY MOUTH Clinics TWICE A DAY metoclopram metoclopram No metoclopra [facility] demetrius 10 mg demetrius 10 mg mide 10 mg [facility] tablet TAKE tablet TAKE tablet ty 3 TABLETS 3 TABLETS TAKE 3 [facility] BY MOUTH BY MOUTH TABLETS BY l DIRECTED DIRECTED MOUTH Cli nics USE USE DIRECTED DIRECTED DIRECTED USE PER YOUR PER YOUR DIRECTED COLONOSCOPY COLONOSCOPY PER YOUR PREP PACKET PREP PACKET COLONOSCOP Y PREP PACKET nifedipine nifedipine No 1 Q1D nifedipine [facility] ER 30 mg ER 30 mg ER 30 mg Com ruma tablet,exte tablet,exte tablet,ext ty nded nded ended [facility] release release release l Take 1 Take 1 Take 1 Clinics tablet tablet tablet every day every day every day by oral by oral by oral route. route. route. omeprazole omeprazole No 1capsul BID omeprazole [facility] 40 mg 40 mg e(s) 40 mg [facility] capsule,del capsule,del capsule,de ty ayed ayed layed [facility]osp[facility] release release release l Take 1 Take 1 Take 1 Clinics capsule capsule capsule twice a day twice a day twice a by oral by oral day by route for route for oral route 30 days. 30 days. for 30 days. ondansetron ondansetron No 2 TID ondansetro [facility] 4 mg 4 mg n 4 mg [facility] disintegrat disintegrat disintegra ty ing tablet ing tablet ting [facility] [address] Place 2 tablet l tablets [address] 2 Cl [facility]ics times a day times a day tablets 3 by by times a translingua translingua day by l route. l route. translingu al route. [place] 0.7 % [place] 0.7 % No [place] 0.7 [facility] eye drops eye drops % eye Comm [facility] PUT ONE PUT ONE drops PUT ty DROP INTO DROP INTO ONE DROP [facility] EACH EYE EACH EYE INTO EACH l NEEDED FOR NEEDED FOR EYE C linics ALLERGIES ALLERGIES NEEDED FOR ALLERGIES Shingrix Shingrix No Shingrix [facility] (PF) 50 (PF) 50 (PF) 50 [facility] i mcg/0.5 mL mcg/0.5 mL mcg/0.5 mL ty intramuscul intramuscul [facility]cu [facility] suspension, suspension, suspension Clinics kit kit , kit simvastatin simvastatin No simvastati [facility] 40 mg 40 mg n 40 mg [facility] tablet TAKE tablet TAKE tablet ty 1 TABLET BY 1 TABLET BY TAKE 1 [facility]ospita MOUTH EVERY MOUTH EVERY TABLET BY l DAY DAY MOUTH Clinics EVERY DAY sucralfate sucralfate No sucralfate [facility] 1 gram 1 gram 1 gram [facility] tablet TAKE tablet TAKE tablet ty 1 TABLET BY 1 TABLET BY TAKE 1 [facility]ospita MOUTH FOUR MOUTH FOUR TABLET BY l TIMES A DAY TIMES A DAY MOUTH FOUR Clinics AT EVERY AT EVERY TIMES A MEALS AND MEALS AND DAY AT AT BEDTIME AT BEDTIME EVERY MEALS AND AT BEDTIME amiodarone amiodarone No amiodarone [facility] 200 mg 200 mg 200 mg [facility] tablet TAKE tablet TAKE tablet ty 1/2 TABLET 1/2 TABLET TAKE 1/2 [facility]ospita BY MOUTH BY MOUTH TABLET BY l ONCE A DAY ONCE A DAY MOUTH ONCE Clinics 90 DAYS 90 DAYS A DAY 90 DAYS amoxicillin amoxicillin No amoxicilli [facility] 875 mg 875 mg n 875 mg [facility] tablet TAKE tablet TAKE tablet ty 1 TABLET BY 1 TABLET BY TAKE 1 [facility]osp[facility] MOUTH EVERY MOUTH EVERY TABLET BY l 12 HOURS 12 HOURS MOUTH Clinic s EVERY 12 HOURS azelastine azelastine No azelastine [facility] 205.5 mcg 205.5 mcg 205.5 mcg [facility]i (0.15 %) (0.15 %) (0.15 %) ty nasal spray nasal spray nasal [facility]osp[facility] SPRAY 2 SPRAY 2 spray l SPRAYS (411 SPRAYS (411 SPRAY 2 Clinics MCG) IN MCG) IN SPRAYS EACH EACH (411 MCG) NOSTRIL BY NOSTRIL BY IN EACH INTRANASAL INTRANASAL NOSTRIL BY ROUTE 2 ROUTE 2 INTRANASAL TIMES PER TIMES PER ROUTE 2 DAY DAY TIMES PER DAY azithromyci azithromyci No azithromyc [facility] n 250 mg n 250 mg in 250 mg [facility] tablet TAKE tablet TAKE tablet ty 1 TABLET BY 1 TABLET BY TAKE 1 [facility]ospita MOUTH EVERY MOUTH EVERY TABLET BY l DAY FOR 4 DAY FOR 4 MOUTH Clin ics DAYS DAYS EVERY DAY FOR 4 DAYS carvedilol carvedilol No carvedilol [facility] 3.125 mg 3.125 mg 3.125 mg Com ruma tablet 1 tablet 1 tablet 1 ty TABLET WITH TABLET WITH TABLET [facility] FOOD ORALLY FOOD ORALLY WITH FOOD l ONCE A DAY ONCE A DAY ORALLY C linics 90 DAY(S) 90 DAY(S) ONCE A DAY 90 DAY(S) Combivent Combivent No Combivent [facility] Respimat 20 Respimat 20 Respimat [facility] mcg-100 mcg-100 20 mcg-100 ty mcg/actuati mcg/actuati mcg/actuat [facility]osp[facility] on solution on solution ion l for for solution Clinics inhalation inhalation for INHALE 1 INHALE 1 inhalation PUFF BY PUFF BY INHALE 1 MOUTH TWICE MOUTH TWICE PUFF BY A DAY A DAY MOUTH TWICE A DAY dexamethaso dexamethaso No 10mg dexamethas [facility] ne sodium ne sodium one sodium [facility] phosphate phosphate phosphate ty 10 mg/mL 10 mg/mL 10 mg/mL [facility] injection injection injection l solution solution solution Cli nics Take 10 mg Take 10 mg Take 10 mg by by by injection injection injection route. route. route. gabapentin gabapentin No 1capsul Q1D gabapentin [facility] 300 mg 300 mg e(s) 300 mg [facility] capsule capsule capsule ty Take 1 Take 1 Take 1 [facility]osp[facility] capsule capsule capsule l every day every day every day Clinics by oral by oral by oral route at route at route at bedtime. bedtime. bedtime. ipratropium ipratropium No ipratropiu [facility] bromide 42 bromide 42 m bromide [facility] mcg (0.06 mcg (0.06 42 mcg ty %) nasal %) nasal (0.06 %) [facility] spray SPRAY spray SPRAY nasal l 2 SPRAYS IN 2 SPRAYS IN spray Clinics EACH EACH SPRAY 2 NOSTRIL BY NOSTRIL BY SPRAYS IN INTRANASAL INTRANASAL EACH ROUTE 3 ROUTE 3 NOSTRIL BY TIMES PER TIMES PER INTRANASAL DAY DAY ROUTE 3 NEEDED FOR NEEDED FOR TIMES PER NASAL NASAL DAY DRAINAGE DRAINAGE NEEDED FOR NASAL DRAINAGE Kenalog 40 Kenalog 40 No 40mg Kenalog 40 [facility] mg/mL mg/mL mg/mL [facility] suspension suspension suspension ty for for for [facility]osp[facility] injection injection injection l Take 40 mg Take 40 mg Take 40 mg Clinics by by by injection injection injection route. route. route. levothyroxi levothyroxi No levothyrox [facility] ne 112 mcg ne 112 mcg ine 112 [facility] tablet TAKE tablet TAKE mcg tablet ty 1 TABLET BY 1 TABLET BY TAKE 1 [facility]osp[facility] MOUTH IN MOUTH IN TABLET BY l THE MORNING THE MORNING MOUTH IN Clinics ON AN EMPTY ON AN EMPTY THE STOMACH STOMACH MORNING ON AN EMPTY STOMACH lisinopril lisinopril No lisinopril [facility] 20 mg 20 mg 20 mg [facility] tablet TAKE tablet TAKE tablet ty 1 TABLET BY 1 TABLET BY TAKE 1 [facility]osp[facility] MOUTH EVERY MOUTH EVERY TABLET BY l DAY FOR 90 DAY FOR 90 MOUTH Cl inics DAYS DAYS EVERY DAY FOR 90 DAYS methylpredn methylpredn No methylpred [facility] isolone 4 isolone 4 nisolone 4 [facility] mg tablets mg tablets mg tablets ty in a dose in a dose in a dose [facility] pack TAKE 6 pack TAKE 6 pack TAKE l TABLETS ON TABLETS ON 6 TABLETS Clinics DAY 1 DAY 1 ON DAY 1 DIRECTED ON DIRECTED ON PACKAGE AND PACKAGE AND DIRECTED DECREASE BY DECREASE BY ON PACKAGE 1 TAB EACH 1 TAB EACH AND DAY FOR A DAY FOR A DECREASE TOTAL OF 6 TOTAL OF 6 BY 1 TAB DAYS DAYS EACH DAY FOR A TOTAL OF 6 DAYS metoclopram metoclopram No metoclopra [facility] demetrius 10 mg demetrius 10 mg mide 10 mg [facility] tablet TAKE tablet TAKE tablet ty 3 TABLETS 3 TABLETS TAKE 3 [facility] BY MOUTH BY MOUTH TABLETS BY l DIRECTED DIRECTED MOUTH Cli nics USE USE DIRECTED DIRECTED DIRECTED USE PER YOUR PER YOUR DIRECTED COLONOSCOPY COLONOSCOPY PER YOUR PREP PACKET PREP PACKET COLONOSCOP Y PREP PACKET nifedipine nifedipine No nifedipine [facility] ER 30 mg ER 30 mg ER 30 mg Com ruma tablet,exte tablet,exte tablet,ext ty nded nded ended [facility] release 1 release 1 release 1 l TABLET ON TABLET ON TABLET ON Clinics AN EMPTY AN EMPTY AN EMPTY STOMACH STOMACH STOMACH ORALLY ONCE ORALLY ONCE ORALLY A DAY 90 A DAY 90 ONCE A DAY DAY(S) DAY(S) 90 DAY(S) omeprazole omeprazole No 1capsul BID omeprazole [facility] 40 mg 40 mg e(s) 40 mg [facility] capsule,del capsule,del capsule,de ty ayed ayed layed [facility]osp[facility] release release release l Take 1 Take 1 Take 1 Clinics capsule capsule capsule twice a day twice a day twice a by oral by oral day by route for route for oral route 30 days. 30 days. for 30 days. ondansetron ondansetron No 2 TID ondansetro [facility] 4 mg 4 mg n 4 mg [facility] disintegrat disintegrat disintegra ty ing tablet ing tablet ting [facility] [address] Place 2 tablet l tablets [address] 2 Cl [facility]ics times a day times a day tablets 3 by by times a translingua translingua day by l route. l route. translingu al route. [place] 0.7 % [place] 0.7 % No [place] 0.7 [facility] eye drops eye drops % eye [facility] PUT ONE PUT ONE drops PUT ty DROP INTO DROP INTO ONE DROP [facility] EACH EYE EACH EYE INTO EACH l NEEDED FOR NEEDED FOR EYE C linics ALLERGIES ALLERGIES NEEDED FOR ALLERGIES Shingrix Shingrix No Shingrix [facility] (PF) 50 (PF) 50 (PF) 50 [facility] i mcg/0.5 mL mcg/0.5 mL mcg/0.5 mL ty intramuscul intramuscul intramuscu [facility] suspension, suspension, suspension Clinics kit kit , kit simvastatin simvastatin No simvastati [facility] 40 mg 40 mg n 40 mg [facility] tablet TAKE tablet TAKE tablet ty 1 TABLET BY 1 TABLET BY TAKE 1 [facility] MOUTH EVERY MOUTH EVERY TABLET BY l DAY DAY MOUTH Clinics EVERY DAY sucralfate sucralfate No sucralfate [facility] 1 gram 1 gram 1 gram [facility] tablet TAKE tablet TAKE tablet ty 1 TABLET BY 1 TABLET BY TAKE 1 [facility] MOUTH FOUR MOUTH FOUR TABLET BY l TIMES A DAY TIMES A DAY MOUTH FOUR Clinics AT EVERY AT EVERY TIMES A MEALS AND MEALS AND DAY AT AT BEDTIME AT BEDTIME EVERY MEALS AND AT BEDTIME [facility] No [facility] 0.024 % eye 0.024 % eye 0.024 % [facility] drops PUT drops PUT eye drops ty ONE DROP ONE DROP PUT ONE Hosp oscar INTO BOTH INTO BOTH DROP INTO l EYES AT EYES AT BOTH EYES Clin ics BEDTIME BEDTIME AT BEDTIME amiodarone amiodarone No amiodarone [facility] 200 mg 200 mg 200 mg [facility] tablet TAKE tablet TAKE tablet ty 1/2 TABLET 1/2 TABLET TAKE 1/2 [facility]osp[facility] BY MOUTH BY MOUTH TABLET BY l ONCE A DAY ONCE A DAY MOUTH ONCE Clinics 90 DAYS 90 DAYS A DAY 90 DAYS azelastine azelastine No azelastine [facility] 205.5 mcg 205.5 mcg 205.5 mcg [facility] (0.15 %) (0.15 %) (0.15 %) ty nasal spray nasal spray nasal [facility] SPRAY 2 SPRAY 2 spray l SPRAYS (411 SPRAYS (411 SPRAY 2 Clinics MCG) IN MCG) IN SPRAYS EACH EACH (411 MCG) NOSTRIL BY NOSTRIL BY IN EACH INTRANASAL INTRANASAL NOSTRIL BY ROUTE 2 ROUTE 2 INTRANASAL TIMES PER TIMES PER ROUTE 2 DAY DAY TIMES PER DAY carvedilol carvedilol No carvedilol [facility] 3.125 mg 3.125 mg 3.125 mg Com ruma tablet 1 tablet 1 tablet 1 ty TABLET WITH TABLET WITH TABLET [facility] FOOD ORALLY FOOD ORALLY WITH FOOD l ONCE A DAY ONCE A DAY ORALLY C linics 90 DAY(S) 90 DAY(S) ONCE A DAY 90 DAY(S) Combivent Combivent No Combivent [facility] Respimat 20 Respimat 20 Respimat [facility] mcg-100 mcg-100 20 mcg-100 ty mcg/actuati mcg/actuati mcg/actuat [facility] on solution on solution ion l for for solution Clinics inhalation inhalation for INHALE 1 INHALE 1 inhalation PUFF BY PUFF BY INHALE 1 MOUTH TWICE MOUTH TWICE PUFF BY A DAY A DAY MOUTH TWICE A DAY finasteride finasteride No finasterid [facility] 5 mg tablet 5 mg tablet e 5 mg [facility] TAKE 1 TAKE 1 tablet ty TABLET BY TABLET BY TAKE 1 [facility] MOUTH EVERY MOUTH EVERY TABLET BY l DAY FOR 90 DAY FOR 90 MOUTH Cl inics DAYS DAYS EVERY DAY FOR 90 DAYS gabapentin gabapentin No gabapentin [facility] 300 mg 300 mg 300 mg [facility] capsule capsule capsule ty TAKE 1 TAKE 1 TAKE 1 [facility] CAPSULE BY CAPSULE BY CAPSULE BY l MOUTH TWICE MOUTH TWICE MOUTH Clinics A DAY A DAY TWICE A DAY hydrochloro hydrochloro No 1capsul Q1D hydrochlor [facility] thiazide thiazide e(s) othiazide [facility] 12.5 mg 12.5 mg 12.5 mg ty capsule capsule capsule Hospit a Take 1 Take 1 Take 1 l capsule capsule capsule Clinic s every day every day every day by oral by oral by oral route. route. route. ipratropium ipratropium No ipratropiu [facility] bromide 42 bromide 42 m bromide [facility] mcg (0.06 mcg (0.06 42 mcg ty %) nasal %) nasal (0.06 %) [facility] spray SPRAY spray SPRAY nasal l 2 SPRAYS IN 2 SPRAYS IN spray Clinics EACH EACH SPRAY 2 NOSTRIL BY NOSTRIL BY SPRAYS IN INTRANASAL INTRANASAL EACH ROUTE 3 ROUTE 3 NOSTRIL BY TIMES PER TIMES PER INTRANASAL DAY DAY ROUTE 3 NEEDED FOR NEEDED FOR TIMES PER NASAL NASAL DAY DRAINAGE DRAINAGE NEEDED FOR NASAL DRAINAGE levothyroxi levothyroxi No levothyrox [facility] ne 125 mcg ne 125 mcg ine 125 [facility] tablet TAKE tablet TAKE mcg tablet ty 1 TABLET BY 1 TABLET BY TAKE 1 [facility] MOUTH EVERY MOUTH EVERY TABLET BY l DAY DAY MOUTH Clinics EVERY DAY lisinopril lisinopril No lisinopril [facility] 20 mg 20 mg 20 mg [facility] tablet TAKE tablet TAKE tablet ty 1 TABLET BY 1 TABLET BY TAKE 1 [facility] MOUTH EVERY MOUTH EVERY TABLET BY l DAY FOR 90 DAY FOR 90 MOUTH Cl inics DAYS DAYS EVERY DAY FOR 90 DAYS ondansetron ondansetron No 2 TID ondansetro [facility] 4 mg 4 mg n 4 mg [facility] disintegrat disintegrat disintegra ty ing tablet ing tablet ting [facility] [address] Place 2 tablet l tablets [address] 2 Cl [facility]ics times a day times a day tablets 3 by by times a translingua translingua day by l route. l route. translingu al route. Shingrix Shingrix No Shingrix [facility] (PF) 50 (PF) 50 (PF) 50 [facility] i mcg/0.5 mL mcg/0.5 mL mcg/0.5 mL ty intramuscul intramuscul intramuscu [facility] suspension, suspension, suspension Clinics kit kit , kit simvastatin simvastatin No simvastati [facility] 40 mg 40 mg n 40 mg [facility] tablet TAKE tablet TAKE tablet ty 1 TABLET BY 1 TABLET BY TAKE 1 [facility] MOUTH EVERY MOUTH EVERY TABLET BY l DAY DAY MOUTH Clinics EVERY DAY tamsulosin tamsulosin No tamsulosin [facility] 0.4 mg 0.4 mg 0.4 mg [facility] capsule capsule capsule ty TAKE 1 TAKE 1 TAKE 1 [facility] CAPSULE BY CAPSULE BY CAPSULE BY l MOUTH EVERY MOUTH EVERY MOUTH Clinics DAY AT DAY AT EVERY DAY BEDTIME BEDTIME AT BEDTIME [facility] No [facility] 0.024 % eye 0.024 % eye 0.024 % [facility] drops PUT drops PUT eye drops ty ONE DROP ONE DROP PUT ONE Hosp oscar INTO BOTH INTO BOTH DROP INTO l EYES AT EYES AT BOTH EYES Clin ics BEDTIME BEDTIME AT BEDTIME amiodarone amiodarone No amiodarone [facility] 200 mg 200 mg 200 mg [facility] tablet TAKE tablet TAKE tablet ty 1/2 TABLET 1/2 TABLET TAKE 1/2 [facility]osp[facility] BY MOUTH BY MOUTH TABLET BY l ONCE A DAY ONCE A DAY MOUTH ONCE Clinics 90 DAYS 90 DAYS A DAY 90 DAYS azelastine azelastine No azelastine [facility] 205.5 mcg 205.5 mcg 205.5 mcg Communi (0.15 %) (0.15 %) (0.15 %) ty nasal spray nasal spray nasal [facility] SPRAY 2 SPRAY 2 spray l SPRAYS (411 SPRAYS (411 SPRAY 2 Clinics MCG) IN MCG) IN SPRAYS EACH EACH (411 MCG) NOSTRIL BY NOSTRIL BY IN EACH INTRANASAL INTRANASAL NOSTRIL BY ROUTE 2 ROUTE 2 INTRANASAL TIMES PER TIMES PER ROUTE 2 DAY DAY TIMES PER DAY carvedilol carvedilol No carvedilol [facility] 3.125 mg 3.125 mg 3.125 mg Com ruma tablet 1 tablet 1 tablet 1 ty TABLET WITH TABLET WITH TABLET [facility] FOOD ORALLY FOOD ORALLY WITH FOOD l TWICE A DAY TWICE A DAY ORALLY Clinics 90 DAY(S) 90 DAY(S) TWICE A DAY 90 DAY(S) Combivent Combivent No Combivent [facility] Respimat 20 Respimat 20 Respimat [facility] mcg-100 mcg-100 20 mcg-100 ty mcg/actuati mcg/actuati mcg/actuat [facility] on solution on solution ion l for for solution Clinics inhalation inhalation for INHALE 1 INHALE 1 inhalation PUFF BY PUFF BY INHALE 1 MOUTH TWICE MOUTH TWICE PUFF BY A DAY A DAY MOUTH TWICE A DAY finasteride finasteride No finasterid [facility] 5 mg tablet 5 mg tablet e 5 mg [facility]i TAKE 1 TAKE 1 tablet ty TABLET BY TABLET BY TAKE 1 [facility] MOUTH EVERY MOUTH EVERY TABLET BY l DAY FOR 90 DAY FOR 90 MOUTH Cl inics DAYS DAYS EVERY DAY FOR 90 DAYS gabapentin gabapentin No gabapentin [facility] 300 mg 300 mg 300 mg [facility] capsule capsule capsule ty TAKE 1 TAKE 1 TAKE 1 [facility] CAPSULE BY CAPSULE BY CAPSULE BY l MOUTH TWICE MOUTH TWICE MOUTH Clinics A DAY A DAY TWICE A DAY hydrochloro hydrochloro No hydrochlor [facility] thiazide thiazide othiazide [facility] 12.5 mg 12.5 mg 12.5 mg ty capsule capsule capsule Hospit a TAKE 1 TAKE 1 TAKE 1 l CAPSULE BY CAPSULE BY CAPSULE BY Clinics MOUTH EVERY MOUTH EVERY MOUTH DAY DAY EVERY DAY ipratropium ipratropium No ipratropiu [facility] bromide 42 bromide 42 m bromide [facility] mcg (0.06 mcg (0.06 42 mcg ty %) nasal %) nasal (0.06 %) [facility] spray SPRAY spray SPRAY nasal l 2 SPRAYS IN 2 SPRAYS IN spray Clinics EACH EACH SPRAY 2 NOSTRIL BY NOSTRIL BY SPRAYS IN INTRANASAL INTRANASAL EACH ROUTE 3 ROUTE 3 NOSTRIL BY TIMES PER TIMES PER INTRANASAL DAY DAY ROUTE 3 NEEDED FOR NEEDED FOR TIMES PER NASAL NASAL DAY DRAINAGE DRAINAGE NEEDED FOR NASAL DRAINAGE levothyroxi levothyroxi No levothyrox [facility] ne 125 mcg ne 125 mcg ine 125 [facility] tablet TAKE tablet TAKE mcg tablet ty 1 TABLET BY 1 TABLET BY TAKE 1 [facility] MOUTH EVERY MOUTH EVERY TABLET BY l DAY DAY MOUTH Clinics EVERY DAY lisinopril lisinopril No lisinopril [facility] 20 mg 20 mg 20 mg [facility] tablet TAKE tablet TAKE tablet ty 1 TABLET BY 1 TABLET BY TAKE 1 [facility] MOUTH EVERY MOUTH EVERY TABLET BY l DAY FOR 90 DAY FOR 90 MOUTH Cl inics DAYS DAYS EVERY DAY FOR 90 DAYS ondansetron ondansetron No 2 TID ondansetro [facility] 4 mg 4 mg n 4 mg [facility] disintegrat disintegrat disintegra ty ing tablet ing tablet ting [facility] [address] Place 2 tablet l tablets [address] 2 Cl [facility]ics times a day times a day tablets 3 by by times a translingua translingua day by l route. l route. translingu al route. Shingrix Shingrix No Shingrix [facility] (PF) 50 (PF) 50 (PF) 50 Commun i mcg/0.5 mL mcg/0.5 mL mcg/0.5 mL ty intramuscul intramuscul intramuscu [facility] suspension, suspension, suspension Clinics kit kit , kit simvastatin simvastatin No simvastati [facility] 40 mg 40 mg n 40 mg [facility] tablet TAKE tablet TAKE tablet ty 1 TABLET BY 1 TABLET BY TAKE 1 [facility] MOUTH EVERY MOUTH EVERY TABLET BY l DAY DAY MOUTH Clinics EVERY DAY tamsulosin tamsulosin No tamsulosin [facility] 0.4 mg 0.4 mg 0.4 mg [facility] capsule capsule capsule ty TAKE 1 TAKE 1 TAKE 1 [facility] CAPSULE BY CAPSULE BY CAPSULE BY l MOUTH EVERY MOUTH EVERY MOUTH Clinics DAY AT DAY AT EVERY DAY BEDTIME BEDTIME AT BEDTIME [facility] No [facility] 0.024 % eye 0.024 % eye 0.024 % [facility] drops PUT drops PUT eye drops ty ONE DROP ONE DROP PUT ONE [facility]osp oscar INTO BOTH INTO BOTH DROP INTO l EYES AT EYES AT BOTH EYES Clin ics BEDTIME BEDTIME AT BEDTIME amiodarone amiodarone No amiodarone [facility] 100 mg 100 mg 100 mg [facility] tablet TAKE tablet TAKE tablet ty 1 TABLET BY 1 TABLET BY TAKE 1 [facility] MOUTH EVERY MOUTH EVERY TABLET BY l DAY FOR 90 DAY FOR 90 MOUTH Cl inics DAYS DAYS EVERY DAY FOR 90 DAYS amiodarone amiodarone No amiodarone [facility] 200 mg 200 mg 200 mg [facility] tablet TAKE tablet TAKE tablet ty 1/2 TABLET 1/2 TABLET TAKE 1/2 [facility]osp[facility] BY MOUTH BY MOUTH TABLET BY l ONCE A DAY ONCE A DAY MOUTH ONCE Clinics 90 DAYS 90 DAYS A DAY 90 DAYS azelastine azelastine No azelastine [facility] 205.5 mcg 205.5 mcg 205.5 mcg Communi (0.15 %) (0.15 %) (0.15 %) ty nasal spray nasal spray nasal [facility] SPRAY 2 SPRAY 2 spray l SPRAYS (411 SPRAYS (411 SPRAY 2 Clinics MCG) IN MCG) IN SPRAYS EACH EACH (411 MCG) NOSTRIL BY NOSTRIL BY IN EACH INTRANASAL INTRANASAL NOSTRIL BY ROUTE 2 ROUTE 2 INTRANASAL TIMES PER TIMES PER ROUTE 2 DAY DAY TIMES PER DAY carvedilol carvedilol No carvedilol [facility] 3.125 mg 3.125 mg 3.125 mg Com ruma tablet 1 tablet 1 tablet 1 ty TABLET WITH TABLET WITH TABLET [facility] FOOD ORALLY FOOD ORALLY WITH FOOD l TWICE A DAY TWICE A DAY ORALLY Clinics 90 DAY(S) 90 DAY(S) TWICE A DAY 90 DAY(S) Combivent Combivent No Combivent [facility] Respimat 20 Respimat 20 Respimat [facility] mcg-100 mcg-100 20 mcg-100 ty mcg/actuati mcg/actuati mcg/actuat [facility]osp[facility] on solution on solution ion l for for solution Clinics inhalation inhalation for INHALE 1 INHALE 1 inhalation PUFF BY PUFF BY INHALE 1 MOUTH TWICE MOUTH TWICE PUFF BY A DAY A DAY MOUTH TWICE A DAY finasteride finasteride No finasterid [facility] 5 mg tablet 5 mg tablet e 5 mg [facility]i TAKE 1 TAKE 1 tablet ty TABLET BY TABLET BY TAKE 1 [facility] MOUTH EVERY MOUTH EVERY TABLET BY l DAY FOR 90 DAY FOR 90 MOUTH Cl inics DAYS DAYS EVERY DAY FOR 90 DAYS gabapentin gabapentin No gabapentin [facility] 300 mg 300 mg 300 mg [facility] capsule capsule capsule ty TAKE 1 TAKE 1 TAKE 1 [facility] CAPSULE BY CAPSULE BY CAPSULE BY l MOUTH MOUTH MOUTH Clinics EVERYDAY AT EVERYDAY AT EVERYDAY BEDTIME BEDTIME AT BEDTIME hydrochloro hydrochloro No hydrochlor [facility] thiazide thiazide othiazide [facility] 12.5 mg 12.5 mg 12.5 mg ty capsule capsule capsule Hospit a TAKE 1 TAKE 1 TAKE 1 l CAPSULE BY CAPSULE BY CAPSULE BY Clinics MOUTH EVERY MOUTH EVERY MOUTH DAY DAY EVERY DAY ipratropium ipratropium No ipratropiu [facility] bromide 42 bromide 42 m bromide [facility] mcg (0.06 mcg (0.06 42 mcg ty %) nasal %) nasal (0.06 %) [facility] spray SPRAY spray SPRAY nasal l 2 SPRAYS IN 2 SPRAYS IN spray Clinics EACH EACH SPRAY 2 NOSTRIL BY NOSTRIL BY SPRAYS IN INTRANASAL INTRANASAL EACH ROUTE 3 ROUTE 3 NOSTRIL BY TIMES PER TIMES PER INTRANASAL DAY DAY ROUTE 3 NEEDED FOR NEEDED FOR TIMES PER NASAL NASAL DAY DRAINAGE DRAINAGE NEEDED FOR NASAL DRAINAGE levothyroxi levothyroxi No levothyrox [facility] ne 125 mcg ne 125 mcg ine 125 [facility] tablet TAKE tablet TAKE mcg tablet ty 1 TABLET BY 1 TABLET BY TAKE 1 [facility] MOUTH EVERY MOUTH EVERY TABLET BY l DAY DAY MOUTH Clinics EVERY DAY nifedipine nifedipine No nifedipine [facility] ER 30 mg ER 30 mg ER 30 mg Com ruma tablet,exte tablet,exte tablet,ext ty nded nded ended [facility]osp[facility] release 1 release 1 release 1 l TABLET ON TABLET ON TABLET ON Clinics AN EMPTY AN EMPTY AN EMPTY STOMACH STOMACH STOMACH ORALLY ONCE ORALLY ONCE ORALLY A DAY 90 A DAY 90 ONCE A DAY DAY(S) DAY(S) 90 DAY(S) ondansetron ondansetron No 2 TID ondansetro [facility] 4 mg 4 mg n 4 mg Communi disintegrat disintegrat disintegra ty ing tablet ing tablet ting [facility] [address] Place 2 tablet l tablets [address] 2 Cl inics times a day times a day tablets 3 by by times a translingua translingua day by l route. l route. translingu al route. Shingrix Shingrix No Shingrix [facility] (PF) 50 (PF) 50 (PF) 50 Commun i mcg/0.5 mL mcg/0.5 mL mcg/0.5 mL ty intramuscul intramuscul intramuscu [facility] suspension, suspension, suspension Clinics kit kit , kit simvastatin simvastatin No simvastati [facility] 40 mg 40 mg n 40 mg [facility] tablet TAKE tablet TAKE tablet ty 1 TABLET BY 1 TABLET BY TAKE 1 [facility] MOUTH EVERY MOUTH EVERY TABLET BY l DAY DAY MOUTH Clinics EVERY DAY tamsulosin tamsulosin No tamsulosin [facility] 0.4 mg 0.4 mg 0.4 mg [facility] capsule capsule capsule ty TAKE 1 TAKE 1 TAKE 1 [facility] CAPSULE BY CAPSULE BY CAPSULE BY l MOUTH MOUTH MOUTH Clinics EVERYDAY AT EVERYDAY AT EVERYDAY BEDTIME BEDTIME AT BEDTIME [facility] No [facility] 0.024 % eye 0.024 % eye 0.024 % [facility] drops PUT drops PUT eye drops ty ONE DROP ONE DROP PUT ONE [facility]osp oscar INTO BOTH INTO BOTH DROP INTO l EYES AT EYES AT BOTH EYES Clin ics BEDTIME BEDTIME AT BEDTIME amiodarone amiodarone No amiodarone [facility] 200 mg 200 mg 200 mg [facility] tablet TAKE tablet TAKE tablet ty 1 TABLET BY 1 TABLET BY TAKE 1 [facility]osp[facility] MOUTH EVERY MOUTH EVERY TABLET BY l DAY FOR 90 DAY FOR 90 MOUTH Cl inics DAYS DAYS EVERY DAY FOR 90 DAYS aspirin 80 aspirin 80 No 1 Q1D aspirin 80 [facility] mg tablet mg tablet mg tablet [facility] Take 1 Take 1 Take 1 ty tablet tablet tablet Hosp[facility] every day every day every day l by oral by oral by oral Clinic s route. route. route. carvedilol carvedilol No carvedilol [facility] 3.125 mg 3.125 mg 3.125 mg Com r[facility] tablet TAKE tablet TAKE tablet ty 1 TABLET BY 1 TABLET BY TAKE 1 [facility]osp[facility] MOUTH TWICE MOUTH TWICE TABLET BY l A DAY WITH A DAY WITH MOUTH Cl in FOOD FOR FOOD FOR TWICE A DAYS DAYS DAY WITH FOOD FOR 90 DAYS finasteride finasteride No finasterid [facility] 5 mg tablet 5 mg tablet e 5 mg Communi TAKE 1 TAKE 1 tablet ty TABLET BY TABLET BY TAKE 1 [facility] MOUTH EVERY MOUTH EVERY TABLET BY l DAY FOR 90 DAY FOR 90 MOUTH Cl inics DAYS DAYS EVERY DAY FOR 90 DAYS gabapentin gabapentin No gabapentin [facility] 300 mg 300 mg 300 mg [facility] capsule capsule capsule ty TAKE 1 TAKE 1 TAKE 1 [facility] CAPSULE BY CAPSULE BY CAPSULE BY l MOUTH MOUTH MOUTH Clinics EVERYDAY AT EVERYDAY AT EVERYDAY BEDTIME BEDTIME AT BEDTIME hydrochloro hydrochloro No hydrochlor [facility] thiazide thiazide othiazide [facility] 12.5 mg 12.5 mg 12.5 mg ty capsule capsule capsule Hospit a TAKE 1 TAKE 1 TAKE 1 l CAPSULE BY CAPSULE BY CAPSULE BY Clinics MOUTH EVERY MOUTH EVERY MOUTH DAY IN THE DAY IN THE EVERY DAY MORNING FOR MORNING FOR IN THE 90 DAYS 90 DAYS MORNING FOR 90 DAYS levothyroxi levothyroxi No levothyrox [facility] ne 125 mcg ne 125 mcg ine 125 [facility] tablet TAKE tablet TAKE mcg tablet ty 1 TABLET BY 1 TABLET BY TAKE 1 [facility]osp[facility] MOUTH EVERY MOUTH EVERY TABLET BY l DAY DAY MOUTH Clinics EVERY DAY nifedipine nifedipine No nifedipine [facility] ER 30 mg ER 30 mg ER 30 mg Com ruma tablet,exte tablet,exte tablet,ext ty nded nded ended [facility]osp[facility] release release release l TAKE 1 TAKE 1 TAKE 1 Clinics TABLET BY TABLET BY TABLET BY MOUTH EVERY MOUTH EVERY MOUTH DAY ON DAY ON EVERY DAY EMPTY EMPTY ON EMPTY STOMACH FOR STOMACH FOR STOMACH 90 DAYS 90 DAYS FOR 90 DAYS ondansetron ondansetron No 2 TID ondansetro [facility] 4 mg 4 mg n 4 mg Communi disintegrat disintegrat disintegra ty ing tablet ing tablet ting [facility] 2 Place 2 tablet l tablets [address] 2 Cl inics times a day times a day tablets 3 by by times a translingua translingua day by l route. l route. translingu al route. Shingrix Shingrix No Shingrix [facility] (PF) 50 (PF) 50 (PF) 50 [facility] i mcg/0.5 mL mcg/0.5 mL mcg/0.5 mL ty intramuscul intramuscul intramuscu [facility] suspension, suspension, suspension Clinics kit kit , kit simvastatin simvastatin No simvastati [facility] 40 mg 40 mg n 40 mg [facility] tablet TAKE tablet TAKE tablet ty 1 TABLET BY 1 TABLET BY TAKE 1 [facility]ospita MOUTH EVERY MOUTH EVERY TABLET BY l DAY DAY MOUTH Clinics EVERY DAY tamsulosin tamsulosin No tamsulosin [facility] 0.4 mg 0.4 mg 0.4 mg [facility] capsule capsule capsule ty TAKE 1 TAKE 1 TAKE 1 [facility]ospita CAPSULE BY CAPSULE BY CAPSULE BY l MOUTH MOUTH MOUTH Clinics EVERYDAY AT EVERYDAY AT EVERYDAY BEDTIME BEDTIME AT BEDTIME [facility] V[facility] No [facility] 0.024 % eye 0.024 % eye 0.024 % [facility] drops PUT drops PUT eye drops ty ONE DROP ONE DROP PUT ONE Hosp oscar INTO BOTH INTO BOTH DROP INTO l EYES AT EYES AT BOTH EYES Clin ics BEDTIME BEDTIME AT BEDTIME amiodarone amiodarone No amiodarone [facility] 200 mg 200 mg 200 mg [facility] tablet TAKE tablet TAKE tablet ty 1 TABLET BY 1 TABLET BY TAKE 1 [facility]ospita MOUTH EVERY MOUTH EVERY TABLET BY l DAY FOR 90 DAY FOR 90 MOUTH Cl inics DAYS DAYS EVERY DAY FOR 90 DAYS aspirin 80 aspirin 80 No 1 Q1D aspirin 80 [facility] mg tablet mg tablet mg tablet [facility] Take 1 Take 1 Take 1 ty tablet tablet tablet Hospita every day every day every day l by oral by oral by oral Clinic s route. route. route. azithromyci azithromyci No azithromyc [facility] n 250 mg n 250 mg in 250 mg [facility] tablet TAKE tablet TAKE tablet ty 2 TABLETS 2 TABLETS TAKE 2 [facility] (500 MG) BY (500 MG) BY TABLETS l ORAL ROUTE ORAL ROUTE (500 MG) Clinics ONCE DAILY ONCE DAILY BY ORAL FOR 1 DAY FOR 1 DAY ROUTE ONCE THEN 1 THEN 1 DAILY FOR TABLET (250 TABLET (250 1 DAY THEN MG) BY ORAL MG) BY ORAL 1 TABLET ROUTE ONCE ROUTE ONCE (250 MG) DAILY FOR 4 DAILY FOR 4 BY ORAL DAYS DAYS ROUTE ONCE DAILY FOR 4 DAYS carvedilol carvedilol No carvedilol [facility] 3.125 mg 3.125 mg 3.125 mg Com ruma tablet TAKE tablet TAKE tablet ty 1 TABLET BY 1 TABLET BY TAKE 1 Hospita MOUTH TWICE MOUTH TWICE TABLET BY l A DAY WITH A DAY WITH MOUTH Cl in FOOD FOR FOOD FOR 90 TWICE A DAYS DAYS DAY WITH FOOD FOR 90 DAYS Combivent Combivent No Combivent [facility] Respimat 20 Respimat 20 Respimat [facility] mcg-100 mcg-100 20 mcg-100 ty mcg/actuati mcg/actuati mcg/actuat [facility]osp[facility] on solution on solution ion l for for solution Clinics inhalation inhalation for INHALE ONE INHALE ONE inhalation PUFF BY PUFF BY INHALE ONE MOUITH MOUITH PUFF BY TWICE A DAY TWICE A DAY MOUITH TWICE A DAY finasteride finasteride No finasterid [facility] 5 mg tablet 5 mg tablet e 5 mg [facility] TAKE 1 TAKE 1 tablet ty TABLET BY TABLET BY TAKE 1 [facility] MOUTH EVERY MOUTH EVERY TABLET BY l DAY FOR 90 DAY FOR 90 MOUTH Cl inics DAYS DAYS EVERY DAY FOR 90 DAYS gabapentin gabapentin No gabapentin [facility] 300 mg 300 mg 300 mg [facility] capsule capsule capsule ty TAKE 1 TAKE 1 TAKE 1 [facility] CAPSULE BY CAPSULE BY CAPSULE BY l MOUTH TWICE MOUTH TWICE MOUTH Clinics A DAY A DAY TWICE A DAY hydrochloro hydrochloro No hydrochlor [facility] thiazide thiazide othiazide [facility] 12.5 mg 12.5 mg 12.5 mg ty capsule capsule capsule Hospit a TAKE 1 TAKE 1 TAKE 1 l CAPSULE BY CAPSULE BY CAPSULE BY Clinics MOUTH EVERY MOUTH EVERY MOUTH DAY IN THE DAY IN THE EVERY DAY MORNING FOR MORNING FOR IN THE 90 DAYS 90 DAYS MORNING FOR 90 DAYS levothyroxi levothyroxi No levothyrox [facility] ne 125 mcg ne 125 mcg ine 125 [facility] tablet TAKE tablet TAKE mcg tablet ty 1 TABLET BY 1 TABLET BY TAKE 1 [facility] MOUTH EVERY MOUTH EVERY TABLET BY l DAY DAY MOUTH Clinics EVERY DAY nifedipine nifedipine No nifedipine [facility] ER 30 mg ER 30 mg ER 30 mg Com ruma tablet,exte tablet,exte tablet,ext ty nded nded ended [facility]ospita release release release l TAKE 1 TAKE 1 TAKE 1 Clinics TABLET BY TABLET BY TABLET BY MOUTH EVERY MOUTH EVERY MOUTH DAY ON DAY ON EVERY DAY EMPTY EMPTY ON EMPTY STOMACH FOR STOMACH FOR STOMACH 90 DAYS 90 DAYS FOR 90 DAYS ondansetron ondansetron No 2 TID ondansetro [facility] 4 mg 4 mg n 4 mg [facility] disintegrat disintegrat disintegra ty ing tablet ing tablet ting [facility] Place 2 Place 2 tablet l tablets [address] 2 Cl [facility]ics times a day times a day tablets 3 by by times a translingua translingua day by l route. l route. translingu al route. Paxlovid Paxlovid No Paxlovid [facility] 150 mg-100 150 mg-100 150 mg-100 [facility] mg tablets mg tablets mg tablets ty in a dose in a dose in a dose [facility]osp[facility] pack (Renal pack (Renal pack l Dose)(EUA) Dose)(EUA) (Renal C linics As directed As directed Dose)(EUA) on package on package As fo Renal fo Renal directed dose (eGFR dose (eGFR on package 45) 45) fo Renal dose (eGFR 45) prednisone prednisone No prednisone [facility] 20 mg 20 mg 20 mg [facility] tablet TAKE tablet TAKE tablet ty 2 TABLETS 2 TABLETS TAKE 2 [facility] (40 MG) BY (40 MG) BY TABLETS l ORAL ROUTE ORAL ROUTE (40 MG) BY Clinics ONCE DAILY ONCE DAILY ORAL ROUTE FOR 1 DAY FOR 1 DAY ONCE DAILY THEN 1 THEN 1 FOR 1 DAY TABLET (20 TABLET (20 THEN 1 MG) BY ORAL MG) BY ORAL TABLET (20 ROUTE ONCE ROUTE ONCE MG) BY DAILY FOR 4 DAILY FOR 4 ORAL ROUTE DAYS DAYS ONCE DAILY FOR 4 DAYS Shingrix Shingrix No Shingrix [facility] (PF) 50 (PF) 50 (PF) 50 [facility] i mcg/0.5 mL mcg/0.5 mL mcg/0.5 mL ty intramuscul intramuscul intramuscu [facility] suspension, suspension, suspension Clinics kit kit , kit simvastatin simvastatin No simvastati [facility] 40 mg 40 mg n 40 mg [facility] tablet TAKE tablet TAKE tablet ty 1 TABLET BY 1 TABLET BY TAKE 1 [facility] MOUTH EVERY MOUTH EVERY TABLET BY l DAY DAY MOUTH Clinics EVERY DAY tamsulosin tamsulosin No tamsulosin [facility] 0.4 mg 0.4 mg 0.4 mg [facility] capsule capsule capsule ty TAKE 1 TAKE 1 TAKE 1 [facility] CAPSULE BY CAPSULE BY CAPSULE BY l MOUTH MOUTH MOUTH Clinics EVERYDAY AT EVERYDAY AT EVERYDAY BEDTIME BEDTIME AT BEDTIME [facility] No [facility] 0.024 % eye 0.024 % eye 0.024 % [facility] drops PUT drops PUT eye drops ty ONE DROP ONE DROP PUT ONE [facility]osp oscar INTO BOTH INTO BOTH DROP INTO l EYES AT EYES AT BOTH EYES Clin ics BEDTIME BEDTIME AT BEDTIME amiodarone amiodarone No amiodarone [facility] 200 mg 200 mg 200 mg [facility] tablet TAKE tablet TAKE tablet ty 1 TABLET BY 1 TABLET BY TAKE 1 [facility] MOUTH EVERY MOUTH EVERY TABLET BY l DAY FOR 90 DAY FOR 90 MOUTH Cl inics DAYS DAYS EVERY DAY FOR 90 DAYS aspirin 80 aspirin 80 No 1 Q1D aspirin 80 [facility] mg tablet mg tablet mg tablet [facility] Take 1 Take 1 Take 1 ty tablet tablet tablet [facility]ospita every day every day every day l by oral by oral by oral Clinic s route. route. route. azithromyci azithromyci No azithromyc [facility] n 250 mg n 250 mg in 250 mg [facility] tablet TAKE tablet TAKE tablet ty 2 TABLETS 2 TABLETS TAKE 2 [facility] (500 MG) BY (500 MG) BY TABLETS l ORAL ROUTE ORAL ROUTE (500 MG) Clinics ONCE DAILY ONCE DAILY BY ORAL FOR 1 DAY FOR 1 DAY ROUTE ONCE THEN 1 THEN 1 DAILY FOR TABLET (250 TABLET (250 1 DAY THEN MG) BY ORAL MG) BY ORAL 1 TABLET ROUTE ONCE ROUTE ONCE (250 MG) DAILY FOR 4 DAILY FOR 4 BY ORAL DAYS DAYS ROUTE ONCE DAILY FOR 4 DAYS carvedilol carvedilol No carvedilol [facility] 3.125 mg 3.125 mg 3.125 mg Com ruma tablet TAKE tablet TAKE tablet ty 1 TABLET BY 1 TABLET BY TAKE 1 [facility]ospita MOUTH TWICE MOUTH TWICE TABLET BY l A DAY WITH A DAY WITH MOUTH Cl in FOOD FOR FOOD FOR 90 TWICE A DAYS DAYS DAY WITH FOOD FOR 90 DAYS Combivent Combivent No Combivent [facility] Respimat 20 Respimat 20 Respimat [facility] mcg-100 mcg-100 20 mcg-100 ty mcg/actuati mcg/actuati mcg/actuat [facility] on solution on solution ion l for for solution Clinics inhalation inhalation for INHALE ONE INHALE ONE inhalation PUFF BY PUFF BY INHALE ONE MOUITH MOUITH PUFF BY TWICE A DAY TWICE A DAY MOUITH TWICE A DAY finasteride finasteride No finasterid [facility] 5 mg tablet 5 mg tablet e 5 mg [facility]i TAKE 1 TAKE 1 tablet ty TABLET BY TABLET BY TAKE 1 [facility] MOUTH EVERY MOUTH EVERY TABLET BY l DAY FOR 90 DAY FOR 90 MOUTH Cl in DAYS EVERY DAY FOR 90 DAYS gabapentin gabapentin No gabapentin [facility] 300 mg 300 mg 300 mg [facility] capsule capsule capsule ty TAKE 1 TAKE 1 TAKE 1 [facility] CAPSULE BY CAPSULE BY CAPSULE BY l MOUTH TWICE MOUTH TWICE MOUTH Clinics A DAY A DAY TWICE A DAY hydrochloro hydrochloro No hydrochlor [facility] thiazide thiazide othiazide [facility] 12.5 mg 12.5 mg 12.5 mg ty capsule capsule capsule Hospit a TAKE 1 TAKE 1 TAKE 1 l CAPSULE BY CAPSULE BY CAPSULE BY Clinics MOUTH EVERY MOUTH EVERY MOUTH DAY IN THE DAY IN THE EVERY DAY MORNING FOR MORNING FOR IN THE 90 DAYS 90 DAYS MORNING FOR 90 DAYS levothyroxi levothyroxi No levothyrox [facility] ne 125 mcg ne 125 mcg ine 125 [facility] tablet TAKE tablet TAKE mcg tablet ty 1 TABLET BY 1 TABLET BY TAKE 1 [facility] MOUTH EVERY MOUTH EVERY TABLET BY l DAY DAY MOUTH Clinics EVERY DAY nifedipine nifedipine No nifedipine [facility] ER 30 mg ER 30 mg ER 30 mg Com r[facility] tablet,exte tablet,exte tablet,ext ty nded nded ended [facility]osp[facility] release release release l TAKE 1 TAKE 1 TAKE 1 Clinics TABLET BY TABLET BY TABLET BY MOUTH EVERY MOUTH EVERY MOUTH DAY ON DAY ON EVERY DAY EMPTY EMPTY ON EMPTY STOMACH FOR STOMACH FOR STOMACH 90 DAYS 90 DAYS FOR 90 DAYS ondansetron ondansetron No 2 TID ondansetro [facility] 4 mg 4 mg n 4 mg [facility] disintegrat disintegrat disintegra ty ing tablet ing tablet ting [facility] 2 Place 2 tablet l tablets [address] 2 Cl [facility]ics times a day times a day tablets 3 by by times a translingua translingua day by l route. l route. translingu al route. Paxlovid Paxlovid No Paxlovid [facility] 150 mg-100 150 mg-100 150 mg-100 [facility] mg tablets mg tablets mg tablets ty in a dose in a dose in a dose [facility]osp[facility] pack (Renal pack (Renal pack l Dose)(EUA) Dose)(EUA) (Renal C linics As directed As directed Dose)(EUA) on package on package As fo Renal fo Renal directed dose (eGFR dose (eGFR on package 45) 45) fo Renal dose (eGFR 45) prednisone prednisone No prednisone [facility] 20 mg 20 mg 20 mg [facility] tablet TAKE tablet TAKE tablet ty 2 TABLETS 2 TABLETS TAKE 2 [facility] (40 MG) BY (40 MG) BY TABLETS l ORAL ROUTE ORAL ROUTE (40 MG) BY Clinics ONCE DAILY ONCE DAILY ORAL ROUTE FOR 1 DAY FOR 1 DAY ONCE DAILY THEN 1 THEN 1 FOR 1 DAY TABLET (20 TABLET (20 THEN 1 MG) BY ORAL MG) BY ORAL TABLET (20 ROUTE ONCE ROUTE ONCE MG) BY DAILY FOR 4 DAILY FOR 4 ORAL ROUTE DAYS DAYS ONCE DAILY FOR 4 DAYS Shingrix Shingrix No Shingrix [facility] (PF) 50 (PF) 50 (PF) 50 [facility] i mcg/0.5 mL mcg/0.5 mL mcg/0.5 mL ty intramuscul intramuscul intramuscu [facility] suspension, suspension, suspension Clinics kit kit , kit simvastatin simvastatin No simvastati [facility] 40 mg 40 mg n 40 mg [facility] tablet TAKE tablet TAKE tablet ty 1 TABLET BY 1 TABLET BY TAKE 1 [facility] MOUTH EVERY MOUTH EVERY TABLET BY l DAY DAY MOUTH Clinics EVERY DAY tamsulosin tamsulosin No tamsulosin [facility] 0.4 mg 0.4 mg 0.4 mg [facility] capsule capsule capsule ty TAKE 1 TAKE 1 TAKE 1 [facility] CAPSULE BY CAPSULE BY CAPSULE BY l MOUTH MOUTH MOUTH Clinics EVERYDAY AT EVERYDAY AT EVERYDAY BEDTIME BEDTIME AT BEDTIME [facility] No [facility] 0.024 % eye 0.024 % eye 0.024 % [facility] drops PUT drops PUT eye drops ty ONE DROP ONE DROP PUT ONE [facility] oscar INTO BOTH INTO BOTH DROP INTO l EYES AT EYES AT BOTH EYES Clin ics BEDTIME BEDTIME AT BEDTIME amiodarone amiodarone No amiodarone [facility] 200 mg 200 mg 200 mg [facility] tablet TAKE tablet TAKE tablet ty 1 TABLET BY 1 TABLET BY TAKE 1 [facility] MOUTH EVERY MOUTH EVERY TABLET BY l DAY FOR 90 DAY FOR 90 MOUTH Cl inics DAYS DAYS EVERY DAY FOR 90 DAYS aspirin 80 aspirin 80 No 1 Q1D aspirin 80 [facility] mg tablet mg tablet mg tablet [facility] Take 1 Take 1 Take 1 ty tablet tablet tablet [facility]osp[facility] every day every day every day l by oral by oral by oral Clinic s route. route. route. azithromyci azithromyci No azithromyc [facility] n 250 mg n 250 mg in 250 mg [facility] tablet TAKE tablet TAKE tablet ty 2 TABLETS 2 TABLETS TAKE 2 [facility] (500 MG) BY (500 MG) BY TABLETS l ORAL ROUTE ORAL ROUTE (500 MG) Clinics ONCE DAILY ONCE DAILY BY ORAL FOR 1 DAY FOR 1 DAY ROUTE ONCE THEN 1 THEN 1 DAILY FOR TABLET (250 TABLET (250 1 DAY THEN MG) BY ORAL MG) BY ORAL 1 TABLET ROUTE ONCE ROUTE ONCE (250 MG) DAILY FOR 4 DAILY FOR 4 BY ORAL DAYS DAYS ROUTE ONCE DAILY FOR 4 DAYS carvedilol carvedilol No carvedilol [facility] 3.125 mg 3.125 mg 3.125 mg Com ruma tablet TAKE tablet TAKE tablet ty 1 TABLET BY 1 TABLET BY TAKE 1 [facility] MOUTH TWICE MOUTH TWICE TABLET BY l A DAY WITH A DAY WITH MOUTH Cl inics FOOD FOR 90 FOOD FOR 90 TWICE A DAYS DAYS DAY WITH FOOD FOR 90 DAYS Combivent Combivent No Combivent [facility] Respimat 20 Respimat 20 Respimat [facility] mcg-100 mcg-100 20 mcg-100 ty mcg/actuati mcg/actuati mcg/actuat [facility] on solution on solution ion l for for solution Clinics inhalation inhalation for INHALE ONE INHALE ONE inhalation PUFF BY PUFF BY INHALE ONE MOUITH MOUITH PUFF BY TWICE A DAY TWICE A DAY MOUITH TWICE A DAY doxycycline doxycycline No doxycyclin [facility] hyclate 100 hyclate 100 e hyclate [facility] mg tablet mg tablet 100 mg ty TAKE 1 TAKE 1 tablet [facility] TABLET BY TABLET BY TAKE 1 l MOUTH TWICE MOUTH TWICE TABLET BY Clinics A DAY WITH A DAY WITH MOUTH FOOD FOR 7 FOOD FOR 7 TWICE A DAYS DAYS DAY WITH FOOD FOR 7 DAYS finasteride finasteride No finasterid [facility] 5 mg tablet 5 mg tablet e 5 mg [facility] TAKE 1 TAKE 1 tablet ty TABLET BY TABLET BY TAKE 1 [facility] MOUTH EVERY MOUTH EVERY TABLET BY l DAY FOR 90 DAY FOR 90 MOUTH Cl inics DAYS DAYS EVERY DAY FOR 90 DAYS gabapentin gabapentin No gabapentin [facility] 300 mg 300 mg 300 mg [facility] capsule capsule capsule ty TAKE 1 TAKE 1 TAKE 1 [facility] CAPSULE BY CAPSULE BY CAPSULE BY l MOUTH TWICE MOUTH TWICE MOUTH Clinics A DAY A DAY TWICE A DAY hydrochloro hydrochloro No hydrochlor [facility] thiazide thiazide othiazide [facility] 12.5 mg 12.5 mg 12.5 mg ty capsule capsule capsule Hospit a TAKE 1 TAKE 1 TAKE 1 l CAPSULE BY CAPSULE BY CAPSULE BY Clinics MOUTH EVERY MOUTH EVERY MOUTH DAY IN THE DAY IN THE EVERY DAY MORNING FOR MORNING FOR IN THE 90 DAYS 90 DAYS MORNING FOR 90 DAYS levothyroxi levothyroxi No levothyrox [facility] ne 125 mcg ne 125 mcg ine 125 [facility] tablet TAKE tablet TAKE mcg tablet ty 1 TABLET BY 1 TABLET BY TAKE 1 [facility] MOUTH EVERY MOUTH EVERY TABLET BY l DAY DAY MOUTH Clinics EVERY DAY lisinopril lisinopril No lisinopril [facility] 10 mg 10 mg 10 mg [facility] tablet TAKE tablet TAKE tablet ty 1 TABLET BY 1 TABLET BY TAKE 1 [facility] MOUTH EVERY MOUTH EVERY TABLET BY l DAY FOR 30 DAY FOR 30 MOUTH Cl inics DAYS DAYS EVERY DAY FOR 30 DAYS Lumigan Lumigan No Lumigan [facility] 0.01 % eye 0.01 % eye 0.01 % eye [facility] drops drops drops ty INSTILL ONE INSTILL ONE INSTILL [facility] DROP INTO DROP INTO ONE DROP l BOTH EYES BOTH EYES INTO BOTH Clinics AT BEDTIME AT BEDTIME EYES AT BEDTIME nifedipine nifedipine No nifedipine [facility] ER 30 mg ER 30 mg ER 30 mg Com [facility] tablet,exte tablet,exte tablet,ext ty nded nded ended [facility] release release release l TAKE 1 TAKE 1 TAKE 1 Clinics TABLET BY TABLET BY TABLET BY MOUTH EVERY MOUTH EVERY MOUTH DAY ON DAY ON EVERY DAY EMPTY EMPTY ON EMPTY STOMACH STOMACH STOMACH ondansetron ondansetron No 2 TID ondansetro [facility] 4 mg 4 mg n 4 mg [facility] disintegrat disintegrat disintegra ty ing tablet ing tablet ting [facility] [address] Place 2 tablet l tablets [address] 2 Cl [facility]ics times a day times a day tablets 3 by by times a translingua translingua day by l route. l route. translingu al route. Paxlovid Paxlovid No Paxlovid [facility] 150 mg-100 150 mg-100 150 mg-100 [facility] mg tablets mg tablets mg tablets ty in a dose in a dose in a dose [facility] pack (Renal pack (Renal pack l Dose)(EUA) Dose)(EUA) (Renal C linics As directed As directed Dose)(EUA) on package on package As fo Renal fo Renal directed dose (eGFR dose (eGFR on package 45) 45) fo Renal dose (eGFR 45) prednisone prednisone No prednisone [facility] 20 mg 20 mg 20 mg [facility] tablet TAKE tablet TAKE tablet ty 2 TABLETS 2 TABLETS TAKE 2 [facility] (40 MG) BY (40 MG) BY TABLETS l ORAL ROUTE ORAL ROUTE (40 MG) BY Clinics ONCE DAILY ONCE DAILY ORAL ROUTE FOR 1 DAY FOR 1 DAY ONCE DAILY THEN 1 THEN 1 FOR 1 DAY TABLET (20 TABLET (20 THEN 1 MG) BY ORAL MG) BY ORAL TABLET (20 ROUTE ONCE ROUTE ONCE MG) BY DAILY FOR 4 DAILY FOR 4 ORAL ROUTE DAYS DAYS ONCE DAILY FOR 4 DAYS Shingrix Shingrix No Shingrix [facility] (PF) 50 (PF) 50 (PF) 50 [facility] i mcg/0.5 mL mcg/0.5 mL mcg/0.5 mL ty intramuscul intramuscul intramuscu [facility] suspension, suspension, suspension Clinics kit kit , kit simvastatin simvastatin No simvastati [facility] 40 mg 40 mg n 40 mg [facility] tablet TAKE tablet TAKE tablet ty 1 TABLET BY 1 TABLET BY TAKE 1 [facility] MOUTH EVERY MOUTH EVERY TABLET BY l DAY DAY MOUTH Clinics EVERY DAY tamsulosin tamsulosin No tamsulosin [facility] 0.4 mg 0.4 mg 0.4 mg [facility] capsule capsule capsule ty TAKE 1 TAKE 1 TAKE 1 [facility] CAPSULE BY CAPSULE BY CAPSULE BY l MOUTH MOUTH MOUTH Clinics EVERYDAY AT EVERYDAY AT EVERYDAY BEDTIME BEDTIME AT BEDTIME [facility] No [facility] 0.024 % eye 0.024 % eye 0.024 % [facility] drops PUT drops PUT eye drops ty ONE DROP ONE DROP PUT ONE [facility] o[facility] INTO BOTH INTO BOTH DROP INTO l EYES AT EYES AT BOTH EYES Clin ics BEDTIME BEDTIME AT BEDTIME amiodarone amiodarone No amiodarone [facility] 200 mg 200 mg 200 mg [facility] tablet TAKE tablet TAKE tablet ty 1 TABLET BY 1 TABLET BY TAKE 1 [facility] MOUTH EVERY MOUTH EVERY TABLET BY l DAY FOR 90 DAY FOR 90 MOUTH Cl inics DAYS DAYS EVERY DAY FOR 90 DAYS aspirin 80 aspirin 80 No 1 Q1D aspirin 80 [facility] mg tablet mg tablet mg tablet [facility] Take 1 Take 1 Take 1 ty tablet tablet tablet [facility]osp[facility] every day every day every day l by oral by oral by oral Clinic s route. route. route. azithromyci azithromyci No azithromyc [facility] n 250 mg n 250 mg in 250 mg [facility] tablet TAKE tablet TAKE tablet ty 2 TABLETS 2 TABLETS TAKE 2 [facility] (500 MG) BY (500 MG) BY TABLETS l ORAL ROUTE ORAL ROUTE (500 MG) Clinics ONCE DAILY ONCE DAILY BY ORAL FOR 1 DAY FOR 1 DAY ROUTE ONCE THEN 1 THEN 1 DAILY FOR TABLET (250 TABLET (250 1 DAY THEN MG) BY ORAL MG) BY ORAL 1 TABLET ROUTE ONCE ROUTE ONCE (250 MG) DAILY FOR 4 DAILY FOR 4 BY ORAL DAYS DAYS ROUTE ONCE DAILY FOR 4 DAYS carvedilol carvedilol No carvedilol [facility] 3.125 mg 3.125 mg 3.125 mg Com r[facility] tablet TAKE tablet TAKE tablet ty 1 TABLET BY 1 TABLET BY TAKE 1 [facility] MOUTH TWICE MOUTH TWICE TABLET BY l A DAY WITH A DAY WITH MOUTH Cl inics FOOD FOR 90 FOOD FOR 90 TWICE A DAYS DAYS DAY WITH FOOD FOR 90 DAYS Combivent Combivent No Combivent [facility] Respimat 20 Respimat 20 Respimat [facility] mcg-100 mcg-100 20 mcg-100 ty mcg/actuati mcg/actuati mcg/actuat [facility] on solution on solution ion l for for solution Clinics inhalation inhalation for INHALE ONE INHALE ONE inhalation PUFF BY PUFF BY INHALE ONE MOUITH MOUITH PUFF BY TWICE A DAY TWICE A DAY MOUITH TWICE A DAY doxycycline doxycycline No doxycyclin [facility] hyclate 100 hyclate 100 e hyclate [facility] mg tablet mg tablet 100 mg ty TAKE 1 TAKE 1 tablet [facility] TABLET BY TABLET BY TAKE 1 l MOUTH TWICE MOUTH TWICE TABLET BY Clinics A DAY WITH A DAY WITH MOUTH FOOD FOR 7 FOOD FOR 7 TWICE A DAYS DAYS DAY WITH FOOD FOR 7 DAYS finasteride finasteride No finasterid [facility] 5 mg tablet 5 mg tablet e 5 mg [facility]i TAKE 1 TAKE 1 tablet ty TABLET BY TABLET BY TAKE 1 [facility] MOUTH EVERY MOUTH EVERY TABLET BY l DAY FOR 90 DAY FOR 90 MOUTH Cl inics DAYS DAYS EVERY DAY FOR 90 DAYS gabapentin gabapentin No gabapentin [facility] 300 mg 300 mg 300 mg [facility] capsule capsule capsule ty TAKE 1 TAKE 1 TAKE 1 [facility] CAPSULE BY CAPSULE BY CAPSULE BY l MOUTH TWICE MOUTH TWICE MOUTH Clinics A DAY A DAY TWICE A DAY hydrochloro hydrochloro No hydrochlor [facility] thiazide thiazide othiazide [facility] 12.5 mg 12.5 mg 12.5 mg ty capsule capsule capsule Hospit a TAKE 1 TAKE 1 TAKE 1 l CAPSULE BY CAPSULE BY CAPSULE BY Clinics MOUTH EVERY MOUTH EVERY MOUTH DAY IN THE DAY IN THE EVERY DAY MORNING FOR MORNING FOR IN THE 90 DAYS 90 DAYS MORNING FOR 90 DAYS levothyroxi levothyroxi No levothyrox [facility] ne 125 mcg ne 125 mcg ine 125 [facility] tablet TAKE tablet TAKE mcg tablet ty 1 TABLET BY 1 TABLET BY TAKE 1 [facility] MOUTH EVERY MOUTH EVERY TABLET BY l DAY DAY MOUTH Clinics EVERY DAY lisinopril lisinopril No lisinopril [facility] 10 mg 10 mg 10 mg [facility] tablet TAKE tablet TAKE tablet ty 1 TABLET BY 1 TABLET BY TAKE 1 [facility] MOUTH EVERY MOUTH EVERY TABLET BY l DAY FOR 30 DAY FOR 30 MOUTH Cl inics DAYS DAYS EVERY DAY FOR 30 DAYS Lumigan Lumigan No Lumigan [facility] 0.01 % eye 0.01 % eye 0.01 % eye [facility] drops drops drops ty INSTILL ONE INSTILL ONE INSTILL [facility] DROP INTO DROP INTO ONE DROP l BOTH EYES BOTH EYES INTO BOTH Clinics AT BEDTIME AT BEDTIME EYES AT BEDTIME nifedipine nifedipine No nifedipine [facility] ER 30 mg ER 30 mg ER 30 mg Com [facility] tablet,exte tablet,exte tablet,ext ty nded nded ended [facility] release release release l TAKE 1 TAKE 1 TAKE 1 Clinics TABLET BY TABLET BY TABLET BY MOUTH EVERY MOUTH EVERY MOUTH DAY ON DAY ON EVERY DAY EMPTY EMPTY ON EMPTY STOMACH STOMACH STOMACH Shingrix Shingrix No Shingrix [facility] (PF) 50 (PF) 50 (PF) 50 Commun i mcg/0.5 mL mcg/0.5 mL mcg/0.5 mL ty intramuscul intramuscul intramuscu [facility] suspension, suspension, suspension Clinics kit kit , kit simvastatin simvastatin No simvastati [facility] 40 mg 40 mg n 40 mg [facility] tablet TAKE tablet TAKE tablet ty 1 TABLET BY 1 TABLET BY TAKE 1 [facility] MOUTH EVERY MOUTH EVERY TABLET BY l DAY DAY MOUTH Clinics EVERY DAY tamsulosin tamsulosin No tamsulosin [facility] 0.4 mg 0.4 mg 0.4 mg [facility] capsule capsule capsule ty TAKE 1 TAKE 1 TAKE 1 [facility] CAPSULE BY CAPSULE BY CAPSULE BY l MOUTH MOUTH MOUTH Clinics EVERYDAY AT EVERYDAY AT EVERYDAY BEDTIME BEDTIME AT BEDTIME [facility] No Vyz[facility]a [facility] 0.024 % eye 0.024 % eye 0.024 % [facility] drops PUT drops PUT eye drops ty ONE DROP ONE DROP PUT ONE [facility]osp oscar INTO BOTH INTO BOTH DROP INTO l EYES AT EYES AT BOTH EYES Clin ics BEDTIME BEDTIME AT BEDTIME amiodarone amiodarone No amiodarone [facility] 200 mg 200 mg 200 mg [facility] tablet TAKE tablet TAKE tablet ty 1 TABLET BY 1 TABLET BY TAKE 1 [facility] MOUTH EVERY MOUTH EVERY TABLET BY l DAY FOR 90 DAY FOR 90 MOUTH Cl inics DAYS DAYS EVERY DAY FOR 90 DAYS aspirin 80 aspirin 80 No 1 Q1D aspirin 80 [facility] mg tablet mg tablet mg tablet [facility] Take 1 Take 1 Take 1 ty tablet tablet tablet [facility]osp[facility] every day every day every day l by oral by oral by oral Clinic s route. route. route. carvedilol carvedilol No carvedilol [facility] 3.125 mg 3.125 mg 3.125 mg Com ruma tablet TAKE tablet TAKE tablet ty 1 TABLET BY 1 TABLET BY TAKE 1 [facility] MOUTH TWICE MOUTH TWICE TABLET BY l A DAY WITH A DAY WITH MOUTH Cl inics FOOD FOR 90 FOOD FOR 90 TWICE A DAYS DAYS DAY WITH FOOD FOR 90 DAYS Combivent Combivent No Combivent [facility] Respimat 20 Respimat 20 Respimat [facility] mcg-100 mcg-100 20 mcg-100 ty mcg/actuati mcg/actuati mcg/actuat [facility]osp[facility] on solution on solution ion l for for solution Clinics inhalation inhalation for INHALE ONE INHALE ONE inhalation PUFF BY PUFF BY INHALE ONE MOUITH MOUITH PUFF BY TWICE A DAY TWICE A DAY MOUITH TWICE A DAY finasteride finasteride No finasterid [facility] 5 mg tablet 5 mg tablet e 5 mg [facility] TAKE 1 TAKE 1 tablet ty TABLET BY TABLET BY TAKE 1 [facility] MOUTH EVERY MOUTH EVERY TABLET BY l DAY FOR 90 DAY FOR 90 MOUTH Cl inics DAYS DAYS EVERY DAY FOR 90 DAYS gabapentin gabapentin No gabapentin [facility] 300 mg 300 mg 300 mg [facility] capsule capsule capsule ty TAKE 1 TAKE 1 TAKE 1 [facility] CAPSULE BY CAPSULE BY CAPSULE BY l MOUTH TWICE MOUTH TWICE MOUTH Clinics A DAY A DAY TWICE A DAY levothyroxi levothyroxi No levothyrox [facility] ne 125 mcg ne 125 mcg ine 125 [facility] tablet TAKE tablet TAKE mcg tablet ty 1 TABLET BY 1 TABLET BY TAKE 1 [facility] MOUTH EVERY MOUTH EVERY TABLET BY l DAY DAY MOUTH Clinics EVERY DAY Lumigan Lumigan No Lumigan [facility] 0.01 % eye 0.01 % eye 0.01 % eye [facility] drops drops drops ty INSTILL ONE INSTILL ONE INSTILL [facility] DROP INTO DROP INTO ONE DROP l BOTH EYES BOTH EYES INTO BOTH Clinics AT BEDTIME AT BEDTIME EYES AT BEDTIME nifedipine nifedipine No nifedipine [facility] ER 30 mg ER 30 mg ER 30 mg Com ruma tablet,exte tablet,exte tablet,ext ty nded nded ended [facility] release release release l TAKE 1 TAKE 1 TAKE 1 Clinics TABLET BY TABLET BY TABLET BY MOUTH EVERY MOUTH EVERY MOUTH DAY ON DAY ON EVERY DAY EMPTY EMPTY ON EMPTY STOMACH STOMACH STOMACH Shingrix Shingrix No Shingrix [facility] (PF) 50 (PF) 50 (PF) 50 Commun i mcg/0.5 mL mcg/0.5 mL mcg/0.5 mL ty intramuscul intramuscul intramuscu [facility] suspension, suspension, suspension Clinics kit kit , kit simvastatin simvastatin No simvastati [facility] 40 mg 40 mg n 40 mg [facility] tablet TAKE tablet TAKE tablet ty 1 TABLET BY 1 TABLET BY TAKE 1 [facility]ospita MOUTH EVERY MOUTH EVERY TABLET BY l DAY DAY MOUTH Clinics EVERY DAY tamsulosin tamsulosin No tamsulosin [facility] 0.4 mg 0.4 mg 0.4 mg Communi capsule capsule capsule ty TAKE 1 TAKE 1 TAKE 1 [facility]ospita CAPSULE BY CAPSULE BY CAPSULE BY l MOUTH MOUTH MOUTH Clinics EVERYDAY AT EVERYDAY AT EVERYDAY BEDTIME BEDTIME AT BEDTIME Vyzulta Vyzulta No Vyzulta [facility] 0.024 % eye 0.024 % eye 0.024 % Communi drops PUT drops PUT eye drops ty ONE DROP ONE DROP PUT ONE Hosp oscar INTO BOTH INTO BOTH DROP INTO l EYES AT EYES AT BOTH EYES Clin ics BEDTIME BEDTIME AT BEDTIME Immunizations Ordered Immunization Filled Immunization Date Status Commen ts Source Name Name influenza, high-dose, influenza, 2022-05-05 Completed [facility] quadrivalent high-dose, 00:00:00 [facility] Pneumococcal Pneumococcal 2022-05-05 Completed [facility] conjugate PCV20, conjugate PCV20, 00:00:00 [facility] polysaccharide [id number] polysaccharide [facility] conjugate, adjuvant, [id number] conjugate, Clinics PF adjuvant, PF influenza, high-dose, influenza, 2022-05-05 Completed [facility] quadrivalent high-dose, 00:00:00 [facility] Pneumococcal Pneumococcal 2022-05-05 Completed [facility] conjugate PCV20, conjugate PCV20, 00:00:00 [facility] polysaccharide [id number] polysaccharide [facility] conjugate, adjuvant, [id number] conjugate, Clinics PF adjuvant, PF influenza, high-dose, influenza, 2022-05-05 Completed [facility] quadrivalent high-dose, 00:00:00 [facility] Pneumococcal Pneumococcal 2022-05-05 Completed [facility] conjugate PCV20, conjugate PCV20, 00:00:00 [facility] polysaccharide [id number] polysaccharide [facility] conjugate, adjuvant, [id number] conjugate, Clinics PF adjuvant, PF influenza, high-dose, influenza, 2022-05-05 Completed [facility] quadrivalent high-dose, 00:00:00 [facility] Pneumococcal Pneumococcal 2022-05-05 Completed [facility] conjugate PCV20, conjugate PCV20, 00:00:00 [facility] polys[facility] [id number] polysaccharide Hospital conjugate, adjuvant, [id number] conjugate, Clinics PF adjuvant, PF influenza, high-dose, influenza, 2022-05-05 Completed [facility] quadrivalent high-dose, 00:00:00 [facility] Pneumococcal Pneumococcal 2022-05-05 Completed [facility] conjugate PCV20, conjugate PCV20, 00:00:00 [facility] polysaccharide [id number] polysaccharide Hospital conjugate, adjuvant, [id number] conjugate, Clinics PF adjuvant, PF influenza, high-dose, influenza, 2022-05-05 Completed [facility] quadrivalent high-dose, 00:00:00 [facility] Pneumococcal Pneumococcal 2022-05-05 Completed [facility] conjugate PCV20, conjugate PCV20, 00:00:00 [facility] polysaccharide [id number] polysaccharide Hospital conjugate, adjuvant, [id number] conjugate, Clinics PF adjuvant, PF COVID-19, mRNA, COVID-19, mRNA, 2022-03-19 Completed [facility] LNP-S, PF, 30 mcg/0.3 LNP-S, PF, 30 00:00:00 Community mL dose, tri-sucrose mcg/0.3 mL dose, [facility] ([facility]) tri-sucrose Clini cs ([facility]) COVID-19, mRNA, COVID-19, mRNA, 2022-03-19 Completed [facility] LNP-S, PF, 30 mcg/0.3 LNP-S, PF, 30 00:00:00 [facility] mL dose, tri-sucrose mcg/0.3 mL dose, [facility] ([facility]) tri-sucrose Clini cs ([facility]) COVID-19, mRNA, COVID-19, mRNA, 2022-03-19 Completed [facility] LNP-S, PF, 30 mcg/0.3 LNP-S, PF, 30 00:00:00 [facility] mL dose, tri-sucrose mcg/0.3 mL dose, [facility] ([facility]) tri-sucrose Clini cs ([facility]) COVID-19, mRNA, COVID-19, mRNA, 2022-03-19 Completed [facility] LNP-S, PF, 30 mcg/0.3 LNP-S, PF, 30 00:00:00 [facility] mL dose, tri-sucrose mcg/0.3 mL dose, [facility] ([facility]) tri-sucrose Clini cs ([facility]) COVID-19, mRNA, COVID-19, mRNA, 2022-03-19 Completed [facility] LNP-S, PF, 30 mcg/0.3 LNP-S, PF, 30 00:00:00 [facility] mL dose, tri-sucrose mcg/0.3 mL dose, [facility] ([facility]) tri-sucrose Clini [facility] ([facility]) COVID-19, mRNA, COVID-19, mRNA, 2022-03-19 Completed [facility] LNP-S, PF, 30 mcg/0.3 LNP-S, PF, 30 00:00:00 [facility] mL dose, tri-sucrose mcg/0.3 mL dose, [facility] ([facility]) tri-sucrose Clini cs ([facility]) COVID-19, mRNA, COVID-19, mRNA, 2021-09-01 Completed [facility] LNP-S, PF, 30 mcg/0.3 LNP-S, PF, 30 00:00:00 [facility] mL dose mcg/0.3 mL dose [facility] ([facility]) ([facility]) Clinics COVID-19, mRNA, COVID-19, mRNA, 2021-09-01 Completed [facility] LNP-S, PF, 30 mcg/0.3 LNP-S, PF, 30 00:00:00 [facility] mL dose mcg/0.3 mL dose [facility] ([facility]) ([facility]) Clinics COVID-19, mRNA, COVID-19, mRNA, 2021-09-01 Completed [facility] LNP-S, PF, 30 mcg/0.3 LNP-S, PF, 30 00:00:00 [facility] mL dose mcg/0.3 mL dose [facility] ([facility]) ([facility]) Clinics COVID-19, mRNA, COVID-19, mRNA, 2021-09-01 Completed [facility] LNP-S, PF, 30 mcg/0.3 LNP-S, PF, 30 00:00:00 [facility] mL dose mcg/0.3 mL dose Hospital ([facility] ([facility]) Clinics COVID-19, mRNA, COVID-19, mRNA, 2021-09-01 Completed [facility] LNP-S, PF, 30 mcg/0.3 LNP-S, PF, 30 00:00:00 [facility] mL dose mcg/0.3 mL dose Hospital ([facility] ([facility]) Clinics COVID-19, mRNA, COVID-19, mRNA, 2021-09-01 Completed [facility] LNP-S, PF, 30 mcg/0.3 LNP-S, PF, 30 00:00:00 [facility] mL dose mcg/0.3 mL dose Hospital ([facility]) ([facility]) Clinics COVID-19, mRNA, COVID-19, mRNA, 2021-09-01 Completed [facility] LNP-S, PF, 30 mcg/0.3 LNP-S, PF, 30 00:00:00 Community mL dose mcg/0.3 mL dose Hospital ([facility] ([facility]) Clinics influenza, influenza, 2020-05-07 Completed [facility] injectable, injectable, 00:00:00 [facility] influenza, influenza, 2020-05-07 Completed [facility] injectable, injectable, 00:00:00 [facility] influenza, influenza, 2020-05-07 Completed [facility] injectable, injectable, 00:00:00 [facility] influenza, influenza, 2020-05-07 Completed [facility] injectable, injectable, 00:00:00 [facility] influenza, influenza, 2020-05-07 Completed [facility] injectable, injectable, 00:00:00 [facility] influenza, influenza, 2020-05-07 Completed [facility] injectable, injectable, 00:00:00 [facility] influenza, influenza, 2020-05-07 Completed [facility] injectable, injectable, 00:00:00 [facility] influenza, influenza, 2020-05-07 Completed [facility] injectable, injectable, 00:00:00 [facility] influenza, influenza, 2020-05-07 Completed [facility] injectable, injectable, 00:00:00 [facility] influenza, influenza, 2020-05-07 Completed [facility] injectable, injectable, 00:00:00 [facility] influenza, influenza, 2020-05-07 Completed [facility] injectable, injectable, 00:00:00 [facility] influenza, influenza, 2020-05-07 Completed [facility] injectable, injectable, 00:00:00 [facility] influenza, influenza, 2020-05-07 Completed [facility] injectable, injectable, 00:00:00 [facility] influenza, influenza, 2020-05-07 Completed [facility] injectable, injectable, 00:00:00 [facility] influenza, influenza, 2020-05-07 Completed [facility] injectable, injectable, 00:00:00 [facility] influenza, influenza, 2020-05-07 Completed [facility] injectable, injectable, 00:00:00 [facility] influenza, influenza, 2020-05-07 Completed [facility] injectable, injectable, 00:00:00 [facility] influenza, influenza, 2020-05-07 Completed [facility] injectable, injectable, 00:00:00 [facility] influenza, influenza, 2020-05-07 Completed [facility] injectable, injectable, 00:00:00 [facility] influenza, influenza, 2020-05-07 Completed [facility] injectable, injectable, 00:00:00 [facility] influenza, influenza, 2020-05-07 Completed [facility] injectable, injectable, 00:00:00 [facility] influenza, influenza, 2020-05-07 Completed [facility] injectable, injectable, 00:00:00 [facility] influenza, influenza, 2020-05-07 Completed [facility] injectable, injectable, 00:00:00 [facility] influenza, influenza, 2020-05-07 Completed [facility] injectable, injectable, 00:00:00 [facility] influenza, influenza, 2019-07-10 Completed [facility] injectable, injectable, 00:00:00 [facility] influenza, influenza, 2019-07-10 Completed [facility] injectable, injectable, 00:00:00 [facility] influenza, influenza, 2019-07-10 Completed [facility] injectable, injectable, 00:00:00 [facility] influenza, influenza, 2019-07-10 Completed [facility] injectable, injectable, 00:00:00 [facility] influenza, influenza, 2019-07-10 Completed [facility] injectable, injectable, 00:00:00 [facility] influenza, influenza, 2019-07-10 Completed [facility] injectable, injectable, 00:00:00 [facility] influenza, influenza, 2019-07-10 Completed [facility] injectable, injectable, 00:00:00 [facility] influenza, influenza, 2019-07-10 Completed [facility] injectable, injectable, 00:00:00 [facility] influenza, influenza, 2019-07-10 Completed [facility] injectable, injectable, 00:00:00 [facility] influenza, influenza, 2019-07-10 Completed [facility] injectable, injectable, 00:00:00 [facility] influenza, influenza, 2019-07-10 Completed [facility] injectable, injectable, 00:00:00 [facility] influenza, influenza, 2019-07-10 Completed [facility] injectable, injectable, 00:00:00 [facility] influenza, influenza, 2019-07-10 Completed [facility] injectable, injectable, 00:00:00 [facility] influenza, influenza, 2019-07-10 Completed [facility] injectable, injectable, 00:00:00 [facility] influenza, influenza, 2019-07-10 Completed [facility] injectable, injectable, 00:00:00 [facility] influenza, influenza, 2019-07-10 Completed [facility] injectable, injectable, 00:00:00 [facility] influenza, influenza, 2019-07-10 Completed [facility] injectable, injectable, 00:00:00 [facility] influenza, influenza, 2019-07-10 Completed [facility] injectable, injectable, 00:00:00 [facility] influenza, influenza, 2019-07-10 Completed [facility] injectable, injectable, 00:00:00 [facility] influenza, influenza, 2019-07-10 Completed [facility] injectable, injectable, 00:00:00 [facility] influenza, influenza, 2019-07-10 Completed [facility] injectable, injectable, 00:00:00 [facility] influenza, influenza, 2019-07-10 Completed [facility] injectable, injectable, 00:00:00 [facility] influenza, influenza, 2019-07-10 Completed [facility] injectable, injectable, 00:00:00 [facility] influenza, influenza, 2019-07-10 Completed [facility] injectable, injectable, 00:00:00 [facility] Vital Signs Vital Name Observation Time Observation Value Comments Source Height 2022-12-17 00:00:00 71 [in_i] [facility] s BMI (Body Mass 2022-12-17 00:00:00 29.1 kg/m2 [facility]) [facility] s BP Systolic 2022-12-17 00:00:00 116 mm[Hg] [facility] s Body Weight 2022-12-17 00:00:00 3344 [oz_av] [facility] s BP Diastolic 2022-12-17 00:00:00 76 mm[Hg] [facility] s BP Diastolic 2022-10-12 00:00:00 84 mm[Hg] [facility] s Height 2022-10-12 00:00:00 71 [in_i] [facility] s BMI (Body Mass 2022-10-12 00:00:00 30.7 kg/m2 [facility]) [facility] s BP Systolic 2022-10-12 00:00:00 122 mm[Hg] [facility] s Body Weight 2022-10-12 00:00:00 3520 [oz_av] [facility] s BP Diastolic 2022-10-05 00:00:00 92 mm[Hg] [facility] s Height 2022-10-05 00:00:00 71 [in_i] [facility] s BMI (Body Mass 2022-10-05 00:00:00 30.3 kg/m2 [facility]) [facility] s BP Systolic 2022-10-05 00:00:00 154 mm[Hg] [facility] s Body Weight 2022-10-05 00:00:00 3472 [oz_av] [facility] s height 2022-08-12 08:15:00 71 [in_i] [facility] weight 2022-08-12 08:15:00 219.4 [lb_av] [facility] temperature 2022-08-12 08:15:00 98.6 [degF] [facility] bmi 2022-08-12 08:15:00 30.6 kg/m2 [facility] oximetry 2022-08-12 08:15:00 94 % [facility] respiratory rate 2022-08-12 08:15:00 18 /min Comm on [facility] blood pressure 2022-08-12 08:15:00 123 mm[Hg] [facility] - systolic [facility] blood pressure 2022-08-12 08:15:00 63 mm[Hg] [facility] - diastolic [facility] Height 2022-07-01 00:00:00 71 [in_i] [facility] s BP Diastolic 2022-06-08 00:00:00 74 mm[Hg] [facility] s Height 2022-06-08 00:00:00 71 [in_i] [facility] s BMI (Body Mass 2022-06-08 00:00:00 29.9 kg/m2 [facility]) [facility] s BP Systolic 2022-06-08 00:00:00 122 mm[Hg] [facility] s Body Weight 2022-06-08 00:00:00 3432 [oz_av] [facility] s BP Diastolic 2022 00:00:00 62 mm[Hg] [facility] s Height 2022 00:00:00 71 [in_i] [facility] s BMI (Body Mass 2022 00:00:00 30.3 kg/m2 [facility]) [facility] s BP Systolic 2022 00:00:00 122 mm[Hg] [facility] s Body Weight 2022 00:00:00 3472 [oz_av] [facility] s height 2022-03-24 17:00:00 71 [in_i] [facility] weight 2022-03-24 17:00:00 218.6 [lb_av] [facility] temperature 2022-03-24 17:00:00 98.6 [degF] [facility] bmi 2022-03-24 17:00:00 30.49 kg/m2 [facility] oximetry 2022-03-24 17:00:00 96 % [facility] respiratory rate 2022-03-24 17:00:00 16 /min Comm on [facility] blood pressure 2022-03-24 17:00:00 131 mm[Hg] [facility] - systolic [facility] blood pressure 2022-03-24 17:00:00 74 mm[Hg] [facility] - diastolic [facility] BP Diastolic 2022-03-02 00:00:00 82 mm[Hg] [facility] s Height 2022-03-02 00:00:00 71 [in_i] [facility] s BMI (Body Mass 2022-03-02 00:00:00 30.1 kg/m2 [facility]) [facility] s BP Systolic 2022-03-02 00:00:00 128 mm[Hg] [facility] s Body Weight 2022-03-02 00:00:00 3456 [oz_av] [facility] s BP Diastolic 2022-02-22 00:00:00 78 mm[Hg] [facility] s Height 2022-02-22 00:00:00 71 [in_i] [facility] s BMI (Body Mass 2022-02-22 00:00:00 30.3 kg/m2 [facility] s BP Systolic 2022-02-22 00:00:00 178 mm[Hg] [facility] s Body Weight 2022-02-22 00:00:00 3472 [oz_av] [facility] s height 2022-02-10 15:00:00 71 [in_i] [facility] weight 2022-02-10 15:00:00 212.2 [lb_av] [facility] temperature 2022-02-10 15:00:00 98.5 [degF] [facility] bmi 2022-02-10 15:00:00 29.59 kg/m2 [facility] oximetry 2022-02-10 15:00:00 99 % [facility] respiratory rate 2022-02-10 15:00:00 16 /min [facility] on [facility] blood pressure 2022-02-10 15:00:00 151 mm[Hg] [facility] - systolic [facility] blood pressure 2022-02-10 15:00:00 70 mm[Hg] [facility] - diastolic [facility] height 2022-01-13 17:30:00 71 [in_i] [facility] weight 2022-01-13 17:30:00 206.4 [lb_av] [facility] temperature 2022-01-13 17:30:00 98.6 [degF] [facility] bmi 2022-01-13 17:30:00 28.78 kg/m2 [facility] oximetry 2022-01-13 17:30:00 96 % [facility] respiratory rate 2022-01-13 17:30:00 16 /min [facility] blood pressure 2022-01-13 17:30:00 140 mm[Hg] [facility] - systolic [facility] blood pressure 2022-01-13 17:30:00 68 mm[Hg] [facility] - diastolic [facility] BP Diastolic 2021-12-07 00:00:00 58 mm[Hg] [facility] Height 2021-12-07 00:00:00 71 [in_i] [facility] s BMI (Body Mass 2021-12-07 00:00:00 28.2 kg/m2 [facility]) [facility] s BP Systolic 2021-12-07 00:00:00 104 mm[Hg] [facility] s Body Weight 2021-12-07 00:00:00 3232 [oz_av] [facility] s BP Diastolic 2021-11-06 00:00:00 82 mm[Hg] [facility] Height 2021-11-06 00:00:00 71 [in_i] [facility] s BP Systolic 2021-11-06 00:00:00 138 mm[Hg] [facility] s BP Diastolic 2021-11-03 00:00:00 74 mm[Hg] [facility] Height 2021-11-03 00:00:00 71 [in_i] [facility] s BMI (Body Mass 2021-11-03 00:00:00 27.9 kg/m2 [facility]) [facility] BP Systolic 2021-11-03 00:00:00 118 mm[Hg] [facility] s Body Weight 2021-11-03 00:00:00 3200 [oz_av] [facility] s BP Diastolic 2021-07-27 00:00:00 74 mm[Hg] [facility] Height 2021-07-27 00:00:00 71 [in_i] [facility] s BMI (Body Mass 2021-07-27 00:00:00 27.3 kg/m2 [facility] BP Systolic 2021-07-27 00:00:00 126 mm[Hg] [facility] Body Weight 2021-07-27 00:00:00 3136 [oz_av] [facility] BP Diastolic 2021-07-02 00:00:00 70 mm[Hg] [facility] Height 2021-07-02 00:00:00 71 [in_i] [facility] s BMI (Body Mass 2021-07-02 00:00:00 27.3 kg/m2 [facility]) [facility] BP Systolic 2021-07-02 00:00:00 120 mm[Hg] [facility] Body Weight 2021-07-02 00:00:00 3136 [oz_av] [facility] BP Diastolic 2021-06-30 00:00:00 68 mm[Hg] [facility] Height 2021-06-30 00:00:00 71 [in_i] [facility] BMI (Body Mass 2021-06-30 00:00:00 27.5 kg/m2 [facility] BP Systolic 2021-06-30 00:00:00 122 mm[Hg] [facility] Body Weight 2021-06-30 00:00:00 3152 [oz_av] [facility] BP Diastolic 2021-06-15 00:00:00 28 mm[Hg] [facility] Height 2021-06-15 00:00:00 71 [in_i] [facility] BMI (Body Mass 2021-06-15 00:00:00 27.5 kg/m2 [facility] BP Systolic 2021-06-15 00:00:00 112 mm[Hg] [facility] Body Weight 2021-06-15 00:00:00 3152 [oz_av] [facility] BP Diastolic 2021-05-26 00:00:00 110 mm[Hg] [facility] Height 2021-05-26 00:00:00 71 [in_i] [facility] s BMI (Body Mass 2021-05-26 00:00:00 25.9 kg/m2 [facility]) [facility] BP Systolic 2021-05-26 00:00:00 262 mm[Hg] [facility] s Body Weight 2021-05-26 00:00:00 2976 [oz_av] [facility] s BP Diastolic 2021-03-20 00:00:00 62 mm[Hg] [facility] Height 2021-03-20 00:00:00 71 [in_i] [facility] s BMI (Body Mass 2021-03-20 00:00:00 25.8 kg/m2 [facility]) [facility] BP Systolic 2021-03-20 00:00:00 124 mm[Hg] [facility] s Body Weight 2021-03-20 00:00:00 2960 [oz_av] [facility] BP Diastolic 2020-12-19 00:00:00 62 mm[Hg] [facility] Height 2020-12-19 00:00:00 71 [in_i] [facility] s BMI (Body Mass 2020-12-19 00:00:00 25.8 kg/m2 [facility]) [facility] BP Systolic 2020-12-19 00:00:00 112 mm[Hg] [facility] Body Weight 2020-12-19 00:00:00 2960 [oz_av] [facility] Height 2020-09-23 00:00:00 71 [in_i] [facility] Systolic blood 2019-04-17 23:25:00 173 mm[Hg] [facility] Diastolic blood 2019-04-17 23:25:00 79 mm[Hg] [facility] Heart rate 2019-04-17 23:24:00 62 /min [facility] Body temperature 2019-04-17 23:24:00 36.5 Gayla [facility] Respiratory rate 2019-04-17 23:24:00 18 /min [facility] Body height 2019-04-17 23:24:00 180.3 cm [facility] Body weight 2019-04-17 23:24:00 96.163 kg [facility] BMI 2019-04-17 23:24:00 29.57 kg/m2 [facility] Oxygen saturation in 2019-04-17 23:24:00 94 /min [facility] by [place] [facility] [facility] oximetry Branch Systolic blood 2019-04-17 23:25:00 173 mm[Hg] [facility] Diastolic blood 2019-04-17 23:25:00 79 mm[Hg] [facility] Heart rate 2019-04-17 23:24:00 62 /min [facility] Body temperature 2019-04-17 23:24:00 36.5 Gayla [facility] Respiratory rate 2019-04-17 23:24:00 18 /min [facility] Body height 2019-04-17 23:24:00 180.3 cm [facility] Body weight 2019-04-17 23:24:00 96.163 kg [facility] BMI 2019-04-17 23:24:00 29.57 kg/m2 [facility] Oxygen saturation in 2019-04-17 23:24:00 94 /min [facility]terial blood by [employer] Pulse oximetry Branch Procedures Procedure Date / Time Performing Clinician Source Performed electrocardiogram 2022-10-05 00:00[facility]00 [facility] [facility], 2 view 2022-10-05 00:00:00 [facility], 2 view 2021-11-06 00:00:00 [facility] XR, chest, 2 view 2021-05-26 00:00:00 [facility] CT, abdomen + pelvis, w/ 2021-05-22 00:00:00 [facility] Transurethral Prostatectomy 2015-09-05 00:00:00 [facility] Appendectomy [facility] Back Surgery [facility] Knee Surgery [facility] Excision of Basal Cell [facility] Plan of Care Planned Activity Planned Date Details Comments Source Future Scheduled Test 2023-02-24 COVID-19 VACCINE (#1) [facility] 11:39:22 [code = COVID-19 VACCINE (#1)] Future Scheduled Test 2023-02-24 SHINGLES VACCINES (1 [facility] 11:39:22 of 2) [code = SHINGLES VACCINES (1 of 2)] Future Scheduled Test 2023-02-24 65+ PNEUMOCOCCAL [facility] 11:39:22 VACCINE (1 - PCV) [code = 65+ PNEUMOCOCCAL VACCINE (1 - PCV)] Future Scheduled Test 2023-02-24 INFLUENZA VACCINE [facility] 11:39:22 [code = INFLUENZA VACCINE] Diagnostic Test 2022-10-12 CMP, serum or plasma [facility] Pending 00:00:00 [code = CMP, serum or Hospit [facility] plasma] Diagnostic Test 2022-10-12 TSH, serum or plasma [facility] Pending 00:00:00 [code = TSH, serum or [facility] plasma] Diagnostic Test 2022-10-12 T4, free, serum [code [facility] Pending 00:00:00 = T4, free, serum] [facility] Diagnostic Test 2022-10-12 CBC w/ auto diff [facility] Pending 00:00:00 [code = CBC w/ auto Hospital Clinics diff] Future Appointment 2023-06-18 Tru Hernandez, [address] [place] [address] 00:00:00 Frank Conner; [address], [place] [address] Future Appointment 2023-06-06 Tru Hernandez [address] [place] [address] 07:00:00 Frank Conner; [address], [place] [address] Encounters Start End Encounter Admission Attending Care Care Encounter Source Date/Time Date/Time Type Type Clinicians Facility Department ID 2023-04-20 Inpatient Belkis, [facility] [id number] [facility] 08:00:00 Elvin Juan [facility] 2022-12-20 Outpatient STLMLC STLMLC [id number] Common 11:20:01 [id number] [facility] 2021-12-01 Outpatient STLMLC STLC [id number] Common 11:24:02 [id number] [facility] 2021-09-30 Outpatient STLMLC STLMLC [id number] Common 12:40:04 [id number] [facility] 2021-09-30 Outpatient STLMLC STLC [id number] Common 12:16:25 [id number] [facility] 2021-09-30 Outpatient Robertoender, STLMLC STLMLC [id number] Common 11:57:56 Lana [id number] [facility] 2023-01-20 2023-01-20 [facility] [id number] [place] 00:00:00 00:00:00 518 Commun i ty [facility] 2022-12-17 2022-12-17 Tru [facility] 14 [place] 00:00:00 00:00:00 [facility] DO: [address] Hospit a [facility] [address], [place], [place], [address] FARTUN , Ph. 2022-12-14 2022-12-14 [facility] [id number] [place] 00:00:00 00:00:00 414 Commun i ty [facility]osp[facility] 2022-12-14 2022-12-14 [facility] [id number] [place] 00:00:00 00:00:00 417 Commun i ty [facility] 2022-11-01 2022-11-01 [facility] [id number] - [place] 00:00:00 00:00:00 227 Commun i ty [facility] Clinics 2022-10-12 2022-10-12 Tru [facility] [place] 00:00:00 00:00:00 [facility] DO: [address] [facility] [place], [address] FARTUN , Ph. 2022-10-05 2022-10-05 [facility] [id number] - [place] 00:00:00 00:00:00 131 [facility] i ty [facility] 2022-10-05 2022-10-05 [facility] 8297 - [place] 00:00:00 00:00:00 207 Commun i ty [facility]osp[facility] 2022-10-05 2022-10-05 Tru [facility] [place] [id number] [place] 00:00:00 00:00:00 [facility] DO: [address] Hospit [facility] [address] FARTUN , Ph. [phone] 2022-08-12 2022-08-12 OFFICE [facility] [id number] Co mmon 00:00:00 00:00:00 VISIT Spirit ESTAB PT - CHI LEVEL 2 [facility] 2022-07-01 2022-07-01 [facility]patient [facility] [id number] [place] 00:00:00 00:00:00 027 Commun i ty [facility]ospita [facility] 2022-07-01 2022-07-01 Tru [facility] [place] 00:00:00 00:00:00 [facility] DO: [address] [facility] [address] FARTUN , Ph. [phone] 2022-06-17 2022-06-17 [facility] [id number] - [place] 00:00:00 00:00:00 013 Commun i ty Hospita [facility] Clinics 2022-06-08 2022-06-08 [facility] 8297 - [place] 00:00:00 00:00:00 004 Commun i ty Hospita [facility] Clinics 2022-06-08 2022-06-08 Tru [facility] [place] 00:00:00 00:00:00 [facility] - DO: [address] Hospit a [facility], HOSPITAL Clinic [place], [place], [address] FARTUN , Ph. 2022 2022 Outpatient [facility] 8297 - [place] 00:00:00 00:00:00 826 Commun i ty [facility]ospita [facility] Clinics 2022 2022 Outpatient [facility] [id number] 00:00:00 00:00:00 Tru [id number] Zechariah [id number] 2022 2022 Tru [facility] [place] 00:00:00 00:00:00 [facility] DO: [address] Hospit [facility], [place], [address] FARTUN , Ph. 2022-04-27 2022-04-27 Outpatient KEYONNA TERRY [id number] [place] 10:00:00 10:00:00 MIKEY sands 2022-04-24 2022-04-24 [facility] [id number] - [place] 00:00:00 00:00:00 820 Commun i ty [facility]ospita [facility] Clinics 2022-03-24 2022-03-24 NO CHARGE STLMLC STLMLC [id number] Common 00:00:00 00:00:00 Spirit - [facility]I [facility] 2022-03-02 2022-03-02 [facility] [id number] [place] 02:40:00 02:40:00 628 Commun i ty Hospita [facility] Clinics 2022-03-02 2022-03-02 Tru [facility] [place] 00:00:00 00:00:00 [facility] DO: [address] Hospit a [facility], [place], [address] FARTUN , Ph. [phone] 2022-03-02 2022-03-02 [facility]patient [facility] [id number] 00:00:00 00:00:00 Tru 711-nicko Apple [id number] 2022-02-22 2022-02-22 [facility] [id number] [place] 05:41:00 05:41:00 620 Commun i ty [facility]ospita [facility] 2022-02-22 2022-02-22 Tru [facility] [place] 00:00:00 00:00:00 [facility] DO: [address] [facility] [place], [address] FARTUN , Ph. 2022-02-22 2022-02-22 Outpatient [facility] [id number] 00:00:00 00:00:00 Tru [id number] Apple [id number] 2022-02-10 2022-02-10 OFFICE STLMLC STLMLC [id number] Co mmon 00:00:00 00:00:00 VISIT Spirit ESTAB PT - CHI LEVEL 2 [facility] 2022-01-13 2022-01-13 OFFICE [facility] [id number] Co mmon 00:00:00 00:00:00 VISIT Spirit ESTAB PT - CHI LEVEL 4 [facility] 2021-12-28 2021-12-28 [facility] [id number] [place] 04:47:00 04:47:00 509 Commun i ty [facility] 2021-12-28 2021-12-28 [facility]patient [facility] 8297 - [place] 04:47:00 04:47:00 512 Commun i ty [facility] 2021-12-19 2021-12-19 Outpatient [facility] 8297 - [place] 01:29:00 01:29:00 416 Commun i ty [facility] 2021-12-07 2021-12-07 [facility]patient [facility] [id number] [place] 10:41:00 10:41:00 404 Commun i ty [facility]ita [facility] Clinics 2021-12-07 2021-12-07 [facility] 8297 - [place] 10:41:00 10:41:00 406 Commun i ty [facility]ita [facility] 2021-12-07 2021-12-07 Tru [facility] [place] 00:00:00 00:00:00 [facility] DO: [address] [facility] l [address], HOSPITAL Clinic [place], [place], [address] FARTUN , Ph. 2021-12-07 2021-12-07 Outpatient [facility] [id number] 00:00:00 00:00:00 Tru [id number]-b Zechariah [id number] 2021-11-27 2021-11-27 [facility]patient [facility] [id number] [place] 04:27:00 04:27:00 325 Commun i ty [facility] 2021-11-13 2021-11-13 Outpatient [facility] 8297 - [place] 12:40:00 12:40:00 311 Commun i ty [facility] 2021-11-10 2021-11-10 [facility]patient [facility] 8297 - [place] 11:52:00 11:52:00 308 Commun i ty [facility] 2021-11-06 2021-11-06 [facility] 8297 - [place] 01:20:00 01:20:00 304 Commun i ty [facility]ita [facility] Clinics 2021-11-06 2021-11-06 Tru [facility] [place] 00:00:00 00:00:00 [facility] DO: [address] Hospit a [place], [place], [address] FARTUN , Ph. 2021-11-06 2021-11-06 Outpatient [facility] [id number] 00:00:00 00:00:00 Tru [id number] Zechariah [id number] 2021-11-03 2021-11-03 [facility]patient [facility] 8297 - [place] 11:51:00 11:51:00 301 Commun i ty [facility]ospita [facility] Clinics 2021-11-03 2021-11-03 Tru [facility] [place] 00:00:00 00:00:00 [facility] DO: [address] [facility] [address] FARTUN , Ph. 2021-11-03 2021-11-03 Outpatient [facility] [id number] 00:00:00 00:00:00 Tru 97a-11ec-b Zechariah [id number] 2021-10-17 [facility]patient [facility] [id number] [place] 07:32:00 07:32:00 212 Commun i ty [facility] Clin[facility] 2021-09-12 2021-09-12 Outpatient [facility] 8297 - [place] 04:34:00 04:34:00 108 Commun i ty [facility]ita [facility] Clin[facility] 2021-08-08 2021-08-08 [facility]patient [facility] 8297 - [place] 05:22:00 05:22:00 204 Commun i ty [facility]ospita [facility] Clinics 2021-07-27 2021-07-27 [facility]patient [facility] 8297 - [place] 05:07:00 05:07:00 122 Commun i ty [facility]ospita [facility] Clinics 2021-07-27 2021-07-27 Tru [facility] [place] [id number] [place] 00:00:00 00:00:00 [facility] - DO: [address] Hospit a [facility] l [address], HOSPITAL Clinic [place], [place], [address] FARTUN , Ph. 2021-07-27 2021-07-27 Outpatient [facility] [id number] 00:00:00 00:00:00 Tru be0-11ec-a Zechariah [id number] 2021-07-02 2021-07-02 [facility]patient [facility] [id number] - [place] 10:49:00 10:49:00 028 Commun i ty [facility] Clin[facility] 2021-07-02 2021-07-02 Outpatient [facility] [id number] 00:00:00 00:00:00 Tru 7fb-[id number]-b Zechariah [id number] 2021-07-02 2021-07-02 Tru [facility] [place] 00:00:00 00:00:00 [facility] DO: [address] [facility] [place], [address] FARTUN , Ph. 2021-06-30 2021-06-30 [facility] [id number] - [place] 10:46:00 10:46:00 026 Commun i ty [facility]ospita [facility] 2021-06-30 2021-06-30 Outpatient [facility], [facility] [id number] 00:00:00 00:00:00 Tru [id number]-[id number] Zechariah [id number] 2021-06-30 2021-06-30 Outpatient [facility], [facility] [id number] 00:00:00 00:00:00 Tru 66e-11ec-a Zechariah [id number] 2021-06-30 2021-06-30 Tru [facility] [place] [id number] [place] 00:00:00 00:00:00 [facility] DO: [address] [facility] [place], [address] FARTUN , Ph. [phone] 2021-06-15 2021-06-15 [facility]patient [facility] [id number] - [place] 05:42:00 05:42:00 011 Commun i ty Hospita [facility] 2021-06-15 2021-06-15 Outpatient Hernandez, [facility] [id number] 00:00:00 00:00:00 Tru [id number]-8 Zechariah [id number] 2021-06-15 2021-06-15 Tru [facility] [place] [id number] [place] 00:00:00 00:00:00 [facility] ty DO: [address] Hospit a [facility], [place], [address] FARTUN , Ph. 2021-05-26 2021-05-26 [facility]patient [facility] [id number] [place] 04:29:00 04:29:00 921 Commun i ty Hospita [facility] Clinics 2021-05-26 2021-05-26 Outpatient [facility] [id number] 00:00:00 00:00:00 Tru [id number] Zechariah [id number] 2021-05-26 2021-05-26 Tru [facility] [place] 00:00:00 00:00:00 [facility] - ty DO: [address] Hospit a [facility], [address] FARTUN , Ph. [phone] 2021-05-26 2021-05-26 Outpatient Hernandez[facility] [id number] 00:00:00 00:00:00 Tru melissa9-11ec-9 Zechariah [id number] 2021-05-26 2021-05-26 Outpatient Hernandez, [facility] [id number] 00:00:00 00:00:00 Tru [id number] Zechariah [id number] 2021-05-12 2021-05-12 Outpatient [facility] [id number] [place] 12:54:00 12:54:00 907 Commun i ty [facility]ospita [facility] Clinics 2021-03-20 2021-03-20 [facility]patient [facility] [id number] [place] 10:52:00 10:52:00 716 Commun i ty Hospita [facility] Clinics 2021-03-20 2021-03-20 Tru [facility] [place] 00:00:00 00:00:00 [facility] DO: [address] Hospit a [facility], [place], [place], [address] FARTUN , Ph. 2021-03-20 2021-03-20 Outpatient [facility] [id number] 00:00:00 00:00:00 Tru [id number]-b Zechariah [id number] 2021-02-24 2021-02-24 [facility]patient [facility] [id number] [place] 04:30:00 04:30:00 622 Commun i ty [facility]ospita [facility] Clinics 2021-02-14 2021-02-14 Outpatient [facility] 8297 - [place] 06:31:00 06:31:00 612 Commun i ty [facility]ospita [facility] Clinics 2021-02-05 2021-02-05 Outpatient [facility] [id number] - [place] 10:03:00 10:03:00 603 Commun i ty Hospita [facility] Clinics 2021-02-05 2021-02-05 Jack [facility] [place] 03 [place] 00:00:00 00:00:00 [facility] MD[facility] [address] [facility] [address], [place] [address] , Ph. 2021-02-05 2021-02-05 Outpatient Ryanne [facility] [id number] 00:00:00 00:00:00 Jack [id number] Childs [id number] 2020-12-19 2020-12-19 Outpatient [facility] [id number] [place] 11:04:00 11:04:00 416 Commun i ty [facility] Clin[facility] 2020-12-19 2020-12-19 Outpatient [facility] [id number] 00:00:00 00:00:00 Tru [id number] Zechariah [id number] 2020-12-19 2020-12-19 Tru [facility] [place] [id number] [place] 00:00:00 00:00:00 [facility] ty DO: [address] Hospit a [facility], [place], [address] FARTUN , Ph. 2020-11-20 2020-11-20 Outpatient STLMLC STLC [id number] Common 00:00:00 00:00:00 [facility] 2020-11-12 2020-11-12 [facility]patient [facility] [id number] [place] 01:02:00 01:02:00 310 Commun i ty [facility] Clin[facility] 2020-09-26 2020-09-26 Outpatient [facility] [id number] [place] 09:12:00 09:12:00 122 Commun i ty [facility] 2020-09-23 2020-09-23 Outpatient [facility] [id number] [place] 09:29:00 09:29:00 119 Commun i ty [facility] 2020-09-23 2020-09-23 Outpatient Hernandez, [facility] [id number] 00:00:00 00:00:00 Tru [id number] Zechariah [id number] 2020-09-23 2020-09-23 Tru [facility] [place] [id number] [place] 00:00:00 00:00:00 [facility] ty DO: [address] Hospit [facility], [place], [address] FARTUN , Ph. 2020-09-12 2020-09-12 Outpatient [facility] [id number] [place] 12:08:00 12:08:00 108 Commun i ty [facility]ita [facility] Clinics 2020-09-08 2020-09-08 Outpatient [facility] [id number] [place] 10:50:00 10:50:00 104 Commun i ty Hospita [facility] Clinics 2020-09-08 2020-09-08 [facility] [place] 00:00:00 00:00:00 [facility] DO: [address] Hospit a [facility] l [address], HOSPITAL [place], [address] FARTUN , Ph. [phone] 2020-07-18 2020-07-18 Outpatient STLMLC ST[facility] [id number] Common 00:00:00 00:00:00 [facility] 2020-07-04 2020-07-04 Outpatient STLMLC STL[facility]C [id number] Common 00:00:00 00:00:00 [facility] 2020-06-26 2020-06-26 Outpatient STLMLC STLMLC [id number] Common 00:00:00 00:00:00 [facility] 2020-01-09 2020-01-10 Outpatient CHIQUITA, [place] [id number] [place] 00:00:00 00:00:00 ALIYA 802 Method i 2020-01-04 2020-01-04 Outpatient CHIQUITA, [facility] [id number] [place] 00:00:00 00:00:00 ALIYA [address] 2020-01-02 2020-01-02 Outpatient CHIQUITA, [facility] [id number] [place] 00:00:00 00:00:00 ALIYA [address] 2019-12-25 2019-12-25 Outpatient CHIQUITA, [facility] [id number] [place] 00:00:00 00:00:00 ALIYA [address] 2019-12-25 2019-12-25 Outpatient CHIQUITA, [facility] [id number] [place] 00:00:00 00:00:00 ALIYA [address] 2019-12-18 2019-12-18 Outpatient CHIQUITA, [facility] [id number] [place] 00:00:00 00:00:00 ALIYA [address] 2019-12-18 2019-12-18 Outpatient CHIQUITA, [facility] [id number] [place] 00:00:00 00:00:00 ALIYA [address] 2019-04-17 2019-04-17 [facility] Chloe Shaver [facility] [id number]. [id number] Univers 18:03:16 18:18:16 Care Unknown, [facility] [id number] ity of Surgical 4.2.7.2.686 Baltazar as Specialti [phone] Tn dical es 370 [facility] 2019-04-17 2019-04-17 Ana Shaver [facility] [id number] 18:03:16 18:18:16 [facility] [id number] Surgical 4.2.7.2.686 Specialti [phone] es 370 [place] 2016-11-16 2016-11-16 Angel Pal [facility] [id number] Univers 00:00:00 00:00:00 (Out) [facility] 350.1.13.10 i [place] [address] [place] [address] [place] [phone] [facility] 144 [place] Results Test Description Test Time Test Comments Results Result Comments Source fecal occult blood, stool 2021-06-15 16:14:00 Test Item Value Reference Range Interpretation Comme nts Negative (test code = Negative) [facility] [id number] 16:14:00 Test Item Value Reference Range Interpretation Comments Negative (test code = Negative) Negative [facility] [id number] 16:14:00 Test Item Value Reference Range Interpretation Comments Negative (test code = Negative) Negative [facility] 2 RNA [Presence] in Respiratory specimen by SHANNON with probe [id number] 18:01:48 Test Item Value Reference Range Interpretation Comments SARS coronavirus 2 RNA Not detected Not-Detected [Presence] in Respiratory specimen by SHANNON with probe detection (test code = 77113-0) [facility] MET[facility]OL[facility] [id number] 08:43:00 Test Item Value Reference Range Interpretation [...] 0-189 mg/dL VERY HIGH.........>/ = 190 mg/dL [id number] 08:43:00 Test Item Value Reference Range Interpretation Comments MAGNESIUM (test code = MAG) 2.1 MG/DL 1.6-2.3 N BASIC METABOLIC [id number] 08:32:00 Test Item Value Reference Range Interpretation [...] LDL (test MG/DL 0-99 code = LDL) [id number] 08:32:00 Test Item Value Reference Range Interpretation Comments MAGNESIUM (test code = MAG) 2.1 MG/DL 1.6-2.3 N PROTHROMBIN [id number] 08:30:00 Test Item Value Reference Range Interpretation [...] myocar dial infarction. 2.0 - 3.0 3. [employer] prosthesis hear t valves, recurre nt systemic emboli sm. 3.0 - 4.5 PTT [id number] 08:30:00 Test Item Value Reference Range Interpretation Comments PTT ACTIVATED (test code = APTT) 32.5 SECONDS 22.0-33.0 N CBC W/AUTO [id number] 08:14:00 Test Item Value Reference Range Interpretation [...] code = 0.00 K/mm3 0.0-0.1 N NRBC#) Notes Date/Time Note Provider Source 2019-04-14 11:13:00-00:00 [id number] [facility] [id number] [place] [address] PATIENT NAME: KRISTY SEGUNDO ADMIT DATE: 06/23 ACCOUNT NO: [id number] ROOM NO: AGE: 83 REPORT TYPE: CARDIAC CATHETERIZATION REPORT SEX: M ADMITTING PHYSICIAN: ATTENDING PHYSICIAN:Nik Wolf MD PROCEDURE DATE: 04/14/2019 CARDIOLOGY PROCEDURE JAVA WEB ARCHITECT: Myself, Nik Wolf MD TITLE OF THE PROCEDURE: Synchronous electrical c ardioversion. INDICATION FOR THE PROCEDURE: Symptomatic atrial fibrillation that is unresponsive to chemical cardioversion. ANESTHESIA: Conscious sedation with Versed and f entanyl. FINAL DIAGNOSIS: Successful synchronous electric al cardioversion of atrial fibrillation. RECOMMENDATION: Is to continue medical therapy. PROCEDURE IN DETAIL: After informed consent, the patient was brought to the cardiac catheterization outpatient area. After s tandard setup, the patient received Versed and fentanyl and then 1 shock sy nchronous 200 joules cardioversion was carried out, that converted th e patient promptly into sinus rhythm. The patient tolerated the proced ure well. There were no complications. The patient will be observed over the next few hours and then he will be discharged home on medical therapy and risk fact or modification. Dictated By: Nik Wolf MD WT: CATH:DANNY/ISMAEL/LULU Conf#: [id number]/DID#: [id number] Authenticated by Nik Wolf MD On 04/05 01:37:03 PM at 1337 PATIENT NAME: KRISTY SEGUNDO ACCOUNT #: [id number] 2019-04-14 11:12:00-00:00 [id number] [place] [id number] PATIENT NAME: KRISTY SEGUNDO ADMIT DATE: ACCOUNT NO: [id number] ROOM NO: AGE: 83 REPORT TYPE: ELECTROCARDIOGRAM SEX: M ADMITTING PHYSICIAN: ATTENDING PHYSICIAN:Nik Wolf MD Order: [id number] Test Reason : POST CARDIOVERSION Test Date/Time Stamp: Sat Apr 14 2019 11:12:15 Blood Pressure : / mmHG Vent. Rate : 060 BPM Atrial Rate : 060 BPM P-R Int : 216 ms QRS Dur : 104 ms QT Int : 482 ms P-R-T Axes : 050 041 039 degree s QTc Int : 482 ms Sinus rhythm with 1st degree AV block with regina ture atrial complexes Prolonged QT Abnormal ECG No previous ECGs available Confirmed by NIK WOLF ([id number]) on 04/14/2019 1:46:45 PM Referred By: Nik Wolf Confirmed by:NIK SILVA at [id number] PATIENT NAME: KRISTY SEGUNDO ACCOUNT #: [id number] 2019-04-14 11:12:00-00:00 [id number] [address] PATIENT NAME: KRISTY SEGUNDO ADMIT DATE: 06/23 ACCOUNT NO: [id number] ROOM NO: AGE: 83 REPORT TYPE: ELECTROCARDIOGRAM SEX: M ADMITTING PHYSICIAN: ATTENDING PHYSICIAN:Nik Wolf MD Order: [id number] Test Reason : POST CARDIOVERSION Test Date/Time Stamp: Sat Apr 14 2019 11:12:15 Blood Pressure : / mmHG Vent. Rate : 060 BPM Atrial Rate : 060 BPM P-R Int : 216 ms QRS Dur : 104 ms QT Int : 482 ms P-R-T Axes : 050 041 039 degree s QTc Int : 482 ms Sinus rhythm with 1st degree AV block with regina ture atrial complexes Prolonged QT Abnormal ECG No previous ECGs available Confirmed by NIK WOLF ([id number]) on 04/15/2019 9:55:00 PM Referred By: Nik Wolf Confirmed by:NIK SILVA at [id number] PATIENT NAME: KRISTY SEGUNDO ACCOUNT #: [id number] 2019-04-14 09:14:00-00:00 [id number] [place] [id number] PATIENT NAME: KRISTY SEGUNDO ADMIT DATE: 06/23 ACCOUNT NO: [id number] ROOM NO: AGE: 83 REPORT TYPE: ELECTROCARDIOGRAM SEX: M ADMITTING PHYSICIAN: ATTENDING PHYSICIAN:Nik Wolf MD Order: [id number] Test Reason : A FIB Test Date/Time Stamp: Sat Apr 14 2019 09:14:17 Blood Pressure : / mmHG Vent. Rate : 068 BPM Atrial Rate : 068 BPM P-R Int : 000 ms QRS Dur : 092 ms QT Int : 342 ms P-R-T Axes : 000 044 036 degree s QTc Int : 363 ms Atrial fibrillation Abnormal ECG No previous ECGs available Confirmed by NIK WOLF ([id number]) on 04/14/2019 1:46:01 PM Referred By: Nik Wolf Confirmed by:NIK SILVA at 1346 PATIENT NAME: KRISTY SEGUNDO ACCOUNT #: [id number] 2019-04-14 09:14:00-00:00 [id number] [place] [id number] PATIENT NAME: KRISTY SEGUNDO ADMIT DATE: 06/23 ACCOUNT NO: [id number] ROOM NO: AGE: 83 REPORT TYPE: ELECTROCARDIOGRAM SEX: M ADMITTING PHYSICIAN: ATTENDING PHYSICIAN:Nik Wolf MD Order: [id number] Test Reason : A FIB Test Date/Time Stamp: Sat Apr 14 2019 09:14:17 Blood Pressure : / mmHG Vent. Rate : 068 BPM Atrial Rate : 068 BPM P-R Int : 000 ms QRS Dur : 092 ms QT Int : 342 ms P-R-T Axes : 000 044 036 degree s QTc Int : 363 ms Atrial fibrillation Abnormal ECG No previous ECGs available Confirmed by NIK WOLF ([id number]) on 04/15/2019 9:54:51 PM Referred By: Nik Wolf Confirmed by:NIK SILVA at 2151 PATIENT NAME: KRISTY SEGUNDO ACCOUNT #: [id number] 2019-04-13 07:44:00-00:00 [id number] [place] [address] PATIENT NAME: KRISTY SEGUNDO ADMIT DATE: 06/23 ACCOUNT NO: [id number] ROOM NO: AGE: 83 REPORT TYPE: HISTORY AND PHYSICAL SEX: M ADMITTING PHYSICIAN: ATTENDING PHYSICIAN:Nik Wolf MD PATIENT NAME: KRISTY SEGUNDO ADMIT DATE: 9 ADMISSION DATE: 04/14/2019 JAVA WEB ARCHITECT: Nik Wolf MD REASON FOR ADMISSION: Synchronous electrical car dioversion for symptomatic atrial fibrillation that is not responding to ch emical cardioversion. HISTORY OF PRESENT ILLNESS: Kristy is an 83-year- old patient of mine with multiple cardiovascular risk factors with no documented coronary artery disease, who recently has flipped into atrial fibrillatio n that has been very symptomatic. He has been placed on Xarelto as we ll as a low-dose aspirin. He has also been placed on amiodarone for several w eeks now as well as beta blockers and he continues to be symptomatic with the atrial fibrillation that is difficult to control. Given this information, he is here for a synchronous electrical cardioversion. The patient is denying any chest pains. He has a long history of dyspnea on mild exertion. He has occasional epigastric pain. No congestive heart failure, TIAs or strokes. PAST MEDICAL HISTORY: Remark able for hypertensive heart disease with history of dilated thoracic aorta, hist ory of mitral regurgitation, hyperlipidemia. He has had history of bradycardia in the past, osteoart hritis, benign prostatic hypertrophy, asbestosis, hypothyroidism, acid re flux, allergies, and hiatal hernia. 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 ALLERGIES: MORPHINE. MEDICATIONS: He has been taking simvastatin 40 m g daily, Levothroid 50 mcg daily, carvedilol 6.25 b.i.d., ranitidine 150 at bedtime, omeprazole 40, lisinopril/hydrochlorothiazide 20/12.5, amiodaro ne 200 b.i.d., Xarelto 15 mg daily, and aspirin 81 mg daily. SOCIAL HISTORY: There is no history of smoking, alcohol, or street drug use. FAMILY HISTORY: Positive for atheroscler otic cardiovascular disease, but at an older age. REVIEW OF SYSTEMS: Remarkable for the above in a ddition to fatigue, insomnia, allergies, dry mouth, dizziness, weakness, cough , occasional wheezing, easy PATIENT NAME: KRISTY SEGUNDO ACCOUNT #: [id number] bruisability, neuropathy symptoms, balance diffi culty. No acute GI or symptoms. No TIAs or strokes. PHYSICAL EXAMINATION: GENERAL: Reveals a pleasant elderly male in no a cute distress. VITAL SIGNS: Blood pressure 118/78, pulse 77 and regular, respiratory rate 18 and unlabored, temperature afebrile. HEENT: Head, atraumatic and normocephalic. Eyes and ENT examination within normal for age. NECK: Supple. No jugular venous distention, brui ts, or lymphadenopathy. Normal upstroke. LUNGS: Decreased air entry, otherwise clear and resonant. HEART: Irregular rate and rhythm with II/ syst olic ejection murmur at the left lower sternal border. No gallops. ABDOMEN: Soft. No tenderness, no organomegaly, n o masses or bruits. EXTREMITIES: 2+ distal pulses. Trace edema. No c yanosis or clubbing. NEUROLOGIC: Alert and oriented x3. Examination a ppears to be nonfocal. LABORATORY DATA: Pending. Noninvasive cardiovasc ular workup enclosed. He has had a recent Holter monitor showing controlled atrial fibrillation with 1% PVCs, had a nuclear stress test with ejection fraction of 49%. Echocardiogram showed moderate mitral regurgitation, ejection fraction 55% to 60%, mild pulmonary hypertension and dilated ascending aorta at 4.02 . Carotid Doppler showed less than 30% plaquing in the past. IMPRESSION: This is an 83-year-old patient with symptomatic atrial fibrillation, multiple cardiovascular risk facto rs, no active coronary artery disease, who is here for elective synchronous el ectrical cardioversion of his atrial fibrillation. The recommendation is to proceed with th e above. The risks and benefits of the planned procedures were discussed in det ail with the patient and he is willing to proceed. Dictated By: Nik Wolf MD WT: HP:JOCELYNE/ISMAEL/LULU Conf#: [id number]/DID#: [id number] Authenticated and Edited by Nik Wolf MD On 04/14/19 9:35:09 AM at 0937 PATIENT NAME: KRISTY SEGUNDO ACCOUNT #: [id number]
[2023-03-11 11:58] LABS: Absolute Lymphocytes (CBC) 0.9 K/uL (0.7-4.9); Hematocrit 37.1 % (39.6-49.0); Lymphocytes % 12.5 % (15.3-44.8); MCV 91.5 fL (80-100); MPV 7.6 fL (7.6-11.3); RBC Red Blood Cell Count 4.06 M/uL (4.33-5.43)
[2023-03-11 12:15] LABS: Bilirubin Total 0.6 mg/dL (0.2-1.0); Potassium 4.5 mEq/L (3.5-5.1)
[2023-03-11 12:16] LABS: Albumin 3.5 g/dL (3.4-5.0); Protein, Total 6.8 g/dL (6.4-8.2)
[2023-03-11] MEDS ORDERED: NA CHLORIDE 0.9% 1,000 ML ONE (12:23)
--- NOTE | 2023-03-11 13:09 | RAD REPORT ---
EXAM DESCRIPTION: CT - Abdomen Pelvis W Contrast - 03/11/2023 12:37 pm CLINICAL HISTORY: ABD PAIN COMPARISON: Abdomen Pelvis W Contrast dated 05/18/2018; Abdomen Pelvis W Contrast dated 7 TECHNIQUE: Thin cut axial CT imaging of the abdomen and pelvis was performed following intravenous a dministration of 75 mL Isovue 300. Multiplanar reformats were generated and reviewed. All CT scans are performed using dose optimization technique as appropriate and may include automated exposure control or mA/KV adjustment according to patient size. FINDINGS: No suspicious findings in the lung bases. Bibasilar platelike atelectasis. The liver shows numerous stable fluid density lesions throughout the right and left lobe, the largest involving segment 4B subcapsular region measuring 4.8 x 3.9 centimeter. Geographic region of hypoatt enuation adjacent to the gallbladder bed suggestive of focal fatty infiltration. Adrenal glands, sple en, and pancreas show no suspicious findings. Gallbladder and biliary tree are also without suspiciou s finding. Symmetric renal function is seen with no hydronephrosis or suspicious renal mass. Mild fluid distention with short-segment air-fluid levels involving long segments of predominantly di stal small bowel, with fluid opacification of the proximal colon as well. No significant bowel wall t hickening. No free air, free fluid or inflammatory stranding. Appendix is not visualized, without omega picious inflammatory changes in the region of the appendix. No hernia, mass or bulky lymphadenopathy. The urinary bladder is without significant finding. Prostatomegaly. No suspicious bony findings. IMPRESSION: Mild fluid distention predominantly involving distal small bowel, with fluid opacificati on of the proximal colon. Findings are suggestive of ileus in the setting of infectious or inflammato ry enteritis. No findings to suggest obstruction. Please correlate clinically. Other stable incidental findings as above.
--- NOTE | 2023-03-11 13:16 | ER ---
Nurse's Notes [facility] Name: Jonathan Segundo Age: 87 yrs Sex: Male : 1935 Arrival Date: 03/11/2023 Time: 10:55 Bed 14 Private MD: Diagnosis: Ileus Presentation: 03/11 11:05 Chief complaint: Patient states: abdominal discomfort w/nausea and vomiting for the os past 3 days. Coronavirus screen: Vaccine status: Patient reports receiving the 2nd dose of the covid vaccine. Client denies travel out of the [place] in the last 14 days. At this time, the client does not indicate any symptoms associated with coronavirus-19. Ebola Screen: No symptoms or risks identified at this time. Initial Sepsis Screen: Does the patient meet any 2 criteria? No. Patient's initial sepsis screen is negative. Does the patient have a suspected source of infection? No. Patient's initial sepsis screen is negative. Risk Assessment: Do you want to hurt yourself or someone else? Patient reports no desire to harm self or others. Onset of symptoms was March 07, 2023. 11:05 Method Of Arrival: Ambulatory os 11:05 Acuity: ERIN 3 os Triage Assessment: 11:07 General: Appears in no apparent distress. comfortable, Behavior is calm, cooperative, os appropriate for age. Pain: Complains of pain in abdomen. Neuro: No deficits noted. Cardiovascular: No deficits noted. Respiratory: No deficits noted. GI: Reports diarrhea, nausea, vomiting, since 3 days ago. Historical: - Allergies: 11:05 Morphine; causes "shaking"; eh3 11:05 Warfarin; eh3 11:05 Xarelto; eh3 - PMHx: 11:05 High Cholesterol; Hypertension; Hypothyroidism; neuropathy; skin cancer; eh3 - PSHx: 11:05 removed cancer from ear and neck; eh3 - Immunization history:: Adult Immunizations up to date. - Social history:: Smoking status: unknown. Screenin:05 [facility] ED Fall Risk Assessment (Adult) Score/Fall Risk Level 0 - 2 = Low Risk. Abuse eh3 screen: Denies threats or abuse. Denies injuries from another. Nutritional screening: No deficits noted. Tuberculosis screening: No symptoms or risk factors identified. Assessment: 11:04 General: Appears in no apparent distress. uncomfortable, Behavior is calm, cooperative, eh3 appropriate for age. Pain: Complains of pain in abdomen. Neuro: Level of Consciousness is awake, alert, obeys commands, Oriented to person, place, time, situation. Cardiovascular: Capillary refill < 3 seconds Patient's skin is warm and dry. Respiratory: Airway is patent Respiratory effort is even, unlabored, Respiratory pattern is regular, symmetrical. GI: Abdomen is round non-distended, Bowel sounds present X 4 quads. Abd is soft and non tender X 4 quads. Reports nausea, vomiting. Derm: Skin is pink, warm \\T\\ dry. Musculoskeletal: Circulation, motion, and sensation intact. 11:57 Reassessment: Pt unable to provide urine sample at this time. eh3 12:00 Reassessment: Patient appears in no apparent distress at this time. Patient and/or 3 family updated on plan of care and expected duration. Pain level reassessed. Patient is alert, oriented x 3, equal unlabored respirations, skin warm/dry/pink. 13:00 Reassessment: Patient appears in no apparent distress at this time. Patient and/or 3 family updated on plan of care and expected duration. Pain level reassessed. Patient is alert, oriented x 3, equal unlabored respirations, skin warm/dry/pink. 14:00 Reassessment: Patient appears in no apparent distress at this time. Patient and/or 3 family updated on plan of care and expected duration. Pain level reassessed. Patient is alert, oriented x 3, equal unlabored respirations, skin warm/dry/pink. 15:00 Reassessment: Patient appears in no apparent distress at this time. Patient and/or 3 family updated on plan of care and expected duration. Pain level reassessed. Patient is alert, oriented x 3, equal unlabored respirations, skin warm/dry/pink. 16:00 Reassessment: Patient appears in no apparent distress at this time. Patient and/or 3 family updated on plan of care and expected duration. Pain level reassessed. Patient is alert, oriented x 3, equal unlabored respirations, skin warm/dry/pink. 17:00 Reassessment: Patient appears in no apparent distress at this time. Patient and/or 3 family updated on plan of care and expected duration. Pain level reassessed. Patient is alert, oriented x 3, equal unlabored respirations, skin warm/dry/pink. Vital Signs: 11:05 BP 138 / 80; Pulse 89; Resp 18; Temp 97.8; Pulse Ox 100% on R/A; Weight 92.53 kg; os 12:00 BP 140 / 85; Pulse 78; Resp 16; Pulse Ox 100% on R/A; eh3 13:00 BP 158 / 98; Pulse 87; Resp 16; Pulse Ox 100% on R/A; eh3 14:00 BP 160 / 89; Pulse 79; Resp 16; Pulse Ox 99% on R/A; eh3 15:00 BP 158 / 84; Pulse 76; Resp 16; Pulse Ox 99% on R/A; eh3 16:00 BP 155 / 98; Pulse 78; Resp 16; Pulse Ox 100% on R/A; eh3 17:00 BP 166 / 84; Pulse 78; Resp 16; Pulse Ox 100% on R/A; eh3 ED Course: 10:56 Patient arrived in ED. am2 10:58 Jeanie Roman FNP-C [facility]. kb 10:58 Jaime Ventura MD is Attending Physician. kb 11:00 Reyna De Leon, ANITA is Primary Nurse. eh3 11:04 Arm band placed on. eh3 11:05 Patient has correct armband on for positive identification. Bed in low position. Call eh3 light in reach. Side rails up X2. Pulse ox on. NIBP on. 11:07 Triage completed. os 11:30 Inserted saline lock: 22 gauge in left antecubital area, using aseptic technique. Blood eh3 collected. 11:42 Abdominal pain workup initiated per nursing protocol. eh3 12:38 CT Abd/Pelvis - IV Contrast Only In Process Unspecified. EDMS 13:16 Mike Peng MD is Hospitalizing Provider. kb 17:10 No provider procedures requiring assistance completed. Patient admitted, IV remains in eh3 place. Administered Medications: 12:19 Drug: NS 0.9% IV 1000 ml Route: IV; Rate: 1000 ml; Site: left antecubital; eh3 17:10 Follow up: IV Status: Infusion continued upon admission; IV Intake: 600ml eh3 Medication: 17:10 VIS not applicable for this client. eh3 Intake: 17:10 IV: 600ml; Total: 600ml. eh3 Outcome: 13:16 Decision to Hospitalize by Provider. kb 17:11 Admitted to Med/surg accompanied by tech, via wheelchair, room 202, Report called to [facility] Yvonne 17:11 Condition: stable [facility] 17:11 Instructed on the need for admit. 17:11 Patient left the ED. 3 Signatures: Dispatcher [employer] EDMS Jeanie Roman, JULIO HOLM-Janelle Angulo am2 Reyna De Leon RN RN 3 Gualberto Simon RN RN os
--- NOTE | 2023-03-11 13:16 | EDPHYS ---
Physician Documentation [facility] Name: Jonathan Segundo Age: 87 yrs Sex: Male : 1935 Arrival Date: 03/11/2023 Time: 10:55 Bed 14 Private MD: ED Physician Jaime Ventura HPI: 03/11 11:08 This 87 yrs old Male presents to ER via Ambulatory with complaints of Abdominal Pain. kb 11:08 The patient presents with abdominal pain in the left lower quadrant. Onset: The kb symptoms/episode began/occurred yesterday. The symptoms do not radiate. Associated signs and symptoms: Pertinent positives: diarrhea, nausea, vomiting, Pertinent negatives: fever. The symptoms are described as intermittent. Modifying factors: The symptoms are alleviated by nothing, the symptoms are aggravated by nothing. Severity of pain: At its worst the pain was moderate in the emergency department the pain has improved. The patient has not experienced similar symptoms in the past. The patient has not recently seen a physician. Pt reports diarrhea that started yesterday with intermittent sharp LLQ pain. Reports vomiting after having breakfast today. Historical: - Allergies: 11:05 Morphine; causes "shaking"; eh3 11:05 Warfarin; eh3 11:05 Xarelto; eh3 - PMHx: 11:05 High Cholesterol; Hypertension; Hypothyroidism; neuropathy; skin cancer; eh3 - PSHx: 11:05 removed cancer from ear and neck; eh3 - Immunization history:: Adult Immunizations up to date. - Social history:: Smoking status: unknown. ROS: 11:08 Constitutional: Negative for fever, chills, and weight loss. kb 11:08 Abdomen/GI: Positive for abdominal pain, nausea, vomiting, and diarrhea. 11:08 All other systems are negative. Exam: 11:08 Constitutional: This is a well developed, well nourished patient who is awake, alert, kb and in no acute distress. Head/Face: Normocephalic, atraumatic. ENT: Moist Mucous membranes Cardiovascular: Regular rate and rhythm with a normal S1 and S2. No gallops, murmurs, or rubs. No pulse deficits. Respiratory: Respirations even and unlabored. No increased work of breathing. Talking in full sentences Abdomen/GI: Soft, non-tender. No distention Skin: Warm, dry with normal turgor. Normal color. MS/ Extremity: Pulses equal, no cyanosis. Neurovascular intact. Full, normal range of motion. Neuro: Awake and alert, GCS 15, oriented to person, place, time, and situation. Moves all extremities. Normal gait. Vital Signs: 11:05 BP 138 / 80; Pulse 89; Resp 18; Temp 97.8; Pulse Ox 100% on R/A; Weight 92.53 kg; os 12:00 BP 140 / 85; Pulse 78; Resp 16; Pulse Ox 100% on R/A; eh3 13:00 BP 158 / 98; Pulse 87; Resp 16; Pulse Ox 100% on R/A; eh3 14:00 BP 160 / 89; Pulse 79; Resp 16; Pulse Ox 99% on R/A; eh3 15:00 BP 158 / 84; Pulse 76; Resp 16; Pulse Ox 99% on R/A; eh3 16:00 BP 155 / 98; Pulse 78; Resp 16; Pulse Ox 100% on R/A; eh3 17:00 BP 166 / 84; Pulse 78; Resp 16; Pulse Ox 100% on R/A; eh3 MDM: 10:58 Patient medically screened. kb 11:09 Differential diagnosis: diverticulitis, gastritis, non-specific abd pain, colitis, kb viral gastroenteritis. Data reviewed: vital signs, nurses notes. 13:16 Consideration of Admission/Observation Patient was admitted/placed on observation. kb Management of patient was discussed with the following: Hospitalist: LADI Burkett accepts pt for admission under Dr Peng. Counseling: I had a detailed discussion with the patient and/or guardian regarding: the historical points, exam findings, and any diagnostic results supporting the discharge/admit diagnosis, lab results, radiology results, the need for further work-up and treatment in the hospital. 03/11 11:42 Order name: CBC with Diff; Complete Time: 12:12 [facility] 03/11 11:42 Order name: CMP; Complete Time: 12:16 3 03/11 11:42 Order name: Lipase; Complete Time: 12:16 3 03/11 11:42 Order name: Urinalysis w/ reflexes 3 03/11 13:57 Order name: Urinalysis w/ reflexes [facility] 03/11 13:58 Order name: Basic Metabolic Panel [facility] 03/11 13:58 Order name: Basic Metabolic Panel EDMS 03/11 13:58 Order name: Basic Metabolic Panel EDMS 03/11 13:58 Order name: Basic Metabolic Panel EDMS 03/11 13:58 Order name: CBC with Automated Diff EDMS 03/11 13:58 Order name: CBC with Automated Diff EDMS 03/11 13:58 Order name: CBC with Automated Diff EDMS 03/11 13:58 Order name: CBC with Automated Diff EDMS 03/11 13:58 Order name: Magnesium EDMS 03/11 13:58 Order name: Magnesium EDMS 03/11 13:58 Order name: Magnesium EDMS 03/11 13:58 Order name: Magnesium EDMS 03/11 13:58 Order name: Phosphorus EDMS 03/11 13:58 Order name: Phosphorus EDMS 03/11 13:58 Order name: Phosphorus EDMS 03/11 13:58 Order name: Phosphorus EDMS 03/11 12:11 Order name: CT Abd/Pelvis - IV Contrast Only; Complete Time: 13:11 kb 03/11 13:57 Order name: NPO EDMS 03/11 11:42 Order name: IV Saline Lock; Complete Time: 11:53 eh3 03/11 11:42 Order name: Labs collected and sent; Complete Time: 11:53 eh3 Administered Medications: 12:19 Drug: NS 0.9% IV 1000 ml Route: IV; Rate: 1000 ml; Site: left antecubital; eh3 17:10 Follow up: IV Status: Infusion continued upon admission; IV Intake: 600ml eh3 Disposition: 17:11 Co-signature as Attending Physician, Jaime Ventura MD I reviewed the patient's care rn provided by the Advanced Practice Provider and agree with the diagnosis and treatment plan. Disposition Summary: 03/11/23 13:16 Hospitalization Ordered Hospitalization Status: Observation kb Provider: Mike Peng Location: Telemetry/MedSurg (observation) kb Condition: Stable kb Problem: new kb Symptoms: are unchanged kb Bed/Room Type: Standard Room Assignment: 202(03/11/23 16:29) ll1 Diagnosis - Ileus kb Discharge Instructions: - Discharge Summary Sheet kb - Ileus kb Forms: - Medication Reconciliation Form kb - SBAR form kb Signatures: Dispatcher [employer] EDJeanie Porter, CUSTOMER SUPPORT ASSOCIATE-C CUSTOMER SUPPORT ASSOCIATE-CkJaime Jimenez MD MD rn Randa Merino RN RN ll1 Reyna De Leon RN RN 3 Corrections: (The following items were deleted from the chart) 16:29 13:16 kb [facility]
[2023-03-11] MEDS ORDERED: ONDANSETRON 4 MG/2 ML VIAL IV PRN (13:53)
[2023-03-11] MEDS ORDERED: NA CHLORIDE 0.9% 1,000 ML IV SCH (14:00)
--- NOTE | 2023-03-11 14:32 | P.HP ---
Certification for Inpatient Patient admitted to: Inpatient With expected LOS: <2 Midnights Patient will require the following post-hospital care: None Practitioner: I am a practitioner with admitting privileges, knowledge of patient current condition, hospital course, and medical plan of care. Services: Services provided to patient in accordance with Admission requirements found in Title 42 Section 412.3 of the Code of Federal Regulations Patient History Date of Service: 03/11/23 Reason for admission: Abdominal pain History of Present Illness: 87-year-old male with a past medical history of hypertension, hyperlipidemia, hypothyroidism, neuropathy, skin cancer, presents to the emergency room with abdominal pain. He reports having sharp left lower quadrant abdominal pain that is intermittent, he reports having diarrhea yesterday, he reports vomiting after breakfast today. referred him to come to the emergency room today. He reports he has a colonoscopy scheduled on Tuesday with Dr. Serna, he denied fever, chills, no reported bloody stools, he denies intractable nausea vomiting. ER course CT of the abdomen lMild fluid distention predominantly involving distal small bowel, with fluid opacification of the proximal colon. Findings are suggestive of ileus in the setting of infectious or inflammatory enteritis. No findings to suggest obstruction. Please correlate clinically. Laboratory evaluation no elevated white count, mild early left shift, microcytic anemia, 12.3, 37.1, acute on chronic kidney injury, BUN 24, creatinine 1.38, GFR 49, patient was treated with normal saline, Zofran, no acute nausea or pain on evaluation. Allergies morphine Allergy (Verified 09/06/18 13:44) Unknown rivaroxaban [From Xarelto] Allergy (Verified 04/28/22 13:04) Hives/Rash warfarin [From Coumadin] Allergy (Verified 04/28/22 13:04) Rash Home Medications: Aspirin 81 mg PO DAILY 11/01/15 Simvastatin 40 mg PO DAILY 11/01/15 Fluticasone [Flonase 50MCG Nasal [place]*] 2 spray .ROUTE DAILY 09/06/18 Gabapentin 600 mg PO DAILY 09/06/18 Levothyroxine [Synthroid*] 1 tab PO DAILY 09/06/18 Omeprazole [Prilosec] 40 mg PO DAILY 09/06/18 Ranitidine [Zantac*] 1 tab PO BEDTIME 09/06/18 Amlodipine [Norvasc*] 5 mg PO DAILY #30 tab 04/29/22 - Past Medical/Surgical History Diabetic: No -: htn -: hyperlipidemia -: hypothyroid -: neuropathy -: AFIB -: back surg -: lap appy -: R knee repair -: TURP -: skin CA removed from anterior head -: CA SURGERY RT EAR - Family History Brother -: Heart disease, Hypertension, Cancer - Social History Alcohol use: No CD- Drugs: No Caffeine use: Yes Review of Systems 10-point ROS is otherwise unremarkable Physical Examination - Physical Exam General: Alert, In no apparent distress, Oriented x3 HEENT: Atraumatic, Normocephalic, PERRLA Neck: Supple, 2+ carotid pulse no bruit, JVD not distended Respiratory: Clear to auscultation bilaterally, Normal air movement Cardiovascular: Normal S1 S2, Other (+2 pedal edema), Irregular heart rate/rhythm (Hypertensive, tachycardic) Capillary refill: <2 Seconds Gastrointestinal: Hypoactive (ED), No rebound, No guarding Musculoskeletal: No clubbing, No erythema, No tenderness, No warmth Integumentary: No rashes, No breakdown Neurological: Normal speech, Normal strength at 5/5 x4 extr, Cranial nerves 3-12 intact - Studies Laboratory Data (last 24 hrs) 03/11/23 11:45: Sodium 143, Potassium 4.5, BUN 24 H, Creatinine 1.38 H, Glucose 96, Total Bilirubin 0.6, AST 9 L, ALT 14 L, Alkaline Phosphatase 61, Lipase 21 03/11/23 11:45: WBC 6.90, Hgb 12.3 L, Hct 37.1 L, Plt Count 207 Assessment and Plan - Plan Assement/Plan -Abdominal pain secondary to Ileus IVFluids, NPO, PRN antiemetics, As needed analgesics Pt sees Dr Serna, is sched for Colon on Tues CT abd IMPRESSION: Mild fluid distention predominantly involving distal small bowel, with fluid opacification of the proximal colon. Findings are suggestive of ileus in the setting of infectious or inflammatory enteritis. No findings to suggest obstruction. Please correlate clinically. -Acute on chronic kidney injury likely prerenal --CKD 3B. Baseline functions unknown. Continue to monitor renal functions. IV fluids, trend kidney function, electrolytes Replace electrolytes as needed -- Hypertension, Resume home medications, as needed antihypertensives, Currently patient is n.p.o., resume cardiac diet when patient is tolerating p.o. --Bilateral lower extremity edema. Edema. Daily weights, trend kidney function, I&O - --HLD. Continue statin. --Hypothyroidism. Continue Synthroid when medications reconciled --GERD. Continue home medication. --Peripheral neuropathy. Continue home medication. When medications reconciled --Class III obesity. Likely secondary to excess calories intake. Patient counseled on weight reduction, diet and exercise therapy. --Peripheral neuropathy. Continue gabapentin when meds are reconciled -- DVT prophylaxis with heparin subQ Discharge Plan: Home Plan to discharge in: Greater than 2 days - Advance Directives Does patient have a Living Will: No Does patient have a Durable POA for Healthcare: No - Code Status/Comfort Care Code Status Assessed: Yes Code Status: Full Code Physician Review: Patient Assessed, Agree with Above Assessment and Plan Critical Care: Yes Time Spent Managing Pts Care (In Minutes): 55
[2023-03-11] MEDS ORDERED: METOPROLOL TARTRATE 5 MG/5 ML INJ IV PRN (15:01)
[2023-03-11 17:19] VITALS: O2SAT 100
[2023-03-11 18:17] VITALS: BMI 34.2
[2023-03-11 19:30] LABS: Specific Gravity > 1.030 (1.005-1.030); Urine Bacteria <20 /HPF (<20); Urine Bilirubin NEGATIVE (Negative); Urine Blood Negative (Negative); Urine Clarity Clear (Clear); Urine Color Light-Yellow (Yellow); Urine Glucose NEGATIVE (Negative); Urine Mucus Slight /HPF (None Seen); Urine Protein TRACE (Negative); Urine RBC <5 /HPF (None Seen); Urine Urobilinogen Normal (Normal)
[2023-03-12] MEDS ORDERED: METOPROLOL TARTRATE 5 MG/5 ML INJ IV PRN (02:23)
[2023-03-12] MEDS ORDERED: ONDANSETRON 4 MG/2 ML VIAL IV PRN (02:23)
[2023-03-12] MEDS ORDERED: NA CHLORIDE 0.9% 1,000 ML IV SCH (03:00)
[2023-03-12 06:29] LABS: Absolute Lymphocytes (CBC) 1.1 K/uL (0.7-4.9); Hematocrit 35.4 % (39.6-49.0); Lymphocytes % 18.9 % (15.3-44.8); MPV 7.6 fL (7.6-11.3); RBC Red Blood Cell Count 3.85 M/uL (4.33-5.43)
[2023-03-12 06:56] LABS: Magnesium 1.9 mg/dL (1.6-2.4); Phosphorus 2.4 mg/dL (2.5-4.9); Potassium 3.7 mEq/L (3.5-5.1)
[2023-03-12] MEDS: PIPER TAZO 3.375 GM in NA CHLORIDE 0.9% 100 ML IV SCH ×2 (09:03→16:22)
[2023-03-12] MEDS ORDERED: KCL 20 MEQ/100 mL IVPB 20 MEQ/100 ML BAG IV SCH (13:00)
[2023-03-12] MEDS ORDERED: MINERAL OIL 30 ML UCUP PO ONE (16:04)
[2023-03-12] MEDS: ENOXAPARIN 40 MG/0.4 ML SQ SCH (16:23)
--- NOTE | 2023-03-12 16:38 | P.CNS ---
Date of Consult: 03/12/23 PC: I was asked to see this 87-year-old male in regards to abdominal pain. HPC: This patient has been having issues with his stomach for approximately the last couple of weeks. Says he has been having pain, some change in his bowel habit, and now is constipated associated with some vomiting as well.. Apparently has an appointment with his GI doctor for a colonoscopy. PSHx: back surg -: lap appy -: R knee repair -: TURP -: skin CA removed from anterior head -: CA SURGERY RT EAR PMHx: Hypertension, hyperlipidemia, peripheral neuropathy, hypothyroidism Social Hx: Allergic to morphine, allergic to warfarin. Currently on aspirin, as well as is no other medication Sys R: No cough, wheeze, shortness of breath. No chest pain or palpitations. 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 He apparently has a colonoscopy scheduled for this coming week. He called his GI doctor who referred him to the emergency room. Plan: Patient currently does not require any surgical intervention, he states that he has been passing some gas. I will administer him some mineral oil, and he may resume full liquid diet, advance as tolerated.
--- NOTE | 2023-03-12 19:57 | P.PN ---
Subjective Date of Service: 03/12/23 Chief Complaint: Abdominal pain No acute events overnight. He reports minimal abdominal discomfort. He reports that his nausea has improved. He has not had a bowel movement since admission. He states that he is passing a small amount of flatus. He denies any chest pain, palpitations, or shortness of breath. Review of Systems 10-point ROS is otherwise unremarkable Gastrointestinal: Nausea, Abdominal Pain, Constipation Physical Examination - Vital Signs Temperature: 98.5 F Blood Pressure: 174/97 Pulse: 84 Respirations: 14 Pulse Ox (%): 97 - Physical Exam General: Alert, In no apparent distress, Oriented x3 HEENT: Atraumatic, Mucous membr. moist/pink, Sclerae nonicteric Neck: JVD not distended Respiratory: Clear to auscultation bilaterally, Normal air movement Cardiovascular: No edema, Regular rate/rhythm, Normal S1 S2, No gallops, No rubs, No murmurs Gastrointestinal: Hypoactive, Soft and benign, Non-distended, No rebound, No guarding, Tenderness (minimal, generalized) Musculoskeletal: No clubbing Integumentary: No rashes Neurological: Normal speech, Normal affect Assessment And Plan - Plan # Acute Ileus secondary to Enteritis (Infectious vs Inflammatory) - CT abdomen/pelvis = "mild fluid distention predominantly involving distal small bowel, with fluid opacification of the proximal colon. Findings are suggestive of ileus in the setting of infectious or inflammatory enteritis. No findings to suggest obstruction." - General Surgery consulted and Dr. Villeda notified - recommendations appreciated - NPO pending surgery recs - Gentle IV hydration while NPO - Started piperacillin-tazobactam - If symptoms worsen or he begins vomiting, place NG tube - PRN symptom control - Currently scheduled for a colonoscopy with Dr. Malcolm on 03/15/2023 # KDIGO Stage I Acute Kidney Injury - Creatinine = 1.38 -> 1.02 - Urinalysis = 1+ ketones, trace protein - IV fluids as mentioned above - Monitor creatinine and urine output - If worsening, obtain renal ultrasound - Renally dose medications # Hypertensive Urgency - Continue home carvedilol # Hypothyroidism - Continue home levothyroxine # Benign Prostatic Hyperplasia - Continue home tamsulosin, finasteride # Numerous Fluid Density Lesions in Liver (largest measuring 4.8 cm x 3.9 cm) - Noted on CT scan - Discussed with interpreting radiologist (Dr. Gibbons) - he feels that these lesions are likely to be stable cysts, not abscesses # Obesity - BMI 34.3 kg/m2 - Lifestyle modifications Mike Peng M.D.
[2023-03-12] MEDS: carvediloL 3.125 MG TAB PO SCH (20:47)
[2023-03-12] MEDS ORDERED: TAMSULOSIN 0.4 MG SR CAP PO SCH (21:00)
[2023-03-13] MEDS: PIPER TAZO 3.375 GM in NA CHLORIDE 0.9% 100 ML IV SCH ×3 (01:07→17:05)
[2023-03-13 06:15] LABS: Phosphorus 2.1 mg/dL (2.5-4.9); Potassium 3.3 mEq/L (3.5-5.1)
[2023-03-13] MEDS ORDERED: LEVOTHYROXINE SOD 0.125 MG TAB PO SCH (07:30)
[2023-03-13] MEDS: carvediloL 3.125 MG TAB PO SCH ×2 (08:43→17:04)
[2023-03-13] MEDS ORDERED: FINASTERIDE 1 MG PO SCH (09:00)
[2023-03-13] MEDS ORDERED: FINASTERIDE 5 MG TAB PO SCH (09:00)
[2023-03-13] MEDS ORDERED: MINERAL OIL 30 ML UCUP PO ONE ×2 (10:00→17:12)
[2023-03-13] MEDS ORDERED: POTASSIUM CL SA 10 MEQ TAB PO ONE (12:15)
[2023-03-13 16:13] VITALS: BP 161/87; TEMP 98
[2023-03-13] MEDS: ENOXAPARIN 40 MG/0.4 ML SQ SCH (17:05)
--- NOTE | 2023-03-13 18:20 | P.PN ---
Date of Service: 03/13/23 S: Patient has no specific complaints today apart from the fact he has not had a bowel movement. No pain, actively eating a [place] dinner tonight. O: Vital signs are stable, patient looks comfortable. Abdomen is soft nontender A: Clinically the ileus appears to have resolved that she is able to handle his food, still no bowel movements however P: Patient did receive mineral oil yesterday as well as some prune juice today. We will repeat the mineral oil. I believe there is a consult into his GI doctor.
--- NOTE | 2023-03-13 18:34 | P.DS ---
Admission Date: 03/11/23 Discharge Date: 03/13/23 Disposition: ROUTINE DISCHARGE Discharge Condition: GOOD Reason for Admission: Abdominal pain Consultations: 1. General Surgery Hospital Course: DIAGNOSES: # Acute Ileus secondary to Enteritis (Infectious vs Inflammatory) - resolved # KDIGO Stage I Acute Kidney Injury - resolved # Hypertensive Urgency # Hypothyroidism # Benign Prostatic Hyperplasia # Numerous Fluid Density Lesions in Liver (largest measuring 4.8 cm x 3.9 cm) # Obesity - BMI 34.3 kg/m2 HOSPITAL COURSE: Mr. Jonathan Segundo is a pleasant 87 year old male with a past medical history significant for hypertension, hypothyroidism, and benign prostatic hyperplasia who was admitted to the [facility] on 03/11/2023 for abd ominal pain. He was admitted to the Medicine service. Upon further evaluation, his CT abdomen/pelvis revealed, "mild fluid distention predominantly involving distal small bowel, with fluid opacification of the proximal colon. Findings are suggestive of ileus in the setting of infectious or inflammatory enteritis. No findings to suggest obstruction." He was placed NPO, started on IV antibiotics/fluids, and PRN pain medications. Over the course of his hospitalization, his symptoms improved significantly. His diet was advanced to GI soft, without any issues and he was able to pass a bowel movement. General Surgery was consulted and he was evaluated by Dr. Villeda. He has cleared him for discharge with outpatient follow-up. On 03/13/2023, he was seen on rounds and deemed medically stable for discharge. He was discharged with instructions to schedule follow-up appointments with his PCP (Dr. Hernandez), with Gastroenterology (Dr. Malcolm), and with General Surgery (Dr. Villeda). He was provided a prescription for amoxicillin-clavulanate. He was given the opportunity to ask questions and reported no further questions. Furthermore, all questions were answered to the best of my ability. A copy of this discharge summary will be sent to the above providers to facilitate continuity of care. Today, I personally spent 25 minutes on his case, of which greater than 50% of the time was spent in patient education, counseling, and coordination of care as described above. - Physical Exam General: Alert, In no apparent distress, Oriented x3 HEENT: Atraumatic, Mucous membr. moist/pink, Sclerae nonicteric Neck: JVD not distended Respiratory: Clear to auscultation bilaterally, Normal air movement Cardiovascular: No edema, Regular rate/rhythm, No murmurs Gastrointestinal: Normoactive, Soft and benign, Non-distended, No rebound, No guarding, No tenderness Musculoskeletal: No clubbing Integumentary: No rashes Neurological: Normal speech, Normal affect Vital Signs/Physical Exam: Temp Pulse Resp BP Pulse Ox 98.0 F 89 16 161/87 H 98 03/13/23 16:00 03/13/23 16:00 03/13/23 16:00 03/13/23 16:00 03/13/23 16:00 Laboratory Data at Discharge: WBC 5.90 thou/uL (4.3-10.9) 03/12/23 05:28 Hgb 11.7 g/dL (13.6-17.9) L 03/12/23 05:28 Hct 35.4 % (39.6-49.0) L 03/12/23 05:28 Plt Count 164 thou/uL (152-406) 03/12/23 05:28 Sodium 141 mEq/L (136-145) 03/13/23 05:47 Potassium 3.3 mEq/L (3.5-5.1) L 03/13/23 05:47 BUN 10 mg/dL (7-18) 03/13/23 05:47 Creatinine 1.03 mg/dL (0.70-1.30) 03/13/23 05:47 Glucose 99 mg/dL (74-106) 03/13/23 05:47 Phosphorus 2.1 mg/dL (2.5-4.9) L 03/13/23 05:47 Magnesium 2.0 mg/dL (1.6-2.4) 03/13/23 05:47 Total Bilirubin 0.6 mg/dL (0.2-1.0) 03/11/23 11:45 AST 9 U/L (15-37) L 03/11/23 11:45 ALT 14 U/L (16-61) L 03/11/23 11:45 Alkaline Phosphatase 61 U/L (45-117) 03/11/23 11:45 Lipase 21 U/L (13-75) 03/11/23 11:45 Home Medications: Fluticasone [Flonase 50MCG Nasal [place]*] 2 spray .ROUTE DAILY 09/06/18 Albuterol Inhaler [Ventolin Inhaler*] 2 g IN DAILY 03/12/23 Aspirin [Aspirin EC 81 MG] 80 mg PO DAILY 03/12/23 Bimatoprost [[place] Opthalmic Drops*] 1 drop OP BEDTIME 03/12/23 Carvedilol [Coreg] 1 tab PO BID 03/12/23 Finasteride 0.5 mg PO DAILY 03/12/23 Levothyroxine [Synthroid*] 1 tab PO DAILY 03/12/23 Montelukast [Singulair*] 1 tab PO DAILY 03/12/23 Polyethylene Glycol 3350 [Miralax] 1 cap PO DAILY 03/12/23 Tamsulosin HCl 1 tab PO BEDTIME 03/12/23 Wheat Dextrin [Benefiber] 2 tbsp PO DAILY 03/12/23 Amox/Clavulanate [Augmentin 875-125 Tab] 875 mg PO BID 10 Days #20 tab 03/13/23 New Medications: Amox/Clavulanate [Augmentin 875-125 Tab] 875 mg PO BID 10 Days #20 tab Physician Discharge Instructions: 1. Please call and schedule a follow-up appointment with your PCP (Dr. Hernandez) in 3-5 days - Your blood work showed a mild anemia. Please discuss with your PCP for further evaluation. 2. Please keep your scheduled colonoscopy with Gastroenterology (Dr. Malcolm) on 03/15/2023 - Your scan showed several fluid filled sacs in your liver. Please discuss this with your Dr. Malcolm for further evaluation 3. Please call and schedule a follow-up appointment with General Surgery (Dr. Villeda) in 5-7 days Diet: AHA Activity: Ad leroy Followup: Archie Villeda MD [ACTIVE - CAN ADMIT] - Yovn Malcolm MD [ASSOCIATE-ACTIVE - CAN ADMIT] - Tru Hernandez MD [Primary Care Provider] - Time spent managing pt's care (in minutes): 25
== END 2023-03-13 19:20 | disposition home or self-care (01) | DRG 683 ==
LOC: ER 10:55 → ERHOLD 13:43 → 2ND 16:57
PROVIDERS: ADMIT Internal Medicine; ATTEND Internal Medicine
DX: N17.9 Acute kidney failure, unspecified (principal); A09 Infectious gastroenteritis and colitis, unspecified; K56.7 Ileus, unspecified; E78.00 Pure hypercholesterolemia, unspecified; E03.9 Hypothyroidism, unspecified; I12.9 Hypertensive chronic kidney disease with stage 1 through stage 4 chronic kidney disease, or unspecified chronic kidney disease; N18.32 Chronic kidney disease, stage 3b; K21.9 Gastro-esophageal reflux disease without esophagitis; G62.9 Polyneuropathy, unspecified; E66.09 Other obesity due to excess calories; I16.0 Hypertensive urgency; N40.0 Benign prostatic hyperplasia without lower urinary tract symptoms; K76.9 Liver disease, unspecified; Z71.3 Dietary counseling and surveillance; Z88.5 Allergy status to narcotic agent; Z88.8 Allergy status to other drugs, medicaments and biological substances; Z68.34 Body mass index [BMI] 34.0-34.9, adult; Z79.82 Long term (current) use of aspirin; Z85.828 Personal history of other malignant neoplasm of skin; Z79.890 Hormone replacement therapy; Z79.899 Other long term (current) drug therapy
CPT/HCPCS: 36415; 74177; 80048; 80053; 81001; 83690; 83735; 84100; 85025; 96360; 96361; 99285; J1650; J2543; J3480; J7030; Q9967

== ENCOUNTER 2023-12-05 17:56 | Emergency (ER) | payer OTHER ==
[2023-12-05 19:08] LABS: Absolute Basophils 0.1 K/uL (0-0.5); Absolute Eosinophils 0.2 K/uL (0-0.5); Absolute Lymphocytes (CBC) 1.4 K/uL (0.7-4.9); Absolute Monocytes 0.6 K/uL (0.1-1.3); Absolute Neutrophil 5.5 K/uL (1.8-8.0); Basophils % 0.7 % (0-1.3); Eosinophils % 2.5 % (0-4.4); Hematocrit 39.2 % (39.6-49.0); Hemoglobin 13.3 g/dL (13.6-17.9); Lymphocytes % 17.9 % (15.3-44.8); MCH 30.9 pg (27.0-35.0); MCV 90.9 fL (80-100); MPV 7.2 fL (7.6-11.3); Monocytes % 7.4 % (3.3-12.3); Neutrophils % 71.5 % (41.7-73.7); Nucleated Red Blood Cells % 0.1 % (0-0); Platelets 244 thou/uL (152-406); RBC Red Blood Cell Count 4.32 M/uL (4.33-5.43); Red Cell Distribution Width 14.3 % (12.1-15.2)
[2023-12-05 19:21] LABS: Specific Gravity > 1.030 (1.005-1.030); Sqamous Epithelial <5 /HPF (None Seen); Urine Bacteria None Seen /HPF (<20); Urine Bilirubin NEGATIVE (Negative); Urine Blood Negative (Negative); Urine Clarity Clear (Clear); Urine Color Yellow (Yellow); Urine Culture Reflex Order NOT NEEDED; Urine Glucose NEGATIVE (Negative); Urine Ketones TRACE (Negative); Urine Microscopic Reflex YN ORDER UMIC; Urine Mucus Slight /HPF (None Seen); Urine Nitrite NEGATIVE (Negative); Urine Protein TRACE (Negative); Urine RBC <5 /HPF (None Seen); Urine Urobilinogen 1+ (Normal); Urine WBC <5 /HPF (<5); Urine pH 5.5 (5.0-7.0)
[2023-12-05 19:27] LABS: Albumin 3.4 g/dL (3.4-5.0); Albumin/Globulin Ratio 0.9 (1.1-1.8); Anion Gap 8.6 mEq/L (5.0-15.0); Bilirubin Direct 0.2 mg/dL (0-0.2); Bilirubin Indirect, Calculated 0.4 mg/dL (0.2-0.8); Bilirubin Total 0.6 mg/dL (0.2-1.0); Globulin 3.8 g/dL (2.3-3.5); Magnesium 2.4 mg/dL (1.6-2.4); PT Prothrombin Time 11.5 SECONDS (9.5-12.5); PTT, Activated Partial Thromb 30.8 SECONDS (24.3-36.9); Potassium 3.6 mEq/L (3.5-5.1); Protein, Total 7.2 g/dL (6.4-8.2); Protime INR 1.05; Troponin High Sensitivity 7.5 pg/mL (<58.9)
--- NOTE | 2023-12-05 19:45 | RAD REPORT ---
EXAM DESCRIPTION: CT - Head Brain Wo Cont - 12/05/2023 7:39 pm CLINICAL HISTORY: Dizziness COMPARISON: 2021 TECHNIQUE: Computed axial tomography of the head was obtained. IV contrast was not requested. All CT scans are performed using dose optimization technique as appropriate and may include automated exposure control or mA/KV adjustment according to patient size. FINDINGS: An intracranial bleed is not seen The ventricles are normal in caliber No extra-axial fluid collection is noted. Prominent cerebral atrophy Mild to moderate low-density areas within periventricular, deep and subcortical white matter likely r epresent ischemic changes secondary to small vessel disease. Fluid within the sinuses/ mastoids is not seen. IMPRESSION: No acute intracranial abnormality is seen If patient's symptoms persist MRI of the brain would be recommended
--- NOTE | 2023-12-05 21:07 | ER ---
Nurse's Notes [facility] Name: Jonathan Segundo Age: 88 yrs Sex: Male : 1935 Arrival Date: 12/05/2023 Time: 17:56 Bed IW1 Private MD: Jose Huerta Diagnosis: Otitis media, unspecified, right ear;Weakness Presentation: 12/04 18:12 Chief complaint: Patient states: Generalized weakness, dizziness, blurred vision, R ear ph feels stopped up, feels like eyes are swollen, sinus pressure, states, " It has been going for a long time but it's been getting progressively worse.". Coronavirus screen: Vaccine status: Patient reports being unvaccinated. Ebola Screen: No symptoms or risks identified at this time. 18:12 Method Of Arrival: Wheelchair ph 18:16 Initial Sepsis Screen: Does the patient meet any 2 criteria? No. Patient's initial ph sepsis screen is negative. Does the patient have a suspected source of infection? No. Patient's initial sepsis screen is negative. Risk Assessment: Do you want to hurt yourself or someone else? Patient reports no desire to harm self or others. Onset of symptoms was December 05, 2023. 18:17 Acuity: ERIN 3 ph Triage Assessment: 18:17 General: Appears in no apparent distress. Behavior is calm, cooperative, appropriate ph for age. Pain: Denies pain. Neuro: Reports blurred vision dizziness. Historical: - Allergies: 18:14 Warfarin; ph 18:14 Xarelto; ph 18:14 Morphine; ph - PMHx: 18:14 High Cholesterol; Hypertension; Hypothyroidism; neuropathy; skin cancer; ph - PSHx: 18:14 removed cancer from ear and neck; ph - Immunization history:: Adult Immunizations unknown. - Infectious Disease History:: Denies. - Social history:: Smoking status: Patient denies any tobacco usage or history of. Screenin:31 [facility] ED Fall Risk Assessment (Adult) History of falling in the last 3 months, lg3 including since admission No falls in past 3 months (0 pts). Abuse screen: Denies threats or abuse. Denies injuries from another. Nutritional screening: No deficits noted. Tuberculosis screening: No symptoms or risk factors identified. Assessment: 21:31 General: Appears in no apparent distress. comfortable, Behavior is calm, cooperative. lg3 Pain: Complains of pain in right ear Pain does not radiate. Pain currently is 3 out of 10 on a pain scale. Quality of pain is described as pressure. Neuro: No deficits noted. Paiz Agitation-Sedation Scale (RASS): 0 - Alert and Calm Level of Consciousness is awake, alert, obeys commands, Oriented to person, place, time, situation. Cardiovascular: No deficits noted. Denies chest pain, shortness of breath, Capillary refill < 3 seconds Clubbing of nail beds is absent JVD is absent Patient's skin is warm and dry. Respiratory: No deficits noted. Airway is patent Respiratory effort is even, unlabored, Respiratory pattern is regular, symmetrical. GI: No deficits noted. No signs and/or symptoms were reported involving the gastrointestinal system. : No deficits noted. No signs and/or symptoms were reported regarding the genitourinary system. EENT: Reports pain in right ear. Derm: No deficits noted. No signs and/or symptoms reported regarding the dermatologic system. Skin is intact, is thin, Skin is dry, Skin is normal, Skin temperature is warm. Musculoskeletal: No deficits noted. No signs and/or symptoms reported regarding the musculoskeletal system. Circulation, motion, and sensation intact. Range of motion: intact in all extremities. Vital Signs: 18:15 BP 114 / 66; Pulse 87; Resp 18; Temp 97.4; Pulse Ox 96% on R/A; Weight 97.07 kg; Height ph 5 ft. 11 in. ; 21:31 BP 119 / 67; Pulse 81; Resp 17 S; Temp 96.8(TE); Pulse Ox 97% on R/A; lg3 18:15 Body Mass Index 29.85 (97.07 kg, 180.34 cm) ph ED Course: 17:59 Patient arrived in ED. rg4 18:00 Tru Hernandez DO is Private Physician. rg4 18:00 Jose Huerta MD is Private Physician. rg4 18:17 Triage completed. ph 18:17 Arm band placed on. ph 18:19 [facility]C [facility] kb 18:19 Lee Khan DO is Attending Physician. kb 18:59 Basic Metabolic Panel Sent. bc6 18:59 CBC with Diff Sent. bc6 18:59 Hepatic Function Sent. bc6 18:59 Magnesium Sent. bc6 18:59 Protime (+inr) Sent. bc6 19:00 Ptt, Activated Sent. bc6 19:00 Troponin High Sensitivity Sent. bc6 19:00 Initial lab(s) drawn, by me, sent to lab. Inserted saline lock: 22 gauge in left wrist, bc6 using aseptic technique. Blood collected. 19:13 Urinalysis w/ reflexes Sent. bc6 19:41 CT Head Brain wo Cont In Process Unspecified. EDMS 21:06 Jose Huerta MD is Referral Physician. kb 21:31 Patient has correct armband on for positive identification. lg3 21:31 No provider procedures requiring assistance completed. IV discontinued, intact, lg3 bleeding controlled, No redness/swelling at site. Pressure dressing applied. Administered Medications: 21:30 Drug: Amoxicillin-Clavulanate PO 875 mg PO once Route: PO; lg3 Medication: 21:31 VIS not applicable for this client. lg3 Outcome: 21:06 Discharge ordered by . kb 21:31 Discharged to home via wheelchair, with family, lg3 21:31 Condition: stable 21:31 Discharge instructions given to patient, Instructed on discharge instructions, follow up and referral plans. medication usage, Demonstrated understanding of instructions, follow-up care, medications, Prescriptions given X 1, 21:33 Patient left the ED. lg3 Signatures: Dispatcher [employer] EDKS Jeanie Roman, FUNERAL SALES MANAGER-C FUNERAL SALES MANAGER-Allyssa Villar RN RN Marge Gonzalez 4 Shilpa Pearl RN RN lg3 Janett Dempsey 6 Corrections: (The following items were deleted from the chart) 18:17 18:15 Resp 18bpm; Temp 97.4F; 97.07 kg; Height 5 ft. 11 in.; BMI: 29.8; ph ph
--- NOTE | 2023-12-05 21:08 | EDPHYS ---
Physician Documentation [facility] Name: Jonathan Segundo Age: 88 yrs Sex: Male : 1935 Arrival Date: 12/05/2023 Time: 17:56 Bed IW1 Private MD: Jose Huerta ED Physician Lee Khan HPI: 12/04 21:53 This 88 yrs old Male presents to ER via Wheelchair with complaints of Vision Problem, kb Dizziness. 21:53 Pt is an 88 year old male who presents for dizziness, weakness, right ear kb pain/fullness, watery eyes with blurred vision that all started over a month ago. States his 2 weeks ago so he was caring for her instead of himself at the end. Denies chest pain, shortness of breath, syncope. States his vision has been declining for some time, but seems to be getting worse. "I don't know if it's just a sinus infection or if I have a brain tumor.". Historical: - Allergies: 18:14 Warfarin; ph 18:14 Xarelto; ph 18:14 Morphine; ph - PMHx: 18:14 High Cholesterol; Hypertension; Hypothyroidism; neuropathy; skin cancer; ph - PSHx: 18:14 removed cancer from ear and neck; ph - Immunization history:: Adult Immunizations unknown. - Infectious Disease History:: Denies. - Social history:: Smoking status: Patient denies any tobacco usage or history of. ROS: 21:52 Constitutional: As per HPI kb Exam: 21:52 Constitutional: This is a well developed, well nourished patient who is awake, alert, kb and in no acute distress. Head/Face: Normocephalic, atraumatic. Cardiovascular: Regular rate Respiratory: Respirations even and unlabored. No increased work of breathing. Talking in full sentences Abdomen/GI: Soft, non-tender. No distention Skin: Warm, dry with normal turgor. Normal color. MS/ Extremity: Pulses equal, no cyanosis. Neurovascular intact. Full, normal range of motion. Neuro: Awake and alert, GCS 15, oriented to person, place, time, and situation. Moves all extremities. 21:52 ENT: External ear(s): are unremarkable, Ear canal(s): purulent discharge, that is moderate, in the right canal, TM's: erythema, that is mild, on the right, PE tubes visualized. PE tubes patent, intact, draining in ear canal Examination of the other ear shows no obvious abnormality, Vital Signs: 18:15 BP 114 / 66; Pulse 87; Resp 18; Temp 97.4; Pulse Ox 96% on R/A; Weight 97.07 kg; Height ph 5 ft. 11 in. ; 21:31 BP 119 / 67; Pulse 81; Resp 17 S; Temp 96.8(TE); Pulse Ox 97% on R/A; lg3 18:15 Body Mass Index 29.85 (97.07 kg, 180.34 cm) ph MDM: 18:19 Patient medically screened. kb 21:53 Differential diagnosis: otitis media, otitis externa, sinusitis, dehydration, abnormal kb electrolytes. Data reviewed: vital signs, nurses notes. Counseling: I had a detailed discussion with the patient and/or guardian regarding the historical points, exam findings, and any diagnostic results supporting the discharge/admit diagnosis, lab results, radiology results, the need for outpatient follow up, a family practitioner, to return to the emergency department if symptoms worsen or persist or if there are any questions or concerns that arise at home. 12/04 18:27 Order name: Basic Metabolic Panel; Complete Time: 19:49 kb 12/04 18:27 Order name: CBC with Diff; Complete Time: 19:16 kb 12/04 18:27 Order name: Hepatic Function; Complete Time: 19:49 kb 12/04 18:27 Order name: Magnesium; Complete Time: 19:49 kb 12/04 18:27 Order name: Protime (+inr); Complete Time: 19:49 kb 12/04 18:27 Order name: Ptt, Activated; Complete Time: 19:49 kb 12/04 18:27 Order name: Troponin High Sensitivity; Complete Time: 19:49 kb 12/04 18:27 Order name: Urinalysis w/ reflexes; Complete Time: 19:26 kb 12/04 18:27 Order name: CT Head Brain wo Cont; Complete Time: 19:49 kb 12/04 18:27 Order name: EKG - Nurse/Tech; Complete Time: 19:13 kb 12/04 18:27 Order name: IV Saline Lock; Complete Time: 18:59 kb 12/04 18:27 Order name: Labs collected and sent; Complete Time: 18:59 kb 12/04 18:27 Order name: NPO; Complete Time: 18:59 kb 12/04 18:27 Order name: O2 Per Protocol; Complete Time: 21:23 kb 12/04 18:27 Order name: O2 Sat Monitoring; Complete Time: 21:23 kb Administered Medications: 21:30 Drug: Amoxicillin-Clavulanate PO 875 mg PO once Route: PO; lg3 Disposition Summary: 12/05/23 21:06 Discharge Ordered Notes: Location: Home kb Condition: Stable kb Diagnosis - Otitis media, unspecified, right ear kb - Weakness kb Followup: kb - With: Emergency Department - When: As needed - Reason: Worsening of condition Followup: kb - With: Jose Huerta MD - When: 2 - 3 days - Reason: Recheck today's complaints, Continuance of care, Re-evaluation by your physician Discharge Instructions: - Discharge Summary Sheet kb - Otitis Media, Adult, [id number] kb - Weakness, [id number]-Peea kb Forms: - Medication Reconciliation Form kb - Thank You Letter kb - Antibiotic Education kb - Prescription Opioid Use kb - Patient Portal Instructions kb - Leadership Thank You Letter kb Prescriptions: - Amoxicillin 875 mg Oral Tablet - take 1 tablet ORAL route every 12 hours for 10 days; 20 tablet; Refills: 0, kb Product Selection Permitted Addendum: 12/07/2023 12:22 I was immediately available on-site in the Emergency Department for consultation in the m s3 care of the patient. Signatures: Dispatcher [employer] EDJeanie Porter, LAWN SPRINKLER INSTALLER-C LAWN SPRINKLER INSTALLER-CkAllyssa Page, RN RN ph AbleShilpa, RN RN lg3 Lee Khan DO DO ms3 Shruthi Lara, RN RN vc1 Corrections: (The following items were deleted from the chart) 12/04 18:28 18:28 BASIC METABOLIC PANEL+C.LAB.BRZ ordered. EDMS EDMS 18:28 18:28 CBC+H.LAB.BRZ ordered. EDMS EDMS 18:28 18:28 HEPATIC FUNCTION+C.LAB.BRZ ordered. EDMS EDMS 18:28 18:28 MAGNESIUM+C.LAB.BRZ ordered. EDMS EDMS 18:28 18:28 PROTIME (+INR)+COAG.LAB.BRZ ordered. EDMS EDMS 18:28 18:28 PTT, ACTIVATED+COAG.LAB.BRZ ordered. EDMS EDMS 18:28 18:28 Troponin High Sensitivity+C.LAB.BRZ ordered. EDMS EDMS 18:28 18:28 Urinalysis+U.LAB.BRZ ordered. EDMS EDMS 18:28 18:28 Head Brain Wo Cont+CT.RAD.BRZ ordered. EDMS EDMS 21:23 18:27 Cardiac monitoring ordered. kb lg3 21:53 21:52 Constitutional: This is a well developed, well nourished patient who is awake, kb alert, and in no acute distress. Head/Face: Normocephalic, atraumatic. Cardiovascular: Regular rate Respiratory: Respirations even and unlabored. No increased work of breathing. Talking in full sentences Abdomen/GI: Soft, non-tender. No distention Skin: Warm, dry with normal turgor. Normal color. MS/ Extremity: Pulses equal, no cyanosis. Neurovascular intact. Full, normal range of motion. Neuro: Awake and alert, GCS 15, oriented to person, place, time, and situation. Moves all extremities. Normal gait. kb
[2023-12-05] MEDS ORDERED: AMOX/K CLAV 875 MG TAB ONE (21:24)
[2023-12-06 05:18] VITALS: BP 119/67; TEMP 96.8; O2SAT 97
--- NOTE | 2023-12-06 13:29 | EKG ---
Test Date: 2023-12-05 Test Time: 19:19:07 Instrument And Controls Technician: TIFFANI MEASUREMENT RESULTS: Intervals: Rate: 80 MN: QRSD: 86 QT: 390 QTc: 449 [place]: P: MN: QRS: 2 T: 26 INTERPRETIVE STATEMENTS: Atrial fibrillation Abnormal ECG Compared to ECG 04/28/2022 10:45:32 T-wave abnormality no longer present Electronically Signed On 12-06-23 13:27:15 CDT by Dante Addison
--- NOTE | 2023-12-06 13:29 | EKG ---
Test Date: 2023-12-05 Test Time: 19:19:56 Resident Care Manager Rn: TIFFANI MEASUREMENT RESULTS: Intervals: Rate: 75 UT: QRSD: 84 QT: 392 QTc: 437 [place]: P: UT: QRS: -2 T: 34 INTERPRETIVE STATEMENTS: Atrial fibrillation with a competing junctional pacemaker Abnormal ECG Compared to ECG 12/05/2023 19:19:07 No significant changes Electronically Signed On 12-06-23 13:27:14 CDT by Dante Addison
== END 2023-12-05 21:33 | disposition home or self-care (01) ==
LOC: ER 17:56
DX: H66.91 Otitis media, unspecified, right ear (principal); R53.1 Weakness; Z88.5 Allergy status to narcotic agent; Z88.8 Allergy status to other drugs, medicaments and biological substances
CPT/HCPCS: 36415; 70450; 80048; 80076; 81001; 83735; 84484; 85025; 85610; 85730; 93005; 99284

== ENCOUNTER 2023-12-27 10:49 | Observation (INO) | payer OTHER ==
[2023-12-27 11:43] LABS: Absolute Basophils 0.1 K/uL (0-0.5); Absolute Eosinophils 0.2 K/uL (0-0.5); Absolute Lymphocytes (CBC) 1.3 K/uL (0.7-4.9); Absolute Monocytes 0.4 K/uL (0.1-1.3); Absolute Neutrophil 5.3 K/uL (1.8-8.0); Basophils % 1.3 % (0-1.3); Eosinophils % 2.3 % (0-4.4); Hematocrit 38.2 % (39.6-49.0); Hemoglobin 12.8 g/dL (13.6-17.9); Lymphocytes % 17.7 % (15.3-44.8); MCH 30.9 pg (27.0-35.0); MCHC 33.5 g/dL (32.0-36.0); MCV 92.3 fL (80-100); Monocytes % 5.8 % (3.3-12.3); Neutrophils % 72.9 % (41.7-73.7); Platelets 221 thou/uL (152-406); RBC Red Blood Cell Count 4.14 M/uL (4.33-5.43)
[2023-12-27 12:03] LABS: Albumin 3.3 g/dL (3.4-5.0); Anion Gap 10.1 mEq/L (5.0-15.0); Bilirubin Direct 0.1 mg/dL (0-0.2); Bilirubin Indirect, Calculated 0.3 mg/dL (0.2-0.8); Bilirubin Total 0.4 mg/dL (0.2-1.0); Globulin 3.2 g/dL (2.3-3.5); Magnesium 2.2 mg/dL (1.6-2.4); Potassium 4.1 mEq/L (3.5-5.1); Protein, Total 6.5 g/dL (6.4-8.2); Troponin High Sensitivity 5.2 pg/mL (<58.9)
--- NOTE | 2023-12-27 12:27 | RAD REPORT ---
EXAM DESCRIPTION: RADChest Single View12/27/2023 12:19 pm CLINICAL HISTORY: weakness COMPARISON: Chest Single View dated 04/28/2022; Chest Single View dated 10/29/2021; Chest Single View dated 07/24/2021; Chest Single View dated 09/06/2018 TECHNIQUE: Portable AP view of the chest. FINDINGS: Bilateral basilar streaky atelectatic changes. The lungs are otherwise clear. No pneumoth orax or effusion. The cardiomediastinal contours are unremarkable. IMPRESSION: No acute cardiopulmonary process.
[2023-12-27] MEDS ORDERED: MECLIZINE HCL 12.5 MG TAB ONE (12:47)
--- NOTE | 2023-12-27 14:28 | ER ---
Nurse's Notes [facility] Name: Jonathan Segundo Age: 88 yrs Sex: Male : 1935 Arrival Date: 12/27/2023 Time: 10:49 Bed 16 Private MD: Diagnosis: Dizziness;Other fatigue Presentation: 12/26 11:01 Chief complaint: Generalized weakness x 2 weeks. Coronavirus screen: At this time, the hb client does not indicate any symptoms associated with coronavirus-19. Ebola Screen: No symptoms or risks identified at this time. Initial Sepsis Screen: Does the patient meet any 2 criteria? No. Patient's initial sepsis screen is negative. Does the patient have a suspected source of infection? No. Patient's initial sepsis screen is negative. Risk Assessment: Do you want to hurt yourself or someone else? Patient reports no desire to harm self or others. Onset of symptoms was December 13, 2023. 11:01 Method Of Arrival: Ambulatory hb 11:01 Acuity: ERIN 3 hb Triage Assessment: 11:03 General: Appears in no apparent distress. Behavior is calm, cooperative. Pain: Pain hb currently is 3 out of 10 on a pain scale. Neuro: Level of Consciousness is awake, alert, obeys commands, Oriented to person, place, time, situation. Cardiovascular: Patient's skin is warm and dry. Respiratory: Respiratory effort is even, unlabored, Respiratory pattern is regular, symmetrical. Historical: - Allergies: 11:03 Warfarin; hb 11:03 Xarelto; hb 11:03 Morphine; hb - PMHx: 11:03 High Cholesterol; Hypertension; neuropathy; skin cancer; Hypothyroidism; hb - PSHx: 11:03 removed cancer from ear and neck; hb - Immunization history:: Adult Immunizations up to date. - Infectious Disease History:: Denies. - Social history:: Smoking status: Patient denies any tobacco usage or history of. Screenin:25 [facility] ED Fall Risk Assessment (Adult) History of falling in the last 3 months, ko1 including since admission No falls in past 3 months (0 pts) Confusion or Disorientation No (0 pts) Intoxicated or Sedated No (0 pts) Impaired Gait No (0 pts) Mobility Assist Device Used No (0 pt) Altered Elimination No (0 pt) Score/Fall Risk Level 0 - 2 = Low Risk Oriented to surroundings, Maintained a safe environment, Educated pt \T\ family on fall prevention, incl call for assistance when getting out of bed, Assessed \T\ reinforced patient's understanding of fall precautions, Provided non-skid footwear, Hourly rounding (assess needs \T\ fall precautionary measures) done, Used ambulatory aids as needed (educated on \T\ assisted with), Used gait belt as appropriate. Abuse screen: Denies threats or abuse. Denies injuries from another. Nutritional screening: No deficits noted. Tuberculosis screening: No symptoms or risk factors identified. Assessment: 11:25 General: Appears in no apparent distress. ill, Behavior is calm, cooperative, ko1 appropriate for age. Pain: Denies pain. Neuro: Reports weakness in generalized. Cardiovascular: No deficits noted. Respiratory: No deficits noted. GI: No deficits noted. : No deficits noted. EENT: Reports decreased hearing in right ear loosing vision over the past year. Derm: No deficits noted. Musculoskeletal: Reports weakness in generalized. 15:24 General: Appears comfortable, well groomed, well developed, well nourished, Behavior is me1 calm, cooperative, appropriate for age. Pain: Denies pain. Pain: Denies pain. Neuro: Level of Consciousness is awake, alert, obeys commands, Oriented to person, place, time, situation, Appropriate for age. Cardiovascular: Capillary refill < 3 seconds Patient's skin is warm and dry. Respiratory: Airway is patent Respiratory effort is even, unlabored, Respiratory pattern is regular, symmetrical. GI: No signs and/or symptoms were reported involving the gastrointestinal system. : No signs and/or symptoms were reported regarding the genitourinary system. EENT: No signs and/or symptoms were reported regarding the EENT system. Derm: Skin is intact, Skin is pink, warm \T\ dry. Musculoskeletal: No signs and/or symptoms reported regarding the musculoskeletal system. 16:23 General: Dr Valverde at bedside and aware of patient's elevated bp. Ok to transfer to the [facility] floor with this bp.. 16:27 General: No call on 2nd floor at this time. Patient being transferred up to floor by [facility] tech at this time.. Vital Signs: 11:01 BP 139 / 80; Pulse 87; Resp 16; Temp 98(O); Pulse Ox 99% on R/A; Weight 97.07 kg; hb Height 5 ft. 11 in. ; Pain 2/10; 11:25 BP 146 / 84; Pulse 85; Resp 16; Pulse Ox 100% ; ko1 14:30 BP 156 / 98; Pulse 88; Resp 18; Pulse Ox 97% ; ko1 15:15 BP 133 / 85; Pulse 83; Resp 16; Pulse Ox 99% on R/A; me1 16:19 BP 171 / 102; Pulse 86; Resp 16; Pulse Ox 98% on R/A; me1 11:01 Body Mass Index 29.85 (97.07 kg, 180.34 cm) hb 11:01 Pain Scale: Adult hb ED Course: 10:51 Patient arrived in ED. im 10:55 Felecia Almonte, RN is Primary Nurse. ko1 11:02 Triage completed. hb 11:04 Arm band placed on. hb 11:10 Lee Khan DO is Attending Physician. ms3 11:25 Patient has correct armband on for positive identification. Allergy band placed. Placed ko1 in gown. Bed in low position. Call light in reach. Side rails up X2. Client placed on continuous cardiac and pulse oximetry monitoring. NIBP monitoring applied. cardiac monitor technician on. Door closed. Noise minimized. Lights dimmed. Warm blanket given. 11:25 No provider procedures requiring assistance completed. ko1 11:40 Basic Metabolic Panel Sent. ko1 11:40 CBC with Diff Sent. ko1 11:40 LFT's Sent. ko1 11:40 Magnesium Sent. ko1 11:40 Troponin HS Sent. ko1 11:40 Initial lab(s) drawn, by ak, sent to lab. EKG done, by ED staff, reviewed by Lee Khan DO. Inserted saline lock: 22 gauge in left antecubital area, using aseptic technique. Blood collected. 11:59 Warm blanket given. ko1 12:21 XRAY Chest (1 view) In Process Unspecified. EDMS 13:34 Verbal reassurance given. went to the waiting room to get patients daughter per his ko1 request. 14:26 Jose Huerta MD is Hospitalizing Provider. ms3 15:07 Brain Wo Cont In Process Unspecified. EDMS 16:04 Provided Education on: POC. Verbalized understanding.. me1 16:04 Patient admitted, IV remains in place. me1 Administered Medications: 12:49 Drug: Meclizine PO 50 mg PO once Route: PO; ko1 13:20 Follow up: Response: No adverse reaction ko1 Medication: 11:25 VIS not applicable for this client. ko1 Outcome: 14:27 Decision to Hospitalize by Provider. ms3 16:02 Admitted to Med/surg accompanied by tech, room 217, with chart, Report called to faxed me1 report at 15:59. Called floor at 16:00 to confirm receipt of fax- no answer 16:02 Condition: stable 16:37 Patient left the ED. me1 Signatures: Dispatcher [employer] EDMariaelena Polo RN RN Lee Jones DO DO ms3 Felecia Almonte, RN RN ko1 Orin Panchal Michelle, RN RN me1
--- NOTE | 2023-12-27 14:28 | EDPHYS ---
Physician Documentation [facility] Name: Jonathan Segundo Age: 88 yrs Sex: Male : 1935 Arrival Date: 12/27/2023 Time: 10:49 Bed 16 Private MD: ED Physician Lee Khan HPI: 12/26 12:35 This 88 yrs old Male presents to ER via Ambulatory with complaints of General Weakness. ms3 12:35 88-year-old male with past medical history of hyperlipidemia, hypertension, neuropathy, ms3 skin cancer, hypothyroidism presents to the emergency department for dizziness and weakness and decreased vision that has been ongoing and progressing for 1 year. Patient states over the last week he has noted to become more unstable on his feet. Patient denies pain. Patient denies any alleviating or inciting factors.. Historical: - Allergies: 11:03 Warfarin; hb 11:03 Xarelto; hb 11:03 Morphine; hb - PMHx: 11:03 High Cholesterol; Hypertension; neuropathy; skin cancer; Hypothyroidism; hb - PSHx: 11:03 removed cancer from ear and neck; hb - Immunization history:: Adult Immunizations up to date. - Infectious Disease History:: Denies. - Social history:: Smoking status: Patient denies any tobacco usage or history of. ROS: 12:35 Constitutional: Positive for generalized weakness and fatigue Neck: Negative for ms3 injury, pain, and swelling, Cardiovascular: Negative for chest pain, and palpitations. Respiratory: Negative for shortness of breath, cough, wheezing, and pleuritic chest pain, Abdomen/GI: Negative for abdominal pain, nausea, vomiting, diarrhea, and constipation, Skin: Negative for injury, rash, and discoloration, Exam: 12:35 Constitutional: This is a well developed, well nourished patient who is awake, alert, ms3 and in no acute distress. Head/Face: Normocephalic, atraumatic. Chest/axilla: Normal chest wall appearance and motion. Nontender with no deformity. Cardiovascular: Regular rate and rhythm with a normal S1 and S2. No gallops, murmurs, or rubs. Normal PMI, no JVD. No pulse deficits. Respiratory: Lungs have equal breath sounds bilaterally, clear to auscultation and percussion. No rales, rhonchi or wheezes noted. No increased work of breathing, no retractions or nasal flaring. Abdomen/GI: Soft, non-tender, with normal bowel sounds. No distension or tympany. No guarding or rebound. No evidence of tenderness throughout. Skin: Warm, dry with normal turgor. Normal color with no rashes, no lesions, and no evidence of cellulitis. MS/ Extremity: Pulses equal, no cyanosis. Neurovascular intact. Full, normal range of motion. 12:35 Neuro: Orientation: is normal, to person, place, time \T\ situation. Mentation: is normal, Memory: is normal, Cranial nerves: CN I not tested, CN II- XII are normal as tested, Cerebellar function: normal finger to nose testing, Motor: is normal, Sensation: is normal, 14:02 ECG was reviewed by the Attending Physician. ms3 Vital Signs: 11:01 BP 139 / 80; Pulse 87; Resp 16; Temp 98(O); Pulse Ox 99% on R/A; Weight 97.07 kg; hb Height 5 ft. 11 in. ; Pain 2/10; 11:25 BP 146 / 84; Pulse 85; Resp 16; Pulse Ox 100% ; ko1 14:30 BP 156 / 98; Pulse 88; Resp 18; Pulse Ox 97% ; ko1 15:15 BP 133 / 85; Pulse 83; Resp 16; Pulse Ox 99% on R/A; me1 16:19 BP 171 / 102; Pulse 86; Resp 16; Pulse Ox 98% on R/A; me1 11:01 Body Mass Index 29.85 (97.07 kg, 180.34 cm) hb 11:01 Pain Scale: Adult hb MDM: 11:27 Patient medically screened. ms3 12:35 Differential diagnosis: cardiac arrhythmia, CVA, generalized weakness, vertigo. ms3 14:28 Data reviewed: vital signs, nurses notes, lab test result(s), radiologic studies, and ms3 as a result, I will admit patient. Consideration of Admission/Observation Patient was admitted/placed on observation. Management of patient was discussed with the following: Hospitalist: Dr Huerta. I considered the following discharge prescriptions or medication management in the emergency department. Independent interpretation of the following test(s) in the Emergency Department EKG: See my EKG interpretation above monitoring manager: rate is 83 beats/min, Rhythm is atrial fibrillation, with no ectopy, Interpretation: normal rate, atrial fibrillation. Counseling: I had a detailed discussion with the patient and/or guardian regarding the historical points, exam findings, and any diagnostic results supporting the discharge/admit diagnosis, lab results, the need for further work-up and treatment in the hospital. ED course: Discussed case with Dr. Huerta. He would like patient placed in observation. Discussed observation with patient. He understands and agrees with plan.. 12/26 11:28 Order name: Basic Metabolic Panel; Complete Time: 12:30 ms3 12/26 11:28 Order name: CBC with Diff; Complete Time: 12:30 ms3 12/26 11:28 Order name: LFT's; Complete Time: 12:30 ms3 12/26 11:28 Order name: Magnesium; Complete Time: 12:30 ms3 12/26 11:28 Order name: Troponin HS; Complete Time: 12:30 ms3 12/26 15:36 Order name: CBC with Automated Diff EDMS 12/26 15:36 Order name: CBC with Automated Diff EDMS 12/26 11:28 Order name: XRAY Chest (1 view); Complete Time: 12:30 ms3 12/26 12:36 Order name: Brain Wo Cont; Complete Time: 15:34 EDMS 12/26 11:28 Order name: EKG; Complete Time: 11:28 ms3 12/26 11:28 Order name: Cardiac monitoring; Complete Time: 11:28 ms3 12/26 11:28 Order name: EKG - Nurse/Tech; Complete Time: 11:29 ms3 12/26 11:28 Order name: IV Saline Lock; Complete Time: 11:40 ms3 12/26 11:28 Order name: Labs collected and sent; Complete Time: 11:40 ms3 12/26 11:28 Order name: O2 Per Protocol; Complete Time: 11:29 ms3 12/26 11:28 Order name: O2 Sat Monitoring; Complete Time: 11:29 ms3 EC:02 Rate is 90 beats/min. Rhythm is irregularly irregular. QRS Center [place] is Normal. QRS interval ms3 is normal. Clinical impression: Atrial Fibrillation. Interpreted by me. Reviewed by me. Administered Medications: 12:49 Drug: Meclizine PO 50 mg PO once Route: PO; ko1 13:20 Follow up: Response: No adverse reaction ko1 Disposition Summary: 12/27/23 14:27 Hospitalization Ordered Notes: Hospitalization Status: Observation ms3 Provider: Jose Huerta ms3 Location: Telemetry/MedSurg (observation) ms3 Condition: Stable ms3 Problem: new ms3 Symptoms: are unchanged ms3 Bed/Room Type: Standard ms3 Room Assignment: 217(12/27/23 15:48) bd Diagnosis - Dizziness ms3 - Other fatigue ms3 Forms: - Medication Reconciliation Form ms3 - SBAR form ms3 - Leadership Thank You Letter ms3 Signatures: Dispatcher [employer] EDMS Ana Guthrie bd Mariaelena Linares, ANITA RN Lee Jones DO DO ms3 Felecia Almonte RN RN ko1 Corrections: (The following items were deleted from the chart) 11:28 11:28 BASIC METABOLIC PANEL+C.LAB.BRZ ordered. EDMS EDMS 11:28 11:28 CBC+H.LAB.BRZ ordered. EDMS EDMS 11:28 11:28 HEPATIC FUNCTION+C.LAB.BRZ ordered. EDMS EDMS 11:28 11:28 MAGNESIUM+C.LAB.BRZ ordered. EDMS EDMS 11:28 11:28 Troponin High Sensitivity+C.LAB.BRZ ordered. EDMS EDMS 12:34 12:32 MR STROKE PROTOCOL+MRI.RAD.BRZ ordered. EDMS EDMS 15:48 14:27 ms3 bd
--- NOTE | 2023-12-27 15:32 | RAD REPORT ---
EXAM DESCRIPTION: MRI - Brain Wo Cont - 12/27/2023 3:05 pm CLINICAL HISTORY: Dizziness COMPARISON: Head CT December 14, 2023 TECHNIQUE: Axial, sagittal, and coronal magnetic resonance images of the brain were obtained. FINDINGS: Moderate signal within periventricular, deep and subcortical white matter probably ischemi c changes secondary to small vessel disease. Mild cerebral Diffusion-weighted/ADC mapping does not reveal evidence of acute infarction. The ventricles are normal caliber. An extra-axial fluid collection is not noted. 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
[2023-12-27] MEDS ORDERED: HYDRALAZINE HCL 20 MG/ML VIAL IV PRN (16:40)
[2023-12-27 16:49] VITALS: O2SAT 98
[2023-12-27] MEDS: ENOXAPARIN 40 MG/0.4 ML SQ SCH (17:00)
--- NOTE | 2023-12-27 17:05 | P.HP ---
Certification for Inpatient Patient admitted to: Observation With expected LOS: <2 Midnights Patient will require the following post-hospital care: Home Health Services Practitioner: I am a practitioner with admitting privileges, knowledge of patient current condition, hospital course, and medical plan of care. Services: Services provided to patient in accordance with Admission requirements found in Title 42 Section 412.3 of the Code of Federal Regulations Patient History Date of Service: 12/27/23 Primary Care Provider: Deanna Reason for admission: hypertensive urgency History of Present Illness: Patient is a office patient of [facility]. With a history of melanoma, atrial fib and hypothyroidism. He lost his of over 60years last month. Has been coming to the office with dizziness and seasonal allergy symptoms regularly. He feels dizzy and is scared of falling. He has not fallen. He thinks there is something really wrong like a tumor. However he has had a negative brain MRI in the ER. His daughter is present. States he has been crying, sleeping poorly, not as active as he was. The patient was taking care of his 's health for the past few years. He has not voiced any suicidal thoughts or plans Allergies morphine Allergy (Verified 09/06/18 13:44) Unknown rivaroxaban [From Xarelto] Allergy (Verified 04/28/22 13:04) Hives/Rash warfarin [From Coumadin] Allergy (Verified 04/28/22 13:04) Rash Home Medications: Fluticasone [Flonase 50MCG Nasal [place]*] 2 spray .ROUTE DAILY 09/06/18 Albuterol Inhaler [Ventolin Inhaler*] 2 g IN DAILY 03/12/23 Aspirin [Aspirin EC 81 MG] 80 mg PO DAILY 03/12/23 Bimatoprost [Lumigan Opthalmic Drops*] 1 drop OP BEDTIME 03/12/23 Carvedilol [Coreg] 1 tab PO BID 03/12/23 Finasteride 0.5 mg PO DAILY 03/12/23 Levothyroxine [Synthroid*] 1 tab PO DAILY 03/12/23 Montelukast [Singulair*] 1 tab PO DAILY 03/12/23 Polyethylene Glycol 3350 [Miralax] 1 cap PO DAILY 03/12/23 Tamsulosin HCl 1 tab PO BEDTIME 03/12/23 Wheat Dextrin [Benefiber] 2 tbsp PO DAILY 03/12/23 Amox/Clavulanate [Augmentin 875-125 Tab] 875 mg PO BID 10 Days #20 tab 03/13/23 - Past Medical/Surgical History Diabetic: No -: htn -: hyperlipidemia -: hypothyroid -: neuropathy -: AFIB -: back surg -: lap appy -: R knee repair -: TURP -: skin CA removed from anterior head -: CA SURGERY RT EAR - Family History Brother -: Heart disease, Hypertension, Cancer - Social History Alcohol use: No CD- Drugs: No Caffeine use: Yes Review of Systems 10-point ROS is otherwise unremarkable General: Weakness Neurological: Other (dizziness) Other: crying, decreased physical activity Physical Examination - Vital Signs Temperature: 98 F Blood Pressure: 171/102 Pulse: 86 Respirations: 16 - Physical Exam General: Alert, In no apparent distress HEENT: Atraumatic, PERRLA, Mucous membr. moist/pink, EOMI, Sclerae nonicteric Neck: Supple, 2+ carotid pulse no bruit, No LAD, Without JVD or thyroid abnormality Respiratory: Clear to auscultation bilaterally, Normal air movement Cardiovascular: Regular rate/rhythm, Normal S1 S2 Gastrointestinal: Normal bowel sounds, No tenderness Musculoskeletal: No tenderness Integumentary: No rashes Neurological: Normal gait, Normal speech, Normal strength at 5/5 x4 extr, Normal tone, Normal affect Lymphatics: No axilla or inguinal lymphadenopathy - Studies Laboratory Data (last 24 hrs) 12/27/23 12/27/23 11:35 11:35 WBC 7.20 Hgb 12.8 L Hct 38.2 L Plt Count 221 Sodium 141 Potassium 4.1 BUN 21 H Creatinine 1.35 H Glucose 124 H Magnesium 2.2 Total Bilirubin 0.4 AST 14 L ALT 18 Alkaline Phosphatase 61 Assessment and Plan - Problems (Diagnosis) (1) Hypertensive urgency Current Visit: Yes Status: Acute Plan: will control with hydralazine. Goal is bp below 160/90 (2) Adjustment disorder with depressed mood Current Visit: Yes Status: Acute Plan: start the patient on buproprion. He has 3 adult children and several grandchildren. So good social support. No suicidal thoughts (3) Moderate protein-energy malnutrition Current Visit: Yes Status: Acute Plan: consult PT. Will most likely need home PT (4) Atrial fib/flutter, transient Current Visit: Yes Status: Chronic Plan: rate controlled with carvedilol (5) Hypothyroidism Current Visit: Yes Status: Acute Plan: restart home dosage of levothyroxine and check his tsh Qualifiers: Hypothyroidism type: unspecified Qualified Code(s): E03.9 - Hypothyroidism, unspecified (6) Seasonal allergies Current Visit: Yes Status: Chronic Plan: restart montelukast and fluticasone. Will add ketorlac opthalm Discharge Plan: Home Plan to discharge in: 24 Hours - Advance Directives Does patient have a Living Will: No Does patient have a Durable POA for Healthcare: No - Code Status/Comfort Care Code Status Assessed: No Physician Review: Patient Assessed, Agree with Above Assessment and Plan Critical Care: No Time Spent Managing Pts Care (In Minutes): 45
[2023-12-27 17:23] VITALS: BMI 29.8
[2023-12-27] MEDS: HOME MED [BIMATOPROST OPHTH DROPS/2.5 ML BTL] OPTH SCH (21:00)
[2023-12-27] MEDS: carvediloL 3.125 MG TAB PO SCH (21:48)
[2023-12-28 04:21] LABS: Absolute Basophils 0.1 K/uL (0-0.5); Absolute Eosinophils 0.2 K/uL (0-0.5); Absolute Lymphocytes (CBC) 1.5 K/uL (0.7-4.9); Absolute Monocytes 0.5 K/uL (0.1-1.3); Absolute Neutrophil 4.5 K/uL (1.8-8.0); Basophils % 0.8 % (0-1.3); Eosinophils % 2.4 % (0-4.4); Hematocrit 37.4 % (39.6-49.0); Hemoglobin 12.9 g/dL (13.6-17.9); Lymphocytes % 22.2 % (15.3-44.8); MCH 31.8 pg (27.0-35.0); MCHC 34.5 g/dL (32.0-36.0); MCV 92.1 fL (80-100); MPV 7.3 fL (7.6-11.3); Monocytes % 7.9 % (3.3-12.3); Neutrophils % 66.7 % (41.7-73.7); Nucleated Red Blood Cells % 0.1 % (0-0); Platelets 218 thou/uL (152-406); RBC Red Blood Cell Count 4.07 M/uL (4.33-5.43); Red Cell Distribution Width 14.5 % (12.1-15.2)
[2023-12-28 04:42] LABS: Albumin 3.1 g/dL (3.4-5.0); Albumin/Globulin Ratio 0.9 (1.1-1.8); Anion Gap 8.8 mEq/L (5.0-15.0); Bilirubin Total 0.4 mg/dL (0.2-1.0); Globulin 3.3 g/dL (2.3-3.5); Magnesium 2.3 mg/dL (1.6-2.4); Potassium 3.8 mEq/L (3.5-5.1); Protein, Total 6.4 g/dL (6.4-8.2)
[2023-12-28 04:47] LABS: Thyroid Stimulating Hormone 46.6 uIU/mL (0.358-3.740)
[2023-12-28] MEDS: LEVOTHYROXINE SOD 0.125 MG TAB PO SCH (06:16)
[2023-12-28] MEDS: FINASTERIDE 1 MG PO SCH (09:00)
[2023-12-28] MEDS: FLUTICASONE 50MCG NASAL SPRAY NAS SCH (09:00)
[2023-12-28] MEDS: BUPROPION HCL XL 150 MG TAB PO SCH (09:07)
[2023-12-28] MEDS: ASPIRIN EC 81 MG TAB PO SCH (09:08)
[2023-12-28] MEDS: MONTELUKAST 10 MG TAB PO SCH (09:09)
[2023-12-28 09:18] VITALS: BP 158/92; TEMP 97.1
--- NOTE | 2023-12-28 10:08 | P.DS ---
Admission Date: 12/27/23 Discharge Date: 12/28/23 Primary Care Provider: Deanna Disposition: ROUTINE DISCHARGE Discharge Condition: GOOD Reason for Admission: hypertensive urgency - Problems (1) Hypertensive urgency Current Visit: Yes Status: Acute (2) Adjustment disorder with depressed mood Current Visit: Yes Status: Acute (3) Moderate protein-energy malnutrition Current Visit: Yes Status: Acute (4) Atrial fib/flutter, transient Current Visit: Yes Status: Chronic (5) Hypothyroidism Current Visit: Yes Status: Acute Qualifiers: Hypothyroidism type: unspecified Qualified Code(s): E03.9 - Hypothyroidism, unspecified (6) Seasonal allergies Current Visit: Yes Status: Chronic Brief History of Present Illness: Patient is a office patient of [employer]. With a history of melanoma, atrial fib and hypothyroidism. He lost his of over 60years last month. Has been coming to the office with dizziness and seasonal allergy symptoms regularly. He feels dizzy and is scared of falling. He has not fallen. He thinks there is something really wrong like a tumor. However he has had a negative brain MRI in the ER. His daughter is present. States he has been crying, sleeping poorly, not as active as he was. The patient was taking care of his 's health for the past few years. He has not voiced any suicidal thoughts or plans Hospital Course: Patient was admitted for htn urgency and protein energy malnutrition. SBP is under 160 this morning. This is withing the bounds of permissive HTN. will discharge him home with home health and PT. Start the patient on buproprion Vital Signs/Physical Exam: Temp Pulse Resp BP Pulse Ox 97.1 F 83 18 158/92 H 94 12/28/23 08:00 12/28/23 09:08 12/28/23 08:00 12/28/23 09:08 12/28/23 08:00 General: Alert, In no apparent distress HEENT: Atraumatic, PERRLA, EOMI Neck: Supple, JVD not distended Respiratory: Clear to auscultation bilaterally, Normal air movement Cardiovascular: Regular rate/rhythm, Normal S1 S2 Gastrointestinal: Normal bowel sounds, No tenderness Musculoskeletal: No tenderness Integumentary: No rashes Neurological: Normal speech, Normal tone, Normal affect Lymphatics: No axilla or inguinal lymphadenopathy Laboratory Data at Discharge: WBC 6.70 thou/uL (4.3-10.9) 12/28/23 02:55 Hgb 12.9 g/dL (13.6-17.9) L 12/28/23 02:55 Hct 37.4 % (39.6-49.0) L 12/28/23 02:55 Plt Count 218 thou/uL (152-406) 12/28/23 02:55 Sodium 142 mEq/L (136-145) 12/28/23 02:55 Potassium 3.8 mEq/L (3.5-5.1) 12/28/23 02:55 BUN 18 mg/dL (7-18) 12/28/23 02:55 Creatinine 1.30 mg/dL (0.70-1.30) 12/28/23 02:55 Glucose 82 mg/dL (74-106) 12/28/23 02:55 Magnesium Cancelled 12/28/23 06:00 Total Bilirubin 0.4 mg/dL (0.2-1.0) 12/28/23 02:55 AST 13 U/L (15-37) L 12/28/23 02:55 ALT 17 U/L (16-61) 12/28/23 02:55 Alkaline Phosphatase 57 U/L (45-117) 12/28/23 02:55 Home Medications: Fluticasone [Flonase 50MCG Nasal [place]*] 2 spray .ROUTE DAILY 09/06/18 Albuterol Inhaler [Ventolin Inhaler*] 2 g IN DAILY 03/12/23 Aspirin [Aspirin EC 81 MG] 81 mg PO DAILY 03/12/23 Bimatoprost [Lumigan Opthalmic Drops*] 1 drop OP BEDTIME 03/12/23 Carvedilol [Coreg] 1 tab PO BID 03/12/23 Finasteride 0.5 mg PO DAILY 03/12/23 Levothyroxine [Synthroid*] 1 tab PO DAILY 03/12/23 Montelukast [Singulair*] 1 tab PO DAILY 03/12/23 Polyethylene Glycol 3350 [Miralax] 1 cap PO DAILY 03/12/23 Tamsulosin HCl 1 tab PO BEDTIME 03/12/23 Wheat Dextrin [Benefiber] 2 tbsp PO DAILY 03/12/23 Amox/Clavulanate [Augmentin 875-125 Tab] 875 mg PO BID 10 Days #20 tab 03/13/23 Diet: Regular Activity: Ad leroy Followup: Nyasia Izaguirre FNP [OUTSIDE PHYSICIAN] - Time spent managing pt's care (in minutes): 20
--- NOTE | 2023-12-29 16:51 | EKG ---
Test Date: 2023-12-27 Test Time: 11:01:24 Manager Division: [facility] MEASUREMENT RESULTS: Intervals: Rate: 90 ND: QRSD: 82 QT: 372 QTc: 455 [place]: P: ND: QRS: -6 T: 50 INTERPRETIVE STATEMENTS: Atrial fibrillation Abnormal ECG Compared to ECG 12/05/2023 19:19:56 No significant changes Electronically Signed On 12-29-23 16:44:02 CDT by Dante Addison
== END 2023-12-28 11:29 | disposition home health service (06) ==
LOC: ER 10:49 → ERHOLD 15:32 → 2ND 15:53
PROVIDERS: ADMIT Internal Medicine; ATTEND Internal Medicine
DX: I16.0 Hypertensive urgency (principal); F43.21 Adjustment disorder with depressed mood; E03.9 Hypothyroidism, unspecified; I48.91 Unspecified atrial fibrillation; I49.8 Other specified cardiac arrhythmias; R42 Dizziness and giddiness; E44.0 Moderate protein-calorie malnutrition; J30.2 Other seasonal allergic rhinitis; Z68.29 Body mass index [BMI] 29.0-29.9, adult; Z88.5 Allergy status to narcotic agent; Z88.8 Allergy status to other drugs, medicaments and biological substances; Z85.828 Personal history of other malignant neoplasm of skin
CPT/HCPCS: 93005; 85025 ×2; 80048; 36415; 83735 ×2; 80076; 84443; 84484; 84439; 80053; 71045; 70551; 97116; 97161; 97530; 99285; J8597; J1650; G0378

== ENCOUNTER 2024-03-25 08:23 | Emergency (ER) | payer OTHER ==
[2024-03-25] MEDS ORDERED: FAMOTIDINE 20 MG/2 ML VIAL IV ONE (09:21)
[2024-03-25 09:48] LABS: Absolute Basophils 0.1 K/uL (0-0.5); Absolute Eosinophils 0.2 K/uL (0-0.5); Absolute Lymphocytes (CBC) 1.2 K/uL (0.7-4.9); Absolute Monocytes 0.6 K/uL (0.1-1.3); Absolute Neutrophil 4.4 K/uL (1.8-8.0); Basophils % 1.1 % (0-1.3); Eosinophils % 2.8 % (0-4.4); Hematocrit 39.8 % (39.6-49.0); Hemoglobin 13.6 g/dL (13.6-17.9); Lymphocytes % 19.1 % (15.3-44.8); MCH 31.4 pg (27.0-35.0); MCHC 34.3 g/dL (32.0-36.0); MCV 91.8 fL (80-100); MPV 7.2 fL (7.6-11.3); Monocytes % 8.8 % (3.3-12.3); Neutrophils % 68.2 % (41.7-73.7); Nucleated Red Blood Cells % 0.1 % (0-0); Platelets 274 thou/uL (152-406); RBC Red Blood Cell Count 4.33 M/uL (4.33-5.43)
[2024-03-25 09:50] LABS: PT Prothrombin Time 13.4 SECONDS (9.4-12.5); Protime INR 1.2
[2024-03-25 10:03] LABS: Specific Gravity 1.024 (1.005-1.030); Sqamous Epithelial <5 /HPF (None Seen); Urine Bacteria None Seen /HPF (<20); Urine Bilirubin NEGATIVE (Negative); Urine Blood Negative (Negative); Urine Clarity Extremely Turbid (Clear); Urine Color Yellow (Yellow); Urine Culture Reflex Order NOT NEEDED; Urine Glucose NEGATIVE (Negative); Urine Ketones NEGATIVE (Negative); Urine Microscopic Reflex YN ORDER UMIC; Urine Mucus Slight /HPF (None Seen); Urine Nitrite NEGATIVE (Negative); Urine Protein 1+ (Negative); Urine RBC <5 /HPF (None Seen); Urine Urobilinogen 1+ (Normal); Urine WBC <5 /HPF (<5); Urine pH 7.5 (5.0-7.0)
[2024-03-25 10:06] LABS: Albumin 3.7 g/dL (3.4-5.0); Anion Gap 7.9 mEq/L (5.0-15.0); Bilirubin Total 0.7 mg/dL (0.2-1.0); Globulin 3.7 g/dL (2.3-3.5); Potassium 3.9 mEq/L (3.5-5.1); Protein, Total 7.4 g/dL (6.4-8.2); Troponin High Sensitivity 9.1 pg/mL (<58.9)
--- NOTE | 2024-03-25 10:07 | RAD REPORT ---
EXAM DESCRIPTION: RAD - Chest Single View - 03/25/2024 9:59 am CLINICAL HISTORY: Abdominal distention;Dyspnea COMPARISON: Chest Single View dated 12/27/2023; Chest Single View dated 04/28/2022; Chest Single View dated 10/29/2021; Chest Single View dated 07/24/2021 FINDINGS: Lines: None. Lungs: No evidence of edema or pneumonia. Linear scarring in the lung bases. Pleural: No significant pleural effusions or pneumothorax. Cardiac: The heart size is within normal limits. Mediastinum: Within normal limits. Bones: No acute fractures. Other: None IMPRESSION: No acute cardiopulmonary disease.
--- NOTE | 2024-03-25 10:48 | RAD REPORT ---
EXAM DESCRIPTION: CTAbdomen Pelvis W Contrast - 03/25/2024 10:34 am CLINICAL HISTORY: Abd pain;Swelling COMPARISON: Abdomen Pelvis W Contrast dated 03/11/2023; Abdomen Pelvis W Contrast dated 05/18/2018; Abdomen Pelvis W Contrast dated 07/25/2017 TECHNIQUE: CT of the abdomen and pelvis was performed. All CT scans are performed using dose optimization technique as appropriate and may include automated exposure control or mA/KV adjustment according to patient size. FINDINGS: Lower chest: No acute abnormality. Mitral annular calcifications Liver: Several low-density liver lesions have benign imaging features and are unchanged. Biliary: No biliary ductal dilatation. Stomach: No significant focal abnormality. Duodenum: No significant focal abnormality. Pancreas: No significant abnormality. Spleen: No significant abnormality. Adrenal: No suspicious lesions. Kidney/ureter: No hydronephrosis. No renal calculi. Mild renal cortical thinning. Retroperitoneum: No retroperitoneal adenopathy. Vascular: No aneurysm. Atherosclerosis . Bowel: No significant focal abnormality. No appendix identified. No secondary signs of acute appendic itis. Peritoneum: No ascites or free air. Fat containing umbilical hernia. Bladder: Mild nonspecific circumferential bladder wall thickening . Reproductive: No adnexal masses. Bones: No acute fracture. Multilevel degenerative changes are present in the spine. Other: n/a IMPRESSION: No acute intra-abdominal or pelvic finding.
--- NOTE | 2024-03-25 11:00 | ER ---
Nurse's Notes [facility] Name: Jonathan Segundo Age: 88 yrs Sex: Male : 1935 Arrival Date: 03/25/2024 Time: 08:23 Bed 20 Private MD: Diagnosis: Gastro-esophageal reflux disease without esophagitis;Epigastric pain Presentation: 03/25 08:38 Chief complaint: Patient states: Upper abdominal burning abdominal pain for 2 weeks. + ll1 burping a lot and fatigue. Coronavirus screen: Client denies travel out of the [place] in the last 14 days. At this time, the client does not indicate any symptoms associated with coronavirus-19. Ebola Screen: Patient denies travel to an Ebola-affected area in the 21 days before illness onset. Initial Sepsis Screen: Does the patient meet any 2 criteria? No. Patient's initial sepsis screen is negative. Does the patient have a suspected source of infection? No. Patient's initial sepsis screen is negative. Risk Assessment: Do you want to hurt yourself or someone else? Patient reports no desire to harm self or others. Onset of symptoms was March 11, 2024. 08:38 Method Of Arrival: Ambulatory ll1 08:38 Acuity: ERIN 3 ll1 Triage Assessment: 08:40 General: Appears in no apparent distress. Behavior is calm, cooperative, appropriate ll1 for age. Pain: Complains of pain in abdomen. Respiratory: Reports shortness of breath. GI: Reports upper abdominal pain, bloating, gaseousness, indigestion. 10:13 Respiratory: Onset: The symptoms/episode began/occurred gradually, the patient has mild kj2 shortness of breath. Historical: - Allergies: 08:34 Morphine; ll1 08:34 Warfarin; ll1 08:34 Xarelto; ll1 - Home Meds: 10:14 amiodarone 200 mg Oral tab 1 tab once daily [Active]; Benefiber Healthy Shape 5 kj2 gram/7.4 gram Oral powd [Active]; carvedilol 3.125 mg Oral tab [Active]; Combivent 18-103 mcg/actuation Inhl aero 2 puffs 4 times per day [Active]; Iron CR Oral [Active]; levothyroxine 112 mcg cap 1 cap once daily [Active]; lisinopril 20 mg Oral tab 1 tab once daily [Active]; Miralax 17 gram/dose Oral powd once daily [Active]; simvastatin 40 mg Oral tab 1 tab once daily [Active]; Vitamin B-12 500 mcg Oral tab [Active]; - PMHx: 08:34 High Cholesterol; Hypertension; Hypothyroidism; neuropathy; skin cancer; ll1 - PSHx: 08:34 removed cancer from ear and neck; ll1 - Immunization history:: Adult Immunizations up to date. - Infectious Disease History:: Denies. - Social history:: Smoking status: Patient denies any tobacco usage or history of. Screenin:[facility] ED Fall Risk Assessment (Adult) History of falling in the last 3 months, kj2 including since admission No falls in past 3 months (0 pts) Confusion or Disorientation No (0 pts) Intoxicated or Sedated No (0 pts) Impaired Gait No (0 pts) Mobility Assist Device Used No (0 pt) Altered Elimination No (0 pt) Score/Fall Risk Level 0 - 2 = Low Risk. Abuse screen: Denies threats or abuse. Denies injuries from another. Nutritional screening: No deficits noted. Tuberculosis screening: No symptoms or risk factors identified. Assessment: 10:03 General: Appears in no apparent distress. Behavior is calm, cooperative. Pain: kj2 Complains of pain in abdomen. Neuro: Level of Consciousness is awake, alert, obeys commands, Oriented to person, place, time, situation. Cardiovascular: Patient's skin is warm and dry. Rhythm is regular. Respiratory: Airway is patent Respiratory effort is even, unlabored, Vital Signs: 08:38 BP 131 / 72; Pulse 110; Resp 18; Temp 98.6; Pulse Ox 98% on R/A; Weight 98.88 kg; ll1 Height 5 ft. 11 in. ; Pain 0/10; 10:02 BP 134 / 90; Pulse 77; Resp 18; Temp 98.1; Pulse Ox 99% on R/A; kj2 11:22 BP 156 / 100; Pulse 82; Resp 20; Temp 98; Pulse Ox 100% on R/A; kj2 08:38 Body Mass Index 30.40 (98.88 kg, 180.34 cm) ll1 08:38 Pain Scale: Adult 1 ED Course: 08:27 Patient arrived in ED. im 08:34 Arm band placed on. ll1 08:40 Triage completed. ll1 08:57 [facility] FNP [facility]. jh7 08:57 Nyasia Grove MD is Attending Physician. jh7 09:24 Martita Lopez, RN is Primary Nurse. nj1 09:38 Urine collected: clean catch specimen, shaggy colored. zm 09:39 Urinalysis w/ reflexes Sent. zm 09:39 Initial lab(s) drawn, by al, sent to lab. Inserted saline lock: 20 gauge in left zm antecubital area, using aseptic technique. Blood collected. Flushed with 10 mL NS. 09:39 BNP Sent. zm 09:39 Troponin High Sensitivity Sent. zm 09:39 PT-INR Sent. zm 09:39 CBC with Diff Sent. zm 09:39 CMP Sent. zm 09:39 Lipase Sent. zm 09:49 Martita Lopez, RN is Primary Nurse. nj1 09:53 Jodie Segundo, RN is Primary Nurse. kj2 10:01 XRAY Chest (1 view) In Process Unspecified. EDMS 10:10 Patient has correct armband on for positive identification. Bed in low position. Call kj2 light in reach. Adult w/ patient. Provided Education on: call light, fall light precautions. 10:36 CT Abd/Pelvis - IV Contrast Only In Process Unspecified. EDMS 10:59 Yvon Malcolm MD is Referral Physician. 7 11:01 EKG done, by ED staff, reviewed by Chloe HOLM. nj1 11:21 No provider procedures requiring assistance completed. IV discontinued, intact, kj2 bleeding controlled, No redness/swelling at site. Pressure dressing applied. Administered Medications: 09:45 Drug: Famotidine IVP 20 mg IVP once; dilute with 10 mL 0.9% NaCl; give over 2 minutes nj1 Route: IVP; Site: left antecubital; 11:01 Follow up: Response: No adverse reaction kj2 11:10 Drug: GI Cocktail without - (Maalox PO 30 ml, Lidocaine Mucous Membrane 2 % 15 kj2 ml) PO once Route: PO; 11:22 Follow up: Response: No adverse reaction kj2 Medication: 10:09 VIS not applicable for this client. kj2 Outcome: 11:00 Discharge ordered by . jh7 11:20 Discharged to home via wheelchair, with family, kj2 11:20 Condition: stable 11:20 Discharge instructions given to patient, family, Instructed on discharge instructions, follow up and referral plans. medication usage, Demonstrated understanding of instructions, follow-up care, medications, Prescriptions given X 2, 11:23 Patient left the ED. kj2 Signatures: Dispatcher [employer] EDMS Randa Merino, RN RN ll1 Arcelia Gerardo Jennifer, FRONT DESK OFFICER FRONT DESK OFFICER jh7 Martita Lopez RN RN nj1 Orin Panchal Krystal, RN RN kj2
--- NOTE | 2024-03-25 11:00 | EDPHYS ---
Physician Documentation [facility] Name: Jonathan Segundo Age: 88 yrs Sex: Male : 1935 Arrival Date: 03/25/2024 Time: 08:23 Bed 20 Private MD: ED Physician Nyasia Grove HPI: 03/25 08:34 This 88 yrs old Male presents to ER via Ambulatory with complaints of Shortness Of jh7 Breath, Abdominal Pain. 08:34 88-year-old male presents to the ER complaining of upper abdominal burning and jh7 abdominal swelling worsening over the past 2 weeks. He reports that due to the swelling in his abdomen, he is developed shortness of breath. Also reports mild bilateral ankle swelling, fatigue, and excessive burping. He denies fever, diarrhea, and vomiting. He reports that eating worsens his pain. Past surgical history includes appendectomy.. Historical: - Allergies: 08:34 Morphine; ll1 08:34 Warfarin; ll1 08:34 Xarelto; ll1 - Home Meds: 10:14 amiodarone 200 mg Oral tab 1 tab once daily [Active]; Benefiber Healthy Shape 5 kj2 gram/7.4 gram Oral powd [Active]; carvedilol 3.125 mg Oral tab [Active]; Combivent 18-103 mcg/actuation Inhl aero 2 puffs 4 times per day [Active]; Iron CR Oral [Active]; levothyroxine 112 mcg cap 1 cap once daily [Active]; lisinopril 20 mg Oral tab 1 tab once daily [Active]; Miralax 17 gram/dose Oral powd once daily [Active]; simvastatin 40 mg Oral tab 1 tab once daily [Active]; Vitamin B-12 500 mcg Oral tab [Active]; - PMHx: 08:34 High Cholesterol; Hypertension; Hypothyroidism; neuropathy; skin cancer; ll1 - PSHx: 08:34 removed cancer from ear and neck; ll1 - Immunization history:: Adult Immunizations up to date. - Infectious Disease History:: Denies. - Social history:: Smoking status: Patient denies any tobacco usage or history of. ROS: 08:34 Constitutional: Per HPI jh7 Exam: 08:34 Constitutional: This is a well developed, well nourished patient who is awake, alert, jh7 and in no acute distress. Neck: Trachea midline, no thyromegaly or masses palpated, and no cervical lymphadenopathy. Supple, full range of motion without nuchal rigidity, or vertebral point tenderness. No Meningismus. Cardiovascular: Regular rate and rhythm with a normal S1 and S2. No gallops, murmurs, or rubs. Normal PMI, no JVD. No pulse deficits. Respiratory: Lungs have equal breath sounds bilaterally, clear to auscultation and percussion. No rales, rhonchi or wheezes noted. No increased work of breathing, no retractions or nasal flaring. Back: No spinal tenderness. No costovertebral tenderness. Full range of motion. Skin: Warm, dry with normal turgor. Normal color with no rashes, no lesions, and no evidence of cellulitis. MS/ Extremity: Pulses equal, no cyanosis. Neurovascular intact. Full, normal range of motion. Neuro: Awake and alert, GCS 15, oriented to person, place, time, and situation. Motor strength 5/5 in all extremities. Sensory grossly intact. Normal gait. 08:34 Abdomen/GI: Inspection: distension, that is mild, in the abdomen, Bowel sounds: normal, Palpation: abdomen is soft and non-tender, Vital Signs: 08:38 BP 131 / 72; Pulse 110; Resp 18; Temp 98.6; Pulse Ox 98% on R/A; Weight 98.88 kg; ll1 Height 5 ft. 11 in. ; Pain 0/10; 10:02 BP 134 / 90; Pulse 77; Resp 18; Temp 98.1; Pulse Ox 99% on R/A; kj2 11:22 BP 156 / 100; Pulse 82; Resp 20; Temp 98; Pulse Ox 100% on R/A; kj2 08:38 Body Mass Index 30.40 (98.88 kg, 180.34 cm) ll1 08:38 Pain Scale: Adult ll1 MDM: 08:57 Patient medically screened. [facility] 11:15 Differential diagnosis: pneumonia, CKD, hernia, GERD, PUD, gastritis. Data interpreted: [facility] Pulse oximetry: is 100 %. Interpretation: normal. Data reviewed: vital signs, nurses notes, lab test result(s), EKG, radiologic studies, CT scan, plain films. I considered the following discharge prescriptions or medication management in the emergency department Medications were administered in the Emergency Department. See MAR. Independent interpretation of the following test(s) in the Emergency Department EKG: See my EKG interpretation above X-Ray: My interpretation is no acute findings. Care significantly affected by the following chronic conditions: Hypertension. Counseling: I had a detailed discussion with the patient and/or guardian regarding the historical points, exam findings, and any diagnostic results supporting the discharge/admit diagnosis, the need for outpatient follow up, a manager technical support, to return to the emergency department if symptoms worsen or persist or if there are any questions or concerns that arise at home. Response to treatment: the patient's symptoms have mildly improved after treatment. Special discussion: Advise follow-up with GI for ongoing abdominal bloating and burning feeling after eating. Informed the patient that he likely will need an upper GI scope and should schedule an appointment with Dr. Malcolm. All questions and concerns were addressed. If the patient develops any new concerning symptoms, he should return to the ER for further eval.. 03/25 09:13 Order name: CBC with Diff; Complete Time: 09:49 [facility] 03/25 09:13 Order name: CMP; Complete Time: 10:18 [facility] 03/25 09:13 Order name: Lipase; Complete Time: 10:18 [facility] 03/25 09:13 Order name: Urinalysis w/ reflexes; Complete Time: 10:18 [facility] 03/25 09:13 Order name: Troponin High Sensitivity; Complete Time: 10:18 [facility] 03/25 09:13 Order name: BNP; Complete Time: 10:18 [facility] 03/25 09:13 Order name: PT-INR; Complete Time: 09:56 [facility] 03/25 09:13 Order name: CT Abd/Pelvis - IV Contrast Only; Complete Time: 10:50 [facility] 03/25 09:13 Order name: XRAY Chest (1 view); Complete Time: 10:18 [facility] 03/25 09:13 Order name: IV Saline Lock; Complete Time: 09:39 [facility] 03/25 09:13 Order name: Labs collected and sent; Complete Time: 09:39 [facility] 03/25 09:13 Order name: EKG - Nurse/Tech; Complete Time: 11:01 [facility] EC:57 Rate is 86 beats/min. Rhythm is irregularly irregular. QRS [place] is Normal. QRS interval [facility] is normal at 84 msec. QT interval is normal at 684 msec. No Q waves. Clinical impression: Atrial Fibrillation. Administered Medications: 09:45 Drug: Famotidine IVP 20 mg IVP once; dilute with 10 mL 0.9% NaCl; give over 2 minutes nj1 Route: IVP; Site: left antecubital; 11:01 Follow up: Response: No adverse reaction kj2 11:10 Drug: GI Cocktail without - (Maalox PO 30 ml, Lidocaine Mucous Membrane 2 % 15 kj2 ml) PO once Route: PO; 11:22 Follow up: Response: No adverse reaction kj2 Disposition: 11:31 Co-signature as Attending Physician, Nyasia Grove MD I reviewed the patient's care sd2 provided by the Advanced Practice Provider and agree with the diagnosis and treatment plan. Disposition Summary: 03/25/24 11:00 Discharge Ordered Notes: Location: Home [facility] Problem: an ongoing problem [facility] Symptoms: are unchanged [facility] Condition: Stable [facility] Diagnosis - Gastro-esophageal reflux disease without esophagitis [facility] - Epigastric pain [facility] Followup: [facility] - With: Yvon Malcolm MD - When: 2 - 3 days - Reason: Recheck today's complaints Discharge Instructions: - Discharge Summary Sheet [facility] - Food Choices for Gastroesophageal Reflux Disease, Adult [facility] - Gastroesophageal Reflux Disease, Adult [facility] - Upper Endoscopy, Adult [facility] Forms: - Medication Reconciliation Form [facility] - Patient Portal Instructions [facility] - Leadership Thank You Letter [facility] Prescriptions: - simethicone 180 mg Oral capsule - take 1 capsule ORAL route 1 to 2 times per day As needed as needed for [facility] abdominal distention; 30 capsule; Refills: 0, Product Selection Permitted - Pepcid 20 mg Oral Tablet - take 1 tablet ORAL route once daily; 20 tablet; Refills: 0, Product Selection [facility] Permitted Signatures: Dispatcher [employer] EDMS Randa Merino RN RN ll1 Chloe Solomon FNP RESTAURANT SERVICE MANAGER Nyasia Enriquez MD MD sd2 Martita Lopez RN RN nj1 Jodie Segundo RN RN kj2 Corrections: (The following items were deleted from the chart) 09:13 09:13 Abdomen Pelvis W Con+CT.RAD.BRZ ordered. EDMS EDMS 09:13 09:13 Chest Single View+RAD.RAD.BRZ ordered. EDMS EDMS 10:56 08:34 Abdomen/GI: Inspection: distension, that is moderate, in the abdomen, Bowel jh7 sounds: normal, Palpation: abdomen is soft and non-tender, jh7
[2024-03-25] MEDS ORDERED: MAGNES/ALUMIN/SIMET 30ML UCUP ONE (11:06)
[2024-03-25] MEDS ORDERED: LIDOCAINE VISCOUS 2% 10ML ORAL SOLN ONE (11:08)
--- NOTE | 2024-03-26 16:32 | EKG ---
Test Date: 2024-03-25 Test Time: 10:57:21 Merchandise Manager: GERARD MEASUREMENT RESULTS: Intervals: Rate: 86 NH: QRSD: 84 QT: 384 QTc: 459 [place]: P: NH: QRS: 0 T: -4 INTERPRETIVE STATEMENTS: Poor data quality, interpretation may be adversely affected Atrial fibrillation Low voltage QRS Abnormal ECG Compared to ECG 12/27/2023 11:01:24 Low QRS voltage now present Electronically Signed On 03-26-24 16:29:05 CDT by Dante Addison
[2024-03-29 14:30] VITALS: BP 156/100; TEMP 98; O2SAT 100
== END 2024-03-25 11:23 | disposition home or self-care (01) ==
LOC: ER 08:23
DX: R10.13 Epigastric pain (principal); K21.9 Gastro-esophageal reflux disease without esophagitis; I10 Essential (primary) hypertension; E03.9 Hypothyroidism, unspecified; E78.00 Pure hypercholesterolemia, unspecified; G62.9 Polyneuropathy, unspecified; Z85.828 Personal history of other malignant neoplasm of skin; Z88.8 Allergy status to other drugs, medicaments and biological substances; Z88.5 Allergy status to narcotic agent
CPT/HCPCS: 93005; 85025; 81001; 36415; 85610; 84484; 83690; 80053; 83880; 74177; 71045; 96374; 99284; Q9967

== ENCOUNTER 2024-06-20 04:01 | Observation (INO) | payer OTHER ==
[2024-06-20] MEDS ORDERED: HYDRALAZINE HCL 25 MG TABLET ONE (04:54)
[2024-06-20 05:29] LABS: PT Prothrombin Time 12.9 SECONDS (9.4-12.5); Protime INR 1.16
[2024-06-20 05:41] LABS: Absolute Eosinophils 0.2 K/uL (0-0.5); Absolute Lymphocytes (CBC) 1.3 K/uL (0.7-4.9); Absolute Monocytes 0.5 K/uL (0.1-1.3); Absolute Neutrophil 3.9 K/uL (1.8-8.0); Basophils % 0.7 % (0-1.3); Eosinophils % 2.6 % (0-4.4); Hematocrit 36.9 % (39.6-49.0); Hemoglobin 12.7 g/dL (13.6-17.9); Lymphocytes % 21.7 % (15.3-44.8); MCH 31.1 pg (27.0-35.0); MCHC 34.4 g/dL (32.0-36.0); MCV 90.6 fL (80-100); MPV 7.8 fL (7.6-11.3); Monocytes % 8.4 % (3.3-12.3); Neutrophils % 66.6 % (41.7-73.7); Nucleated Red Blood Cells % 0.1 % (0-0); Platelets 195 thou/uL (152-406); RBC Red Blood Cell Count 4.07 M/uL (4.33-5.43); Red Cell Distribution Width 13.5 % (12.1-15.2)
[2024-06-20 06:00] LABS: Albumin 3.3 g/dL (3.4-5.0); Anion Gap 7.8 mEq/L (5.0-15.0); Bilirubin Direct 0.2 mg/dL (0-0.2); Bilirubin Indirect, Calculated 0.3 mg/dL (0.2-0.8); Bilirubin Total 0.5 mg/dL (0.2-1.0); Globulin 3.3 g/dL (2.3-3.5); Magnesium 2.2 mg/dL (1.6-2.4); Potassium 3.8 mEq/L (3.5-5.1); Protein, Total 6.6 g/dL (6.4-8.2); Thyroid Stimulating Hormone 1.46 uIU/mL (0.358-3.740); Troponin High Sensitivity 27.9 pg/mL (<58.9)
--- NOTE | 2024-06-20 06:06 | RAD REPORT ---
EXAM: XR Chest, 1 View CLINICAL HISTORY: The patient is 89 years old and is Male; Chest pain. TECHNIQUE: Single view of the chest. COMPARISON: XR Chest 10/05/2022. FINDINGS: Lungs: No pulmonary vascular congestion or consolidation. Pleural space: Unremarkable. No pneumothorax. Heart: Unremarkable. No cardiomegaly. Mediastinum: Unremarkable. Bones/joints: No acute fracture visualized. Upper abdomen: No free air in the visualized upper abdomen. IMPRESSION: No acute cardiopulmonary process identified. Electronically signed by: Nyasia Staton MD 06/20/2024 05:29 AM CDT RP ND Due to temporary technical issues with the PACS/[employer] reporting system, reports are being destin d by the in-house radiologist without review as a courtesy to ensure prompt reporting the interpreting radiologist is fully responsible for the content of the report. Transcribed Date/Time: 06/20/2024 6:06 AM
[2024-06-20 06:50] LABS: Specific Gravity 1.014 (1.005-1.030); Sqamous Epithelial None Seen /HPF (None Seen); Urine Bacteria None Seen /HPF (<20); Urine Bilirubin NEGATIVE (Negative); Urine Blood Negative (Negative); Urine Clarity Clear (Clear); Urine Color Colorless (Yellow); Urine Culture Reflex Order NOT NEEDED; Urine Glucose NEGATIVE (Negative); Urine Ketones NEGATIVE (Negative); Urine Micro Reflex YN NO BILL MICROSCOPIC; Urine Mucus Slight /HPF (None Seen); Urine Nitrite NEGATIVE (Negative); Urine Protein NEGATIVE (Negative); Urine RBC <5 /HPF (None Seen); Urine Urobilinogen Normal (Normal); Urine WBC <5 /HPF (<5); Urine pH 7.5 (5.0-7.0)
--- NOTE | 2024-06-20 08:06 | RAD REPORT ---
EXAM: CT CHEST, ABDOMEN AND PELVIS WITH CONTRAST CLINICAL INDICATION: Male, 89 years old. [facility] MAIN ABDOMINAL DISTENTION Bed Name: 16 TECHNIQUE: CT chest, abdomen and pelvis was performed, following the administration of contrast, as p er department protocol. Axial, sagittal and coronal reconstructions were obtained. One or more of the following dose reduction techniques were used: Automated exposure control, adjustment of the mA a nd/or kV according to patient size, and/or iterative reconstruction. Unless otherwise specified, incidental findings do not require dedicated imaging follow-up. COMPARISON: 03/25/2024 CT abdomen and pelvis FINDINGS: LUNGS AND AIRWAYS: No evidence of airspace or interstitial process. Left apical peribronchovascular 9 mm nodule on axial image 24. Mild platelike atelectatic changes. PLEURA: No pleural effusion. No pneumothorax. MEDIASTINUM AND LYMPH NODES: No mediastinal mass or fluid collection. Normal size mediastinal, hilar, and axillary lymph nodes. THORACIC AORTA: Normal caliber and configuration. PULMONARY ARTERIES: Normal caliber. OSSEOUS STRUCTURES AND CHEST WALL: Intact. LIVER: Normal in size and contour. Multiple well-circumscribed fluid density cysts, largest in the main bcapsular segment 4B anteriorly measuring 5 cm. No suspicious focal lesion or biliary dilitation. BILIARY SYSTEM: No suspicious abnormalities. PANCREAS: No mass, ductal dilation, or wiliam-pancreatic fluid. SPLEEN: Normal size. No focal lesion. ADRENALS: Normal; no mass. KIDNEYS AND URETERS: Normal size and contour. No hydronephrosis. URINARY BLADDER: Normal contour. GASTROINTESTINAL TRACT: No bowel obstruction, free air, significant free fluid or abscess. APPENDIX: Not discretely visualized, but no suspicious inflammatory changes in this region. LYMPH NODES: No lymphadenopathy. ABDOMINAL AORTA AND OTHER VESSELS: Normal caliber aorta and IVC. MUSCULOSKELETAL: No acute or suspicious osseous abnormality. Moderate prostatomegaly. IMPRESSION: No acute or significant abnormalities seen in the chest, abdomen or pelvis. Moderate prostatomegaly. Incidentally noted benign-appearing hepatic cysts. Incidentally noted 9 mm left apical peribronchovascular nodule. 2017 Fleischner Society Recommendations for Lung Nodule(s): Follow-Up based on size (average of long- and short-axis diameters). Use most suspicious nodule for followup. Single solid lung nodule 9+ mm: Consider non-contrast chest CT at 3 months, PET/CT, or tissue samplin g. If this nodule was detected on an incomplete chest CT, first recommend a prompt, non-contrast chest CT. These guidelines do not apply to patients younger than 35 years, immunocompromised patients, and siria ents with cancer. F/u in patients with significant comorbidities as clinically warranted. For lung cancer screening, adhere to Lung-RADS guidelines. Reference: Radiology. 2017 Mar; 284(1):228-243
[2024-06-20] MEDS ORDERED: ALBUTEROL 2.5 MG/3 ML NEB SOL ONE (08:26)
[2024-06-20] MEDS ORDERED: IPRATROPIUM BROM 0.5MG/2.5ML ONE (08:27)
[2024-06-20] MEDS ORDERED: FUROSEMIDE 40 MG/4 ML VIAL ONE (08:27)
--- NOTE | 2024-06-20 09:22 | ER ---
Nurse's Notes [facility] Name: Jonathan Segundo Age: 89 yrs Sex: Male : 1935 Arrival Date: 06/20/2024 Time: 04:01 Bed 16 Private MD: Diagnosis: Dyspnea on exertion;Edema Presentation: 06/20 04:18 Chief complaint: Patient states: I have been having difficulty breathing for about 4 kd3 months. I was diagnosed with a hiatal hernia and i followed up with Dr. Serna. But no one has really addressed the difficulty breathing. I just want someone to address the breathing issue. Patient was administered nitroglycerin and labetalol in route. Coronavirus screen: Vaccine status: Patient reports receiving the 2nd dose of the covid vaccine. Ebola Screen: No symptoms or risks identified at this time. Initial Sepsis Screen: Does the patient meet any 2 criteria? No. Patient's initial sepsis screen is negative. Does the patient have a suspected source of infection? No. Patient's initial sepsis screen is negative. Risk Assessment: Do you want to hurt yourself or someone else? Patient reports no desire to harm self or others. Onset of symptoms was February 19, 2024. 04:18 Method Of Arrival: EMS: [facility] kd3 04:18 Acuity: ERIN 3 kd3 Triage Assessment: 04:21 General: Appears in no apparent distress. Behavior is calm, cooperative. Pain: Denies kd3 pain. Historical: - Allergies: 04:21 Warfarin; kd3 04:21 Xarelto; kd3 04:21 Morphine; kd3 - Home Meds: 04:21 Vitamin B-12 500 mcg Oral tab [Active]; levothyroxine 112 mcg cap 1 cap once daily kd3 [Active]; Combivent 18-103 mcg/actuation Inhl aero 2 puffs 4 times per day [Active]; carvedilol 3.125 mg Oral tab [Active]; amiodarone 200 mg Oral tab 1 tab once daily [Active]; Benefiber Healthy Shape 5 gram/7.4 gram Oral powd [Active]; Miralax 17 gram/dose Oral powd once daily [Active]; simvastatin 40 mg Oral tab 1 tab once daily [Active]; Iron CR Oral [Active]; lisinopril 20 mg Oral tab 1 tab once daily [Active]; - PMHx: 04:21 High Cholesterol; Hypothyroidism; neuropathy; Hypertension; skin cancer; kd3 - PSHx: 04:21 removed cancer from ear and neck; kd3 - Immunization history:: Adult Immunizations up to date, Client reports receiving the 2nd dose of the Covid vaccine, Date received: April 14, 2024. - Infectious Disease History:: Denies. - Social history:: Smoking status: Patient denies any tobacco usage or history of. - Family history:: not pertinent. Screenin:23 [facility] ED Fall Risk Assessment (Adult) History of falling in the last 3 months, kd3 including since admission No falls in past 3 months (0 pts) Confusion or Disorientation No (0 pts) Intoxicated or Sedated No (0 pts) Impaired Gait No (0 pts) Mobility Assist Device Used No (0 pt) Altered Elimination No (0 pt) Score/Fall Risk Level 0 - 2 = Low Risk Oriented to surroundings. Abuse screen: Denies threats or abuse. Denies injuries from another. Nutritional screening: No deficits noted. Tuberculosis screening: No symptoms or risk factors identified. Assessment: 04:23 General: Appears in no apparent distress. Behavior is calm, cooperative. Pain: Denies kd3 pain. Neuro: Level of Consciousness is awake, alert, obeys commands, Oriented to person, place, time, situation. Cardiovascular: Patient's skin is warm and dry. Respiratory: Airway is patent Trachea midline Respiratory effort is even, unlabored, Respiratory pattern is regular, symmetrical. 06:27 Reassessment: Patient and/or family updated on plan of care and expected duration. Pain kd3 level reassessed. Patient is alert, oriented x 3, equal unlabored respirations, skin warm/dry/pink. Patient states feeling better. Patient states symptoms have improved. 06:55 General: Patient returned from CT . kd3 07:01 Reassessment: Report received from lieutenant shift supervisor RN. ll1 07:56 Reassessment: No changes from previously documented assessment. Patient and/or family ll1 updated on plan of care and expected duration. Pain level reassessed. Patient is alert, oriented x 3, equal unlabored respirations, skin warm/dry/pink. 08:22 Reassessment: No changes from previously documented assessment. Dr. Bustamante at . ll1 08:37 Reassessment: No changes from previously documented assessment. Patient and/or family ll1 updated on plan of care and expected duration. Pain level reassessed. Patient is alert, oriented x 3, equal unlabored respirations, skin warm/dry/pink. 08:55 Reassessment: Gait steady to restroom. bp 09:10 Reassessment: SOB has gotten better since arrival. ll1 11:50 Reassessment: Pt provided with lunch at this time. cm10 Vital Signs: 04:05 BP 175 / 106; Pulse 89; Resp 18; Temp 97.8(O); Pulse Ox 96% on R/A; Weight 97.07 kg; oe Height 5 ft. 11 in. ; 06:26 BP 144 / 88; Pulse 90; Resp 18; Pulse Ox 97% on R/A; kd3 07:57 BP 174 / 105; Pulse 66; Resp 17; Pulse Ox 95% on R/A; ll1 09:00 BP 178 / 91; Pulse 71; Resp 18; Pulse Ox 97% ; ll1 10:12 BP 169 / 86; Pulse 86; Resp 16; Pulse Ox 97% on R/A; cm10 04:05 Body Mass Index 29.85 (97.07 kg, 180.34 cm) oe [place] Coma Score: 06:45 Eye Response: spontaneous(4). Motor Response: obeys commands(6). Verbal Response: sp4 oriented(5). Total: 15. ED Course: 04:15 Patient arrived in ED. kmf 04:15 Zacarias Burrell MD is Attending Physician. sp4 04:18 Virginia Ramirez RN is Primary Nurse. kd3 04:21 Triage completed. kd3 04:21 Arm band placed on right wrist. EKG completed in triage. Results shown to MD. kd3 04:23 Patient has correct armband on for positive identification. Provided Education on: ED kd3 process . Client placed on continuous cardiac and pulse oximetry monitoring. NIBP monitoring applied. monitoring specialist on. 04:24 No provider procedures requiring assistance completed. Maintain EMS IV. Dressing kd3 intact. Good blood return noted. Site clean \T\ dry. Gauge \T\ site: 20 gauge left forearm . Flushed with 10 mL NS. Patient maintains SpO2 saturation greater than 95% on room air. 04:37 XRAY Chest (1 view) In Process Unspecified. EDMS 04:52 Inserted saline lock: 20 gauge in left antecubital area, using aseptic technique. Blood kd3 collected. Flushed with 10 mL NS. 04:52 Initial lab(s) drawn, by me, sent to lab. First set of blood cultures drawn Second set kd3 of blood cultures drawn. 04:53 Troponin HS Sent. kd3 04:53 PT-INR Sent. kd3 04:53 NT PRO-BNP Sent. kd3 04:53 Magnesium Sent. kd3 04:53 LFT's Sent. kd3 04:53 CBC with Diff Sent. kd3 04:53 Basic Metabolic Panel Sent. kd3 04:53 TSH Sent. kd3 04:53 T4 Free Sent. kd3 04:53 Lipase Sent. kd3 04:53 Blood Culture Adult (2) Sent. kd3 05:10 Lactate w/ 2H reflex if indic. Sent. kd3 06:58 CT Chest, Abdomen, Pelvis - W/Contrast In Process Unspecified. EDMS 06:59 Attending Physician role handed off by Zacarias Burrell MD rt 06:59 Marcellus Bustamante MD is Attending Physician. rt 09:20 Taurus Mathews is Hospitalizing Provider. rt 10:31 Primary Nurse role handed off by Virginia Ramirez, ANITA cm10 10:31 Avis Gerardo, RN is Primary Nurse. cm10 12:00 Patient admitted, IV remains in place. cm10 14:45 Report faxed at [phone]. Puma confirmed at [id number]. cm10 Administered Medications: 05:10 Drug: HydrALAZINE PO 25 mg PO once Route: PO; kd3 07:51 Follow up: Response: No adverse reaction; Blood pressure is lowered ll1 08:37 Drug: DuoNeb Nebulize (3:1) (2.5 mg - 0.5 mg) 3 ml Nebulizer once Route: Nebulizer; ll1 09:03 Follow up: Response: No adverse reaction bp 08:37 Drug: Furosemide IVP 40 mg IVP once; give over 2 minutes Route: IVP; Site: left wrist; ll1 09:03 Follow up: Response: No adverse reaction bp Medication: 04:25 VIS not applicable for this client. kd3 Outcome: 09:21 Decision to Hospitalize by Provider. rt 12:00 Admitted to ER Hold. Please see [facility] for further documentation. cm10 12:00 Condition: good 12:00 Instructed on the need for admit, 15:56 Patient left the ED. rs6 Signatures: Dispatcher [employer] EDMS Theodore Emanuel Brian, RN RN bp Randa Merino RN RN ll1 Virginia Ramirez RN RN kd3 Marcellus Bustamante MD MD rt Zacarias Burrell MD MD sp4 Avis Gerardo RN RN cm10 Keyonna Guerrero Ryan rs6 Corrections: (The following items were deleted from the chart) 10:28 08:09 BP 178 / 91; bp ll1
--- NOTE | 2024-06-20 09:22 | EDPHYS ---
Physician Documentation [facility] Name: Jonathan Segundo Age: 89 yrs Sex: Male : 1935 Arrival Date: 06/20/2024 Time: 04:01 Bed 16 Private MD: ED Physician Marcellus Bustamante HPI: 06/20 04:16 This 89 yrs old Male presents to ER via Unassigned with complaints of dyspnea sp4 and chest pain. . 06:45 DC is a 89-year-old male with past medical history hypercholesterolemia hypothyroidism sp4 neuropathy hypertension skin cancer , presents with several months apparently difficulty breathing and abdominal discomfort. . Presented with EMS today. Denied chest pain. Historical: - Allergies: 04:21 Warfarin; kd3 04:21 Xarelto; kd3 04:21 Morphine; kd3 - Home Meds: 04:21 Vitamin B-12 500 mcg Oral tab [Active]; levothyroxine 112 mcg cap 1 cap once daily kd3 [Active]; Combivent 18-103 mcg/actuation Inhl aero 2 puffs 4 times per day [Active]; carvedilol 3.125 mg Oral tab [Active]; amiodarone 200 mg Oral tab 1 tab once daily [Active]; Benefiber Healthy Shape 5 gram/7.4 gram Oral powd [Active]; Miralax 17 gram/dose Oral powd once daily [Active]; simvastatin 40 mg Oral tab 1 tab once daily [Active]; Iron CR Oral [Active]; lisinopril 20 mg Oral tab 1 tab once daily [Active]; - PMHx: 04:21 High Cholesterol; Hypothyroidism; neuropathy; Hypertension; skin cancer; kd3 - PSHx: 04:21 removed cancer from ear and neck; kd3 - Immunization history:: Adult Immunizations up to date, Client reports receiving the 2nd dose of the Covid vaccine, Date received: April 14, 2024. - Infectious Disease History:: Denies. - Social history:: Smoking status: Patient denies any tobacco usage or history of. - Family history:: not pertinent. ROS: 06:45 Constitutional: Negative for fever, chills, and weight loss, positive abdominal sp4 discomfort , positive shortness of breath Eyes: Negative for injury, pain, redness, and discharge, 06:45 All other systems are negative, Exam: 06:45 Constitutional: This is a well developed, well nourished patient who is awake, alert, sp4 and in no acute distress. Head/Face: Normocephalic, atraumatic. Eyes: Pupils equal round and reactive to light, extra-ocular motions intact. Lids and lashes normal. Conjunctiva and sclera are not injected. Cornea within normal limits. Periorbital areas with no swelling, redness, or edema. ENT: Nares patent. No nasal discharge, no septal abnormalities noted. Tympanic membranes are normal and external auditory canals are clear. Oropharynx with no redness, swelling, or masses, exudates, or evidence of obstruction, uvula midline. Mucous membranes moist. Neck: Trachea midline, no thyromegaly or masses palpated, and no cervical lymphadenopathy. Supple, full range of motion without nuchal rigidity, or vertebral point tenderness. Chest/axilla: Normal chest wall appearance and motion. Nontender with no deformity. No lesions are appreciated. Cardiovascular: Regular rate and rhythm with a normal S1 and S2. No gallops, murmurs, or rubs. Normal PMI, no JVD. No pulse deficits. Respiratory: Lungs have equal breath sounds bilaterally, clear to auscultation and percussion. No rales, rhonchi or wheezes noted. No increased work of breathing, no retractions or nasal flaring. Abdomen/GI: Soft, with normal bowel sounds. No distension or tympany. No guarding or rebound. No evidence of tenderness throughout. Back: No spinal tenderness. No costovertebral tenderness. Skin: Warm, dry with normal turgor. Normal color with no rashes, no lesions, and no evidence of cellulitis. MS/ Extremity: Pulses equal, no cyanosis. Neurovascular intact. Full, normal range of motion. Neuro: Awake and alert, GCS 15, oriented to person, place, time, and situation. Cranial nerves II-XII grossly intact. Motor strength 5/5 in all extremities. Sensory grossly intact. Psych: Awake, alert, with orientation to person, place and time. Behavior, mood, and affect are within normal limits 06:45 ECG was reviewed by the Attending Physician. EKG at 0406 atrial fibrillation at rate of [address] elevation or depression. Vital Signs: 04:05 BP 175 / 106; Pulse 89; Resp 18; Temp 97.8(O); Pulse Ox 96% on R/A; Weight 97.07 kg; oe Height 5 ft. 11 in. ; 06:26 BP 144 / 88; Pulse 90; Resp 18; Pulse Ox 97% on R/A; kd3 07:57 BP 174 / 105; Pulse 66; Resp 17; Pulse Ox 95% on R/A; ll1 09:00 BP 178 / 91; Pulse 71; Resp 18; Pulse Ox 97% ; ll1 10:12 BP 169 / 86; Pulse 86; Resp 16; Pulse Ox 97% on R/A; cm10 04:05 Body Mass Index 29.85 (97.07 kg, 180.34 cm) oe Kandy Coma Score: 06:45 Eye Response: spontaneous(4). Motor Response: obeys commands(6). Verbal Response: sp4 oriented(5). Total: 15. MDM: 06:44 ED course: EXAM: XR Chest, 1 View CLINICAL HISTORY: The patient is 89 years old and is sp4 Male; Chest pain. TECHNIQUE: Single view of the chest. COMPARISON: XR Chest 10/05/2022. FINDINGS: Lungs: No pulmonary vascular congestion or consolidation. Pleural space: Unremarkable. No pneumothorax. Heart: Unremarkable. No cardiomegaly. Mediastinum: Unremarkable. Bones/joints: No acute fracture visualized. Upper abdomen: No free air in the visualized upper abdomen. IMPRESSION: No acute cardiopulmonary process identified. . 06:47 Differential diagnosis: Anxiety Reaction asthma, Bronchitis CHF exacerbation, Chronic sp4 Obstructive Pulmonary Disease. Data reviewed: vital signs, nurses notes, EMS record, old medical records, lab test result(s), EKG, radiologic studies, CT scan, plain films. ED course: Patient care will be transferred to the next physician . Patient is awaiting CT report of his CT chest abdomen and pelvis.. 06:59 Medical Screening Exam initiated rt 10:57 Consideration of Admission/Observation Patient was admitted/placed on observation. rt Management of patient was discussed with the following: Hospitalist: Agrees to admit. Independent interpretation of the following test(s) in the Emergency Department CT Scan: My interpretation is No consolidation seen on interpretation of CT scan images. Care significantly affected by the following chronic conditions: Hypertension. Counseling: I had a detailed discussion with the patient and/or guardian regarding the historical points, exam findings, and any diagnostic results supporting the discharge/admit diagnosis, lab results, radiology results, the need for further work-up and treatment in the hospital. Response to treatment: There is no appreciated change of the patient's symptoms at this time. 06/20 04:15 Order name: Basic Metabolic Panel; Complete Time: 06:43 sp4 06/20 04:15 Order name: CBC with Diff; Complete Time: 06:43 sp4 06/20 04:15 Order name: LFT's; Complete Time: 06:43 sp4 06/20 04:15 Order name: Magnesium; Complete Time: 06:43 sp4 06/20 04:15 Order name: NT PRO-BNP; Complete Time: 06:43 sp4 06/20 04:15 Order name: PT-INR; Complete Time: 06:43 sp4 06/20 04:15 Order name: Troponin HS; Complete Time: 06:43 sp4 06/20 04:16 Order name: TSH; Complete Time: 06:43 sp4 06/20 04:16 Order name: T4 Free; Complete Time: 06:43 sp4 06/20 04:17 Order name: Lipase; Complete Time: 06:43 sp4 06/20 04:25 Order name: Urinalysis W/Microscopic; Complete Time: 06:59 sp4 06/20 04:25 Order name: Blood Culture Adult (2) sp4 06/20 04:53 Order name: Lactate w/ 2H reflex if indic.; Complete Time: 06:43 kd3 06/20 10:10 Order name: Urinalysis w/ reflexes EDMS 06/20 10:10 Order name: Basic Metabolic Panel EDMS 06/20 10:10 Order name: Basic Metabolic Panel EDMS 06/20 10:10 Order name: Basic Metabolic Panel EDMS 06/20 10:10 Order name: Basic Metabolic Panel EDMS 06/20 10:10 Order name: CBC with Automated Diff EDMS 06/20 10:10 Order name: CBC with Automated Diff EDMS 06/20 10:10 Order name: CBC with Automated Diff EDMS 06/20 10:10 Order name: CBC with Automated Diff EDMS 06/20 10:10 Order name: Magnesium EDMS 06/20 10:10 Order name: Magnesium EDMS 06/20 10:10 Order name: Magnesium EDMS 06/20 10:10 Order name: Magnesium EDMS 06/20 10:10 Order name: Phosphorus EDMS 06/20 10:10 Order name: Phosphorus EDMS 06/20 10:10 Order name: Phosphorus EDMS 06/20 10:10 Order name: Phosphorus EDMS 06/20 10:10 Order name: Troponin High Sensitivity EDMS 06/20 10:10 Order name: Troponin High Sensitivity EDMS 06/20 10:10 Order name: Troponin High Sensitivity [place] 06/20 04:15 Order name: XRAY Chest (1 view) [facility] 06/20 04:25 Order name: CT Chest, Abdomen, Pelvis - W/Contrast; Complete Time: 08:10 4 06/20 04:15 Order name: EKG; Complete Time: 04:16 4 06/20 10:10 Order name: Physical Therapy Consult [facility] 06/20 04:15 Order name: Cardiac monitoring; Complete Time: 04:24 4 06/20 04:15 Order name: EKG - Nurse/Tech; Complete Time: 04:24 4 06/20 04:15 Order name: IV Saline Lock; Complete Time: 04:28 4 06/20 04:15 Order name: Labs collected and sent; Complete Time: 04:53 4 06/20 04:15 Order name: O2 Per Protocol; Complete Time: 04:28 4 06/20 04:15 Order name: O2 Sat Monitoring; Complete Time: 04:28 sp4 EC:45 Rate is 93 beats/min. Rhythm is irregularly irregular, A fib. QRS [place] is Normal. QRS sp4 interval is normal. QT interval is normal. No Q waves. T waves are Normal. No ST changes noted. Clinical impression: No evidence of ischemia. Interpreted by me. Reviewed by me. Administered Medications: 05:10 Drug: HydrALAZINE PO 25 mg PO once Route: PO; kd3 07:51 Follow up: Response: No adverse reaction; Blood pressure is lowered ll1 08:37 Drug: DuoNeb Nebulize (3:1) (2.5 mg - 0.5 mg) 3 ml Nebulizer once Route: Nebulizer; ll1 09:03 Follow up: Response: No adverse reaction bp 08:37 Drug: Furosemide IVP 40 mg IVP once; give over 2 minutes Route: IVP; Site: left wrist; ll1 09:03 Follow up: Response: No adverse reaction bp Disposition Summary: 06/20/24 09:21 Hospitalization Ordered Notes: Hospitalization Status: Observation rt Provider: Taurus Mathews rt Condition: Stable rt Problem: an ongoing problem rt Symptoms: are unchanged rt Bed/Room Type: Standard rt Location: Telemetry/MedSurg (observation)(06/20/24 14:38) ss Room Assignment: 213(06/20/24 14:38) ss Diagnosis - Dyspnea on exertion rt - Edema rt Forms: - Medication Reconciliation Form rt - SBAR form rt - Leadership Thank You Letter rt Signatures: Dispatcher [employer] EDMS Jerri Ana bd Syeda Torres RN RN ss Randa Merino RN RN ll1 Virginia Ramirez RN RN kd3 Marcellus Bustamante MD MD rt Zacarias Burrell MD MD sp4 Bi So RN bp Corrections: (The following items were deleted from the chart) 04:25 04:25 Chest Abdomen Pelvis W Con+CT.RAD.BRZ ordered. EDMS EDMS 11:20 09:21 Telemetry/MedSurg (observation) rt bd 11:20 09:21 rt bd 14:38 11:20 [facility] ER HOLD bd ss 14:38 11:20 ERHOLD- bd ss
--- NOTE | 2024-06-20 09:40 | P.HP ---
Certification for Inpatient Patient admitted to: Observation With expected LOS: <2 Midnights Patient will require the following post-hospital care: None Practitioner: I am a practitioner with admitting privileges, knowledge of patient current condition, hospital course, and medical plan of care. Services: Services provided to patient in accordance with Admission requirements found in Title 42 Section 412.3 of the Code of Federal Regulations Patient History Date of Service: 06/20/24 Reason for admission: Fluid volume overload History of Present Illness: Jonathan Segundo is an 89 year old male with Pmhx Afib, hypercholesterolemia, hypothyroidism, neuropathy, hypertension, skin cancer who presents to the ED with chief complaint of exertional dyspnea, and edema to bilateral lower extremity as well as abdomen. 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 On examination, abdomen distended but not rigid, right lower extremity with 2+ edema greater than the left lower extremity, no acute distress, on room air. Chest x-ray negative for pleural effusion or edema. CT abdomen pelvis performed due to distention and complaint of discomfort revealing hepatic cyst, moderate prostatomegaly, and 9 mm left apical peribronchovascular nodule. Laboratory evaluation significant for BNP 1374, troponin 27.9, lipase 40 Can you be admitted to hospitalist service for further evaluation of volume overload. Allergies morphine Allergy (Verified 09/06/18 13:44) Unknown rivaroxaban [From Xarelto] Allergy (Verified 04/28/22 13:04) Hives/Rash warfarin [From Coumadin] Allergy (Verified 04/28/22 13:04) Rash Home Medications: Albuterol Inhaler [Ventolin Inhaler*] 1 puff IN Q6HR 03/12/23 Tamsulosin HCl 1 tab PO BEDTIME 03/12/23 Apixaban [Eliquis] 2.5 mg PO BID* 06/20/24 Carvedilol [Coreg] 3.125 mg PO BID* 06/20/24 Finasteride 5 mg PO DAILY 06/20/24 Latanoprostene Bunod [Vyzulta] 5 ml OP DAILY 06/20/24 Levothyroxine Sodium 100 mcg DAILY 06/20/24 Olopatadine HCl/Mometasone [Ryaltris 665-25 Mcg [place]] 2 sprays IN DAILY 06/20/24 Omeprazole [Prilosec] 40 mg PO BID 06/20/24 Pregabalin 75 mg PO DAILY 06/20/24 Simvastatin 40 mg PO DAILY 06/20/24 - Past Medical/Surgical History Diabetic: No -: htn -: hyperlipidemia -: hypothyroid -: neuropathy -: AFIB -: back surg -: lap appy -: R knee repair -: TURP -: skin CA removed from anterior head -: CA SURGERY RT EAR - Family History Brother -: Heart disease, Hypertension, Cancer - Social History Smoking Status: Never smoker Alcohol use: No CD- Drugs: No Caffeine use: Yes Review of Systems Respiratory: Shortness of Breath, SOB with Excertion Physical Examination - Physical Exam General: Alert, In no apparent distress HEENT: Normocephalic, PERRLA, Other (stitches to right cheek) Neck: Supple, 2+ carotid pulse no bruit Respiratory: Clear to auscultation bilaterally, Normal air movement Cardiovascular: Normal pulses, Regular rate/rhythm, Normal S1 S2 Capillary refill: <2 Seconds Gastrointestinal: Normal bowel sounds, Soft and benign, Non-distended, No tenderness Musculoskeletal: No clubbing Integumentary: No rashes, Other (stitches to right cheek) Neurological: Normal speech, Normal tone - Studies Laboratory Data (last 24 hrs) 06/20/24 06/20/24 06/20/24 04:45 04:45 04:45 WBC 5.90 Hgb 12.7 L Hct 36.9 L Plt Count 195 PT 12.9 H INR 1.16 Sodium 142 Potassium 3.8 BUN 18 Creatinine 1.17 Glucose 98 Magnesium 2.2 Total Bilirubin 0.5 AST 16 ALT 19 Alkaline Phosphatase 55 Lipase 40 Assessment and Plan - Plan Assessment and plan Acute hypoxic respiratory distress secondary to fluid volume overload -Chest x-ray negative for fluid - CT abdomen pelvis performed revealing hepatic cyst, moderate prostatomegaly, and 9 mm left apical peribronchovascular nodule. -BNP 1374 -Strict I's and O, daily weights -Oxygen protocol as needed -Xopenex nebulizer -Lasix BID Hepatic Cyst prostatomegaly 9 mm left apical peribronchovascular nodule -Incidental findings on CT abd/pelvis scan -Follow up outpatient -supportive care Atrial fibrillation Hypothyroidism Hypertension Neuropathy Skin cancer -Continue home medication -Continuous telemetry -Follow-up outpatient DVT PPx Eliquis Full code 24-hour abs Discharge Plan: Home - Advance Directives Does patient have a Living Will: No Does patient have a Durable POA for Healthcare: No
[2024-06-20] MEDS ORDERED: ACETAMINOPHEN 325 MG TABLET PO PRN (10:03)
[2024-06-20 12:48] VITALS: BMI 29.8
[2024-06-20] MEDS ORDERED: LEVALBUTEROL 0.63 MG/3 ML NEB ONE (13:15)
[2024-06-20] MEDS: LEVALBUTEROL 0.63 MG/3 ML NEB NEB SCH (13:19)
[2024-06-20] MEDS: FUROSEMIDE 40 MG/4 ML VIAL IV SCH (16:31)
[2024-06-20 18:07] VITALS: O2SAT 97
[2024-06-20] MEDS: PANTOPRAZOLE 40MG TABLET PO SCH (20:08)
[2024-06-20] MEDS: HYDRALAZINE HCL 20 MG/ML VIAL IV PRN (20:08)
[2024-06-20] MEDS: TAMSULOSIN 0.4 MG SR CAP PO SCH (20:08)
--- NOTE | 2024-06-21 02:55 | RAD REPORT ---
EXAM DESCRIPTION: Sacrum And Coccyx CLINICAL HISTORY: 89 years Male, s/p fall COMPARISON: CT abdomen and pelvis dated 06/20/2024. IMPRESSION: No fracture or dislocation. Joint spaces are preserved. Soft tissues are unremarkable. Electronically signed by: Christian Whitney DO 06/21/2024 02:22 AM CDT RP 9 Due to temporary technical issues with the PACS/[employer] reporting system, reports are being destin d by the in-house radiologist without review as a courtesy to ensure prompt reporting the interpreting radiologist is fully responsible for the content of the report. Transcribed Date/Time: 06/21/2024 2:55 AM
[2024-06-21 08:46] LABS: Absolute Basophils 0.1 K/uL (0-0.5); Absolute Lymphocytes (CBC) 1.3 K/uL (0.7-4.9); Absolute Monocytes 0.6 K/uL (0.1-1.3); Absolute Neutrophil 6.3 K/uL (1.8-8.0); Basophils % 0.7 % (0-1.3); Eosinophils % 0.2 % (0-4.4); Hematocrit 39.9 % (39.6-49.0); Hemoglobin 13.4 g/dL (13.6-17.9); Lymphocytes % 15.9 % (15.3-44.8); MCH 30.7 pg (27.0-35.0); MCHC 33.6 g/dL (32.0-36.0); MCV 91.3 fL (80-100); MPV 8.4 fL (7.6-11.3); Monocytes % 7.1 % (3.3-12.3); Neutrophils % 76.1 % (41.7-73.7); Platelets 190 thou/uL (152-406); RBC Red Blood Cell Count 4.37 M/uL (4.33-5.43)
[2024-06-21 08:55] LABS: Anion Gap 9.6 mEq/L (5.0-15.0); Magnesium 2.3 mg/dL (1.6-2.4); Phosphorus 3.2 mg/dL (2.5-4.9); Potassium 3.6 mEq/L (3.5-5.1)
[2024-06-21 09:10] VITALS: BP 158/70; TEMP 97.8
[2024-06-21] MEDS: PREGABALIN 75 MG CAP PO SCH (09:28)
[2024-06-21] MEDS: LEVOTHYROXINE SOD 0.1 MG TAB PO SCH (09:28)
[2024-06-21] MEDS: APIXABAN 2.5 MG TABLET PO SCH (09:29)
[2024-06-21] MEDS: FINASTERIDE 5 MG TAB PO SCH (09:29)
[2024-06-21] MEDS: ATORVASTATIN 40 MG TAB PO SCH (09:29)
[2024-06-21] MEDS: carvediloL 3.125 MG TAB PO SCH (09:29)
--- NOTE | 2024-06-21 10:20 | P.DS ---
Admission Date: 06/20/24 Discharge Date: 06/21/24 Disposition: ROUTINE DISCHARGE Discharge Condition: GOOD Reason for Admission: Fluid volume overload Brief History of Present Illness: Diagnosis Acute hypoxic respiratory distress secondary to COPD exacerbation Hepatic Cyst prostatomegaly 9 mm left apical peribronchovascular nodule Atrial fibrillation Hypothyroidism Hypertension Neuropathy Skin cancer HPI 06/20/2024 Jonathan Segundo is an 89 year old male with Pmhx Afib, hypercholesterolemia, hypothyroidism, neuropathy, hypertension, skin cancer who presents to the ED with chief complaint of exertional dyspnea, and edema to bilateral lower extremity as well as abdomen. He sees Dr. Bolaños for his pattern maker with denies taking Lasix at home. On examination, abdomen distended but not rigid, right lower extremity with 2+ edema greater than the left lower extremity, no acute distress, on room air. Chest x-ray negative for pleural effusion or edema. CT abdomen pelvis performed due to distention and complaint of discomfort revealing hepatic cyst, moderate prostatomegaly, and 9 mm left apical peribronchovascular nodule. Laboratory evaluation significant for BNP 1374, troponin 27.9, lipase 40 Admitted to hospitalist service for further evaluation of volume overload. Hospital Course: Jonathan Segundo is a pleasant 89-year-old male with a past medical history significant for Afib, hypercholesterolemia, hypothyroidism, neuropathy, hypertension, skin cancer who was admitted to the [facility] on 06/20/2024 for shortness of breath. Jonathan presented to the ED with chief complaint of shortness of breath. Chest x- ray negative for pleural effusion or edema, Lasix was administered in the ED with good UOP, breathing became easier and he reports feeling better this morning. He remained on room air and was given nebulizer breathing treatments. He remained afebrile, ambulating independently with a fall in the bathroom overnight with no injury seen on xray of coccyx/sacrum. Orthostatic vitals taken and resulted normal, he ambulated with physical therapy successfully. He will be discharged home with family support. On 06/21/2024, Jonathan was seen on morning rounds and deemed medically stable for discharge. Jonathan was discharged with instructions to schedule follow-up appointments with PCP, referrals needed for liver and prostate findings. Jonathan was provided prescriptions for Xopenex. Physical Exam General: Alert and oriented x 3, NAD HEENT: Normocephalic, PERRLA, Other (stitches to right cheek) Neck: Supple, 2+ carotid pulse no bruit Respiratory: Clear to auscultation bilaterally, Normal air movement Cardiovascular: Normal pulses, mild tachycardia atrial fibrillation, Normal S1 S2 Capillary refill: <2 Seconds Gastrointestinal: Normal bowel sounds, Soft on palpation, ND/NT Musculoskeletal: No clubbing Integumentary: No rashes, Other (stitches to right cheek) Neurological: Normal speech, Normal tone Vital Signs/Physical Exam: Temp Pulse Resp BP Pulse Ox 97.8 F 103 H 16 158/70 H 94 06/21/24 08:00 06/21/24 08:00 06/21/24 08:00 06/21/24 08:00 06/21/24 08:00 Laboratory Data at Discharge: WBC 8.30 thou/uL (4.3-10.9) 06/21/24 08:00 Hgb 13.4 g/dL (13.6-17.9) L 06/21/24 08:00 Hct 39.9 % (39.6-49.0) 06/21/24 08:00 Plt Count 190 thou/uL (152-406) 06/21/24 08:00 PT 12.9 SECONDS (9.4-12.5) H 06/20/24 04:45 INR 1.16 06/20/24 04:45 Sodium 140 mEq/L (136-145) 06/21/24 08:00 Potassium 3.6 mEq/L (3.5-5.1) 06/21/24 08:00 BUN 24 mg/dL (7-18) H 06/21/24 08:00 Creatinine 1.57 mg/dL (0.70-1.30) H 06/21/24 08:00 Glucose 110 mg/dL (74-106) H 06/21/24 08:00 Phosphorus 3.2 mg/dL (2.5-4.9) 06/21/24 08:00 Magnesium 2.3 mg/dL (1.6-2.4) 06/21/24 08:00 Total Bilirubin 0.5 mg/dL (0.2-1.0) 06/20/24 04:45 AST 16 U/L (15-37) 06/20/24 04:45 ALT 19 U/L (16-61) 06/20/24 04:45 Alkaline Phosphatase 55 U/L (45-117) 06/20/24 04:45 Lipase 40 U/L (13-75) 06/20/24 04:45 Home Medications: Albuterol Inhaler [Ventolin Inhaler*] 1 puff IN Q6HR 03/12/23 Tamsulosin HCl 1 tab PO BEDTIME 03/12/23 Apixaban [Eliquis *] 2.5 mg PO BID* 06/20/24 Carvedilol [Coreg] 3.125 mg PO BID* 06/20/24 Finasteride 5 mg PO DAILY 06/20/24 Latanoprostene Bunod [Vyzulta] 5 ml OP DAILY 06/20/24 Levothyroxine Sodium 100 mcg DAILY 06/20/24 Olopatadine HCl/Mometasone [Ryaltris 665-25 Mcg [place]] 2 sprays IN DAILY 06/20/24 Omeprazole [Prilosec] 40 mg PO BID 06/20/24 Pregabalin 75 mg PO DAILY 06/20/24 Simvastatin 40 mg PO DAILY 06/20/24 Levalbuterol [Xopenex*] 0.63 mg NEB [id number] PRN 30 Days #120 vial 06/21/24 New Medications: Levalbuterol [Xopenex*] 0.63 mg NEB [id number] PRN 30 Days #120 vial PRN Reason: Shortness Of Breath Physician Discharge Instructions: Lasix administered, He is breathing well, please continue treatment with xopenex nebulizer treatments at home. Follow up with your PCP for continued monitoring. 1. Please call and schedule a follow-up appointment with your PCP in 3-5 days - Please follow-up with your PCP for medication refills/adjustments -PCP to refer for further evaluation of incidental findings on CT abdomen/pelvis as follows Hepatic Cyst prostatomegaly 9 mm left apical peribronchovascular nodule 2. Continue heart healthy diet 3. activity restrictions, fall precaution 4. Return to the ED if symptoms worsen New medications Xopenex every 6 hours if needed, nebulizer Activity: Fall precautions Followup: KORI ALMENDAREZ [Primary Care Provider] - (follow up in 3 to 5 days )
--- NOTE | 2024-06-21 11:54 | EKG ---
Test Date: 2024-06-20 Test Time: 04:06:21 Commercial Producer: RONY MEASUREMENT RESULTS: Intervals: Rate: 93 [place]: QRSD: 80 QT: 368 QTc: 457 [place]: P: [place]: QRS: -3 T: 5 INTERPRETIVE STATEMENTS: Atrial fibrillation Abnormal ECG Compared to ECG 03/25/2024 10:57:21 No significant changes Electronically Signed On 06-21-24 11:51:31 CDT by Vincent Sanches
== END 2024-06-21 12:15 | disposition home or self-care (01) ==
LOC: ER 04:01 → ERHOLD 10:03 → 2ND 15:05
PROVIDERS: ADMIT Internal Medicine; ATTEND Internal Medicine
DX: J44.1 Chronic obstructive pulmonary disease with (acute) exacerbation (principal); J96.01 Acute respiratory failure with hypoxia; E87.70 Fluid overload, unspecified; K76.89 Other specified diseases of liver; N40.0 Benign prostatic hyperplasia without lower urinary tract symptoms; R91.1 Solitary pulmonary nodule; I48.11 Longstanding persistent atrial fibrillation; E03.9 Hypothyroidism, unspecified; I10 Essential (primary) hypertension; G62.9 Polyneuropathy, unspecified; R60.0 Localized edema; E78.00 Pure hypercholesterolemia, unspecified; W18.39XA Other fall on same level, initial encounter; Y93.89 Activity, other specified; Y92.231 Patient bathroom in hospital as the place of occurrence of the external cause; Z85.828 Personal history of other malignant neoplasm of skin
CPT/HCPCS: 36415; 71045; 71260; 72220; 74177; 80048; 80076; 81001; 83605; 83690; 83735; 83880; 84100; 84439; 84443; 84484; 85025; 85610; 87040; 93005; 94640; 96374; 97116; 97161; 97530; 99285; G0378; J0360; J1940; J7613; J7614; J7644; Q9967

== ENCOUNTER 2024-10-23 06:20 | Observation (INO) | payer OTHER ==
[2024-10-23 06:47] LABS: Absolute Basophils 0.1 K/uL (0-0.5); Absolute Eosinophils 0.1 K/uL (0-0.5); Absolute Lymphocytes (CBC) 1.3 K/uL (0.7-4.9); Absolute Monocytes 0.6 K/uL (0.1-1.3); Absolute Neutrophil 4.8 K/uL (1.8-8.0); Basophils % 0.8 % (0-1.3); Hematocrit 39.4 % (39.6-49.0); Hemoglobin 13.2 g/dL (13.6-17.9); Lymphocytes % 19.4 % (15.3-44.8); MCH 30.1 pg (27.0-35.0); MCHC 33.6 g/dL (32.0-36.0); MCV 89.7 fL (80-100); MPV 7.7 fL (7.6-11.3); Monocytes % 8.2 % (3.3-12.3); Neutrophils % 69.6 % (41.7-73.7); Nucleated Red Blood Cells % 0.1 % (0-0); Platelets 202 thou/uL (152-406); Red Cell Distribution Width 13.8 % (12.1-15.2)
[2024-10-23 06:52] LABS: Protime INR 1.34
[2024-10-23 07:09] LABS: ALT/SGPT 18 U/L (16-61); AST/SGOT 15 U/L (15-37); Albumin 3.4 g/dL (3.4-5.0); Alkaline Phosphatase 69 U/L (45-117); Anion Gap 7.8 mEq/L (5.0-15.0); BUN Blood Urea Nitrogen 16 mg/dL (7-18); Bicarbonate 27 mEq/L (21-32); Bilirubin Direct 0.2 mg/dL (0-0.2); Bilirubin Indirect, Calculated 0.3 mg/dL (0.2-0.8); Bilirubin Total 0.5 mg/dL (0.2-1.0); Globulin 3.3 g/dL (2.3-3.5); Glomerular Filtration Rate 54 ml/min (=/>90); Glucose Level 104 mg/dL (74-106); Lipase 40 U/L (13-75); Magnesium 2.2 mg/dL (1.6-2.4); NT PRO-BNP 2025 pg/mL (<450); Potassium 3.8 mEq/L (3.5-5.1); Protein, Total 6.7 g/dL (6.4-8.2); Sodium Level 143 mEq/L (136-145); Troponin High Sensitivity 13.7 pg/mL (<58.9)
[2024-10-23 07:49] LABS: C-Reactive Protein < 2.90 mg/L (<3.00)
--- NOTE | 2024-10-23 08:14 | RAD REPORT ---
EXAMINATION: US bilateral LOWER EXTREMITY VENOUS DOPPLER CLINICAL INDICATION: Leg swelling TECHNIQUE: Sonographic evaluation of the veins of the lower extremity bilaterally formed.Grayscale, c olor and spectral analysis performed on all vessels COMPARISON: No prior exam. FINDINGS: The common femoral, superficial femoral, greater saphenous, popliteal and posterior tibial veins bila terally are compressible and demonstrate augmentation. Doppler demonstrates good flow. IMPRESSION: No evidence of deep venous thrombosis involving either lower extremity
--- NOTE | 2024-10-23 08:14 | RAD REPORT ---
Procedure: Chest Single View HISTORY: Chest pain COMPARISON: 2023 FINDINGS: The lungs appear clear of acute infiltrate. No significant pleural effusion noted. The heart is normal size. IMPRESSION: No acute abnormality is displayed.
--- NOTE | 2024-10-23 08:17 | ER ---
Nurse's Notes [facility] Name: Jonathan Segundo Age: 89 yrs Sex: Male : 1935 Arrival Date: 10/23/2024 Time: 06:20 Bed 8 Private MD: Diagnosis: Chest pain, unspecified;Shortness of breath;Edema, unspecified Presentation: 10/23 06:37 Chief complaint: Patient states: I feel short of breath and have some discomfort right bm8 in the center of my chest. Coronavirus screen: Vaccine status: Patient reports receiving the 2nd dose of the covid vaccine. At this time, the client does not indicate any symptoms associated with coronavirus-19. Ebola Screen: Patient negative for fever greater than or equal to 101.5 degrees Fahrenheit, and additional compatible Ebola Virus Disease symptoms Patient denies exposure to infectious person. Patient denies travel to an Ebola-affected area in the 21 days before illness onset. No symptoms or risks identified at this time. Initial Sepsis Screen: Does the patient meet any 2 criteria? No. Patient's initial sepsis screen is negative. Does the patient have a suspected source of infection? No. Patient's initial sepsis screen is negative. Risk Assessment: Do you want to hurt yourself or someone else? Patient reports no desire to harm self or others. Onset of symptoms is unknown. 06:37 Method Of Arrival: EMS: [facility] bm8 06:37 Acuity: ERIN 2 bm8 Triage Assessment: 06:39 General: Appears in no apparent distress. comfortable, Behavior is calm, cooperative, bm8 appropriate for age. Pain: Complains of pain in chest Pain does not radiate. Pain currently is 5 out of 10 on a pain scale. Quality of pain is described as pressure. EENT: No deficits noted. No signs and/or symptoms were reported regarding the EENT system. Neuro: No deficits noted. Level of Consciousness is awake, alert, obeys commands, Oriented to person, place, time, situation, Appropriate for age. Cardiovascular: Reports chest pain, shortness of breath, Heart tones S1 S2 present Capillary refill < 3 seconds in bilateral fingers Patient's skin is warm and dry. Rhythm is atrial fibrillation. Cardiovascular: Edema is 1+ to left midcalf, left ankle, left foot and left toes is 3+ to right midcalf, right ankle, right foot and right toes. Respiratory: Airway is patent Respiratory effort is even, unlabored, Respiratory pattern is regular, symmetrical, Breath sounds are clear in right upper lobe, right middle lobe, right lower lobe, right posterior upper lobe, right posterior middle lobe and right posterior lower lobe Breath sounds are diminished in left upper lobe, left lower lobe, left posterior upper lobe and left posterior lower lobe. GI: No signs and/or symptoms were reported involving the gastrointestinal system. : No deficits noted. No signs and/or symptoms were reported regarding the genitourinary system. Derm: No deficits noted. No signs and/or symptoms reported regarding the dermatologic system. Musculoskeletal: No signs and/or symptoms reported regarding the musculoskeletal system. Historical: - Allergies: 06:39 Warfarin; bm8 06:39 Xarelto; bm8 06:39 Morphine; bm8 - Home Meds: 06:39 amiodarone 200 mg Oral tab 1 tab once daily [Active]; Benefiber Healthy Shape 5 bm8 gram/7.4 gram Oral powd [Active]; carvedilol 3.125 mg Oral tab [Active]; Combivent 18-103 mcg/actuation Inhl aero 2 puffs 4 times per day [Active]; Iron CR Oral [Active]; levothyroxine 112 mcg cap 1 cap once daily [Active]; lisinopril 20 mg Oral tab 1 tab once daily [Active]; Miralax 17 gram/dose Oral powd once daily [Active]; simvastatin 40 mg Oral tab 1 tab once daily [Active]; Vitamin B-12 500 mcg Oral tab [Active]; - PMHx: 06:39 High Cholesterol; Hypertension; Hypothyroidism; neuropathy; skin cancer; bm8 - PSHx: 06:39 removed cancer from ear and neck; bm8 - Immunization history:: Adult Immunizations up to date. - Infectious Disease History:: Denies. - Social history:: Smoking status: Smoking status: Patient denies any tobacco usage or history of. - Family history:: not pertinent. Screenin:44 [facility] ED Fall Risk Assessment (Adult) History of falling in the last 3 months, bm8 including since admission No falls in past 3 months (0 pts) Confusion or Disorientation No (0 pts) Intoxicated or Sedated No (0 pts) Impaired Gait Yes (1 pt) Mobility Assist Device Used Yes (1 pt) Altered Elimination No (0 pt) Score/Fall Risk Level 3 or more points = High Risk Oriented to surroundings, Maintained a safe environment, Educated pt \T\ family on fall prevention, incl call for assistance when getting out of bed, Assessed \T\ reinforced patient's understanding of fall precautions, Hourly rounding (assess needs \T\ fall precautionary measures) done, Used ambulatory aids as needed (educated on \T\ assisted with), Used gait belt as appropriate Implemented a Fall Risk Plan of Care. Abuse screen: Denies threats or abuse. Nutritional screening: No deficits noted. Tuberculosis screening: No symptoms or risk factors identified. Assessment: 06:44 Reassessment: see triage assessment. bm8 Vital Signs: 06:37 BP 174 / 98; Pulse 85; Resp 18; Temp 98.2; Pulse Ox 99% on R/A; Weight 96.62 kg; Height bm8 5 ft. 11 in. ; Pain 5/10; 06:48 BP 146 / 97; Pulse 77; Resp 18; Pulse Ox 97% on R/A; dd2 08:00 BP 150 / 98; Pulse 80; Resp 18; Pulse Ox 98% on R/A; ph 09:00 BP 162 / 97; Pulse 84; Resp 16; Pulse Ox 99% on R/A; ph 10:30 BP 178 / 93; Pulse 88; Resp 20; Temp 97.8; Pulse Ox 98% on R/A; ph 06:37 Body Mass Index 29.71 (96.62 kg, 180.34 cm) bm8 06:37 Pain Scale: Adult bm8 Kandy Coma Score: 06:40 Eye Response: spontaneous(4). Motor Response: obeys commands(6). Verbal Response: sp4 oriented(5). Total: 15. 06:44 Eye Response: spontaneous(4). Motor Response: obeys commands(6). Verbal Response: bm8 oriented(5). Total: 15. ED Course: 06:28 Patient arrived in ED. dd2 06:34 Zacarias Burrell MD is Attending Physician. sp4 06:35 Edmundo Gomez, RN is Primary Nurse. bm8 06:37 EKG done, by ED staff, reviewed by Edmundo Gomez RN. dd2 06:39 Triage completed. bm8 06:39 Arm band placed on right wrist. bm8 06:43 Initial lab(s) drawn, by ED staff, sent to lab. dd2 06:44 No provider procedures requiring assistance completed. Inserted saline lock: 20 gauge bm8 in right forearm, using aseptic technique. Blood collected. Flushed with 10 mL NS. Patient maintains SpO2 saturation greater than 95% on room air. 06:44 Patient has correct armband on for positive identification. Placed in gown. Bed in low bm8 position. Call light in reach. Side rails up X2. Adult w/ patient. Client placed on continuous cardiac and pulse oximetry monitoring. NIBP monitoring applied. groundwater monitoring technician on. Pulse ox on. NIBP on. Door closed. Noise minimized. Warm blanket given. Pillow given. Verbal reassurance given. Head of bed. 07:05 Attending Physician role handed off by Zacarias Burrell MD rn 07:05 Jaime Ventura MD is Attending Physician. rn 07:19 Extrem Venous W Compression Clive US In Process Unspecified. EDMS 07:38 Primary Nurse role handed off by Edmundo Gomez RN ph 07:38 Allyssa De Leon RN is Primary Nurse. ph 07:43 XRAY Chest (1 view) In Process Unspecified. EDMS 08:16 Taurus Mathews is Hospitalizing Provider. rn 11:32 Patient admitted, IV remains in place. ph Administered Medications: 09:08 Drug: Furosemide IVP 40 mg IVP once; give over 2 minutes Route: IVP; Site: right ph forearm; 11:34 Follow up: Response: No adverse reaction ph 09:08 Drug: Levalbuterol Inhalation 1.25 mg Inhalation once Route: Inhalation; ph 11:34 Follow up: Response: No adverse reaction ph Medication: 06:44 VIS not applicable for this client. bm8 Outcome: 08:17 Decision to Hospitalize by Provider. rn 11:32 Admitted to Tele accompanied by tech, family with patient, via wheelchair, room 414, ph with chart, 11:32 Condition: stable 11:32 Instructed on the need for admit, 11:34 Patient left the ED. ph Signatures: Dispatcher [employer] EDMS Jaime Ventura MD MD rn Hall, Patricia, RN RN ph Zacarias Burrell MD MD sp4 Edmundo Gomez RN RN bm8 PHAM, EKATERINA, RN RN dd2
--- NOTE | 2024-10-23 08:17 | EDPHYS ---
Physician Documentation [facility] Name: Jonathan Segundo Age: 89 yrs Sex: Male : 1935 Arrival Date: 10/23/2024 Time: 06:20 Bed 8 Private MD: ED Physician Jaime Ventura HPI: 10/23 06:40 This 89 yrs old Male presents to ER via EMS with complaints of Chest Pain, sp4 Shortness Of Breath. 06:40 89-year-old male who goes to local [employer] science [employer] Sanches , presents with acute onset sp4 chest discomfort midsternal described as pressure type discomfort associated with shortness of breath bilateral lower extremity swelling. Patient has recent admission 06/20/2024 for acute hypoxic respiratory distress, COPD, hepatic cyst, prostatomegaly, left apical lung nodule, atrial fibrillation, hypothyroidism, hypertension, neuropathy skin cancer. Primarily patient has history of atrial fibrillation, and he is daily medications include albuterol inhaler as needed, tamsulosin bedtime, apixaban 2.5 mg p.o. twice daily, carvedilol 3.125 p.o. twice daily, finasteride 5 mg p.o. daily, latanoprost, Vyzulta , levothyroxine 100 mcg daily, mometasone, omeprazole 40 mg twice daily, pregabalin 75 mg daily, simvastatin 40 mg daily, levalbuterol as needed.. Historical: - Allergies: 06:39 Warfarin; bm8 06:39 Xarelto; bm8 06:39 Morphine; bm8 - Home Meds: 06:39 amiodarone 200 mg Oral tab 1 tab once daily [Active]; Benefiber Healthy Shape 5 bm8 gram/7.4 gram Oral powd [Active]; carvedilol 3.125 mg Oral tab [Active]; Combivent 18-103 mcg/actuation Inhl aero 2 puffs 4 times per day [Active]; Iron CR Oral [Active]; levothyroxine 112 mcg cap 1 cap once daily [Active]; lisinopril 20 mg Oral tab 1 tab once daily [Active]; Miralax 17 gram/dose Oral powd once daily [Active]; simvastatin 40 mg Oral tab 1 tab once daily [Active]; Vitamin B-12 500 mcg Oral tab [Active]; - PMHx: 06:39 High Cholesterol; Hypertension; Hypothyroidism; neuropathy; skin cancer; bm8 - PSHx: 06:39 removed cancer from ear and neck; bm8 - Immunization history:: Adult Immunizations up to date. - Infectious Disease History:: Denies. - Social history:: Smoking status: Smoking status: Patient denies any tobacco usage or history of. - Family history:: not pertinent. ROS: 06:40 Constitutional: Negative for fever, chills, and weight loss, positive for shortness of sp4 breath, positive chest pain, positive bilateral lower extremity swelling. 06:40 All other systems are negative, Exam: 06:40 Constitutional: This is a well developed, well nourished patient who is awake, patient sp4 is frail elderly male, signs of chronic physical deconditioning but nontoxic. Head/Face: Normocephalic, atraumatic. Eyes: Pupils equal round and reactive to light, extra-ocular motions intact. Lids and lashes normal. Conjunctiva and sclera are not injected. Cornea within normal limits. Periorbital areas with no swelling, redness, or edema. ENT: Nares patent. No nasal discharge, no septal abnormalities noted. Tympanic membranes are normal and external auditory canals are clear. Oropharynx with no redness, swelling, or masses, exudates, or evidence of obstruction, uvula midline. Mucous membranes moist. Neck: Trachea midline, no thyromegaly or masses palpated, and no cervical lymphadenopathy. Supple, full range of motion without nuchal rigidity, or vertebral point tenderness. Chest/axilla: Normal chest wall appearance and motion. Nontender with no deformity. No lesions are appreciated. Cardiovascular: Regular rate and rhythm with a normal S1 and S2. No gallops, murmurs, or rubs. Normal PMI, no JVD. No pulse deficits. Respiratory: Lungs have equal breath sounds bilaterally, clear to auscultation and percussion. No rales, rhonchi or wheezes noted. No increased work of breathing, no retractions or nasal flaring. Abdomen/GI: Soft, with normal bowel sounds. No distension or tympany. No guarding or rebound. No evidence of tenderness throughout. Back: No spinal tenderness. No costovertebral tenderness. Skin: Warm, dry with normal turgor. Normal color with no rashes, no lesions, and no evidence of cellulitis. MS/ Extremity: Pulses equal, no cyanosis. Neurovascular intact. Positive bilateral lower extremity edema right greater than left. There is some pitting Neuro: Awake and alert, GCS 15, oriented to person, place, time, and situation. Cranial nerves II-XII grossly intact. Motor strength 5/5 in all extremities. Sensory grossly intact. Psych: Awake, alert, with orientation to person, place and time. Behavior, mood, and affect are within normal limits 06:40 ECG was reviewed by the Attending Physician. EKG 0 6:19 AM atrial fibrillation rate 92. Vital Signs: 06:37 BP 174 / 98; Pulse 85; Resp 18; Temp 98.2; Pulse Ox 99% on R/A; Weight 96.62 kg; Height bm8 5 ft. 11 in. ; Pain 5/10; 06:48 BP 146 / 97; Pulse 77; Resp 18; Pulse Ox 97% on R/A; dd2 08:00 BP 150 / 98; Pulse 80; Resp 18; Pulse Ox 98% on R/A; ph 09:00 BP 162 / 97; Pulse 84; Resp 16; Pulse Ox 99% on R/A; ph 10:30 BP 178 / 93; Pulse 88; Resp 20; Temp 97.8; Pulse Ox 98% on R/A; ph 06:37 Body Mass Index 29.71 (96.62 kg, 180.34 cm) bm8 06:37 Pain Scale: Adult bm8 Kandy Coma Score: 06:40 Eye Response: spontaneous(4). Motor Response: obeys commands(6). Verbal Response: sp4 oriented(5). Total: 15. 06:44 Eye Response: spontaneous(4). Motor Response: obeys commands(6). Verbal Response: bm8 oriented(5). Total: 15. MDM: 06:45 Differential diagnosis: acute pericarditis, anxiety, coronary artery disease chest wall sp4 pain, congestive heart failure cholecystitis, esophagitis, gastritis. HEART Score: History: Moderately Suspicious (1), ECG: Non specific repolarization disturbance / LBTB / PM (1), Age: > or = 65 years (2), Risk Factors: > or = 3 Risk factors for atherosclerotic disease (2), Troponin: < or = 1 x Normal Limit (0), Total Score = 6. The patient was given aspirin in the Emergency Department. Data reviewed: vital signs, nurses notes, EMS record, old medical records, lab test result(s), EKG, radiologic studies. Consideration of Admission/Observation Patient was admitted/placed on observation. Escalation of care including admission/observation considered. Transition of care: After a detail discussion of the patient's case, care is transferred to Jaime Ventura MD. 07:03 Medical Screening Exam initiated sp4 08:13 Counseling: I had a detailed discussion with the patient and/or guardian regarding the rn historical points, exam findings, and any diagnostic results supporting the discharge/admit diagnosis, the presence of at least one elevated blood pressure reading (>120/80) during this emergency department visit, lab results, radiology results, the need for further work-up and treatment in the hospital. 10/23 06:35 Order name: Basic Metabolic Panel; Complete Time: 07:53 sp4 10/23 06:35 Order name: CBC with Diff; Complete Time: 07:04 sp4 10/23 06:35 Order name: LFT's; Complete Time: 07:53 sp4 10/23 06:35 Order name: Magnesium; Complete Time: 07:53 sp4 10/23 06:35 Order name: NT PRO-BNP; Complete Time: 07:53 sp4 10/23 06:35 Order name: PT-INR; Complete Time: 07:04 sp4 10/23 06:35 Order name: Troponin HS; Complete Time: 07:53 sp4 10/23 06:35 Order name: CRP; Complete Time: 07:53 sp4 10/23 06:35 Order name: TSH; Complete Time: 07:53 sp4 10/23 06:35 Order name: T4 Free; Complete Time: 07:53 sp4 10/23 06:35 Order name: Lipase; Complete Time: 07:53 sp4 10/23 09:13 Order name: Hemoglobin A1c [facility] 10/23 09:13 Order name: Magnesium [facility] 10/23 09:13 Order name: Phosphorus [facility] 10/23 09:13 Order name: Thyroid Stimulating Hormone [facility] 10/23 09:13 Order name: Urinalysis w/ reflexes [facility] 10/23 09:13 Order name: Basic Metabolic Panel [facility] 10/23 09:13 Order name: Basic Metabolic Panel [facility] 10/23 09:13 Order name: CBC with Automated Diff [facility] 10/23 09:13 Order name: CBC with Automated Diff [facility] 10/23 09:13 Order name: Lipid Profile [facility] 10/23 09:13 Order name: Lipid Profile [facility] 10/23 09:13 Order name: NT PRO-BNP [facility] 10/23 09:13 Order name: NT PRO-BNP [facility] 10/23 09:13 Order name: Troponin High Sensitivity [facility] 10/23 09:13 Order name: Troponin High Sensitivity [facility] 10/23 09:13 Order name: Troponin High Sensitivity [facility] 10/23 09:13 Order name: Troponin High Sensitivity [facility] 10/23 06:35 Order name: XRAY Chest (1 view); Complete Time: 08:15 sp4 10/23 06:35 Order name: Extrem Venous W Compression Clive US; Complete Time: 08:15 sp4 10/23 06:35 Order name: EKG; Complete Time: 06:35 sp4 10/23 09:13 Order name: Patient Safety Orders [facility] 10/23 09:13 Order name: CONS Physician Consult [facility] 10/23 06:35 Order name: Cardiac monitoring; Complete Time: 06:37 sp4 10/23 06:35 Order name: EKG - Nurse/Tech; Complete Time: 06:37 sp4 10/23 06:35 Order name: IV Saline Lock; Complete Time: 06:37 sp4 10/23 06:35 Order name: Labs collected and sent; Complete Time: 06:37 sp4 10/23 06:35 Order name: O2 Per Protocol; Complete Time: 06:37 sp4 10/23 06:35 Order name: O2 Sat Monitoring; Complete Time: 06:37 sp4 EC:19 Rate is 92 beats/min. Rhythm is irregularly irregular, A fib. QRS [place] is Normal. QRS sp4 interval is normal. QT interval is normal. No ST changes noted. Clinical impression: Atrial Fibrillation and No evidence of ischemia. Interpreted by me. Reviewed by me. Administered Medications: 09:08 Drug: Furosemide IVP 40 mg IVP once; give over 2 minutes Route: IVP; Site: right ph forearm; 11:34 Follow up: Response: No adverse reaction ph 09:08 Drug: Levalbuterol Inhalation 1.25 mg Inhalation once Route: Inhalation; ph 11:34 Follow up: Response: No adverse reaction ph Disposition Summary: 10/23/24 08:17 Hospitalization Ordered Notes: Hospitalization Status: Observation rn Provider: Taurus Mathews rn Condition: Stable rn Problem: an ongoing problem rn Symptoms: are unchanged rn Bed/Room Type: Standard rn Location: Telemetry/MedSurg (observation)(10/23/24 10:20) bd Room Assignment: 414(10/23/24 10:20) bd Diagnosis - Chest pain, unspecified rn - Shortness of breath rn - Edema, unspecified rn Forms: - Medication Reconciliation Form rn - SBAR form rn - Leadership Thank You Letter rn Signatures: Dispatcher [employer] EDMS Ana Guthrie bd Jaime Ventura MD MD rn Hall, Patricia, RN RN Zacarias Burrell MD MD sp4 Edmundo Gomez RN RN bm8 Corrections: (The following items were deleted from the chart) 09:13 09:13 T4 Free ordered. EDKY EDMS 10:10 08:17 Telemetry/MedSurg (observation) rn bd 10:10 08:17 rn bd 10:20 10:10 [facility] ER HOLD bd bd 10:20 10:10 ERHOLD- bd bd
[2024-10-23] MEDS ORDERED: LEVALBUTEROL 1.25 MG/3 ML NEB ONE (08:58)
[2024-10-23] MEDS ORDERED: FUROSEMIDE 40 MG/4 ML VIAL ONE (08:58)
[2024-10-23] MEDS ORDERED: ALBUTEROL 2.5 MG/3 ML NEB SOL NEB PRN (09:04)
[2024-10-23] MEDS ORDERED: HYDROCODONE/APAP 5/325 MG TAB PO PRN (09:10)
[2024-10-23] MEDS ORDERED: LABETALOL 20 MG/4ML SYRINGE IV PRN (09:14)
--- NOTE | 2024-10-23 09:19 | P.HP ---
Certification for Inpatient Patient admitted to: Inpatient With expected LOS: >2 Midnights Patient will require the following post-hospital care: None Practitioner: I am a practitioner with admitting privileges, knowledge of patient current condition, hospital course, and medical plan of care. Services: Services provided to patient in accordance with Admission requirements found in Title 42 Section 412.3 of the Code of Federal Regulations Patient History Date of Service: 10/23/24 Reason for admission: SOB History of Present Illness: Patient is an 89-year-old male with a past medical history significant for A- fib, COPD, hypothyroidism, hypertension, hyperlipidemia, BPH, neuropathy, skin cancer who presents with complaint of shortness of breath and chest discomfort. Patient denies chest pain but reported that he experienced chest discomfort with radiation to the right shoulder. Patient reports associated signs and symptoms of headache, dizziness and bilateral lower extremity edema. Patient also reported that his last bowel movement was 2 days ago. Patient denies any other signs and symptoms. Symptoms are aggravated or relieved by nothing. Patient decided to present to the hospital due to worsening symptoms. Allergies morphine Allergy (Verified 09/06/18 13:44) Unknown rivaroxaban [From Xarelto] Allergy (Verified 04/28/22 13:04) Hives/Rash warfarin [From Coumadin] Allergy (Verified 04/28/22 13:04) Rash Home Medications: Albuterol Inhaler [Ventolin Inhaler*] 1 puff IN Q6HR 03/12/23 Tamsulosin HCl 1 tab PO BEDTIME 03/12/23 Apixaban [Eliquis *] 2.5 mg PO BID* 06/20/24 Carvedilol [Coreg] 3.125 mg PO BID* 06/20/24 Finasteride 5 mg PO DAILY 06/20/24 Latanoprostene Bunod [Vyzulta] 5 ml OP DAILY 06/20/24 Levothyroxine Sodium 100 mcg DAILY 06/20/24 Olopatadine HCl/Mometasone [Ryaltris 665-25 Mcg [place]] 2 sprays IN DAILY 06/20/24 Omeprazole [Prilosec] 40 mg PO BID 06/20/24 Pregabalin 75 mg PO DAILY 06/20/24 Simvastatin 40 mg PO DAILY 06/20/24 Levalbuterol [Xopenex*] 0.63 mg NEB [id number] PRN 30 Days #120 vial 06/21/24 Doxycycline Hyclate 100 mg PO BID 10/23/24 Lisinopril [Zestril] 10 mg PO LUNCH 10/23/24 - Past Medical/Surgical History Diabetic: No -: htn -: hyperlipidemia -: hypothyroid -: neuropathy -: AFIB -: back surg -: lap appy -: R knee repair -: TURP -: skin CA removed from anterior head -: CA SURGERY RT EAR - Family History Brother -: Heart disease, Hypertension, Cancer - Social History Smoking Status: Never smoker Alcohol use: No CD- Drugs: No Caffeine use: Yes Place of Residence: Home Review of Systems General: Unremarkable Eyes: Unremarkable ENT: Unremarkable Respiratory: Shortness of Breath Cardiovascular: Chest Pain Musculoskeletal: Shoulder Pain, Pedal edema, Other (BLE edema) Integumentary: Unremarkable Neurological: Other (ANN. dizziness) Lymphatics: Unremarkable Physical Examination - Physical Exam General: Alert, In no apparent distress, Cooperative HEENT: Atraumatic, PERRLA, Mucous membr. moist/pink, EOMI, Sclerae nonicteric Neck: Supple, 2+ carotid pulse no bruit, No LAD, Without JVD or thyroid abnormality Respiratory: Normal air movement, Diminished Cardiovascular: Regular rate/rhythm, Normal S1 S2, Edema Capillary refill: <2 Seconds Gastrointestinal: Normal bowel sounds, Soft and benign, No tenderness Musculoskeletal: No clubbing, No tenderness, Swelling Integumentary: No rashes, Tenderness/swelling Neurological: Normal speech, Normal strength at 5/5 x4 extr, Normal tone, Normal affect Lymphatics: No axilla or inguinal lymphadenopathy - Studies Laboratory Data (last 24 hrs) 10/23/24 10/23/24 10/23/24 06:30 06:30 06:30 WBC 6.90 Hgb 13.2 L Hct 39.4 L Plt Count 202 PT 14.0 H INR 1.34 Sodium 143 Potassium 3.8 BUN 16 Creatinine 1.27 Glucose 104 Magnesium 2.2 Total Bilirubin 0.5 AST 15 ALT 18 Alkaline Phosphatase 69 Lipase 40 Assessment and Plan - Plan Atypical chest pain. --Serial troponins negative. --Echocardiogram pending to assess cardiac structures and functions --Cardiology consulted. Recommendations appreciated. --Telemetry to monitor for any significant arrhythmia Acute on chronic diastolic CHF exacerbation. --Continue diuresis with Lasix. --Daily weight and strict I/O. --Echocardiogram pending to assess LV\valvular functions and wall motion. --Further management per tapper supervisor. COPD --Stable --Continue home medications Hyperlipidemia\hypothyroidism\BPH\peripheral neuropathy\Glaucoma --Continue home medications Hypertension --Poorly controlled. --Continue home medications --Labetalol as needed for SBP >160 mmHg. Atrial fibrillation --Continue Eliquis DVT prophylaxis with Eliquis. Discharge Plan: Home Plan to discharge in: 48 Hours - Advance Directives Does patient have a Living Will: Yes Does patient have a Durable POA for Healthcare: No - Code Status/Comfort Care Code Status Assessed: Yes Physician Review: Patient Assessed, Agree with Above Assessment and Plan Critical Care: No
[2024-10-23 11:46] LABS: Magnesium 2.2 mg/dL (1.6-2.4); Phosphorus 3.5 mg/dL (2.5-4.9); Thyroid Stimulating Hormone 0.91 uIU/mL (0.358-3.740)
[2024-10-23 11:59] VITALS: BMI 5922.9
--- NOTE | 2024-10-23 13:00 | P.CNS ---
Date of Consult: 10/23/24 Chief Complaint: congestion History of Present Illness: Patient with PMH of AF, chronic diastolic heart failure, hiatal hernia, presented with abdominal congestion, fluid build up and abdominal pain, denies chest pain, no palpitations, no dizzy spells, no syncope. Allergies morphine Allergy (Verified 09/06/18 13:44) Unknown rivaroxaban [From Xarelto] Allergy (Verified 04/28/22 13:04) Hives/Rash warfarin [From Coumadin] Allergy (Verified 04/28/22 13:04) Rash Home medications list reviewed: Yes Home Medications: Albuterol Inhaler [Ventolin Inhaler*] 1 puff IN Q6HR 03/12/23 Tamsulosin HCl 1 tab PO BEDTIME 03/12/23 Apixaban [Eliquis *] 2.5 mg PO BID* 06/20/24 Carvedilol [Coreg] 3.125 mg PO BID* 06/20/24 Finasteride 5 mg PO DAILY 06/20/24 Latanoprostene Bunod [Vyzulta] 5 ml OP DAILY 06/20/24 Levothyroxine Sodium 100 mcg DAILY 06/20/24 Olopatadine HCl/Mometasone [Ryaltris 665-25 Mcg [place]] 2 sprays IN DAILY 06/20/24 Omeprazole [Prilosec] 40 mg PO BID 06/20/24 Pregabalin 75 mg PO DAILY 06/20/24 Simvastatin 40 mg PO DAILY 06/20/24 Levalbuterol [Xopenex*] 0.63 mg NEB [id number] PRN 30 Days #120 vial 06/21/24 Lisinopril [Zestril] 10 mg PO LUNCH 10/23/24 - Past Medical/Surgical History Diabetic: No -: htn -: hyperlipidemia -: hypothyroid -: neuropathy -: AFIB -: back surg -: lap appy -: R knee repair -: TURP -: skin CA removed from anterior head -: CA SURGERY RT EAR - Family History Brother Medical History: Heart disease, Hypertension, Cancer - Social History Smoking Status: Unknown if ever smoked Alcohol use: No CD- Drugs: No Caffeine use: No Place of Residence: Home Review of Systems 10-point ROS is otherwise unremarkable Physical Examination Temp Pulse Resp BP Pulse Ox 97.7 F 96 H 16 162/104 H 98 10/23/24 12:00 10/23/24 12:00 10/23/24 12:00 10/23/24 12:00 10/23/24 12:00 General: Alert, In no apparent distress HEENT: Atraumatic, PERRLA, Mucous membr. moist/pink, EOMI, Sclerae nonicteric Neck: Supple, 2+ carotid pulse no bruit, No LAD, Without JVD or thyroid abnormality Respiratory: Clear to auscultation bilaterally, Normal air movement Cardiovascular: Regular rate/rhythm, Normal S1 S2 Gastrointestinal: Normal bowel sounds, No tenderness Musculoskeletal: No tenderness Integumentary: No rashes Neurological: Normal gait, Normal speech, Normal tone, Normal affect Lymphatics: No axilla or inguinal lymphadenopathy Laboratory Data (last 24 hrs) 10/23/24 10/23/24 10/23/24 06:30 06:30 06:30 WBC 6.90 Hgb 13.2 L Hct 39.4 L Plt Count 202 PT 14.0 H INR 1.34 Sodium 143 Potassium 3.8 BUN 16 Creatinine 1.27 Glucose 104 Magnesium 2.2 Total Bilirubin 0.5 AST 15 ALT 18 Alkaline Phosphatase 69 Lipase 40 - Problems (1) Acute on chronic diastolic heart failure Current Visit: Yes Status: Acute Plan: Lasix 40 mg IV BID Start patient on Entresto 24 mg po BID Start Aldactone 25 mg daily continue Coreg 3.125 mg po BID Monitor input and output and electrolytes Get Echo (2) Chronic atrial fibrillation Current Visit: No Status: Acute Plan: continue coreg and eliquis
[2024-10-23] MEDS: carvediloL 3.125 MG TAB PO SCH (13:01)
[2024-10-23] MEDS: APIXABAN 2.5 MG TABLET PO SCH (13:01)
[2024-10-23] MEDS: IPRATROPIUM BROM 0.5MG/2.5ML NEB SCH (13:03)
[2024-10-23] MEDS: TAMSULOSIN 0.4 MG SR CAP PO SCH (20:40)
[2024-10-23] MEDS: ATORVASTATIN 20 MG TAB PO SCH (20:40)
[2024-10-23] MEDS: SACUBITRIL/VALSARTAN 24/26 MG TAB PO SCH (20:40)
[2024-10-23] MEDS: FUROSEMIDE 40 MG/4 ML VIAL IV SCH (20:40)
[2024-10-24] MEDS: LEVOTHYROXINE SOD 0.1 MG TAB PO SCH (05:51)
[2024-10-24] MEDS: PANTOPRAZOLE 40MG TABLET PO SCH (05:51)
[2024-10-24 06:13] LABS: Absolute Lymphocytes (CBC) 1.2 K/uL (0.7-4.9); Absolute Monocytes 0.7 K/uL (0.1-1.3); Absolute Neutrophil 6.7 K/uL (1.8-8.0); Basophils % 0.5 % (0-1.3); Eosinophils % 0.3 % (0-4.4); Hematocrit 41.9 % (39.6-49.0); Hemoglobin 14.3 g/dL (13.6-17.9); Lymphocytes % 13.8 % (15.3-44.8); MCH 30.4 pg (27.0-35.0); MCHC 34.2 g/dL (32.0-36.0); MCV 89.1 fL (80-100); MPV 7.9 fL (7.6-11.3); Monocytes % 7.7 % (3.3-12.3); Neutrophils % 77.7 % (41.7-73.7); Platelets 214 thou/uL (152-406); Red Cell Distribution Width 13.8 % (12.1-15.2)
[2024-10-24 06:27] LABS: Anion Gap 10.3 mEq/L (5.0-15.0); Potassium 3.3 mEq/L (3.5-5.1); Troponin High Sensitivity 14.9 pg/mL (<58.9)
[2024-10-24] MEDS: ONDANSETRON 4 MG/2 ML VIAL IV PRN (07:07)
[2024-10-24] MEDS: MOMETASONE OPTH SCH (09:00)
[2024-10-24] MEDS: LATANOPROSTENE BUNOD OPTH SCH (09:00)
[2024-10-24] MEDS: OLOPATADINE OPTH SCH (09:00)
[2024-10-24] MEDS: SPIRONOLACTONE 25 MG TABLET PO SCH (09:08)
[2024-10-24] MEDS: FINASTERIDE 5 MG TAB PO SCH (09:08)
[2024-10-24] MEDS: POTASSIUM CL SA 10 MEQ TAB PO ONE (09:09)
[2024-10-24] MEDS: PREGABALIN 75 MG CAP PO SCH (09:09)
[2024-10-24 09:26] VITALS: O2SAT 93
[2024-10-24 12:03] VITALS: BP 112/84; TEMP 97.7
--- NOTE | 2024-10-24 13:32 | RAD REPORT ---
EXAM: XR of the abdomen HISTORY: Abdominal pain Constipation, gas COMPARISON: None FINDINGS: XR of the abdomen shows a nonspecific, nonobstructive bowel gas pattern. No suspicious malathi cifications are seen. Mild osteoarthritic changes both hips. IMPRESSION: Unremarkable exam
[2024-10-24 14:33] LABS: Specific Gravity 1.009 (1.005-1.030); Urine Bilirubin NEGATIVE (Negative); Urine Blood Negative (Negative); Urine Clarity Clear (Clear); Urine Color Colorless (Yellow); Urine Glucose NEGATIVE (Negative); Urine Ketones NEGATIVE (Negative); Urine Microscopic Reflex YN NO UMIC; Urine Nitrite NEGATIVE (Negative); Urine Protein NEGATIVE (Negative); Urine Urobilinogen Normal (Normal); Urine pH 5.5 (5.0-7.0)
--- NOTE | 2024-10-24 14:35 | P.DS ---
Admission Date: 10/23/24 Discharge Date: 10/24/24 Disposition: ROUTINE DISCHARGE Discharge Condition: GOOD Reason for Admission: SOB Brief History of Present Illness: Diagnosis Atypical chest pain r/o Acute on chronic diastolic CHF exacerbation COPD Hyperlipidemia\hypothyroidism\BPH\peripheral neuropathy\Glaucoma Hypertension Atrial fibrillation HPI 10/23/24 Patient is an 89-year-old male with a past medical history significant for A- fib, COPD, hypothyroidism, hypertension, hyperlipidemia, BPH, neuropathy, skin cancer who presents with complaint of shortness of breath and chest discomfort. Patient denies chest pain but reported that he experienced chest discomfort with radiation to the right shoulder. Patient reports associated signs and symptoms of headache, dizziness and bilateral lower extremity edema. Patient also reported that his last bowel movement was 2 days ago. Patient denies any other signs and symptoms. Symptoms are aggravated or relieved by nothing. Patient decided to present to the hospital due to worsening symptoms. Hospital Course: Patient was admitted and treated for the following diagnosis Atypical chest pain. --Serial troponins negative. --Echocardiogram pending to assess cardiac structures and functions --Cardiology consulted. Recommendations appreciated. --Telemetry to monitor for any significant arrhythmia Acute on chronic diastolic CHF exacerbation. --Continue diuresis with Lasix. --Daily weight and strict I/O. --Echocardiogram pending to assess LV\valvular functions and wall motion. --Further management per bowl attendant. COPD --Stable --Continue home medications Hyperlipidemia\hypothyroidism\BPH\peripheral neuropathy\Glaucoma --Continue home medications Hypertension --Poorly controlled. --Continue home medications --Labetalol as needed for SBP >160 mmHg. Atrial fibrillation --Continue Eliquis On 10/24/2024, Jonathan was seen on morning rounds and deemed hemodynamically stable. Dr. Bolaños has evaluated and cleared him for discharge to continue Entresto, Aldactone, and Lasix with a follow-up next week. Physical Exam General: Alert and oriented, Cooperative, NAD HEENT: Atraumatic, PERRLA, MMM, EOMI Neck: Supple, 2+ carotid pulse no bruit, No LAD, Without JVD or thyroid abnormality Respiratory: Normal air movement, nonlabored breathing, on RA Cardiovascular: Afib with HR control, Normal S1 S2, Edema Capillary refill: <2 Seconds Gastrointestinal: Normal bowel sounds, Soft and benign on palpation, No tenderness Musculoskeletal: No clubbing, No tenderness, Swelling Integumentary: No rashes, Tenderness/swelling Neurological: Normal speech, Normal strength at 5/5 x4 extr, Normal tone, Normal affect Lymphatics: No axilla or inguinal lymphadenopathy Vital Signs/Physical Exam: Temp Pulse Resp BP Pulse Ox 97.7 F 76 18 112/84 97 10/24/24 12:00 10/24/24 12:00 10/24/24 12:00 10/24/24 12:00 10/24/24 12:00 Laboratory Data at Discharge: WBC 8.60 thou/uL (4.3-10.9) 10/24/24 05:40 Hgb 14.3 g/dL (13.6-17.9) D 10/24/24 05:40 Hct 41.9 % (39.6-49.0) 10/24/24 05:40 Plt Count 214 thou/uL (152-406) 10/24/24 05:40 PT 14.0 SECONDS (9.4-12.5) H 10/23/24 06:30 INR 1.34 10/23/24 06:30 Sodium 140 mEq/L (136-145) 10/24/24 05:40 Potassium 3.3 mEq/L (3.5-5.1) L D 10/24/24 05:40 BUN 20 mg/dL (7-18) H 10/24/24 05:40 Creatinine 1.39 mg/dL (0.70-1.30) H 10/24/24 05:40 Glucose 135 mg/dL (74-106) H 10/24/24 05:40 Phosphorus 3.5 mg/dL (2.5-4.9) 10/23/24 11:15 Magnesium 2.2 mg/dL (1.6-2.4) 10/23/24 11:15 Total Bilirubin 0.5 mg/dL (0.2-1.0) 10/23/24 06:30 AST 15 U/L (15-37) 10/23/24 06:30 ALT 18 U/L (16-61) 10/23/24 06:30 Alkaline Phosphatase 69 U/L (45-117) 10/23/24 06:30 Triglycerides 83 mg/dL (<150) 10/24/24 05:40 Cholesterol 136 mg/dL (<200) 10/24/24 05:40 HDL Cholesterol 40 mg/dL (40-60) 10/24/24 05:40 Cholesterol/HDL Ratio 3.40 10/24/24 05:40 Lipase 40 U/L (13-75) 10/23/24 06:30 Home Medications: Albuterol Inhaler [Ventolin Inhaler*] 1 puff IN Q6HR 03/12/23 Tamsulosin HCl 1 tab PO BEDTIME 03/12/23 Apixaban [Eliquis *] 2.5 mg PO BID* 06/20/24 Carvedilol [Coreg] 3.125 mg PO BID* 06/20/24 Finasteride 5 mg PO DAILY 06/20/24 Latanoprostene Bunod [Vyzulta] 5 ml OP DAILY 06/20/24 Levothyroxine Sodium 100 mcg DAILY 06/20/24 Olopatadine HCl/Mometasone [Ryaltris 665-25 Mcg [place]] 2 sprays IN DAILY 06/20 Omeprazole [Prilosec] 40 mg PO BID 06/20/24 Pregabalin 75 mg PO DAILY 06/20/24 Simvastatin 40 mg PO DAILY 06/20/24 Levalbuterol [Xopenex*] 0.63 mg NEB [id number] PRN 30 Days #120 vial 06/21/24 Doxycycline Hyclate 100 mg PO BID 10/23/24 Furosemide [Lasix] 40 mg PO DAILY 5 Days #5 tab 10/24/24 Sacubitril/Valsartan [Entresto 24 mg-26 mg Tablet] 1 tab PO BID 30 Days #60 tab 10/24/24 Spironolactone [Aldactone*] 25 mg PO DAILY 30 Days #30 tab 10/24/24 New Medications: Spironolactone [Aldactone*] 25 mg PO DAILY 30 Days #30 tab Sacubitril/Valsartan [Entresto 24 mg-26 mg Tablet] 1 tab PO BID 30 Days #60 tab Furosemide [Lasix] 40 mg PO DAILY 5 Days #5 tab Physician Discharge Instructions: 1. Please call and schedule a follow-up appointment with your PCP in 3-5 days - Please follow-up with your PCP for medication refills/adjustments 2. Please call and schedule a follow-up appointment with Dr. Sanches in one week -Entresto, Aldactone, Lasix will be refilled and managed by Dr. Sanches 3. Continue regular diet 4. activity restrictions fall precaution 5. Return to the ED if symptoms worsen New medications Entresto 24 mg twice daily Aldactone 25 mg daily Lasix 40 mg daily Stop lisinopril Diet: AHA Activity: Fall precautions Followup: Vincent Sanches MD [ACTIVE - CAN ADMIT] - KORI ALMENDAREZ [Primary Care Provider] -
[2024-10-24] MEDS: ACETAMINOPHEN 325 MG TABLET PO PRN (15:02)
--- NOTE | 2024-10-25 07:09 | ECHO ---
HEIGHT: 5 ft 11 in WEIGHT: 201 lb 8 oz DATE OF STUDY: 10/24/[address]: Fatuma Kulkarni 2-DIMENSIONAL: YES M.MODE: YES DOPPLER: YES COLOR FLOW: YES TDS: PORTABLE: YES DEFINITY: BUBBLE STUDY: DIAGNOSIS: CONGESTIVE HEART FAILURE CARDIAC HISTORY: CATHERIZATION: NO SURGERY: NO PROSTHETIC VALVE: NO PACEMAKER: NO MEASUREMENTS (cm) DIASTOLIC (NORMALS) SYSTOLIC (NORMALS) IVSd 1.2 (0.6-1.2) LA Diam 3.9 (1.9-4.0) LVEF 55% LVIDd 4.3 (3.5-5.7) LVIDs 3.2 (2.0-3.5) %FS 26% LVPWd 1.0 (0.6-1.2) Ao Diam 3.5 (2.0-3.7) 2 DIMENSIONAL ASSESSMENT: RIGHT ATRIUM: NORMAL LEFT ATRIUM: ENLARGED RIGHT VENTRICLE: NORMAL LEFT VENTRICLE: NORMAL TRICUSPID VALVE: MILD TRICUSPID REGURGITATION MITRAL VALVE: 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 NORMAL LEFT VENTRICULAR EJECTION FRACTION 55% WITH ATRIAL FIBRILLATION 2. LEFT ATRIAL ENLARGEMENT 3. 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 MILD TO MODERATE TRICUSPID REGURGITATION 5. MODERATE AORTIC INSUFFICIENCY TECHNOLOGIST: YELENA COONEY
== END 2024-10-24 16:04 | disposition home or self-care (01) ==
LOC: ER 06:20 → ERHOLD 09:04 → 4TH 10:44
PROVIDERS: ADMIT Internal Medicine; ATTEND Internal Medicine
DX: R07.89 Other chest pain (principal); I50.33 Acute on chronic diastolic (congestive) heart failure; I48.11 Longstanding persistent atrial fibrillation; J44.9 Chronic obstructive pulmonary disease, unspecified; E03.9 Hypothyroidism, unspecified; I10 Essential (primary) hypertension; E78.5 Hyperlipidemia, unspecified; N40.1 Benign prostatic hyperplasia with lower urinary tract symptoms; G62.9 Polyneuropathy, unspecified; R51.9 Headache, unspecified; R42 Dizziness and giddiness; R60.9 Edema, unspecified; H40.9 Unspecified glaucoma; K44.9 Diaphragmatic hernia without obstruction or gangrene; Z79.01 Long term (current) use of anticoagulants; Z88.5 Allergy status to narcotic agent; Z88.8 Allergy status to other drugs, medicaments and biological substances; Z85.828 Personal history of other malignant neoplasm of skin
CPT/HCPCS: 93005; 93306; 85025 ×2; 80048 ×2; 36415 ×2; 83735 ×2; 84100; 85610; 80061; 80076; 84443 ×2; 81003; 83036; 84484 ×4; 84439; 83690; 83880 ×2; 86140; 74018; 71045; 93970; 94640; 94760 ×4; 96374; 99285; J7614; J1940 ×3; J7644 ×4; J2405; G0378

== ENCOUNTER 2024-11-02 08:12 | Inpatient (IN) | payer OTHER ==
[2024-11-02 08:43] LABS: Absolute Basophils 0.1 K/uL (0-0.5); Absolute Eosinophils 0.1 K/uL (0-0.5); Absolute Lymphocytes (CBC) 1.4 K/uL (0.7-4.9); Absolute Monocytes 0.6 K/uL (0.1-1.3); Absolute Neutrophil 5.3 K/uL (1.8-8.0); Basophils % 0.8 % (0-1.3); Eosinophils % 1.7 % (0-4.4); Hematocrit 40.3 % (39.6-49.0); Hemoglobin 13.5 g/dL (13.6-17.9); Lymphocytes % 18.1 % (15.3-44.8); MCH 30.2 pg (27.0-35.0); MCHC 33.4 g/dL (32.0-36.0); MCV 90.3 fL (80-100); MPV 7.7 fL (7.6-11.3); Monocytes % 8.6 % (3.3-12.3); Neutrophils % 70.8 % (41.7-73.7); Nucleated Red Blood Cells % 0.1 % (0-0); Platelets 215 thou/uL (152-406); RBC Red Blood Cell Count 4.46 M/uL (4.33-5.43); Red Cell Distribution Width 13.6 % (12.1-15.2)
--- NOTE | 2024-11-02 08:49 | RAD REPORT ---
Procedure: Chest Single View HISTORY: Cough COMPARISON: none FINDINGS: The lungs appear clear of acute infiltrate. No significant pleural effusion noted. The heart is normal size. IMPRESSION: No acute abnormality is displayed.
[2024-11-02 08:51] LABS: PT Prothrombin Time 12.4 SECONDS (10.0-13.0); Protime INR 1.09
[2024-11-02 09:11] LABS: Albumin 3.5 g/dL (3.4-5.0); Albumin/Globulin Ratio 1.1 (1.1-1.8); Anion Gap 8.9 mEq/L (5.0-15.0); Bilirubin Direct 0.2 mg/dL (0-0.2); Bilirubin Indirect, Calculated 0.3 mg/dL (0.2-0.8); Bilirubin Total 0.5 mg/dL (0.2-1.0); Globulin 3.2 g/dL (2.3-3.5); Magnesium 2.4 mg/dL (1.6-2.4); Potassium 3.9 mEq/L (3.5-5.1); Protein, Total 6.7 g/dL (6.4-8.2); Thyroid Stimulating Hormone 1.21 uIU/mL (0.358-3.740); Troponin High Sensitivity 34.2 pg/mL (<58.9)
--- NOTE | 2024-11-02 09:21 | ER ---
Nurse's Notes [facility] Name: Jonathan Segundo Age: 89 yrs Sex: Male : 1935 Arrival Date: 11/02/2024 Time: 08:12 Bed 7 Private MD: Diagnosis: Dyspnea;Persistent atrial fibrillation;Solitary pulmonary nodule Presentation: 11/02 09:00 Chief complaint: Patient states: SOB that has been ongoing for approx 1 month, ph generalized weakness and abdominal swelling, denies chest pain. Coronavirus screen: Vaccine status: Patient reports receiving the 2nd dose of the covid vaccine. Ebola Screen: No symptoms or risks identified at this time. Initial Sepsis Screen: Does the patient meet any 2 criteria? No. Patient's initial sepsis screen is negative. Does the patient have a suspected source of infection? No. Patient's initial sepsis screen is negative. Risk Assessment: Do you want to hurt yourself or someone else? Patient reports no desire to harm self or others. Onset of symptoms was November 02, 2024. 09:00 Method Of Arrival: Wheelchair ph 09:00 Acuity: ERIN 2 ph Triage Assessment: 09:02 General: Appears in no apparent distress. comfortable, well groomed, Behavior is calm, ph cooperative, appropriate for age. Pain: Denies pain. Neuro: Level of Consciousness is awake, alert, obeys commands, Oriented to person, place, time, situation. Cardiovascular: Capillary refill < 3 seconds in bilateral fingers Patient's skin is warm and dry. Cardiovascular: Edema is 2+ to right midcalf, right ankle and right foot. Respiratory: Reports shortness of breath at rest on exertion Onset: The symptoms/episode began/occurred gradually, the patient has mild shortness of breath. GI: Abdomen is round Patient currently denies abdominal pain. Derm: Skin is pink, warm \T\ dry. Historical: - Allergies: 09:05 Morphine; ph 09:05 Warfarin; ph 09:05 Xarelto; ph - Home Meds: 09:05 amiodarone 200 mg Oral tab 1 tab once daily [Active]; Benefiber Healthy Shape 5 ph gram/7.4 gram Oral powd [Active]; carvedilol 3.125 mg Oral tab [Active]; Combivent 18-103 mcg/actuation Inhl aero 2 puffs 4 times per day [Active]; Iron CR Oral [Active]; levothyroxine 112 mcg cap 1 cap once daily [Active]; lisinopril 20 mg Oral tab 1 tab once daily [Active]; Miralax 17 gram/dose Oral powd once daily [Active]; simvastatin 40 mg Oral tab 1 tab once daily [Active]; Vitamin B-12 500 mcg Oral tab [Active]; - PMHx: 09:05 High Cholesterol; Hypertension; Hypothyroidism; neuropathy; skin cancer; ph - PSHx: 09:05 removed cancer from ear and neck; ph - Immunization history:: Adult Immunizations unknown. - Infectious Disease History:: Denies. - Family history:: not pertinent. - Social history:: Smoking status: Patient denies any tobacco usage or history of. Screenin:04 [facility] ED Fall Risk Assessment (Adult) History of falling in the last 3 months, ph including since admission No falls in past 3 months (0 pts) Confusion or Disorientation No (0 pts) Intoxicated or Sedated No (0 pts) Impaired Gait No (0 pts) Mobility Assist Device Used No (0 pt) Altered Elimination No (0 pt) Score/Fall Risk Level 0 - 2 = Low Risk Oriented to surroundings, Maintained a safe environment, Hourly rounding (assess needs \T\ fall precautionary measures) done. Abuse screen: Denies threats or abuse. Denies injuries from another. Nutritional screening: No deficits noted. Tuberculosis screening: No symptoms or risk factors identified. Assessment: 09:07 Cardiovascular: Rhythm is atrial fibrillation. Respiratory: Airway is patent ph Respiratory effort is even, unlabored. Vital Signs: 09:00 BP 164 / 84; Pulse 95; Resp 18; Temp 97.8; Pulse Ox 98% on R/A; Weight 84.37 kg; Height ph 5 ft. 11 in. ; 10:00 BP 159 / 95; Pulse 93; Resp 18; Pulse Ox 98% on R/A; ph 11:00 BP 148 / 89; Pulse 85; Resp 18; Temp 97.9; Pulse Ox 97% on R/A; ph 09:00 Body Mass Index 25.94 (84.37 kg, 180.34 cm) ph ED Course: 08:16 Patient arrived in ED. al6 08:16 Robert Eugene MD is Attending Physician. roque 08:20 De Leon, Allyssa, RN is Primary Nurse. ph 08:41 XRAY Chest (1 view) In Process Unspecified. EDMS 09:02 Triage completed. ph 09:02 Arm band placed on Patient placed in an exam room, on a stretcher, on cardiac monitor technician, ph on pulse oximetry. 09:04 Patient has correct armband on for positive identification. Bed in low position. Call ph light in reach. Client placed on continuous cardiac and pulse oximetry monitoring. NIBP monitoring applied. cardiac monitor technician on. Door closed. Noise minimized. Warm blanket given. Pillow given. 09:04 Initial lab(s) drawn, by me, sent to lab. EKG done, by ED staff, reviewed by Robert Eugene MD. Inserted saline lock: 22 gauge in right hand, using aseptic technique. Blood collected. Flushed with 10 mL NS. 09:08 TSH Sent. ph 09:08 Lipase Sent. ph 09:08 Basic Metabolic Panel Sent. ph 09:08 LFT's Sent. ph 09:08 NT PRO-BNP Sent. ph 09:08 Troponin HS Sent. ph 09:20 Shawn Ventura MD is Hospitalizing Provider. roque 09:40 CT Chest For PE Angio In Process Unspecified. EDMS 11:00 No provider procedures requiring assistance completed. Patient admitted, IV remains in ph place. Administered Medications: 08:47 CANCELLED (Duplicate Order): ns 0.9% 500 ml IV at 125 ml/hr once roque Medication: 09:05 VIS not applicable for this client. ph Outcome: 09:21 Decision to Hospitalize by Provider. roque 11:00 Admitted to ER Hold. Please see [facility] for further documentation. ph 11:00 Condition: stable 11:00 Instructed on the need for admit, 16:45 Patient left the ED. ph Signatures: Dispatcher [employer] EDMN Robert Eugene MD MD cha Hall, Patricia, RN RN Katelynn Goodwin Corrections: (The following items were deleted from the chart) 09:02 09:00 Chief complaint: Patient states: SOB that has been ongoing for approx 1 month, ph generalized weakness and abdominal swelling, shana chest pain ph
--- NOTE | 2024-11-02 09:21 | EDPHYS ---
Physician Documentation [facility] Name: Jonathan Segundo Age: 89 yrs Sex: Male : 1935 Arrival Date: 11/02/2024 Time: 08:12 Bed 7 Private MD: EUN Physician Robert Eugene HPI: 11/02 08:47 This 89 yrs old Male presents to ER via Unassigned with complaints of AFIB, roque High Blood Pressure, Breathing Difficulty. 08:47 The patient has elevated blood pressure and discovered this. Onset: The roque symptoms/episode began/occurred 7 day(s) ago. 08:54 The patient has shortness of breath with light activity. Duration: The symptoms are roque continuous, and are steadily getting worse. The patient's shortness of breath is aggravated by coughing, exertion, light activity, supine position, walking. Modifying factors: The symptoms are aggravated by activity, The symptoms are alleviated by remaining still. Associated signs and symptoms: Pertinent positives: non-productive cough. Severity of symptoms: At their worst the symptoms were moderate in the emergency department the symptoms have improved mildly. Associated signs and symptoms: Pertinent positives: lightheadedness, weakness. Severity of symptoms: At its worst the blood pressure was mild, in the emergency department the blood pressure is now normal. The blood pressure problem is resolved. The patient has experienced similar episodes in the past, multiple times. Historical: - Allergies: 09:05 Morphine; ph 09:05 Warfarin; ph 09:05 Xarelto; ph - Home Meds: 09:05 amiodarone 200 mg Oral tab 1 tab once daily [Active]; Benefiber Healthy Shape 5 ph gram/7.4 gram Oral powd [Active]; carvedilol 3.125 mg Oral tab [Active]; Combivent 18-103 mcg/actuation Inhl aero 2 puffs 4 times per day [Active]; Iron CR Oral [Active]; levothyroxine 112 mcg cap 1 cap once daily [Active]; lisinopril 20 mg Oral tab 1 tab once daily [Active]; Miralax 17 gram/dose Oral powd once daily [Active]; simvastatin 40 mg Oral tab 1 tab once daily [Active]; Vitamin B-12 500 mcg Oral tab [Active]; - PMHx: 09:05 High Cholesterol; Hypertension; Hypothyroidism; neuropathy; skin cancer; ph - PSHx: 09:05 removed cancer from ear and neck; ph - Immunization history:: Adult Immunizations unknown. - Infectious Disease History:: Denies. - Family history:: not pertinent. - Social history:: Smoking status: Patient denies any tobacco usage or history of. ROS: 08:47 Constitutional: Negative for fever, chills, and weight loss, Eyes: Negative for injury, roque pain, redness, and discharge, ENT: Negative for injury, pain, and discharge, Neck: Negative for injury, pain, and swelling, Cardiovascular: Negative for chest pain, palpitations, and edema, Abdomen/GI: Negative for abdominal pain, nausea, vomiting, diarrhea, and constipation, Back: Negative for injury and pain, : Negative for injury, bleeding, discharge, and swelling, MS/Extremity: Negative for injury and deformity, Skin: Negative for injury, rash, and discoloration, Neuro: Negative for headache, weakness, numbness, tingling, and seizure, Psych: Negative for depression, anxiety, suicide ideation, homicidal ideation, and hallucinations, Allergy/Immunology: Negative for hives, rash, and allergies, Endocrine: Negative for neck swelling, polydipsia, polyuria, polyphagia, and marked weight changes, Hematologic/Lymphatic: Negative for swollen nodes, abnormal bleeding, and unusual bruising, 08:47 Respiratory: Positive for cough, shortness of breath, Exam: 08:47 Constitutional: This is a well developed, well nourished patient who is awake, alert, roque and in no acute distress. Head/Face: Normocephalic, atraumatic. Eyes: Pupils equal round and reactive to light, extra-ocular motions intact. Lids and lashes normal. Conjunctiva and sclera are non-icteric and not injected. Cornea within normal limits. Periorbital areas with no swelling, redness, or edema. ENT: Nares patent. No nasal discharge, no septal abnormalities noted. Tympanic membranes are normal and external auditory canals are clear. Oropharynx with no redness, swelling, or masses, exudates, or evidence of obstruction, uvula midline. Mucous membranes moist. Neck: Trachea midline, no thyromegaly or masses palpated, and no cervical lymphadenopathy. Supple, full range of motion without nuchal rigidity, or vertebral point tenderness. No Meningismus. Chest/axilla: Normal chest wall appearance and motion. Nontender with no deformity. No lesions are appreciated. Cardiovascular: Regular rate and rhythm with a normal S1 and S2. No gallops, murmurs, or rubs. Normal PMI, no JVD. No pulse deficits. Respiratory: Lungs have equal breath sounds bilaterally, clear to auscultation and percussion. No rales, rhonchi or wheezes noted. No increased work of breathing, no retractions or nasal flaring. Abdomen/GI: Soft, non-tender, with normal bowel sounds. No distension or tympany. No guarding or rebound. No evidence of tenderness throughout. Back: No spinal tenderness. No costovertebral tenderness. Full range of motion. Male : Normal genitalia with no discharge or lesions. Skin: Warm, dry with normal turgor. Normal color with no rashes, no lesions, and no evidence of cellulitis. MS/ Extremity: Pulses equal, no cyanosis. Neurovascular intact. Full, normal range of motion., bilateral aka Neuro: Awake and alert, GCS 15, oriented to person, place, time, and situation. Cranial nerves II-XII grossly intact. Motor strength 5/5 in all extremities. Sensory grossly intact. Cerebellar exam normal. Normal gait. Psych: Awake, alert, with orientation to person, place and time. Behavior, mood, and affect are within normal limits. 08:47 ECG was reviewed by the Attending Physician. 08:47 Musculoskeletal/extremity: DVT Exam: No signs of deep vein thrombosis. no pain, no swelling, no tenderness, negative Homans' sign noted on exam, no appreciated bluish discoloration, no erythema, no increased warmth, Vital Signs: 09:00 BP 164 / 84; Pulse 95; Resp 18; Temp 97.8; Pulse Ox 98% on R/A; Weight 84.37 kg; Height ph 5 ft. 11 in. ; 10:00 BP 159 / 95; Pulse 93; Resp 18; Pulse Ox 98% on R/A; ph 11:00 BP 148 / 89; Pulse 85; Resp 18; Temp 97.9; Pulse Ox 97% on R/A; ph 09:00 Body Mass Index 25.94 (84.37 kg, 180.34 cm) ph MDM: 08:17 Medical Screening Exam initiated roque 08:18 Medical Screening Exam initiated roque 08:49 Antibiotic administration: Not indicated. Differential diagnosis: Anxiety Reaction roque asthma, Bronchitis CHF exacerbation, Chronic Obstructive Pulmonary Disease hypertensive crisis, Malignant HTN. Data reviewed: vital signs, nurses notes, lab test result(s), EKG, radiologic studies, CT scan, plain films. Consideration of Admission/Observation Patient was admitted/placed on observation. Escalation of care including admission/observation considered. I considered the following discharge prescriptions or medication management in the emergency department Medications were administered in the Emergency Department. See MAR. Independent interpretation of the following test(s) in the Emergency Department EKG: See my EKG interpretation above. Test considered but Not performed: Ultrasound no 2 d echo. Care significantly affected by the following chronic conditions: Diabetes, Hypertension, a fib. 11/02 08:18 Order name: Basic Metabolic Panel; Complete Time: 09:17 roque 11/02 08:18 Order name: CBC with Diff; Complete Time: 08:56 roque 11/02 08:18 Order name: LFT's; Complete Time: 09:17 roque 11/02 08:18 Order name: Magnesium; Complete Time: 09:17 roque 11/02 08:18 Order name: NT PRO-BNP; Complete Time: 09:17 roque 11/02 08:18 Order name: PT-INR; Complete Time: 08:56 roque 11/02 08:18 Order name: Troponin HS; Complete Time: 09:17 roque 11/02 08:18 Order name: Lipase; Complete Time: 09:17 roque 11/02 08:18 Order name: TSH; Complete Time: 09:17 roque 11/02 10:49 Order name: Basic Metabolic Panel EDMS 11/02 10:49 Order name: Basic Metabolic Panel EDMS 11/02 10:49 Order name: Basic Metabolic Panel EDMS 11/02 10:49 Order name: Basic Metabolic Panel EDMS 11/02 10:49 Order name: Basic Metabolic Panel EDMS 11/02 10:49 Order name: Basic Metabolic Panel EDMS 11/02 10:49 Order name: CBC with Automated Diff EDMS 11/02 10:49 Order name: CBC with Automated Diff EDMS 11/02 10:49 Order name: CBC with Automated Diff EDMS 11/02 10:49 Order name: CBC with Automated Diff EDMS 11/02 10:49 Order name: CBC with Automated Diff EDMS 11/02 10:49 Order name: CBC with Automated Diff EDMS 11/02 08:18 Order name: XRAY Chest (1 view); Complete Time: 08:56 [facility] 11/02 09:17 Order name: CT Chest For PE Angio; Complete Time: 10:52 [facility] 11/02 08:18 Order name: Cardiac monitoring; Complete Time: 08:29 [facility] 11/02 08:18 Order name: EKG - Nurse/Tech; Complete Time: 08:29 [facility] 11/02 08:18 Order name: IV Saline Lock; Complete Time: 09:08 [facility] 11/02 08:18 Order name: Labs collected and sent; Complete Time: 09:08 [facility] 11/02 08:18 Order name: O2 Per Protocol; Complete Time: 09:07 [facility] 11/02 08:18 Order name: O2 Sat Monitoring; Complete Time: 09:07 [facility] EC:47 Rate is 97 beats/min. Rhythm is regular. QRS [place] is Normal. PA interval is normal. QRS roque interval is normal. QT interval is normal. No Q waves. T waves are Normal. No ST changes noted. Clinical impression: Atrial Fibrillation. Interpreted by me. Reviewed by me. Administered Medications: 08:47 CANCELLED (Duplicate Order): ns 0.9% 500 ml IV at 125 ml/hr once roque Disposition Summary: 11/02/24 09:21 Hospitalization Ordered Notes: Hospitalization Status: Observation roque Provider: Shawn Ventura cha Condition: Fair roque Problem: new roque Symptoms: have improved roque Bed/Room Type: Standard roque Location: Telemetry/MedSurg (observation)(11/02/24 14:54) eb Room Assignment: 407(11/02/24 14:54) eb Diagnosis - Dyspnea roque - Persistent atrial fibrillation roque - Solitary pulmonary nodule roque Forms: - Medication Reconciliation Form roque - SBAR form roque - Leadership Thank You Letter roque Signatures: Dispatcher [employer] EDRobert Clement MD MD cha Hall, Patricia RN RN Long Louis RN RN Yvrose Lee Corrections: (The following items were deleted from the chart) 08:18 08:18 Chest Single View+RAD.RAD.BRZ ordered. EDGA EDMS 08:47 08:18 NS 0.9% IV 500 ml IV at 125 ml/hr once ordered. roque roque 12:14 09:21 Telemetry/MedSurg (observation) roque jl7 12:14 09:21 roque jl7 14:54 12:14 [facility] jl7 eb 14:54 12:14 [facility] jl7 eb
--- NOTE | 2024-11-02 09:52 | RAD REPORT ---
EXAMINATION: CTA CHEST PE CLINICAL INDICATION: Shortness of breath TECHNIQUE: 100 cc 370 Isovue administered intravenously. This examination was performed according to an angiographic protocol with 3D post-processing. This involves 3D reconstructions, MIPs, volume rendered images and/or shaded surface rendering. One or more of the following dose reduction techniqu es were used: Automated exposure control, adjustment of the mA and/or kV according to patient size, and/or iterative reconstruction. Unless otherwise specified, incidental findings do not require dedic ated imaging follow-up. [id number]. COMPARISON: October 31, 2024. FINDINGS: A pulmonary embolus is not seen. Aortic root 4 cm No pleural effusion. No pericardial effusion. 9 mm left upper lobe nodule. Unchanged from 2018 likely benign. Mild chronic lung opacities. IMPRESSION: No evidence of a pulmonary embolism 4 cm aortic root aneurysm
[2024-11-02] MEDS ORDERED: ALBUTEROL 2.5 MG/3 ML NEB SOL NEB PRN (10:43)
[2024-11-02] MEDS ORDERED: ACETAMINOPHEN 500 MG TAB PO PRN (10:43)
--- NOTE | 2024-11-02 10:48 | P.HP ---
Certification for Inpatient With expected LOS: >2 Midnights Patient will require the following post-hospital care: None Practitioner: I am a practitioner with admitting privileges, knowledge of patient current condition, hospital course, and medical plan of care. Services: Services provided to patient in accordance with Admission requirements found in Title 42 Section 412.3 of the Code of Federal Regulations Patient History Date of Service: 11/02/24 Reason for admission: Atrial Fibrillation, CHF History of Present Illness: 89-year-old patient with history of atrial fibrillation and CHF, he was recently discharged from this hospital few days back after treating for heart failure, presented with worsening shortness of breath, he is having increasing shortness of breath for the last 1 month or so, complaining of on and off dizziness as well, after discharge from the hospital, shortness of breath is ongoing so he presented to the emergency room. He has chronic issues with the blurry vision from macular degeneration but no recent change. He had some diarrhea from some of the medication new medication that he was given last week which looks like Aldactone and Entresto, so he did not take them, diarrhea got better with that. He is complaining of mild lower extremity edema, that has been going on for some time. Other than this he denies any other acute complaints. No headache or blackouts. No cough or sputum production. No chest pain. No nausea or vomiting. No abdominal pain. No blood in the urine or stool. No fever. No joint pains. No recent change in the weight. Review of systems: All other 10 point review of systems are negative other than as mentioned above. Allergies and medications: Reviewed, as per med rec EMR. Past medical history, Past surgical history, Social history, Family history: As per H&P from last week. Physical examination: Vital signs: Reviewed, as per EMR. General appearance: Alert and comfortable HEENT: Extraocular movements intact, oral mucosa moist. CVS: Normal S1-S2 Lungs: Clear to auscultation bilaterally Abdomen: Soft, bowel sounds present, no tenderness Extremities: mild b/l lower extremity edema TOBACCO SCRAP SIFTER: Moves all 4 extremities, no obvious focal deficits Musculoskeletal: No obvious joint swelling or tenderness Allergies morphine Allergy (Verified 09/06/18 13:44) Unknown rivaroxaban [From Xarelto] Allergy (Verified 04/28/22 13:04) Hives/Rash warfarin [From Coumadin] Allergy (Verified 04/28/22 13:04) Rash Home Medications: Albuterol Inhaler [Ventolin Inhaler*] 1 puff IN Q6HR 03/12/23 Tamsulosin HCl 1 tab PO BEDTIME 03/12/23 Apixaban [Eliquis *] 2.5 mg PO BID* 06/20/24 Carvedilol [Coreg] 3.125 mg PO BID* 06/20/24 Finasteride 5 mg PO DAILY 06/20/24 Latanoprostene Bunod [Vyzulta] 5 ml OP DAILY 06/20/24 Levothyroxine Sodium 100 mcg DAILY 06/20/24 Olopatadine HCl/Mometasone [Ryaltris 665-25 Mcg [place]] 2 sprays IN DAILY 06/20/24 Omeprazole [Prilosec] 40 mg PO BID 06/20/24 Pregabalin 75 mg PO DAILY 06/20/24 Simvastatin 40 mg PO DAILY 06/20/24 Levalbuterol [Xopenex*] 0.63 mg NEB [id number] PRN 30 Days #120 vial 06/21/24 Doxycycline Hyclate 100 mg PO BID 10/23/24 Furosemide [Lasix] 40 mg PO DAILY 5 Days #5 tab 10/24/24 Sacubitril/Valsartan [Entresto 24 mg-26 mg Tablet] 1 tab PO BID 30 Days #60 tab 10/24/24 Spironolactone [Aldactone*] 25 mg PO DAILY 30 Days #30 tab 10/24/24 - Past Medical/Surgical History Diabetic: No -: htn -: hyperlipidemia -: hypothyroid -: neuropathy -: AFIB -: back surg -: lap appy -: R knee repair -: TURP -: skin CA removed from anterior head -: CA SURGERY RT EAR - Family History Brother -: Heart disease, Hypertension, Cancer - Social History Alcohol use: No CD- Drugs: No Caffeine use: Yes Physical Examination - Studies Laboratory Data (last 24 hrs) 11/02/24 11/02/24 11/02/24 08:30 08:30 08:30 WBC 7.50 Hgb 13.5 L Hct 40.3 Plt Count 215 PT 12.4 INR 1.09 Sodium 142 Potassium 3.9 BUN 19 H Creatinine 1.21 Glucose 95 Magnesium 2.4 Total Bilirubin 0.5 AST 16 ALT 19 Alkaline Phosphatase 67 Lipase 54 Assessment and Plan - Problems (Diagnosis) (1) Acute on chronic diastolic heart failure Current Visit: No Status: Acute - Plan Assessment and plan: 1. Atrial fibrillation, with rapid ventricular rate: Heart rate is around 90s- 100 when I saw him in the emergency room, I will increase Coreg dose, continue Eliquis, will request cardiology consult, he had an echo last week, which showed ejection fraction 55%, monitor heart rate closely and adjust medications. 2. Acute on chronic diastolic heart failure: His BNP is elevated, chest x-ray is not showing much fluid but he has lower extremity edema, I will start him on IV Lasix, monitor volume status closely. 3. Hypertension: Continue beta-luna. 4. Chronic anemia: Monitor closely. 5. CKD stage IIIa: Monitor closely 6. Hyperlipidemia: Continue statin 7. Hypothyroidism: Continue levothyroxine 8. Neuropathy: Continue home medications 9. History of skin cancer status post surgery 10. COPD: Continue inhalers. DVT Prophylaxis: Currently on Eliquis. CODE STATUS: he would like to be DNR I did discuss all the above mentioned plan with the patient, and multiple family members at bedside, they all understand and agrees with the plan. I discussed advanced directives with the patient, he would like to be DNR, his son Lan is the POA. - Advance Directives Does patient have a Living Will: Yes Does patient have a Durable POA for Healthcare: No - Code Status/Comfort Care Code Status Assessed: Yes Code Status: Do Not Attempt Resuscitat
[2024-11-02] MEDS: FUROSEMIDE 40 MG/4 ML VIAL IV SCH (11:00)
[2024-11-02] MEDS: carvediloL 12.5 MG TAB PO SCH (11:30)
[2024-11-02] MEDS: PANTOPRAZOLE 40MG TABLET PO SCH (12:00)
--- NOTE | 2024-11-02 13:25 | P.CNS ---
Date of Consult: 11/02/24 Chief Complaint: Atrial Fibrillation, CHF History of Present Illness: Patient with PMH of atrial fibrillation, heart failure preserved EF, presented with worsening SOB, WAGGONER, denies chest pain, no palpitations, no syncope. Allergies morphine Allergy (Verified 09/06/18 13:44) Unknown rivaroxaban [From Xarelto] Allergy (Verified 04/28/22 13:04) Hives/Rash warfarin [From Coumadin] Allergy (Verified 04/28/22 13:04) Rash Home medications list reviewed: Yes Home Medications: Albuterol Inhaler [Ventolin Inhaler*] 1 puff IN Q6HR 03/12/23 Tamsulosin HCl 1 tab PO BEDTIME 03/12/23 Apixaban [Eliquis *] 2.5 mg PO BID* 06/20/24 Carvedilol [Coreg] 3.125 mg PO BID* 06/20/24 Finasteride 5 mg PO DAILY 06/20/24 Latanoprostene Bunod [Vyzulta] 5 ml OP DAILY 06/20/24 Levothyroxine Sodium 100 mcg DAILY 06/20/24 Olopatadine HCl/Mometasone [Ryaltris 665-25 Mcg [place]] 2 sprays IN DAILY 06/20/24 Omeprazole [Prilosec] 40 mg PO BID 06/20/24 Pregabalin 75 mg PO DAILY 06/20/24 Simvastatin 40 mg PO DAILY 06/20/24 Levalbuterol [Xopenex*] 0.63 mg NEB [id number] PRN 30 Days #120 vial 06/21/24 Doxycycline Hyclate 100 mg PO BID 10/23/24 Furosemide [Lasix] 40 mg PO DAILY 5 Days #5 tab 10/24/24 Sacubitril/Valsartan [Entresto 24 mg-26 mg Tablet] 1 tab PO BID 30 Days #60 tab 10/24/24 Spironolactone [Aldactone*] 25 mg PO DAILY 30 Days #30 tab 10/24/24 - Past Medical/Surgical History Diabetic: No -: htn -: hyperlipidemia -: hypothyroid -: neuropathy -: AFIB -: back surg -: lap appy -: R knee repair -: TURP -: skin CA removed from anterior head -: CA SURGERY RT EAR - Family History Brother Medical History: Heart disease, Hypertension, Cancer - Social History Smoking Status: Unknown if ever smoked Alcohol use: No CD- Drugs: No Caffeine use: Yes Review of Systems 10-point ROS is otherwise unremarkable Physical Examination General: Alert, In no apparent distress HEENT: Atraumatic, PERRLA, Mucous membr. moist/pink, EOMI, Sclerae nonicteric Neck: Supple, 2+ carotid pulse no bruit, No LAD, Without JVD or thyroid abnormality Respiratory: Clear to auscultation bilaterally, Normal air movement Cardiovascular: Regular rate/rhythm, Normal S1 S2 Gastrointestinal: Normal bowel sounds, No tenderness Musculoskeletal: No tenderness Integumentary: No rashes Neurological: Normal gait, Normal speech, Normal tone, Normal affect Lymphatics: No axilla or inguinal lymphadenopathy Laboratory Data (last 24 hrs) 11/02/24 11/02/24 11/02/24 08:30 08:30 08:30 WBC 7.50 Hgb 13.5 L Hct 40.3 Plt Count 215 PT 12.4 INR 1.09 Sodium 142 Potassium 3.9 BUN 19 H Creatinine 1.21 Glucose 95 Magnesium 2.4 Total Bilirubin 0.5 AST 16 ALT 19 Alkaline Phosphatase 67 Lipase 54 - Problems (1) Atrial fibrillation Current Visit: Yes Status: Acute Plan: recommend starting patient on Sotalol 80 mg po BID lower Coreg to 6.25 mg po BID continue Eliquis if patient still in AF by tuesday, will discuss ANDRES DCCV with him. (2) Acute on chronic diastolic heart failure Current Visit: No Status: Acute Plan: continue lasix 40 mg IV BID Re start patient on Entresto 24 mg BID Re start patient on Aldactone 25 mg daily (Patient mention he had diarrhea with medications, will monitor if it happens again in the hospital) monitor input and output and electrolytes.
[2024-11-02] MEDS ORDERED: PANTOPRAZOLE 40MG TABLET PO ONE (14:48)
[2024-11-02] MEDS ORDERED: FUROSEMIDE 40 MG/4 ML VIAL ONE (14:48)
[2024-11-02 16:36] VITALS: BMI 25.9
[2024-11-02] MEDS ORDERED: carvediloL 12.5 MG TAB PO SCH (18:00)
[2024-11-02] MEDS: SOTALOL HCL 80 MG TAB PO SCH (18:04)
[2024-11-02] MEDS: SIMETHICONE 80 MG CHEWABLE TAB PO ONE (18:04)
[2024-11-02] MEDS: APIXABAN 2.5 MG TABLET PO SCH (20:24)
[2024-11-02] MEDS: SACUBITRIL/VALSARTAN 24/26 MG TAB PO SCH (20:24)
[2024-11-02] MEDS: TAMSULOSIN 0.4 MG SR CAP PO SCH (20:24)
[2024-11-03] MEDS: carvediloL 6.25 MG TAB PO SCH (05:32)
[2024-11-03] MEDS: LEVOTHYROXINE SOD 0.1 MG TAB PO SCH (05:32)
[2024-11-03 05:33] LABS: Absolute Eosinophils 0.1 K/uL (0-0.5); Absolute Lymphocytes (CBC) 1.4 K/uL (0.7-4.9); Absolute Monocytes 0.6 K/uL (0.1-1.3); Absolute Neutrophil 4.6 K/uL (1.8-8.0); Basophils % 0.4 % (0-1.3); Eosinophils % 1.3 % (0-4.4); Hematocrit 37.8 % (39.6-49.0); Hemoglobin 12.9 g/dL (13.6-17.9); Lymphocytes % 20.6 % (15.3-44.8); MCH 30.6 pg (27.0-35.0); MCHC 34.2 g/dL (32.0-36.0); MCV 89.5 fL (80-100); MPV 7.6 fL (7.6-11.3); Neutrophils % 68.7 % (41.7-73.7); Platelets 213 thou/uL (152-406); RBC Red Blood Cell Count 4.23 M/uL (4.33-5.43); Red Cell Distribution Width 13.8 % (12.1-15.2)
[2024-11-03 05:55] LABS: Anion Gap 6.7 mEq/L (5.0-15.0); Potassium 3.7 mEq/L (3.5-5.1)
[2024-11-03] MEDS: FINASTERIDE 5 MG TAB PO SCH (08:36)
[2024-11-03] MEDS: SPIRONOLACTONE 25 MG TABLET PO SCH (08:36)
--- NOTE | 2024-11-03 13:29 | P.PN ---
Subjective Date of Service: 11/03/24 Chief Complaint: Atrial Fibrillation, CHF Subjective: No chest pain. shortness of breath improving. No nausea or vomiting. No abdominal pain. No obvious bleeding. Looks comfortable in the bed. Objective: General appearance: Alert and comfortable CVS: Normal S1 and S2 Lungs: Clear to auscultation bilaterally Abdomen: Soft, bowel sounds present, no tenderness Extremities: Mild lower extremity edema Physical Examination - Vital Signs Temperature: 97.8 F Blood Pressure: 136/75 Pulse: 73 Respirations: 18 Pulse Ox (%): 97 Assessment And Plan - Current Problems (Diagnosis) (1) Acute on chronic diastolic heart failure Current Visit: No Status: Acute - Plan Assessment and plan: 1. Atrial fibrillation, with rapid ventricular rate: -Improving - COntinue Coreg and Eliquis -cardiology consult on board, started on sotalol, appreciate recs -he had an echo last week, which showed ejection fraction 55% -monitor heart rate closely and adjust medications. 2. Acute on chronic diastolic heart failure: His BNP is elevated, chest x-ray is not showing much fluid but he has lower extremity edema -continue IV Lasix, monitor volume status closely. 3. Hypertension: Continue beta-luna. 4. Chronic anemia: Monitor closely. 5. CKD stage IIIa: Monitor closely 6. Hyperlipidemia: Continue statin 7. Hypothyroidism: Continue levothyroxine 8. Neuropathy: Continue home medications 9. History of skin cancer status post surgery 10. COPD: Continue inhalers. 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 DVT Prophylaxis: Currently on Eliquis. CODE STATUS: he would like to be DNR I did discuss all the above mentioned plan with the patient, and family members at bedside, they all understand and agrees with the plan.
[2024-11-03] MEDS: BELLADONNA/PB 5 ML/ORAL SYRINGE PO ONE (13:30)
[2024-11-03] MEDS: SIMETHICONE 80 MG CHEWABLE TAB PO PRN (20:38)
[2024-11-04 06:04] LABS: Absolute Eosinophils 0.1 K/uL (0-0.5); Absolute Lymphocytes (CBC) 1.9 K/uL (0.7-4.9); Absolute Monocytes 0.8 K/uL (0.1-1.3); Absolute Neutrophil 4.4 K/uL (1.8-8.0); Basophils % 0.6 % (0-1.3); Eosinophils % 1.9 % (0-4.4); Hematocrit 41.2 % (39.6-49.0); MCH 30.3 pg (27.0-35.0); MCV 89.3 fL (80-100); MPV 7.7 fL (7.6-11.3); Monocytes % 10.4 % (3.3-12.3); Neutrophils % 61.1 % (41.7-73.7); Nucleated Red Blood Cells % 0.2 % (0-0); Platelets 220 thou/uL (152-406); RBC Red Blood Cell Count 4.61 M/uL (4.33-5.43); Red Cell Distribution Width 13.6 % (12.1-15.2)
[2024-11-04 06:21] LABS: Anion Gap 8.4 mEq/L (5.0-15.0); Potassium 3.4 mEq/L (3.5-5.1)
[2024-11-04] MEDS ORDERED: ALBUTEROL 2.5 MG/3 ML NEB SOL NEB PRN (08:13)
[2024-11-04] MEDS: POTASSIUM CL SA 10 MEQ TAB PO ONE ×2 (08:25→13:09)
--- NOTE | 2024-11-04 09:45 | P.PN ---
Subjective Date of Service: 11/04/24 Chief Complaint: Atrial Fibrillation, CHF Subjective: No new changes, No C/O voiced, Tolerating diet, Ambulating, Improving Review of Systems 10-point ROS is otherwise unremarkable Physical Examination - Vital Signs Temperature: 97.7 F Blood Pressure: 117/71 Pulse: 76 Respirations: 16 Pulse Ox (%): 95 - Physical Exam General: Alert, In no apparent distress HEENT: Atraumatic, PERRLA, EOMI Neck: Supple, JVD not distended Respiratory: Clear to auscultation bilaterally, Normal air movement Cardiovascular: Regular rate/rhythm, Normal S1 S2 Gastrointestinal: Normal bowel sounds, No tenderness Musculoskeletal: No tenderness Integumentary: No rashes Neurological: Normal speech, Normal tone, Normal affect Lymphatics: No axilla or inguinal lymphadenopathy - Studies Medications List Reviewed: Yes Assessment And Plan - Current Problems (Diagnosis) (1) Atrial fibrillation Current Visit: Yes Status: Acute Plan: Tele shows patient is rate controlled, continue to monitor. continue Sotalol 80 mg po BID (EKG after 3rd dose) Coreg to 6.25 mg po BID continue Eliquis (2) Acute on chronic diastolic heart failure Current Visit: No Status: Acute Plan: continue lasix 40 mg IV BID Metolazone 2.5 mg po x1 today Entresto 24 mg BID Aldactone 25 mg daily (Patient mention he had diarrhea with medications, will monitor if it happens again in the hospital) monitor input and output and electrolytes.
[2024-11-04] MEDS: METOLAZONE 2.5 MG TABLET PO ONE (10:11)
--- NOTE | 2024-11-04 12:56 | P.PN ---
Subjective Date of Service: 11/04/24 Chief Complaint: Atrial Fibrillation, CHF Subjective: No chest pain. shortness of breath improving but ongoing. No nausea or vomiting. No abdominal pain. No obvious bleeding. Looks comfortable in the bed. No diarrhea. Objective: General appearance: Alert and comfortable CVS: Normal S1 and S2 Lungs: Clear to auscultation bilaterally Abdomen: Soft, bowel sounds present, no tenderness Extremities: Mild lower extremity edema Physical Examination - Vital Signs Temperature: 97.5 F Blood Pressure: 101/61 Pulse: 74 Respirations: 16 Pulse Ox (%): 95 - Studies Laboratory Last Values Medications List Reviewed: Yes Assessment And Plan - Current Problems (Diagnosis) (1) Acute on chronic diastolic heart failure Current Visit: No Status: Acute - Plan Assessment and plan: 1. Atrial fibrillation, with rapid ventricular rate: -Improving - Continue Coreg and Eliquis -cardiology consult on board, started on sotalol, appreciate recs -he had an echo last week, which showed ejection fraction 55% -monitor heart rate closely and adjust medications. 2. Acute on chronic diastolic heart failure: BNP is elevated, chest x-ray is not showing much fluid but he has lower extremity edema -continue IV Lasix, monitor volume status closely. 3. Hypertension: Continue beta-luna. 4. Chronic anemia: Monitor closely. 5. CKD stage IIIa: Monitor closely 6. Hyperlipidemia: Continue statin 7. Hypothyroidism: Continue levothyroxine 8. Neuropathy: Continue home medications 9. History of skin cancer status post surgery 10. COPD: Continue inhalers. 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 DVT Prophylaxis: Currently on Eliquis. CODE STATUS: DNR I did discuss all the above mentioned plan with the patient, and family members at bedside, they all understand and agrees with the plan. DC when clinically better and cleared by cardiology
[2024-11-04] MEDS: MAGNES/ALUMIN/SIMET 30ML UCUP PO ONE (12:57)
[2024-11-05 06:21] LABS: Absolute Eosinophils 0.1 K/uL (0-0.5); Absolute Lymphocytes (CBC) 1.6 K/uL (0.7-4.9); Absolute Monocytes 0.7 K/uL (0.1-1.3); Absolute Neutrophil 5.4 K/uL (1.8-8.0); Basophils % 0.5 % (0-1.3); Hematocrit 41.5 % (39.6-49.0); Lymphocytes % 20.2 % (15.3-44.8); MCH 30.2 pg (27.0-35.0); MCHC 33.7 g/dL (32.0-36.0); MCV 89.5 fL (80-100); MPV 7.7 fL (7.6-11.3); Monocytes % 8.8 % (3.3-12.3); Neutrophils % 69.5 % (41.7-73.7); Nucleated Red Blood Cells % 0.2 % (0-0); Platelets 247 thou/uL (152-406); RBC Red Blood Cell Count 4.64 M/uL (4.33-5.43)
[2024-11-05 06:41] LABS: Anion Gap 8.4 mEq/L (5.0-15.0); Magnesium 2.4 mg/dL (1.6-2.4); Phosphorus 3.6 mg/dL (2.5-4.9); Potassium 3.4 mEq/L (3.5-5.1)
[2024-11-05] MEDS: PANTOPRAZOLE 40MG TABLET PO SCH ×2 (08:32→17:30)
[2024-11-05] MEDS: POTASSIUM CL SA 10 MEQ TAB PO ONE (08:32)
--- NOTE | 2024-11-05 11:02 | P.PN ---
Subjective Date of Service: 11/05/24 Chief Complaint: Atrial Fibrillation, CHF Subjective: No new changes, No C/O voiced, Tolerating diet, Ambulating, Improving Review of Systems 10-point ROS is otherwise unremarkable Physical Examination - Vital Signs Temperature: 97.6 F Blood Pressure: 102/67 Pulse: 72 Respirations: 16 Pulse Ox (%): 97 - Physical Exam General: Alert, In no apparent distress HEENT: Atraumatic, PERRLA, EOMI Neck: Supple, JVD not distended Respiratory: Clear to auscultation bilaterally, Normal air movement Cardiovascular: Regular rate/rhythm, Normal S1 S2 Gastrointestinal: Normal bowel sounds, No tenderness Musculoskeletal: No tenderness Integumentary: No rashes Neurological: Normal speech, Normal tone, Normal affect Lymphatics: No axilla or inguinal lymphadenopathy - Studies Medications List Reviewed: Yes Assessment And Plan - Current Problems (Diagnosis) (1) Atrial fibrillation Current Visit: Yes Status: Acute Plan: Tele shows patient is rate controlled, continue to monitor. cut Sotalol to 40 mg po BID (EKG after 3rd dose) cut coreg back to 3.12 mg po BID continue Eliquis (2) Acute on chronic diastolic heart failure Current Visit: No Status: Acute Plan: Lasix was D/C due to low BP cut Entresto to 24 mg 1/2 tablet BID cut Aldactone to 12.5 mg daily (Patient mention he had diarrhea with medications, will monitor if it happens again in the hospital) monitor input and output and electrolytes.
--- NOTE | 2024-11-05 12:08 | EKG ---
Test Date: 2024-11-03 Test Time: 16:07:05 Animal Cop: SWAT MEASUREMENT RESULTS: Intervals: Rate: 77 [place]: QRSD: 88 QT: 408 QTc: 461 [place]: P: LA: QRS: 10 T: -9 INTERPRETIVE STATEMENTS: Atrial fibrillation Possible Anterior infarct, age undetermined Abnormal ECG Compared to ECG 11/02/2024 08:28:06 Myocardial infarct finding now present Electronically Signed On 11-05-24 12:04:25 SOLDER CREAM MAKER by Vincent Sanches
--- NOTE | 2024-11-05 12:14 | EKG ---
Test Date: 2024-11-02 Test Time: 08:28:06 Glass Worker: ROCAEL MEASUREMENT RESULTS: Intervals: Rate: 97 [place]: QRSD: 80 QT: 356 QTc: 452 [place]: P: [place]: QRS: 0 T: 27 INTERPRETIVE STATEMENTS: Atrial fibrillation Abnormal ECG Compared to ECG 10/23/2024 06:19:33 Myocardial infarct finding no longer present Electronically Signed On 11-05-24 12:07:20 FILLER OPERATOR by Vincent Sanches
--- NOTE | 2024-11-05 16:06 | P.PN ---
Subjective Date of Service: 11/05/24 Chief Complaint: Atrial Fibrillation, CHF Subjective: No chest pain. shortness of breath improving but ongoing. No nausea or vomiting. c/o abdominal pain / burning and gas type of pain. No obvious bleeding. Looks comfortable in the bed. No diarrhea. Objective: General appearance: Alert and comfortable CVS: Normal S1 and S2 Lungs: Clear to auscultation bilaterally Abdomen: Soft, bowel sounds present, no tenderness Extremities: lower extremity edema resolved Physical Examination - Vital Signs Temperature: 97.3 F Blood Pressure: 103/56 Pulse: 84 Respirations: 18 Pulse Ox (%): 97 - Studies Medications List Reviewed: Yes Assessment And Plan - Current Problems (Diagnosis) (1) Acute on chronic diastolic heart failure Current Visit: No Status: Acute - Plan Assessment and plan: 1. Atrial fibrillation, with rapid ventricular rate: -Improving - Continue Coreg and Eliquis -cardiology consult on board, started on sotalol, appreciate recs -he had an echo last week, which showed ejection fraction 55% -monitor heart rate closely and adjust medications. 2. Acute on chronic diastolic heart failure: BNP is elevated, chest x-ray is not showing much fluid but he has lower extremity edema -hold IV Lasix, BP soft, monitor volume status closely. 3. Hypertension: Continue beta-luna, BP soft today, meds dose adjsuted 4. Chronic anemia: Monitor closely. 5. CKD stage IIIa: Monitor closely 6. Hyperlipidemia: Continue statin 7. Hypothyroidism: Continue levothyroxine 8. Neuropathy: Continue home medications 9. History of skin cancer status post surgery 10. COPD: Continue inhalers. 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 12. Abdominal pain: ?related to CHF, incraease PPI dut o burning, get CT abd DVT Prophylaxis: Currently on Eliquis. CODE STATUS: DNR I did discuss all the above mentioned plan with the patient, and family members at bedside, they all understand and agrees with the plan. DC when clinically better
[2024-11-05] MEDS: SOTALOL HCL 80 MG TAB PO SCH (17:30)
[2024-11-05] MEDS: carvediloL 3.125 MG TAB PO SCH (17:31)
--- NOTE | 2024-11-05 22:14 | RAD REPORT ---
EXAMINATION: CT ABDOMEN AND PELVIS WITH CONTRAST CLINICAL INDICATION: Male, 89 years old.anemia, weight loss, abdominal pain TECHNIQUE: CT abdomen and pelvis was performed, after the administration of IV contrast, as per [facility] protocol. Axial, sagittal and coronal reconstructions were obtained. One or more of the following dose reduction techniques were used: Automated exposure control, adjustment of the mA and/o r kV according to patient size, and/or iterative reconstruction. Unless otherwise specified, incidental findings do not require dedicated imaging follow-up. [id number]. COMPARISON: 03/25/24 FINDINGS: LOWER CHEST: Dependent atelectasis. Mild cardiomegaly. Mild coronary artery calcifications.Aortic suzie ve calcifications. UPPER GI: No significant abnormality. LIVER: Benign appearing low density liver lesions. No suspicious mass. GALLBLADDER/BILE DUCTS: No biliary ductal dilatation.? PANCREAS: Atrophy but no acute findings. SPLEEN: Unremarkable. ADRENALS: No adrenal masses. KIDNEYS AND URETERS: No hydronephrosis.Limited evaluation due to motionNo renal calculi. ABDOMINAL AORTA AND OTHER VESSELS: Moderate atherosclerotic changes without aortic aneurysm. PERITONEUM: No abnormal free fluid. No free air. LYMPH NODES: No pathologic lymphadenopathy. ABDOMINAL WALL: Small fat containing umbilical hernia. SMALL BOWEL/COLON: Small bowel has normal course and caliber. No colonic wall thickening or pericolon ic inflammatory changes.Nonvisualized appendix but no secondary signs of acute appendicitis. Mild formed stool burden. URINARY BLADDER: Underdistended but grossly unremarkable. REPRODUCTIVE ORGANS: Mild prostatomegaly. MUSCULOSKELETAL: Multilevel degenerative changes in the spine. No acute fracture. ADDITIONAL FINDINGS: None. IMPRESSION: No acute findings within the abdomen or pelvis. Incidental findings as noted above.
[2024-11-06 04:35] LABS: Absolute Eosinophils 0.1 K/uL (0-0.5); Absolute Monocytes 0.8 K/uL (0.1-1.3); Absolute Neutrophil 4.9 K/uL (1.8-8.0); Basophils % 0.6 % (0-1.3); Eosinophils % 1.4 % (0-4.4); Hematocrit 41.1 % (39.6-49.0); Hemoglobin 14.2 g/dL (13.6-17.9); Lymphocytes % 25.4 % (15.3-44.8); MCH 30.7 pg (27.0-35.0); MCHC 34.6 g/dL (32.0-36.0); MCV 88.8 fL (80-100); Monocytes % 9.7 % (3.3-12.3); Neutrophils % 62.9 % (41.7-73.7); Platelets 209 thou/uL (152-406); RBC Red Blood Cell Count 4.63 M/uL (4.33-5.43); Red Cell Distribution Width 14.1 % (12.1-15.2)
[2024-11-06 04:51] LABS: Albumin 3.3 g/dL (3.4-5.0); Albumin/Globulin Ratio 1.1 (1.1-1.8); Anion Gap 11.7 mEq/L (5.0-15.0); Bilirubin Direct 0.2 mg/dL (0-0.2); Bilirubin Indirect, Calculated 0.4 mg/dL (0.2-0.8); Bilirubin Total 0.6 mg/dL (0.2-1.0); Globulin 3.1 g/dL (2.3-3.5); Magnesium 2.6 mg/dL (1.6-2.4); Phosphorus 4.7 mg/dL (2.5-4.9); Potassium 3.7 mEq/L (3.5-5.1); Protein, Total 6.4 g/dL (6.4-8.2)
--- NOTE | 2024-11-06 11:14 | P.PN ---
Subjective Date of Service: 11/06/24 Chief Complaint: Atrial Fibrillation, CHF Subjective: No new changes, No C/O voiced, Tolerating diet, Ambulating, Improving Review of Systems 10-point ROS is otherwise unremarkable Physical Examination - Vital Signs Temperature: 97.9 F Blood Pressure: 107/54 Pulse: 82 Respirations: 15 Pulse Ox (%): 97 - Physical Exam General: Alert, In no apparent distress HEENT: Atraumatic, PERRLA, EOMI Neck: Supple, JVD not distended Respiratory: Clear to auscultation bilaterally, Normal air movement Cardiovascular: Regular rate/rhythm, Normal S1 S2 Gastrointestinal: Normal bowel sounds, No tenderness Musculoskeletal: No tenderness Integumentary: No rashes Neurological: Normal speech, Normal tone, Normal affect Lymphatics: No axilla or inguinal lymphadenopathy - Studies Medications List Reviewed: Yes Assessment And Plan - Current Problems (Diagnosis) (1) Atrial fibrillation Current Visit: Yes Status: Acute Plan: Tele shows patient is rate controlled, continue to monitor. continue Sotalol to 40 mg po BID (EKG after 3rd dose) coreg back to 3.12 mg po BID continue Eliquis (2) Acute on chronic diastolic heart failure Current Visit: No Status: Acute Plan: Lasix was D/C due to low BP cut Entresto to 24 mg 1/2 tablet BID cut Aldactone to 12.5 mg daily (Patient mention he had diarrhea with medications, will monitor if it happens again in the hospital) monitor input and output and electrolytes.
--- NOTE | 2024-11-06 14:34 | P.PN ---
Subjective Date of Service: 11/06/24 Chief Complaint: Atrial Fibrillation, CHF Subjective: No chest pain. shortness of breath much better today. No nausea or vomiting. abdominal pain / burning and gas type of pain resolved. No obvious bleeding. Looks comfortable in the bed. No diarrhea. Objective: General appearance: Alert and comfortable CVS: Normal S1 and S2 Lungs: Clear to auscultation bilaterally Abdomen: Soft, bowel sounds present, no tenderness Extremities: lower extremity edema resolved Physical Examination - Vital Signs Temperature: 97.7 F Blood Pressure: 127/62 Pulse: 85 Respirations: 15 Pulse Ox (%): 100 - Studies Medications List Reviewed: Yes Assessment And Plan - Current Problems (Diagnosis) (1) Acute on chronic diastolic heart failure Current Visit: No Status: Acute - Plan 89-year-old patient admitted with A-fib with RVR, acute on chronic diastolic heart failure, started on IV Lasix, symptoms improving, started on sotalol, heart rate improving, he was started on Entresto and Aldactone as well, his blood pressure is dropping, creatinine trending up, medications dose adjusted today, if labs and vital stable, he can be discharged tomorrow with Coreg 3.125 twice daily, Aldactone 12.5, low-dose Entresto and low-dose Lasix. Continue twice daily PPI. Assessment and plan: 1. Atrial fibrillation, with rapid ventricular rate: -Improved - Continue Coreg and Eliquis -cardiology consult on board, started on sotalol, appreciate recs -he had an echo last week, which showed ejection fraction 55% -monitor heart rate closely and adjust medications. -f/u ECG 2. Acute on chronic diastolic heart failure: BNP is elevated, he had lower extremity edema. Shortness of breath and edema better with Lasix. -hold IV Lasix, BP soft, monitor volume status closely. 3. Hypertension: BP soft today, meds dose adjsuted. coreg low dose, held aldactone and entresto, start half dose tomorrow 4. Chronic anemia: Monitor closely. 5. CKD stage IIIa: Monitor closely, creatinine littl eup today 6. Hyperlipidemia: Continue statin 7. Hypothyroidism: Continue levothyroxine 8. Neuropathy: Continue home medications 9. History of skin cancer status post surgery 10. COPD: Continue inhalers. 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 12. Abdominal pain: ?related to CHF, incraease PPI dut o burning, symptoms better today, CT abdomen negative. DVT Prophylaxis: Currently on Eliquis. CODE STATUS: DNR I did discuss all the above mentioned plan with the patient, and family members at bedside, they all understand and agrees with the plan. DC home tomorrow if labs and vital stable.
[2024-11-06] MEDS: carvediloL 3.125 MG TAB PO SCH (18:25)
[2024-11-07 04:52] LABS: Absolute Basophils 0.1 K/uL (0-0.5); Absolute Eosinophils 0.1 K/uL (0-0.5); Absolute Lymphocytes (CBC) 1.8 K/uL (0.7-4.9); Absolute Monocytes 0.9 K/uL (0.1-1.3); Basophils % 0.9 % (0-1.3); Eosinophils % 1.3 % (0-4.4); Hematocrit 40.9 % (39.6-49.0); Lymphocytes % 20.2 % (15.3-44.8); MCH 30.7 pg (27.0-35.0); MCHC 34.1 g/dL (32.0-36.0); MCV 89.8 fL (80-100); Monocytes % 10.1 % (3.3-12.3); Neutrophils % 67.5 % (41.7-73.7); Nucleated Red Blood Cells % 0.1 % (0-0); Platelets 221 thou/uL (152-406); RBC Red Blood Cell Count 4.55 M/uL (4.33-5.43); Red Cell Distribution Width 13.8 % (12.1-15.2)
[2024-11-07 05:11] LABS: Anion Gap 10.6 mEq/L (5.0-15.0); Magnesium 2.6 mg/dL (1.6-2.4); Potassium 3.6 mEq/L (3.5-5.1)
[2024-11-07] MEDS: SACUBITRIL/VALSARTAN 24/26 MG TAB PO SCH (09:21)
--- NOTE | 2024-11-07 10:25 | P.PN ---
Subjective Date of Service: 11/07/24 Chief Complaint: Atrial Fibrillation, CHF Subjective: No new changes, No C/O voiced, Tolerating diet, Ambulating, Improving Review of Systems 10-point ROS is otherwise unremarkable Physical Examination - Vital Signs Temperature: 98.1 F Blood Pressure: 113/63 Pulse: 80 Respirations: 20 Pulse Ox (%): 94 - Physical Exam General: Alert, In no apparent distress HEENT: Atraumatic, PERRLA, EOMI Neck: Supple, JVD not distended Respiratory: Clear to auscultation bilaterally, Normal air movement Cardiovascular: Regular rate/rhythm, Normal S1 S2 Gastrointestinal: Normal bowel sounds, No tenderness Musculoskeletal: No tenderness Integumentary: No rashes Neurological: Normal speech, Normal tone, Normal affect Lymphatics: No axilla or inguinal lymphadenopathy - Studies Medications List Reviewed: Yes Assessment And Plan - Current Problems (Diagnosis) (1) Atrial fibrillation Current Visit: Yes Status: Acute Plan: Tele shows patient is rate controlled, continue to monitor. continue Sotalol to 40 mg po BID (EKG after 3rd dose) coreg back to 3.12 mg po BID continue Eliquis (2) Acute on chronic diastolic heart failure Current Visit: No Status: Acute Plan: Lasix was D/C due to low BP Entresto to 24 mg 1/2 tablet BID Aldactone to 12.5 mg daily (Patient mention he had diarrhea with medications, will monitor if it happens again in the hospital) monitor input and output and electrolytes.
--- NOTE | 2024-11-07 11:05 | EKG ---
Test Date: 2024-11-06 Test Time: 15:20:26 Supervisor Vegetable Farming: MEASUREMENT RESULTS: Intervals: Rate: 71 [place]: QRSD: 84 QT: 416 QTc: 452 [place]: P: [place]: QRS: -13 T: -3 INTERPRETIVE STATEMENTS: Atrial fibrillation Abnormal ECG Compared to ECG 11/03/2024 16:07:05 Myocardial infarct finding no longer present Electronically Signed On 11-07-24 11:03:02 MANAGER FRONT OFFICE by Vincent Sanches
--- NOTE | 2024-11-07 15:03 | P.DS ---
Admission Date: 11/02/24 Discharge Date: 11/07/24 Disposition: ROUTINE DISCHARGE Discharge Condition: GOOD Reason for Admission: Atrial Fibrillation, CHF Brief History of Present Illness: 89-year-old patient with history of atrial fibrillation and CHF, he was recently discharged from this hospital few days back after treating for heart failure, presented with worsening shortness of breath, he is having increasing shortness of breath and dizziness. He was noted to have A-fib RVR, acute on chronic diastolic heart failure, elevated BNP, was evaluated by cardiology, chest x-ray not showing overload patient had lower extremity edema. Medications were adjusted by cardiology. Tolerating diet, stable to discharge home, follow-up with cardiology after discharge Physical examination: Vital signs: Reviewed, as per EMR. General appearance: Alert and comfortable HEENT: Extraocular movements intact, oral mucosa moist. 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 He was noted to have A-fib RVR, acute on chronic diastolic heart failure, elevated BNP, was evaluated by cardiology, chest x-ray not showing overload patient had lower extremity edema. Medications were adjusted by cardiology. Tolerating diet, stable to discharge home, follow-up with cardiology after discharge Discharge medications by cardiology Sotalol 40 mg p.o. twice daily Coreg 3.12 p.o. twice daily Continue Eliquis after discharge Entresto 24 mg (patient instructed to take half tab twice daily) Aldactone 12.5 daily Assessment A-fib RVR-patient had a ejection fraction of 55%, Acute on chronic diastolic heart failure, chest x-ray was not showing much overload, patient had lower extremity edema, was treated with Lasix while inpatient. Hypertension, continue beta-luna after discharge Chronic anemia, H&H is stable Hyperlipidemia, continue statin after discharge Hypothyroidism continue levothyroxine after discharge Neuropathy, continue home medications History of skin cancer COPD, not in exacerbation, Echocardiogram EF of 55%, had noted atrial fibrillation severe mitral annular calcification with moderate moderate mitral regurgitation Mild to moderate tricuspid regurgitation Moderate aortic insufficiency Continue home medicines as previously prescribed GOAL: Clear understanding of disease process INSTRUCTIONS: Physician Discharge Instructions: -Follow-up with PCP in 1 to 2 weeks -Please call if any questions regarding hospital stay -Please call nursing station at [phone] if any nursing or medication questions -Return to the emergency room if symptoms worsen Diet: ADA, low sodium Activity: Fall precautions Vital Signs/Physical Exam: Temp Pulse Resp BP Pulse Ox 97.5 F 83 20 125/65 98 11/07/24 12:00 11/07/24 12:00 11/07/24 12:00 11/07/24 12:00 11/07/24 12:00 Laboratory Data at Discharge: WBC 8.90 thou/uL (4.3-10.9) 11/07/24 04:37 Hgb 14.0 g/dL (13.6-17.9) 11/07/24 04:37 Hct 40.9 % (39.6-49.0) 11/07/24 04:37 Plt Count 221 thou/uL (152-406) 11/07/24 04:37 PT 12.4 SECONDS (10.0-13.0) 11/02/24 08:30 INR 1.09 11/02/24 08:30 Sodium 139 mEq/L (136-145) 11/07/24 04:37 Potassium 3.6 mEq/L (3.5-5.1) 11/07/24 04:37 BUN 45 mg/dL (7-18) H 11/07/24 04:37 Creatinine 1.59 mg/dL (0.70-1.30) H 11/07/24 04:37 Glucose 114 mg/dL (74-106) H 11/07/24 04:37 Phosphorus 4.0 mg/dL (2.5-4.9) 11/07/24 04:37 Magnesium 2.6 mg/dL (1.6-2.4) H 11/07/24 04:37 Total Bilirubin 0.6 mg/dL (0.2-1.0) 11/06/24 04:20 AST 15 U/L (15-37) 11/06/24 04:20 ALT 20 U/L (16-61) 11/06/24 04:20 Alkaline Phosphatase 60 U/L (45-117) 11/06/24 04:20 Lipase 54 U/L (13-75) 11/02/24 08:30 Home Medications: Tamsulosin HCl 1 tab PO DAILY 03/12/23 Apixaban [Eliquis *] 2.5 mg PO BID* 06/20/24 Carvedilol [Coreg] 6.25 mg PO BID* 06/20/24 Finasteride 5 mg PO DAILY 06/20/24 Latanoprostene Bunod [Vyzulta] 5 ml OP BEDTIME 06/20/24 Levothyroxine Sodium 100 mcg PO DAILY 06/20/24 Olopatadine HCl/Mometasone [Ryaltris 665-25 Mcg [place]] 2 sprays IN DAILY 06/20/24 Omeprazole [Prilosec] 40 mg PO DAILY 06/20/24 Simvastatin 40 mg PO DAILY 06/20/24 Levalbuterol [Xopenex*] 0.63 mg NEB [id number] PRN 30 Days #120 vial 06/21/24 Bifidobacterium Longum [Align] 2 cap PO DAILY 11/02/24 Mirabegron [Myrbetriq] 25 mg PO DAILY 11/02/24 Sacubitril/Valsartan [Entresto 24 mg-26 mg Tablet] 0.5 tab PO BID 30 Days #30 tab 11/07/24 Sotalol HCl [Sotalol] 40 mg PO BID 30 Days #60 tab 11/07/24 Spironolactone [Aldactone] 12.5 mg PO DAILY #30 tab 11/07/24 New Medications: Spironolactone [Aldactone] 12.5 mg PO DAILY #30 tab Sacubitril/Valsartan [Entresto 24 mg-26 mg Tablet] 0.5 tab PO BID 30 Days #30 tab Sotalol HCl [Sotalol] 40 mg PO BID 30 Days #60 tab Physician Discharge Instructions: 89-year-old patient with history of atrial fibrillation and CHF, he was recently discharged from this hospital few days back after treating for heart failure, presented with worsening shortness of breath, he is having increasing shortness of breath and dizziness. He was noted to have A-fib RVR, acute on chronic diastolic heart failure, elevated BNP, was evaluated by cardiology, chest x-ray not showing overload patient had lower extremity edema. Medications were adjusted by cardiology. Tolerating diet, stable to discharge home, follow-up with cardiology after discharge Discharge medications by cardiology Sotalol 40 mg p.o. twice daily Coreg 3.12 p.o. twice daily Continue Eliquis after discharge Entresto 24 mg (patient instructed to take half tab twice daily) HALF TAB TWICE DAILY Aldactone 12.5 daily Assessment A-fib RVR-patient had a ejection fraction of 55%, Acute on chronic diastolic heart failure, chest x-ray was not showing much overload, patient had lower extremity edema, was treated with Lasix while inpatient. Hypertension, continue beta-luna after discharge Chronic anemia, H&H is stable Hyperlipidemia, continue statin after discharge Hypothyroidism continue levothyroxine after discharge Neuropathy, continue home medications History of skin cancer COPD, not in exacerbation, Echocardiogram EF of 55%, had noted atrial fibrillation severe mitral annular calcification with moderate moderate mitral regurgitation Mild to moderate tricuspid regurgitation Moderate aortic insufficiency Continue home medicines as previously prescribed GOAL: Clear understanding of disease process INSTRUCTIONS: Physician Discharge Instructions: -Follow-up with PCP in 1 to 2 weeks -Please call if any questions regarding hospital stay -Please call nursing station at [phone] if any nursing or medication questions -Return to the emergency room if symptoms worsen Diet: ADA, low sodium Activity: Fall precautions Diet: AHA Activity: Fall precautions Followup: KORI ALMENDAREZ [Primary Care Provider] - Vincent Sanches MD [ACTIVE - CAN ADMIT] - Time spent managing pt's care (in minutes): 45
[2024-11-07 15:52] VITALS: O2SAT 99
[2024-11-07 16:08] VITALS: BP 109/60; TEMP 97.7
--- NOTE | 2024-11-13 11:27 | EKG ---
Test Date: 2024-11-07 Test Time: 17:42:24 Nurse'S Companion: ALIA MEASUREMENT RESULTS: Intervals: Rate: 73 [place]: QRSD: 90 QT: 414 QTc: 456 [place]: P: [place]: QRS: -4 T: 9 INTERPRETIVE STATEMENTS: Atrial fibrillation Abnormal ECG Compared to ECG 11/07/2024 17:38:58 No significant changes Electronically Signed On 11-13-24 11:09:21 CDT by Vincent Sanches
--- NOTE | 2024-11-13 11:27 | EKG ---
Test Date: 2024-11-07 Test Time: 17:38:58 Meter Setter: ALIA MEASUREMENT RESULTS: Intervals: Rate: 68 SD: QRSD: 90 QT: 406 QTc: 431 [place]: P: SD: QRS: -4 T: -3 INTERPRETIVE STATEMENTS: Atrial fibrillation Abnormal ECG Compared to ECG 11/06/2024 15:20:26 No significant changes Electronically Signed On 11-13-24 11:09:25 CDT by Vincent Sanches
== END 2024-11-07 18:48 | disposition home or self-care (01) | DRG 291 ==
LOC: ER 08:12 → ERHOLD 10:43 → 4TH 16:10
PROVIDERS: ADMIT Hospitalist; ATTEND Internal Medicine
DX: I13.0 Hypertensive heart and chronic kidney disease with heart failure and stage 1 through stage 4 chronic kidney disease, or unspecified chronic kidney disease (principal); I50.33 Acute on chronic diastolic (congestive) heart failure; I48.19 Other persistent atrial fibrillation; Q25.43 Congenital aneurysm of aorta; N18.31 Chronic kidney disease, stage 3a; D63.1 Anemia in chronic kidney disease; E03.9 Hypothyroidism, unspecified; G62.9 Polyneuropathy, unspecified; E78.00 Pure hypercholesterolemia, unspecified; J44.9 Chronic obstructive pulmonary disease, unspecified; I08.3 Combined rheumatic disorders of mitral, aortic and tricuspid valves; R91.1 Solitary pulmonary nodule; Z66 Do not resuscitate; Z88.5 Allergy status to narcotic agent; Z88.8 Allergy status to other drugs, medicaments and biological substances; Z79.01 Long term (current) use of anticoagulants; Z90.49 Acquired absence of other specified parts of digestive tract; Z79.02 Long term (current) use of antithrombotics/antiplatelets; Z79.890 Hormone replacement therapy; Z79.899 Other long term (current) drug therapy; Z85.828 Personal history of other malignant neoplasm of skin
CPT/HCPCS: 36415; 71045; 71275; 74177; 80048; 80076; 83690; 83735; 83880; 84100; 84443; 84484; 85025; 85610; 93005; 97110; 97116; 97161; 99285; J1940; Q9967

== ENCOUNTER 2024-11-14 13:02 | Emergency (ER) | payer OTHER ==
[2024-11-14 13:31] LABS: Absolute Basophils 0.1 K/uL (0-0.5); Absolute Eosinophils 0.1 K/uL (0-0.5); Absolute Lymphocytes (CBC) 1.4 K/uL (0.7-4.9); Absolute Monocytes 0.5 K/uL (0.1-1.3); Absolute Neutrophil 4.4 K/uL (1.8-8.0); Basophils % 0.8 % (0-1.3); Eosinophils % 1.4 % (0-4.4); Hematocrit 39.6 % (39.6-49.0); Hemoglobin 13.7 g/dL (13.6-17.9); Lymphocytes % 21.2 % (15.3-44.8); MCH 30.6 pg (27.0-35.0); MCHC 34.7 g/dL (32.0-36.0); MCV 88.1 fL (80-100); MPV 7.3 fL (7.6-11.3); Monocytes % 7.9 % (3.3-12.3); Neutrophils % 68.7 % (41.7-73.7); Nucleated Red Blood Cells % 0.1 % (0-0); Platelets 219 thou/uL (152-406); RBC Red Blood Cell Count 4.49 M/uL (4.33-5.43)
[2024-11-14 14:04] LABS: Albumin 3.7 g/dL (3.4-5.0); Albumin/Globulin Ratio 1.1 (1.1-1.8); Anion Gap 8.2 mEq/L (5.0-15.0); Bilirubin Direct 0.2 mg/dL (0-0.2); Bilirubin Indirect, Calculated 0.3 mg/dL (0.2-0.8); Bilirubin Total 0.5 mg/dL (0.2-1.0); Globulin 3.3 g/dL (2.3-3.5); Potassium 4.2 mEq/L (3.5-5.1); Troponin High Sensitivity 13.6 pg/mL (<58.9)
--- NOTE | 2024-11-14 14:56 | RAD REPORT ---
EXAMINATION: ONE VIEW CHEST XR CLINICAL INDICATION: Male, 89 years old.,DYSPNEA TECHNIQUE: Frontal chest projection is submitted. Examination is limited by patient positioning and t echnique. COMPARISON: 11/02/2024. FINDINGS: The lungs are well inflated and clear. No pneumothorax or sizable effusion. The heart is normal in s ize. Mediastinal contours are unremarkable. IMPRESSION: No acute intrathoracic abnormalities.
--- NOTE | 2024-11-14 16:06 | EDPHYS ---
Physician Documentation [facility] Name: Jonathan Segundo Age: 89 yrs Sex: Male : 1935 Arrival Date: 11/14/2024 Time: 13:02 Bed 26 Private MD: ED Physician Marcellus Bustamante HPI: 11/14 14:17 This 89 yrs old Male presents to ER via Wheelchair with complaints of Breathing rt Difficulty. 14:17 Patient presents to the ED with dyspnea starting this morning. Is somewhat improved. rt Has a dry cough. Had a recent admission for CHF. Denies other acute complaints at this time, symptoms are moderate in severity, no other aggravating or alleviating factors.. 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 - Infectious Disease History:: Denies. - Social history:: Smoking status: Patient denies any tobacco usage or history of. - Family history:: not pertinent. ROS: 14:17 Constitutional: Negative for fever, chills, and weight loss, Cardiovascular: Negative rt for chest pain, palpitations, and edema, Abdomen/GI: Negative for abdominal pain, nausea, vomiting, diarrhea, and constipation, MS/Extremity: Negative for injury and deformity, Skin: Negative for injury, rash, and discoloration, Neuro: Negative for headache, weakness, numbness, tingling, and seizure, 14:17 Respiratory: Positive for cough, shortness of breath, Exam: 14:22 Constitutional: This is a well developed, well nourished patient who is awake, alert, rt and in no acute distress. Head/Face: Normocephalic, atraumatic. Chest/axilla: Normal chest wall appearance and motion. Nontender with no deformity. No lesions are appreciated. Cardiovascular: Regular rate and rhythm with a normal S1 and S2. No gallops, murmurs, or rubs. Normal PMI, no JVD. No pulse deficits. Respiratory: Lungs have equal breath sounds bilaterally, clear to auscultation and percussion. No rales, rhonchi or wheezes noted. No increased work of breathing, no retractions or nasal flaring. Abdomen/GI: Soft, non-tender, with normal bowel sounds. No distension or tympany. No guarding or rebound. No evidence of tenderness throughout. 14:22 ECG was reviewed by the Attending Physician. 14:22 Musculoskeletal/extremity: 2+ lower extremity edema bilaterally. Vital Signs: 13:14 BP 157 / 89; Pulse 86; Resp 20; Pulse Ox 98% on R/A; Weight 92.99 kg; Height 5 ft. 11 ll1 in. ; Pain 0/10; 14:00 BP 153 / 84; Pulse 87; Resp 19; Pulse Ox 95% ; me1 15:00 BP 161 / 99; Pulse 83; Resp 15; Pulse Ox 98% ; me1 16:00 BP 164 / 98; Pulse 96; Resp 20; Temp 98.5; Pulse Ox 98% ; me1 13:14 Body Mass Index 28.59 (92.99 kg, 180.34 cm) ll1 13:14 Pain Scale: Adult ll1 MDM: 13:09 Medical Screening Exam initiated rt 17:30 Differential diagnosis: Dyspnea, pneumonia, CHF. Data reviewed: vital signs, nurses rt notes, lab test result(s), EKG, radiologic studies. Consideration of Admission/Observation Escalation of care including admission/observation considered. Patient has stable vital signs, essentially unremarkable workup. At the time of discharge, the patient states that he has been having stomach issues including nausea since July, is not significantly worsened. Has a benign abdominal examination, do not believe that CT scan of the abdomen is indicated, will start patient on Bentyl, Protonix. 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 Do not believe this requires further emergent workup.. Independent interpretation of the following test(s) in the Emergency Department X-Ray: My interpretation is No pulmonary edema seen on my interpretation of x-ray images. Test considered but Not performed: CT: Low suspicion for pulmonary embolus, CT angiogram not indicated. Care significantly affected by the following chronic conditions: Hypertension. Counseling: I had a detailed discussion with the patient and/or guardian regarding the historical points, exam findings, and any diagnostic results supporting the discharge/admit diagnosis, lab results, radiology results, the need for outpatient follow up, to return to the emergency department if symptoms worsen or persist or if there are any questions or concerns that arise at home. Response to treatment: the patient's symptoms have mildly improved after treatment. 11/14 13:16 Order name: Basic Metabolic Panel; Complete Time: 14:14 rt 11/14 13:16 Order name: CBC with Diff; Complete Time: 14:14 rt 11/14 13:16 Order name: LFT's; Complete Time: 14:14 rt 11/14 13:16 Order name: NT PRO-BNP; Complete Time: 14:14 rt 11/14 13:16 Order name: Troponin HS; Complete Time: 14:14 rt 11/14 13:16 Order name: XRAY Chest (1 view) rt 11/14 13:16 Order name: EKG; Complete Time: 13:16 rt 11/14 13:16 Order name: Cardiac monitoring; Complete Time: 13:39 rt 11/14 13:16 Order name: EKG - Nurse/Tech; Complete Time: 13:39 rt 11/14 13:16 Order name: IV Saline Lock; Complete Time: 13:39 rt 11/14 13:16 Order name: Labs collected and sent; Complete Time: 13:39 rt 11/14 13:16 Order name: O2 Per Protocol; Complete Time: 13:39 rt 11/14 13:16 Order name: O2 Sat Monitoring; Complete Time: 13:39 rt EC:22 Rate is 87 beats/min. Rhythm is irregularly irregular, A fib with No ectopy. QRS [place] rt is Normal. QRS interval is normal. QT interval is normal. No Q waves. No ST changes noted. Interpreted by me. Administered Medications: No medications were administered Disposition Summary: 11/14/24 16:05 Discharge Ordered Notes: Location: Home rt Problem: an ongoing problem rt Symptoms: have improved rt Condition: Stable rt Diagnosis - Shortness of breath rt - Nausea rt Followup: rt - With: Yvon Malcolm MD - When: 2 - 3 days - Reason: Discharge Instructions: - Discharge Summary Sheet rt - Nausea, Adult rt - Shortness of Breath, Adult rt Forms: - Medication Reconciliation Form rt - Antibiotic Education rt - Prescription Opioid Use rt - Patient Portal Instructions rt - Leadership Thank You Letter rt Prescriptions: - ondansetron 4 mg Oral Tablet,disintegrating - take 1 tablet ORAL route every 6 hours as needed; 15 tablet; Refills: 0, rt Product Selection Permitted - Protonix 40 mg Oral Tablet - take 1 tablet ORAL route once daily; 30 tablet; Refills: 0, Product Selection rt Permitted - dicyclomine 10 mg Oral capsule - take 1 capsule ORAL route 3 times per day as needed; 15 capsule; Refills: 0, rt Product Selection Permitted Signatures: Dispatcher [employer] Randa Banda RN RN ll1 Marcellus Bustamante MD MD rt Pao Fuller RN RN me1 Corrections: (The following items were deleted from the chart) 13:16 13:16 BASIC METABOLIC PANEL+C.LAB.BRZ ordered. EDMS EDMS 13:16 13:16 CBC+H.LAB.BRZ ordered. EDMS EDMS 13:16 13:16 HEPATIC FUNCTION+C.LAB.BRZ ordered. EDMS EDMS 13:16 13:16 PROBNP+C.LAB.BRZ ordered. EDMS EDMS 13:16 13:16 Troponin High Sensitivity+C.LAB.BRZ ordered. EDMS EDMS
--- NOTE | 2024-11-14 16:06 | ER ---
Nurse's Notes [facility] Name: Jonathan Segundo Age: 89 yrs Sex: Male : 1935 Arrival Date: 11/14/2024 Time: 13:02 Bed 26 Private MD: Diagnosis: Shortness of breath;Nausea Presentation: 11/14 13:14 Chief complaint: Patient states: SOB for a few days. No fever. Coronavirus screen: ll1 Client denies travel out of the [place] in the last 14 days. difficulty breathing, shortness of breath, Client presents with at least one sign or symptom that may indicate coronavirus-19. Standard/surgical mask placed on the client. Ebola Screen: Patient denies travel to an Ebola-affected area in the 21 days before illness onset. Initial Sepsis Screen: Does the patient meet any 2 criteria? No. Patient's initial sepsis screen is negative. Does the patient have a suspected source of infection? No. Patient's initial sepsis screen is negative. Risk Assessment: Do you want to hurt yourself or someone else? Patient reports no desire to harm self or others. Onset of symptoms was November 11, 2024. 13:14 Method Of Arrival: Wheelchair ll1 13:14 Acuity: ERIN 3 ll1 Triage Assessment: 13:13 General: Appears in no apparent distress. Behavior is calm, cooperative, appropriate ll1 for age. Pain: Denies pain. Respiratory: Reports shortness of breath Onset: The symptoms/episode began/occurred few days, the patient has moderate shortness of breath. 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 - Infectious Disease History:: Denies. - Social history:: Smoking status: Patient denies any tobacco usage or history of. - Family history:: not pertinent. Screenin:39 [facility] ED Fall Risk Assessment (Adult) History of falling in the last 3 months, me1 including since admission No falls in past 3 months (0 pts) Confusion or Disorientation No (0 pts) Intoxicated or Sedated No (0 pts) Impaired Gait Yes (1 pt) Mobility Assist Device Used Yes (1 pt) Altered Elimination Score/Fall Risk Level 0 - 2 = Low Risk Maintained a safe environment, Provided non-skid footwear, Hourly rounding (assess needs \T\ fall precautionary measures) done. Abuse screen: Denies threats or abuse. Nutritional screening: No deficits noted. Tuberculosis screening: No symptoms or risk factors identified. Assessment: 13:39 General: Appears well groomed, well developed, well nourished, Behavior is calm, me1 cooperative, appropriate for age, Reports SOB for a few days. No fever. Denies chest pain. Pain: Denies pain. Neuro: Level of Consciousness is awake, alert, obeys commands, Oriented to person, place, time, situation, Appropriate for age. Cardiovascular: Patient's skin is warm and dry. Cardiovascular: Reports shortness of breath, Rhythm is. Respiratory: Reports shortness of breath on exertion Airway is patent Respiratory effort is even, unlabored, Respiratory pattern is regular, symmetrical. Respiratory: Breath sounds are clear bilaterally. GI: No signs and/or symptoms were reported involving the gastrointestinal system. : No signs and/or symptoms were reported regarding the genitourinary system. EENT: No signs and/or symptoms were reported regarding the EENT system. Derm: Skin is intact, is healthy with good turgor, Skin is pink, warm \T\ dry. Musculoskeletal: No signs and/or symptoms reported regarding the musculoskeletal system. Vital Signs: 13:14 BP 157 / 89; Pulse 86; Resp 20; Pulse Ox 98% on R/A; Weight 92.99 kg; Height 5 ft. 11 ll1 in. ; Pain 0/10; 14:00 BP 153 / 84; Pulse 87; Resp 19; Pulse Ox 95% ; me1 15:00 BP 161 / 99; Pulse 83; Resp 15; Pulse Ox 98% ; me1 16:00 BP 164 / 98; Pulse 96; Resp 20; Temp 98.5; Pulse Ox 98% ; me1 13:14 Body Mass Index 28.59 (92.99 kg, 180.34 cm) ll1 13:14 Pain Scale: Adult ll1 ED Course: 13:06 Patient arrived in ED. cj3 13:09 Marceluls Bustamante MD is Attending Physician. rt 13:09 Arm band placed on Patient placed in an exam room, on a stretcher. ll1 13:15 Triage completed. 1 13:17 Pao Fuller, RN is Primary Nurse. me1 13:39 Patient has correct armband on for positive identification. Bed in low position. Call me1 light in reach. Side rails up X2. Provided Education on: POC. Verbalized understanding.. Client placed on continuous cardiac and pulse oximetry monitoring. NIBP monitoring applied. hedge trimmer on. Pulse ox on. NIBP on. 13:39 No provider procedures requiring assistance completed. Initial lab(s) drawn, by me, me1 sent to lab. EKG done, by ED staff, reviewed by Marcellus Bustamante MD. Inserted saline lock: 20 gauge in right antecubital area, using aseptic technique. 13:57 XRAY Chest (1 view) In Process Unspecified. EDMS 16:05 Yvon Malcolm MD is Referral Physician. rt 16:46 IV discontinued, intact, bleeding controlled, No redness/swelling at site. Pressure me1 dressing applied. Administered Medications: No medications were administered Medication: 13:39 VIS not applicable for this client. me1 Outcome: 16:05 Discharge ordered by MD. rt 16:46 Discharged to home via wheelchair, with family, me1 16:46 Condition: stable 16:46 Discharge instructions given to patient, family, Instructed on discharge instructions, follow up and referral plans. medication usage, Demonstrated understanding of instructions, follow-up care, medications, Prescriptions given X 3, 16:46 Patient left the ED. me1 Signatures: Dispatcher [employer] [facility] Randa Merino RN RN ll1 Marcellus Bustamante MD MD rt Pao Fuller RN RN me1 Mandy Gillis cj3 Corrections: (The following items were deleted from the chart) 13:17 13:14 Pulse 86bpm; Resp 20bpm; Pulse Ox 98% RA; 92.99 kg; Height 5 ft. 11 in.; BMI: ll1 28.5; Pain 0/10, Adult; ll1 13:39 13:14 Chief complaint: Patient states: SOB for a few days. No fever ll1 me1 16:41 16:00 BP 164 / 98; Pulse 96bpm; Resp 20bpm; Pulse Ox 98%; me1 me1
[2024-11-14 17:04] VITALS: O2SAT 98
[2024-11-14 17:05] VITALS: BP 164/98; TEMP 98.5
--- NOTE | 2024-11-16 14:46 | EKG ---
Test Date: 2024-11-14 Test Time: 13:31:28 [employer] All Around: MEASUREMENT RESULTS: Intervals: Rate: 94 MN: QRSD: 78 QT: 378 QTc: 472 [place]: P: MN: QRS: 15 T: 104 INTERPRETIVE STATEMENTS: Atrial fibrillation Abnormal QRS-T angle, consider primary T wave abnormality Abnormal ECG Compared to ECG 11/07/2024 17:42:24 T-wave abnormality now present Atrial fibrillation no longer present Electronically Signed On 11-16-24 14:42:27 CDT by Vincent Sanches
== END 2024-11-14 16:46 | disposition home or self-care (01) ==
LOC: ER 13:02
DX: R06.02 Shortness of breath (principal); R11.0 Nausea; R05.9 Cough, unspecified; I10 Essential (primary) hypertension
CPT/HCPCS: 36415; 71045; 80048; 80076; 83880; 84484; 85025; 93005; 99284